=== PATIENT | male | born 1975 | race Caucasian/White ===

== ENCOUNTER 2019-08-18 02:56 | Observation (INO) | payer MEDICAID, OTHER ==
[~2019-08-18] VITALS: Ht 177.8 cm; Wt 180.2 kg
[2019-08-18] VITALS (16 sets, daily range): BP systolic 81–133; BP diastolic 64–108
[2019-08-18] MEDS ORDERED: FUROSEMIDE 40 MG/4 ML INJ (LASIX) IVP STA (03:22)
[2019-08-18] MEDS ORDERED: DILTIAZEM 25 MG/5 ML INJ (CARDIZEM) VIAL IVP STA (03:22)
[2019-08-18] MEDS ORDERED: DILTIAZEM IV FOR DRIP 125 MG in NS (IVPB) 100 ML IV SCH (03:30)
--- NOTE | 2019-08-18 03:30 | ED Dyspnea ---
General Stated Complaint: SOB Source of Information: Patient History of Present Illness Date Seen by Provider: Aug 18, 2019 Time Seen by Provider: 03:01 Initial Comments 43-year-old male presenting with complaints of shortness of breath with cough and racing heart. He has been having increasing shortness of breath over the last 3 or 4 days. He felt like it was to the point he couldn't deal with it anymore tonight. He has increased difficulty when he tries to lay down or lay flat. He has not been running a fever or felt like he had any chills. He has had some increased swelling in his legs especially on the right side. He has a h istory of heart failure as well as atrial fibrillation. He denies any history of diabetes but says that he's on the cusp of being diabetic. He has been having a nonproductive cough. He does feel like his heart is racing at times as well. He is more winded with exertion. He follows with cardiology out of [facility] but does not know who the provider is. He thinks that he saw them a few months ago. He cannot remember what the medicines are that he takes. He follows with Sourav Gordon out of [place]. Allergies and Home Medications Allergies Coded Allergies: No Known Drug Allergies (Unverified , 08/18/19) Patient Home Medication List Home Medication List Reviewed: Yes Review of Systems Review of Systems Constitutional: No chills, No fever; malaise EENTM: No ear pain, No nose congestion Respiratory: cough, dyspnea on exertion; No hemoptysis; short of breath, wheezing Cardiovascular: No chest pain; edema, palpitations Gastrointestinal: no symptoms reported Genitourinary: no symptoms reported Musculoskeletal: no symptoms reported Skin: no symptoms reported Psychiatric/Neurological: Anxiety Past Fmjcxeg-Nkypyv-Vmoshs Hx Past Med/Social Hx: Reviewed Nursing Past Med/Soc Hx Patient Social History Recent Foreign Travel: No Contact w/Someone Who Travel: No Past Medical History Surgeries: Yes Orthopedic (right arm after caught in post splitter) Respiratory: Yes Sleep Apnea Cardiac: Yes Atrial Fibrillation, Cardiomyopathy, Coronary Artery Disease, High Cholesterol, Hypertension, Peripheral Vascular Neurological: No Genitourinary: No Gastrointestinal: No Musculoskeletal: No Endocrine: No HEENT: No Cancer: No Psychosocial: No Physical Exam Vital Signs Vital Signs - First Documented 08/18/19 03:13 Temp 37.1 Pulse 157 Resp 29 B/P (MAP) 161/127 (138) Pulse Ox 97 O2 Delivery Room Air Capillary Refill : Height, Weight, BMI Height: '" Weight: lbs. oz. kg; BMI Method: General Appearance: Moderate Distress (working hard to breath), Obese (morbidly obese) HEENT: PERRL/EOMI, Pharynx Normal Neck: Full Range of Motion, Non Tender, Supple Respiratory: Chest Non Tender, Accessory Muscle Use, Crackles, Decreased Breath Sounds, Respiratory Distress (increased work of breathing), Rhonci; No Stridor; Wheezing Cardiovascular: Normal Peripheral Pulses, Irregularly Irregular, Tachycardia Gastrointestinal: Normal Bowel Sounds, No Pulsatile Mass, Soft Extremity: Normal Capillary Refill, Pedal Edema (3+ pitting edema to BLE) Neurologic/Psychiatric: Alert, Oriented x3, 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 Norm as Tested, Other (anxious) Skin: Warm/Dry Progress/Results/Core Measures Results/Orders Lab Results Laboratory Tests Test 08/18/19 03:46 Range/Units White Blood Count 9.3 4.3-11.0 10^3/uL Red Blood Count 4.40 4.35-5.85 10^6/uL Hemoglobin 11.9 L 13.3-17.7 G/DL Hematocrit 39 L 40-54 % Mean Corpuscular Volume 90 80-99 FL Mean Corpuscular Hemoglobin 27 25-34 PG Mean Corpuscular Hemoglobin Concent 30 L 32-36 G/DL Red Cell Distribution Width 14.9 H 10.0-14.5 % Platelet Count 335 130-400 10^3/uL Mean Platelet Volume 10.0 7.4-10.4 FL Neutrophils (%) (Auto) 74 42-75 % Lymphocytes (%) (Auto) 15 12-44 % Monocytes (%) (Auto) 9 0-12 % Eosinophils (%) (Auto) 1 0-10 % Basophils (%) (Auto) 1 0-10 % Neutrophils # (Auto) 6.9 1.8-7.8 X 10^3 Lymphocytes # (Auto) 1.4 1.0-4.0 X 10^3 Monocytes # (Auto) 0.8 0.0-1.0 X 10^3 Eosinophils # (Auto) 0.1 0.0-0.3 10^3/uL Basophils # (Auto) 0.1 0.0-0.1 10^3/uL Prothrombin Time 14.6 12.2-14.7 SEC INR Comment 1.1 0.8-1.4 Activated Partial Thromboplast Time 31 24-35 SEC Sodium Level 133 L 135-145 MMOL/L Potassium Level 4.8 3.6-5.0 MMOL/L Chloride Level 96 L 98-107 MMOL/L Carbon Dioxide Level 24 21-32 MMOL/L Anion Gap 13 5-14 MMOL/L Blood Urea Nitrogen 10 7-18 MG/DL Creatinine 1.02 0.60-1.30 MG/DL Estimat Glomerular Filtration Rate > 60 BUN/Creatinine Ratio 10 Glucose Level 139 H 70-105 MG/DL Calcium Level 8.8 8.5-10.1 MG/DL Corrected Calcium 9.4 8.5-10.1 MG/DL Magnesium Level 1.5 L 1.6-2.4 MG/DL Total Bilirubin 0.6 0.1-1.0 MG/DL Aspartate Amino Transf (AST/SGOT) 34 5-34 U/L Alanine Aminotransferase (ALT/SGPT) 16 0-55 U/L Alkaline Phosphatase 91 40-136 U/L Troponin I < 0.30 <0.30 NG/ML Pro-B-Type Natriuretic Peptide 4254.0 H <75.0 PG/ML Total Protein 7.4 6.4-8.2 GM/DL Albumin 3.2 3.2-4.5 GM/DL My Orders Orders - IZZY OLIVO MD Cbc With Automated Diff (08/18/19 03:21) Comprehensive Metabolic Panel (08/18/19 03:21) Chest 1 View Ap/Pa Only (08/18/19 03:21) Magnesium (08/18/19 03:21) Ekg Tracing (08/18/19 03:21) O2 (08/18/19 03:21) Ed Iv/Invasive Line Start (08/18/19 03:21) Monitor-Rhythm Ecg Trace Only (08/18/19 03:21) Troponin I Fs (08/18/19 03:21) Probnp Fs (08/18/19 03:21) Protime With Inr (08/18/19 03:21) Partial Thromboplastin Time (08/18/19 03:21) Furosemide Injection (Lasix Injection) (08/18/19 03:22) Diltiazem Injection (Cardizem Injection) (08/18/19 03:22) Ns (Ivpb) (Sodium C... W/Diltiazem Iv Fo (08/18/19 03:30) Vital Signs/I&O 08/18/19 08/18/19 03:13 03:55 Temp 37.1 Pulse 157 122 Resp 29 21 B/P (MAP) 161/127 (138) 146/111 Pulse Ox 97 95 O2 Delivery Room Air Progress Progress Note #1: Progress Note obtain basic labs and CXR with ECG. give diltiazem 10 mg bolus with a drip and 80 mg of Lasix IV to help with fluid overload. Anticipate transfer to hospital, either [facility] or [facility], provided weather permits transport once labs and testing results are back and see how he has responded to treatment here in the ED Progress Note #2: Progress Note Pt having some improvement in his labor of breathing after he got Lasix as he has been diuresing here in the ED. Has labs did not show any acute significant abnormality on CBC. His chemistry showed an elevated BNP value. His chest x-ray showed increased pulmonary vascular congestion with enlarged heart size for cardiomegaly. Discussed with the patient about admission to [facility] and he stated that he was willing to go there. It would be closer for him as well as his family and he was willing to go to see the staff there. D/w Dr. Herrera for [facility] and Dr. Law for Cardiology Initial ECG Impression Date: Aug 18, 2019 Initial ECG Impression Time: 03:13 Initial ECG Rate: 171 Initial ECG Rhythm: A Fib/Flutter Initial ECG Comparisson: No Previous ECG Available Comment Atrial fibrillation with a heart rate 171 beats for minute. Left anterior fascicular block. QT interval 291 ms QTc interval 491 ms. There is no acute ST elevation. No prior tracing available for comparison. Diagnostic Imaging Diagonstic Imaging: Xray Plain Films/CT/US/NM/MRI: chest Comments On my review of his 1 view chest x-ray he has cardiomegaly with increased pulmonary vascular congestion Departure Communication (Admissions) Time/Spoke to Admitting Phy: 04:33 D/w Dr. Herrera for [facility] about admit for CHF exacerbation and Atrial fibrillation with RVR. Pt on diltiazem drip so will place in the ICU and consult Dr. Law with cardiology. Time/Spoke to Consulting Phy: 04:[address] Law from cardiology and will admit the patient to [facility] with Dr. Herrera. Give Lovenox 100 mg subcutaneous 1 for now. If he is able to get better IV access they may change this to a heparin drip once he is at [facility]. Impression Primary Impression: Atrial fibrillation with rapid ventricular response Additional Impressions: Shortness of breath CHF exacerbation Qualified Codes: I50.23 - Acute on chronic systolic (congestive) heart failure Disposition: ADMITTED INPATIENT Condition: Stable Admissions Decision to Admit Reason: Admit from ER (General) Decision to Admit/Date: Aug 18, 2019 Time/Decision to Admit Time: 04:33 Departure-Patient Inst. Referrals: SOURAV GORDON (PCP/Family) Primary Care Physician IZZY OLIVO MD Aug 18, 2019 03:30
[2019-08-18 03:51] LABS: BASOPHILS % (AUTO) 1 % (0-10); EOSINOPHILS % (AUTO) 1 % (0-10); HEMATOCRIT 39 % (40-54); HEMOGLOBIN 11.9 G/DL (13.3-17.7); LYMPHOCYTES # (AUTO) 1.4 X 10^3 (1.0-4.0); LYMPHOCYTES % (AUTO) 15 % (12-44); MEAN CORPUSCULAR HEMOGLOBIN 27 PG (25-34); MEAN CORPUSCULAR HGB CONC 30 G/DL (32-36); MEAN CORPUSCULAR VOLUME 90 FL (80-99); MONOCYTES % (AUTO) 9 % (0-12); NEUTROPHILS # (AUTO) 6.9 X 10^3 (1.8-7.8); NEUTROPHILS % (AUTO) 74 % (42-75); PLATELET COUNT 335 10^3/uL (130-400); RED CELL DISTRIBUTION WIDTH 14.9 % (10.0-14.5); WHITE BLOOD COUNT 9.3 10^3/uL (4.3-11.0)
[2019-08-18 03:52] LABS: BASOPHILS # (AUTO) 0.1 10^3/uL (0.0-0.1); EOSINOPHILS # (AUTO) 0.1 10^3/uL (0.0-0.3); MONOCYTES # (AUTO) 0.8 X 10^3 (0.0-1.0)
[2019-08-18 04:05] LABS: INR 1.1 (0.8-1.4); PROTHROMBIN TIME PATIENT 14.6 SEC (12.2-14.7)
[2019-08-18 04:10] LABS: ALANINE AMINOTRANSFERASE 16 U/L (0-55); ALBUMIN 3.2 GM/DL (3.2-4.5); ALKALINE PHOSPHATASE 91 U/L (40-136); BILIRUBIN,TOTAL 0.6 MG/DL (0.1-1.0); BUN/CREATININE RATIO 10; CALCIUM 8.8 MG/DL (8.5-10.1); CARBON DIOXIDE 24 MMOL/L (21-32); CHLORIDE 96 MMOL/L (98-107); CREATININE SERUM 1.02 MG/DL (0.60-1.30); GFR ESTIMATED > 60; GLUCOSE 139 MG/DL (70-105); MAGNESIUM 1.5 MG/DL (1.6-2.4); POTASSIUM 4.8 MMOL/L (3.6-5.0); SODIUM 133 MMOL/L (135-145); TOTAL PROTEIN 7.4 GM/DL (6.4-8.2)
[2019-08-18] MEDS ORDERED: ENOXAPARIN 100 MG/1 ML (LOVENOX) SYR SC STA (04:37)
--- NOTE | 2019-08-18 06:48 | Pulmonary Consultation ---
History of Present Illness History of Present Illness Date Seen by Provider: Aug 18, 2019 Time Seen by Provider: 06:43 Date of Admission History of Present Illness 43yo with hx of morbid obesity, Afib, CHF presented to [facility] ED secondary to worsening SOB mark with exertion, nonproductive cough, and palpitations over the last 4days. He admits to orthopnea and worsening edema bilateral LE R>L . Denies f/ns/c Allergies and Home Medications Allergies Coded Allergies: No Known Drug Allergies (Unverified , 08/18/19) Past Pfhocoa-Tujyfn-Aamfpj Hx Past Med/Social Hx: Reviewed Nursing Past Med/Soc Hx Patient Social History Alcohol Use: Denies Use Recreational Drug Use: No Smoking Status: Never a Smoker 2nd Hand Smoke Exposure: No Recent Foreign Travel: No Contact w/Someone Who Travel: No Recent Infectious Disease Expo: No Recent Hopitalizations: No Physical Abuse: No Sexual Abuse: No Mistreated: No Fear: No Seasonal Allergies Seasonal Allergies: No Past Medical History Surgeries: Yes Orthopedic (right arm after caught in postdoctoral fellow) Respiratory: Yes Sleep Apnea Cardiac: Yes Atrial Fibrillation, Cardiomyopathy, Coronary Artery Disease, High Cholesterol, Hypertension, Peripheral Vascular Neurological: No Genitourinary: No Gastrointestinal: No Musculoskeletal: No Endocrine: No HEENT: No Cancer: No Psychosocial: No Integumentary: No Blood Disorders: No Review of Systems Time Seen by Provider: 06:55 Sepsis Event Evaluation Height, Weight, BMI Height: '" Weight: lbs. oz. kg; 60.00 BMI Method: Exam Exam Vital Signs Date Time Temp Pulse Resp B/P (MAP) Pulse Ox O2 Delivery O2 Flow Rate FiO2 08/18/19 06:12 133 08/18/19 05:15 117 29 120/68 95 Room Air 08/18/19 03:55 122 21 146/111 95 08/18/19 03:13 37.1 157 29 161/127 (138) 97 Room Air I & O 08/18/19 06:59 Intake Total 15 ml Balance 15 ml Height & Weight Height: '" Weight: lbs. oz. 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
[2019-08-18] MEDS ORDERED: KCL 20 MEQ TAB (K-DUR) PO SCH (06:56)
[2019-08-18] MEDS ORDERED: POTASSIUM CL 10MEQ/50ML IVPB 50 ML IV SCH (06:56)
[2019-08-18] MEDS ORDERED: MAGNESIUM 1 GM/100 ML IVPB 100 ML IV SCH (06:57)
[2019-08-18] MEDS ORDERED: ONDANSETRON 4 MG/2 ML (SDV) Z0FRAN IV PRN (07:15)
--- NOTE | 2019-08-18 07:16 | Diagnostic Imaging Report ---
INDICATION: Shortness of air x3 days. TECHNIQUE: Single view chest 3:47 AM. CORRELATION STUDY: None FINDINGS: Somewhat limited chest radiograph. The heart size is enlarged and mediastinum prominent. Vasculature also appears to be increased. Lung troncoso are markedly limited assessment. Superimposed edema versus infiltrate in the perihilar and basilar regions would be difficult to exclude. IMPRESSION: 1. Suboptimal portable chest demonstrates suggestion of some increased vascular congestion. Superimposed areas of edema and/or infiltrate in the perihilar and basilar regions would be difficult to exclude. Dictated by: Dictated on workstation # [id number]
[2019-08-18 07:48] LABS: ABG BASE EXCESS 7.1 MMOL/L (-2.5-2.5); ABG OXYGEN SATURATION 96 % (94-100); ABG PCO2 44 MMHG (35-45); ABG PH 7.46 (7.37-7.43); ABG PO2 79 MMHG (79-93); ABG TCO2 32.5 MMOL/L (21.0-31.0)
[2019-08-18 07:49] LABS: ALLENS TEST YES-POS; INSPIRED O2 2 L; PATIENT TEMP 36.7; VENTILATOR NO
--- NOTE | 2019-08-18 09:52 | Consultation-Cardiology ---
HPI-Cardiology Cardiology Consultation Date of Consultation 08/18/19 Date of Admission Time Seen by Provider: 09:47 Indication: Shortness of breath, atrial fibrillation HPI 43 years old gentleman with history of morbid obesity, paroxysmal atrial fibrill ation, seen a seed tester about a year ago, has underlying sleep apnea, noncompliant with medication. Started having increasing shortness of breath, came into the emergency room and noted to be in atrial fibrillation with rapid ventricular response. He denied any chest pain. Having generalized fatigue and peripheral edema. Morbidly obese. Noncompliant with his sleep apnea Home Medications & Allergies Allergies: Coded Allergies: No Known Drug Allergies (Unverified , 08/18/19) Home Medication List Reviewed: Yes FYI-Ogcfvr-Fdrepm Hx Patient Social History Alcohol Use: Denies Use Recreational Drug Use: No Smoking Status: Never a Smoker 2nd Hand Smoke Exposure: No Recent Foreign Travel: No Recent Infectious Disease Expo: No Recent Hopitalizations: No Immunizations Up To Date Date of Pneumonia Vaccine: Aug 18, 2017 Past Medical History Discussed below Family Medical History Family Medical Hx Noncontributory Review of Systems-General Review of Systems Constitutional: see HPI; No chills, No fever; malaise, weakness EENTM: see HPI; No ear pain, No nose congestion Respiratory: see HPI, cough, dyspnea on exertion; No hemoptysis; short of breath, wheezing Cardiovascular: see HPI; No chest pain; edema, palpitations Gastrointestinal: no symptoms reported, see HPI Genitourinary: no symptoms reported, see HPI Musculoskeletal: no symptoms reported, see HPI Skin: no symptoms reported, see HPI Psychiatric/Neurological: See HPI, Anxiety Reviewed Test Results Reviewed Test Results Lab Laboratory Tests Test 08/18/19 03:46 08/18/19 07:36 Range/Units White Blood Count 9.3 4.3-11.0 10^3/uL Red Blood Count 4.40 4.35-5.85 10^6/uL Hemoglobin 11.9 L 13.3-17.7 G/DL Hematocrit 39 L 40-54 % Mean Corpuscular Volume 90 80-99 FL Mean Corpuscular Hemoglobin 27 25-34 PG Mean Corpuscular Hemoglobin Concent 30 L 32-36 G/DL Red Cell Distribution Width 14.9 H 10.0-14.5 % Platelet Count 335 130-400 10^3/uL Mean Platelet Volume 10.0 7.4-10.4 FL Neutrophils (%) (Auto) 74 42-75 % Lymphocytes (%) (Auto) 15 12-44 % Monocytes (%) (Auto) 9 0-12 % Eosinophils (%) (Auto) 1 0-10 % Basophils (%) (Auto) 1 0-10 % Neutrophils # (Auto) 6.9 1.8-7.8 X 10^3 Lymphocytes # (Auto) 1.4 1.0-4.0 X 10^3 Monocytes # (Auto) 0.8 0.0-1.0 X 10^3 Eosinophils # (Auto) 0.1 0.0-0.3 10^3/uL Basophils # (Auto) 0.1 0.0-0.1 10^3/uL Prothrombin Time 14.6 12.2-14.7 SEC INR Comment 1.1 0.8-1.4 Activated Partial Thromboplast Time 31 24-35 SEC Sodium Level 133 L 135-145 MMOL/L Potassium Level 4.8 3.6-5.0 MMOL/L Chloride Level 96 L 98-107 MMOL/L Carbon Dioxide Level 24 21-32 MMOL/L Anion Gap 13 5-14 MMOL/L Blood Urea Nitrogen 10 7-18 MG/DL Creatinine 1.02 0.60-1.30 MG/DL Estimat Glomerular Filtration Rate > 60 BUN/Creatinine Ratio 10 Glucose Level 139 H 70-105 MG/DL Calcium Level 8.8 8.5-10.1 MG/DL Corrected Calcium 9.4 8.5-10.1 MG/DL Magnesium Level 1.5 L 1.6-2.4 MG/DL Total Bilirubin 0.6 0.1-1.0 MG/DL Aspartate Amino Transf (AST/SGOT) 34 5-34 U/L Alanine Aminotransferase (ALT/SGPT) 16 0-55 U/L Alkaline Phosphatase 91 40-136 U/L Troponin I < 0.30 <0.30 NG/ML Pro-B-Type Natriuretic Peptide 4254.0 H <75.0 PG/ML Total Protein 7.4 6.4-8.2 GM/DL Albumin 3.2 3.2-4.5 GM/DL Blood Gas Puncture Site RT RAD Blood Gas Patient Temperature 36.7 Arterial Blood pH 7.46 H 7.37-7.43 Arterial Blood Partial Pressure CO2 44 35-45 MMHG Arterial Blood Partial Pressure O2 79 79-93 MMHG Arterial Blood HCO3 31 H 23-27 MMOL/L Arterial Blood Total CO2 32.5 H 21.0-31.0 MMOL/L Arterial Blood Oxygen Saturation 96 94-100 % Arterial Blood Base Excess 7.1 H -2.5-2.5 MMOL/L Carlos Test YES-POS Blood Gas Ventilator Setting NO Blood Gas Inspired Oxygen 2 L Physical Exam Physical Exam Vital Signs Vital Signs - First Documented 08/18/19 08/18/19 03:13 06:00 Temp 37.1 Pulse 157 Resp 29 B/P (MAP) 161/127 (138) Pulse Ox 97 O2 Delivery Room Air O2 Flow Rate 2.00 Capillary Refill : Less Than 3 Seconds Height, Weight, BMI Height: '" Weight: lbs. oz. kg; 57.88 BMI Method: General Appearance: Moderate Distress, Obese (morbidly obese) Eyes: Bilateral Eye Normal Inspection, Bilateral Eye PERRL, Bilateral Eye EOMI HEENT: PERRL/EOMI, Pharynx Normal Neck: Full Range of Motion, Non Tender, Supple Respiratory: Chest Non Tender, Accessory Muscle Use, Crackles, Decreased Breath Sounds, Respiratory Distress (increased work of breathing), Rhonci; No Stridor; Wheezing Cardiovascular: Normal Peripheral Pulses, Irregularly Irregular, Tachycardia Gastrointestinal: Normal Bowel Sounds, No Pulsatile Mass, Soft Back: Normal Inspection, No CVA Tenderness, No Vertebral Tenderness Extremity: Normal Capillary Refill, Pedal Edema (3+ pitting edema to BLE) Neurologic/Psychiatric: Alert, 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 Increased risk of stroke, given Lovenox 100 mg in the emergency room, started on Eliquis 5 mg twice daily Hypertension, continue monitoring blood pressure while on the current medication Morbid obesity Shortness of breath, peripheral edema, probably heart failure secondary to atrial fibrillation and tachycardia, evaluate 2-D echocardiogram COPD/obstructive sleep apnea noncompliant with his C Pap Peripheral edema, started on Lasix Noncompliant with medication. Clinical Quality Measures DVT/VTE Risk/Contraindication: Risk Factor Score Per Nursin RFS Level Per Nursing on Admit: 3=High RODGER LOZADA MD Aug 18, 2019 09:52
[2019-08-18] MEDS ORDERED: meTOprolol 5 MG/5 ML (LOPRESSOR) VIAL IV ONE (10:00)
[2019-08-18] MEDS: FUROSEMIDE 40 MG/4 ML INJ (LASIX) IVP SCH ×2 (10:46→17:59)
[2019-08-18] MEDS: DILTIAZEM 60 MG (CARDIZEM) TAB PO SCH ×4 (10:47→23:43)
[2019-08-18] MEDS: meTOprolol TARTRATE 50 MG (LOPRESSOR) TAB PO SCH ×2 (10:47→21:24)
[2019-08-18] MEDS: APIXABAN 5 MG (ELIQUIS) TABLET PO SCH ×2 (10:47→21:24)
--- NOTE | 2019-08-18 10:47 | NUR ---
THIS RN SPOKE WITH DR LOZADA REGARDING LASIX ORDER TO START NOW, NOTIFIED THAT PT RECEIVED 80MG LASIX IV THIS AM. DR LOZADA STATED TO START LASIX THIS EVENING.
--- NOTE | 2019-08-18 13:22 | History & Physical-Hospitalist ---
History of Present Illness HPI/Chief Complaint Chief complaint: Atrial fibrillation with rapid ventricular response with congestive heart failure with methamphetamine use History of present illness: This is a 43-year-old white male clinic patient of formerly [facility] in [place] who presented with palpitations and shortness of breath was found to have atrial fibrillation with rapid ventricular response placed on Cardizem drip and cardiology consulted. Patient was placed in the ICU with close monitoring. He does admit to methamphetamine use and he is trying to quit. He is morbidly obese and does not wear oxygen or C Pap or BiPAP but appears to have significant obesity hypoventilation syndrome. He does have lower extremity venous stasis changes also. Source: patient, RN/MD, old records Exam Limitations: no limitations Date Seen 08/18/19 Time Seen by a Provider: 10:30 Attending Physician Toshia Herrera Rhonda L Arnp Referring Physician Date of Admission Aug 18, 2019 at 04:33 Home Medications & Allergies Home Medications Reviewed patient Home Medication Reconciliation performed by pharmacy medication reconciliations test technician and/or nursing. Patients Allergies have been reviewed. Allergies Allergies Coded Allergies No Known Drug Allergies (Unverified08/18/19) Past Cudopfw-Andoah-Wqeqmk Hx Past Med/Social Hx: Reviewed Nursing Past Med/Soc Hx, Reviewed and Corrections made Patient Social History Marrital Status: single Employed/Student: unemployed (lives with his mother) Alcohol Use: Denies Use Recreational Drug Use: No Smoking Status: Never a Smoker 2nd Hand Smoke Exposure: No Recent Foreign Travel: No Contact w/other who traveled: No Recent Hopitalizations: No Recent Infectious Disease Expo: No Immunizations Up To Date Date of Pneumonia Vaccine: Aug 18, 2017 Seasonal Allergies Seasonal Allergies: No Past Medical History Surgeries: Orthopedic (right arm after caught in postal transportation clerk) Cardiac: Atrial Fibrillation, Cardiomyopathy, Coronary Artery Disease, High Cho lesterol, Hypertension, Peripheral Vascular History of Blood Disorders: No Review of Systems Constitutional: see HPI Respiratory: dyspnea on exertion Cardiovascular: palpitations Physical Exam Physical Exam Vital Signs Vital Signs - First Documented 08/18/19 08/18/19 03:13 06:00 Temp 37.1 Pulse 157 Resp 29 B/P (MAP) 161/127 (138) Pulse Ox 97 O2 Delivery Room Air O2 Flow Rate 2.00 Capillary Refill : Less Than 3 Seconds Height, Weight, BMI Height: '" Weight: lbs. oz. kg; 57.88 BMI Method: General Appearance: Anxious, Chronically ill, Mild Distress, Obese (morbidly) Eyes: Right Eye Normal Inspection, Right Eye PERRL HEENT: PERRL/EOMI, Normal ENT Inspection, Pharynx Normal, Moist Mucous Membranes Neck: Full Range of Motion, Normal Inspection, Non Tender Respiratory: Chest Non Tender, Lungs Clear, Normal Breath Sounds, No Accessory Muscle Use, No Respiratory Distress Cardiovascular: No Gallop, No JVD, No Murmur, Normal Peripheral Pulses, Irregularly Irregular Gastrointestinal: Normal Bowel Sounds, No Organomegaly, No Pulsatile Mass, Non Tender, Soft Back: Normal Inspection, No CVA Tenderness, No Vertebral Tenderness Extremity: Normal Capillary Refill, Normal Inspection, Normal Range of Motion, Non Tender, No Calf Tenderness, Pedal Edema (chronic venous stasis changes) Neurologic/Psychiatric: Alert, Oriented x3, No Motor/Sensory Deficits, Normal Mood/Affect, hand splitter II-XII Norm as Tested Skin: Normal Color, Warm/Dry Lymphatic: No Adenopathy Results Results/Procedures Labs Laboratory Tests 08/18/19 03:46 Patient resulted labs reviewed. Assessment/Plan Admission Diagnosis Assessment: Atrial fibrillation with rapid ventricular response Congestive heart failure Morbid obesity Suspect obesity hypoventilation syndrome Chronic venous stasis of lower extremities Methamphetamine use Plan: Ceased methamphetamine use Cardizem transition to oral Congestive heart failure management Home meds eval Admission Status: Inpatient Order (span 2 midnights) Reason for Inpatient Admission: A. fib with RVR Diagnosis/Problems Diagnosis/Problems (1) Atrial fibrillation with rapid ventricular response Status: Acute (2) Methamphetamine abuse (3) Morbid obesity (4) Obesity hypoventilation syndrome (5) CHF exacerbation Status: Acute Qualifiers: Heart failure type: systolic Qualified Codes: I50.23 - Acute on chronic systolic (congestive) heart failure Clinical Quality Measures DVT/VTE Risk/Contraindication: Risk Factor Score Per Nursin RFS Level Per Nursing on Admit: 3=High TOSHIA HERRERA DO Aug 18, 2019 13:22
[2019-08-18] MEDS ORDERED: MELATONIN 3 MG TABLET ONE (21:40)
[2019-08-18] MEDS ORDERED: diphenhydrAMINE 25 MG TAB (BENADRYL) PO ONE (21:41)
--- NOTE | 2019-08-18 23:30 | NUR ---
RECEIVED REPORT FROM CHILD LIFE SPECIALIST, MARTIN, REGARDING TRANSFER. PT TRANSFERRED TO ROOM 415 VIA W/C BY NOEL AND PCT. PT ORIENTED TO ROOM. HE PREFERRED TO SIT/SLEEP IN RECLINER INSTEAD OF BED. M/S PCT TOOK VS, ALL WNL. PT ASKED FOR ADDITIONAL DOSES OF MELATONIN AND BENADRYL WHICH WERE ADMIN BY THIS RN. HE IS WATCHING TV IN ROOM AND VOICES NO COMPLAINTS OR CONCERNS AT THIS TIME. WILL CONTINUE TO MONITOR.
[2019-08-18] MEDS: diphenhydrAMINE 25 MG TAB (BENADRYL) PO PRN (23:35)
[2019-08-18] MEDS: MELATONIN 3 MG TABLET PO PRN (23:35)
[2019-08-19] VITALS (8 sets, daily range): BP systolic 101–134; BP diastolic 58–85
--- NOTE | 2019-08-19 04:24 | NUR ---
PT C/O SOB WITH 02 1 L NC. 02 SATS AT 94 %. HE IS SITTING UP IN CHAIR. DR SAUNDERS NOTIFIED AND ORDERED ALBUTEROL NEB TX Q 6. RT, DAYNE, NOTIFIED WELL PT.
[2019-08-19] MEDS ORDERED: RT-ALBUTEROL/IPRATROPIUM 3 ML (DUONEB) VIAL INH PRN (04:30)
[2019-08-19] MEDS: RT-ALBUTEROL/IPRATROPIUM 3 ML (DUONEB) VIAL INH SCH ×3 (04:35→19:41)
[2019-08-19] MEDS: FUROSEMIDE 40 MG/4 ML INJ (LASIX) IVP SCH ×2 (06:08→16:33)
[2019-08-19] MEDS: DILTIAZEM 60 MG (CARDIZEM) TAB PO SCH ×3 (06:08→18:47)
--- NOTE | 2019-08-19 07:45 | Diagnostic Imaging Report ---
INDICATION: Atrial fibrillation with rapid ventricular response. TECHNIQUE: Single view chest 3:04 AM. CORRELATION STUDY: 08/18/2019 FINDINGS: Heart size remains enlarged. Vasculature is slightly increased. Lung troncoso overall appear generally clear without definitive infiltrate. There is again limitations in assessment on this portable study. IMPRESSION: 1. Stable cardiac enlargement with component of mild vascular congestion present. Dictated by: Dictated on workstation # [id number]
[2019-08-19] MEDS: APIXABAN 5 MG (ELIQUIS) TABLET PO SCH ×2 (08:49→20:53)
[2019-08-19] MEDS: meTOprolol TARTRATE 50 MG (LOPRESSOR) TAB PO SCH ×2 (08:49→20:54)
--- NOTE | 2019-08-19 09:13 | Pulmonary Progress Note ---
Subjective Time Seen by a Provider: 09:12 Subjective/Events-last exam Pt appears to be doing better. Sepsis Event Evaluation Height, Weight, BMI Height: '" Weight: lbs. oz. kg; 57.88 BMI Method: Exam Exam Vital Signs Date Time Temp Pulse Resp B/P (MAP) Pulse Ox O2 Delivery O2 Flow Rate FiO2 08/19/19 07:00 89 08/19/19 04:35 36.4 89 94 21 08/19/19 04:32 36.4 89 28 134/64 (87) 94 Nasal Cannula 1.00 08/19/19 01:00 86 08/18/19 22:00 138 20 126/105 (112) 98 Nasal Cannula 2.00 08/18/19 21:00 95 17 100/84 (89) 96 Nasal Cannula 2.00 08/18/19 20:00 95 Nasal Cannula 1.00 08/18/19 20:00 92 20 119/103 (108) 97 Nasal Cannula 2.00 08/18/19 20:00 37.4 08/18/19 19:47 90 08/18/19 19:00 92 16 109/86 (94) 96 Nasal Cannula 2.00 08/18/19 18:00 101 110/83 (92) 98 Nasal Cannula 2.00 08/18/19 17:00 94 107/89 (95) 96 Nasal Cannula 2.00 08/18/19 16:00 35.8 08/18/19 16:00 86 110/95 (100) 98 Nasal Cannula 2.00 08/18/19 16:00 95 Nasal Cannula 1.00 08/18/19 15:00 68 103/78 (86) 99 Nasal Cannula 2.00 08/18/19 14:00 87 81/64 (70) 99 Nasal Cannula 2.00 08/18/19 13:00 78 115/73 (87) 90 Nasal Cannula 2.00 08/18/19 12:33 111 08/18/19 12:00 97 Nasal Cannula 1.00 08/18/19 12:00 35.4 08/18/19 12:00 101 112/84 (93) 98 Nasal Cannula 2.00 08/18/19 11:00 84 119/92 (101) 96 Nasal Cannula 2.00 08/18/19 10:00 101 97 Nasal Cannula 2.00 I & O 08/19/19 07:00 Intake Total 2900 ml Output Total 2776 ml Balance 124 ml Height & Weight Height: '" Weight: lbs. oz. kg; 57.88 BMI Method: General Appearance: Anxious, Chronically ill, Mild Distress, Obese (morbidly) HEENT: PERRL/EOMI, Normal ENT Inspection, Pharynx Normal, Moist Mucous Membranes Neck: Full Range of Motion, Normal Inspection, Non Tender Respiratory: Chest Non Tender, Lungs Clear, Normal Breath Sounds, No Accessory Muscle Use, No Respiratory Distress Cardiovascular: No Gallop, No JVD, No Murmur, Normal Peripheral Pulses, Irregularly Irregular Capillary Refill: Less Than 3 Seconds Extremity: Normal Capillary Refill, Normal Inspection, Normal Range of Motion, Non Tender, No Calf Tenderness, Pedal Edema (chronic venous stasis changes) Neurologic/Psychiatric: Alert, Oriented x3, No Motor/Sensory Deficits, Normal Mood/Affect, fingerer II-XII Norm as Tested Skin: Normal Color, Warm/Dry Lymphatic: No Adenopathy Results Lab Laboratory Tests 08/18/19 03:46 Assessment/Plan Assessment/Plan SOB -- improved AFib RVR - now controlled -Cardizem -S/P lovenox while at [facility] -Cardiology consulted Morbid obesity with probable OHS -Check ABG -- c02 44 Hx of ZULLY -Pt is noncompliant with CPAP therapy CHF -Lasix s/p 80mg of Lasix at [facility] -Check echo -Cardiology following Hyponatremia secondary to volume overload -DEE Renae DO Aug 19, 2019 09:13
--- NOTE | 2019-08-19 10:29 | Cardiology Progress Note ---
Subjective Date Seen by Provider: Aug 19, 2019 Time Seen by Provider: 10:27 Subjective/Events-last exam Patient is sitting in a chair, feeling better. Asking to go home Review of Systems General: No Chills, No Night Sweats; Fatigue; No Malaise, No Appetite, No Other HEENT: No Head Aches, No Visual Changes, No Eye Pain, No Ear Pain, No Dysphasia, No Sinus Congestion, No Post Nasal Drip, No Sore Throat, No Other Pulmonary: Dyspnea; No Cough, No Pleuritic Chest Pain, No Other Cardiovascular: Edema; No: Chest Pain, Palpitations, Orthopnea, Paroxysmal Noc. Dyspnea, Lt Headedness, Other Objective-Cardiology Exam Last Set of Vital Signs Vital Signs 08/19/19 08/19/19 08/19/19 08/19/19 04:32 04:35 07:00 09:16 Temp 36.4 Pulse 89 Resp 28 B/P (MAP) 134/64 (87) Pulse Ox 94 O2 Delivery Nasal Cannula O2 Flow Rate 1.00 FiO2 21 Capillary Refill : Less Than 3 Seconds I&O Intake and Output 08/19/19 00:00 Intake Total 2155 ml Output Total 4776 ml Balance -2621 ml Intake Oral 2140 ml IV Total 15 ml Output Urine Total 4775 ml Stool Total 1 ml # Voids 1 Daily Weight Change No General: Alert, Oriented X3, Cooperative HEENT: Atraumatic, PERRLA Neck: Supple, No JVD, No Thyromegaly Lungs: Clear to Auscultation, Normal Air Movement Heart: Normal S1, Normal S2, No Murmurs, Other (Atrial fibrillation) Abdomen: Normal Bowel Sounds, Soft, No Tenderness, No Hepatosplenomegaly, No Masses Extremities: No Clubbing, No Cyanosis, Normal Pulses, No Tenderness/Swelling, Other (Peripheral edema) Skin: No Rashes, No Breakdown, No Significant Lesion Neuro: Normal Gait, Normal Speech, Strength at 5/5 X4 Ext, Normal Tone, Sensation Intact Psych/Mental Status: Mental Status NL, Mood NL A/P-Cardiology Admission Diagnosis Atrial fibrillation Tachycardia Shortness of breath Hypertension Assessment/Plan Paroxysmal atrial fibrillation, rate is better controlled. Continue on oral Cardizem and metoprolol and monitor. Continue on Eliquis Increased risk of stroke, tolerating Eliquis well. Continue on current medication Hypertension, continue monitoring blood pressure while on the current medication Morbid obesity Shortness of breath, peripheral edema, probably heart failure secondary to atrial fibrillation and tachycardia, evaluate 2-D echocardiogram COPD/obstructive sleep apnea noncompliant with his C Pap Peripheral edema, started on Lasix Noncompliant with medication. Clinical Quality Measures DVT/VTE Risk/Contraindication: Risk Factor Score Per Nursin RFS Level Per Nursing on Admit: 3=High RODGER LOZADA MD Aug 19, 2019 10:29
--- NOTE | 2019-08-19 10:39 | NUR ---
DANNIELLE, MOTHER, CALLED AND I GAVE UPDATE AND DISCUSSED HIS MEDS. ADVISED ME THAT HIS DOG IS FINE AND ASKED FOR ME TO TELL HIM THIS. SHE STATED THAT HE CAN CALL HER ON CELL PHONE.
--- NOTE | 2019-08-19 12:01 | Progress Note - Hospitalist ---
Subjective HPI/CC On Admission Date Seen by Provider: Aug 19, 2019 Time Seen by Provider: 11:00 Chief complaint: Atrial fibrillation with rapid ventricular response with congestive heart failure with methamphetamine use History of present illness: This is a 43-year-old white male clinic patient of [facility] in [place] who presented with palpitations and shortness of breath was found to have atrial fibrillation with rapid ventricular response placed on Cardizem drip and cardiology consulted. Patient was placed in the ICU with close monitoring. He does admit to methamphetamine use and he is trying to quit. He is morbidly obese and does not wear oxygen or C Pap or BiPAP but appears to have significant obesity hypoventilation syndrome. He does have lower extremity venous stasis changes also. Subjective/Events-last exam Patient doing better Converted to NSR last night when went to bathroom No hypoxia noted Poor motivation Morbid obesity DC planning for tomorrow? Review of Systems General: Fatigue Pulmonary: Dyspnea Objective Exam Vital Signs Vital Signs Date Time Temp Pulse Resp B/P (MAP) Pulse Ox O2 Delivery O2 Flow Rate FiO2 08/19/19 12:19 80 08/19/19 11:39 36.7 20 101/58 (72) 92 Room Air 08/19/19 09:16 1.00 08/19/19 04:35 21 Capillary Refill : Less Than 3 Seconds General Appearance: No Apparent Distress, WD/WN, Chronically ill, Obese Respiratory: Chest Non Tender, Lungs Clear, Normal Breath Sounds, No Accessory Muscle Use, No Respiratory Distress, Decreased Breath Sounds Cardiovascular: Regular Rate, Rhythm, No Edema, No Gallop, No JVD, No Murmur, Normal Peripheral Pulses Neurologic/Psychiatric: Alert, Oriented x3, No Motor/Sensory Deficits, Normal Mood/Affect Results/Procedures Lab Patient resulted labs reviewed. Assessment/Plan Assessment and Plan Assess & Plan/Chief Complaint Assessment: Atrial fibrillation with rapid ventricular response now NSR converted last night Congestive heart failure Morbid obesity Suspect obesity hypoventilation syndrome Chronic venous stasis of lower extremities Methamphetamine use Plan: Ceased methamphetamine use Cardizem transitioned to oral Congestive heart failure management Home meds eval Home O2 eval DC tomorrow Poor prognosis given CHANCE and poor motivation Diagnosis/Problems Diagnosis/Problems (1) Atrial fibrillation with rapid ventricular response Status: Acute (2) Methamphetamine abuse (3) Morbid obesity (4) Obesity hypoventilation syndrome (5) CHF exacerbation Status: Acute Qualifiers: Heart failure type: systolic Qualified Codes: I50.23 - Acute on chronic systolic (congestive) heart failure Clinical Quality Measures DVT/VTE Risk/Contraindication: Risk Factor Score Per Nursin RFS Level Per Nursing on Admit: 3=High KARIN SAUNDERS DO Aug 19, 2019 12:01
--- NOTE | 2019-08-19 16:53 | NUR ---
PATIENT WAS 86% ON ROOM AIR QUALIFIES PATIENT FOR HOME OXYGEN Addendum: 08/19/19 at 1654 by ROGER LOPEZ RT Amended: Links added.
[2019-08-19] MEDS: MELATONIN 3 MG TABLET PO PRN (21:04)
[2019-08-19] MEDS: diphenhydrAMINE 25 MG TAB (BENADRYL) PO PRN (21:04)
[2019-08-20] VITALS: BP 116/67
[2019-08-20] MEDS: RT-ALBUTEROL/IPRATROPIUM 3 ML (DUONEB) VIAL INH SCH ×3 (00:05→16:26)
[2019-08-20] MEDS: DILTIAZEM 60 MG (CARDIZEM) TAB PO SCH ×2 (00:06→06:09)
[2019-08-20 04:00] VITALS: BP 121/75
[2019-08-20] MEDS: FUROSEMIDE 40 MG/4 ML INJ (LASIX) IVP SCH ×2 (06:09→17:22)
[2019-08-20 07:03] LABS: BASOPHILS % (AUTO) 0 % (0-10); EOSINOPHILS # (AUTO) 0.2 10^3/uL (0.0-0.3); EOSINOPHILS % (AUTO) 3 % (0-10); HEMATOCRIT 39 % (40-54); LYMPHOCYTES # (AUTO) 1.6 X 10^3 (1.0-4.0); LYMPHOCYTES % (AUTO) 22 % (12-44); MEAN CORPUSCULAR HEMOGLOBIN 27 PG (25-34); MEAN CORPUSCULAR HGB CONC 31 G/DL (32-36); MEAN CORPUSCULAR VOLUME 88 FL (80-99); MEAN PLATELET VOLUME 9.5 FL (7.4-10.4); MONOCYTES % (AUTO) 14 % (0-12); NEUTROPHILS # (AUTO) 4.5 X 10^3 (1.8-7.8); NEUTROPHILS % (AUTO) 62 % (42-75); PLATELET COUNT 355 10^3/uL (130-400); RED CELL DISTRIBUTION WIDTH 15.4 % (10.0-14.5); WHITE BLOOD COUNT 7.3 10^3/uL (4.3-11.0)
[2019-08-20 07:27] LABS: ALANINE AMINOTRANSFERASE 17 U/L (0-55); ALBUMIN 3.3 GM/DL (3.2-4.5); ALKALINE PHOSPHATASE 89 U/L (40-136); BILIRUBIN,TOTAL 0.5 MG/DL (0.1-1.0); BUN/CREATININE RATIO 14; CALCIUM 8.7 MG/DL (8.5-10.1); CARBON DIOXIDE 26 MMOL/L (21-32); CHLORIDE 98 MMOL/L (98-107); CREATININE SERUM 1.27 MG/DL (0.60-1.30); GFR ESTIMATED > 60; GLUCOSE 95 MG/DL (70-105); MAGNESIUM 1.7 MG/DL (1.6-2.4); PHOSPHORUS 3.3 MG/DL (2.3-4.7); POTASSIUM 3.6 MMOL/L (3.6-5.0); SODIUM 137 MMOL/L (135-145); TOTAL PROTEIN 7.2 GM/DL (6.4-8.2)
--- NOTE | 2019-08-20 07:55 | Diagnostic Imaging Report ---
INDICATION: Atrial fibrillation and congestive heart failure Upright portable AP view of the chest is obtained. Since the examination of one day earlier, there is continued cardiomegaly with mild pulmonary venous congestion. No overt edema is identified. There is no evidence of pneumothorax or significant pleural fluid. IMPRESSION: Continued cardiomegaly with borderline pulmonary venous congestion. Dictated by: Dictated on workstation # [id number]
[2019-08-20 08:00] VITALS: BP 126/68
[2019-08-20] MEDS: meTOprolol TARTRATE 50 MG (LOPRESSOR) TAB PO SCH (08:00)
[2019-08-20] MEDS: APIXABAN 5 MG (ELIQUIS) TABLET PO SCH (08:00)
--- NOTE | 2019-08-20 09:33 | Cardiology Progress Note ---
Subjective Date Seen by Provider: Aug 20, 2019 Time Seen by Provider: 09:29 Subjective/Events-last exam Patient is sitting up in chair asleep. Easily awakens to answer questions. Denies any chest pain or palpitations. Review of Systems General: No Chills, No Night Sweats; Fatigue; No Malaise, No Appetite, No Other HEENT: No Head Aches, No Visual Changes, No Eye Pain, No Ear Pain, No Dysphasia, No Sinus Congestion, No Post Nasal Drip, No Sore Throat, No Other Pulmonary: Dyspnea; No Cough, No Pleuritic Chest Pain, No Other Cardiovascular: Edema; No: Chest Pain, Palpitations, Orthopnea, Paroxysmal Noc. Dyspnea, Lt Headedness, Other Objective-Cardiology Exam Last Set of Vital Signs Vital Signs 08/19/19 08/20/19 20:44 09:51 O2 Flow Rate 0.00 FiO2 21 Capillary Refill : Less Than 3 Seconds I&O Intake and Output 08/20/19 00:00 Intake Total 2555 ml Balance 2555 ml Intake Oral 2555 ml # Voids 10 General: Alert, Oriented X3, Cooperative HEENT: Atraumatic, PERRLA Neck: Supple, No JVD, No Thyromegaly Lungs: Clear to Auscultation, Normal Air Movement Heart: Regular Rate, Normal S1, Normal S2, No Murmurs Abdomen: Normal Bowel Sounds, Soft, No Tenderness, No Hepatosplenomegaly, No Masses Extremities: No Clubbing, No Cyanosis, Normal Pulses, No Tenderness/Swelling, Other (Peripheral edema) Skin: No Rashes, No Breakdown, No Significant Lesion Neuro: Normal Gait, Normal Speech, Strength at 5/5 X4 Ext, Normal Tone, Sensation Intact Psych/Mental Status: Mental Status NL, Mood NL Results Lab Laboratory Tests 08/20/19 06:25 A/P-Cardiology Admission Diagnosis Atrial fibrillation Tachycardia Shortness of breath Hypertension Assessment/Plan Paroxysmal atrial fibrillation, rate is better controlled. Currently sinus rhythm. Continue on Cardizem, metoprolol and Eliquis CHF, acute LV systolic dysfunction with EF 20-25%. Starting on Toprol and Entresto, arrange for LifeVest fitting and monitor as an outpatient. Educated on compliance Increased risk of stroke, tolerating Eliquis well. Continue on current medication Hypertension, continue monitoring blood pressure while on the current medication Morbid obesity Shortness of breath, peripheral edema, patient reports improvement of symptoms. Continue to diurese. COPD/obstructive sleep apnea noncompliant with his C Pap Peripheral edema, continue Lasix. Noncompliant with medication. Patient was seen and evaluated with Carine, examination performed, management plan was discussed, agree with the current scribed note, I made few changes to the note using Italic font Patient is feeling better, asking to go home Severe cardiomyopathy noted, unknown etiology, could be secondary to atrial fibrillation, underlying ischemic etiology cannot be excluded Planning to evaluate stress test as an outpatient Started on multiple medication as described above, educated in length on compliance with medication I will evaluate him for LifeVest due to the increased risk of sudden cardiac Clinical Quality Measures DVT/VTE Risk/Contraindication: Risk Factor Score Per Nursin RFS Level Per Nursing on Admit: 3=High CARINE GARCIA Aug 20, 2019 09:33 RODGER LOZADA MD Aug 20, 2019 11:38
--- NOTE | 2019-08-20 09:52 | NUR ---
PT HAS BEEN IN ROOM WITH O2 OFF FOR UNKNOWN AMOUNT OF TIME. PTS SP02 WAS 82% . 02 APPLIED AT 2LPM, SP02 RETURNED TO 94% AFTER 3MINS. PT QUALIFIES FOR 2LPM AT ALL TIME. PT KEEPS REMOVING 02 PT NON-COMPLIANT Addendum: 08/20/19 at 0954 by YIN RICCI RT Amended: Links added.
[2019-08-20] MEDS ORDERED: POTA10TA10 PO (10:38)
[2019-08-20] MEDS ORDERED: APIX5TAB PO (10:38)
[2019-08-20] MEDS ORDERED: FURO-124 PO (10:38)
[2019-08-20] MEDS ORDERED: METO50TA15 PO (10:38)
[2019-08-20] MEDS ORDERED: DILT60TA PO (10:38)
--- NOTE | 2019-08-20 10:38 | Discharge Summary ---
Discharge Summary Hospital Course Was the Problem List Reviewed?: Yes Problems/Dx: (1) Atrial fibrillation with rapid ventricular response Status: Acute (2) Methamphetamine abuse (3) Morbid obesity (4) Obesity hypoventilation syndrome (5) CHF exacerbation Status: Acute Qualifiers: Qualified Codes: I50.23 - Acute on chronic systolic (congestive) heart failure Hospital Course Date of Admission: Aug 18, 2019 at 04:33 Admission Diagnosis : Family Physician/Provider: Ashely Gordon Date of Discharge: 08/20/19 Discharge Diagnosis: AF w/RVR, OHS, Hypoxia, O2 dependence, Meth use Hospital Course: Hospital Course: Pt had an uneventful hospital course after being admitted for AF with RVR and congestive heart failure. Pt did convert to normal sinus rhythm maintained on oral anticoagulation with good results and pt was deemed stable for DC on 2 liters of oxygen with [facility]. Meth use cessation was discussed. Labs and Pending Lab Test: Laboratory Tests 08/20/19 06:25: White Blood Count 7.3, Red Blood Count 4.45, Hemoglobin 12.0L, Hematocrit 39L, Mean Corpuscular Volume 88, Mean Corpuscular Hemoglobin 27, Mean Corpuscular Hemoglobin Concent 31L, Red Cell Distribution Width 15.4H, Platelet Count 355, Mean Platelet Volume 9.5, Neutrophils (%) (Auto) 62, Lymphocytes (%) (Auto) 22, Monocytes (%) (Auto) 14H, Eosinophils (%) (Auto) 3, Basophils (%) (Auto) 0, Neutrophils # (Auto) 4.5, Lymphocytes # (Auto) 1.6, Monocytes # (Auto) 1.0, Eosinophils # (Auto) 0.2, Basophils # (Auto) 0.0, Sodium Level 137, Potassium Level 3.6, Chloride Level 98, Carbon Dioxide Level 26, Anion Gap 13, Blood Urea Nitrogen 18, Creatinine 1.27, Estimat Glomerular Filtration Rate > 60, BUN/Creatinine Ratio 14, Glucose Level 95, Calcium Level 8.7, Corrected Calcium 9.3, Phosphorus Level 3.3, Magnesium Level 1.7, Total Bilirubin 0.5, Aspartate Amino Transf (AST/SGOT) 23, Alanine Aminotransferase (ALT/SGPT) 17, Alkaline Phosphatase 89, B-Type Natriuretic Peptide 610.3H, Total Protein 7.2, Albumin 3.3 Home Meds Active Metoprolol Tartrate 50 Mg Tablet 50 Mg PO BID Eliquis (Apixaban) 5 Mg Tablet 5 Mg PO BID Assessment/Pt Instructions [facility] as scheduled Discharge Planning: <30 minutes discharge planning Discharge Instructions Discharge Diet: Low Sodium Diet Activity as Tolerated: Yes Discharge Physical Examination Vital Signs Vital Signs Date Time Temp Pulse Resp B/P (MAP) Pulse Ox O2 Delivery O2 Flow Rate FiO2 08/20/19 09:51 0.00 08/20/19 08:00 35.7 82 20 126/68 (87) 90 Room Air 08/19/19 20:44 21 General Appearance: No Apparent Distress, WD/WN, Chronically ill, Obese Respiratory: Lungs Clear, Decreased Breath Sounds Cardiovascular: Regular Rate, Rhythm Neurologic/Psychiatric: Alert, Oriented x3, No Motor/Sensory Deficits, Normal Mood/Affect Allergies: Coded Allergies: No Known Drug Allergies (Unverified , 08/18/19) Discharge Summary Date of Admission Aug 18, 2019 at 04:33 Date of Discharge Discharge Date: Aug 20, 2019 Admission Diagnosis Assessment: Atrial fibrillation with rapid ventricular response Congestive heart failure Morbid obesity Suspect obesity hypoventilation syndrome Chronic venous stasis of lower extremities Methamphetamine use Plan: Ceased methamphetamine use Cardizem transition to oral Congestive heart failure management Home meds eval Discharge Diagnosis Assessment: Atrial fibrillation with rapid ventricular response now NSR converted last night Congestive heart failure Morbid obesity Suspect obesity hypoventilation syndrome Chronic venous stasis of lower extremities Methamphetamine use Plan: Ceased methamphetamine use Cardizem transitioned to oral Congestive heart failure management Home meds eval Home O2 eval DC tomorrow Poor prognosis given CHANCE and poor motivation (1) Atrial fibrillation with rapid ventricular response Status: Acute (2) Methamphetamine abuse (3) Morbid obesity (4) Obesity hypoventilation syndrome (5) CHF exacerbation Status: Acute Qualifiers: Qualified Codes: I50.23 - Acute on chronic systolic (congestive) heart failure Clinical Quality Measures DVT/VTE Risk/Contraindication: Risk Factor Score Per Nursin RFS Level Per Nursing on Admit: 3=High KARIN SAUNDERS DO Aug 20, 2019 10:38
[2019-08-20] MEDS ORDERED: DILT120C82 PO (11:39)
[2019-08-20] MEDS ORDERED: SACU1TAB2 PO (11:39)
[2019-08-20] MEDS ORDERED: SACUBITRIL/VALSARTAN 24/26 MG (ENTRESTO) TABLET PO ONE (11:45)
[2019-08-20 12:00] VITALS: BP 118/86
--- NOTE | 2019-08-20 15:19 | NUR ---
CM/SS visited with the patient to meet needs. Plan: The patient will return home with continuous oxygen and a life vest. The patient has a ride waiting in the room. DME: The patient states that he has never had oxygen previously but CM/SS provided the patient with a DME choice list. The patient chose [facility] ([facility]). The oxygen Script and qualifiers were sent to the DME and they are working on getting the oxygen to the hospital. Life Vest: CM/SS spoke with the Chris with [employer] who stated that he was accepted for the vest and they will be here to fit him at 530/6. No other needs at this time.
--- NOTE | 2019-08-20 16:20 | Pulmonary Progress Note ---
Standard Progress Note Progress Notes Date Seen by Provider: Aug 20, 2019 Time Seen by Provider: 16:18 Pt is planning on going home today. Assessment & Plan SOB -- improved AFib - Morbid obesity with probable OHS -Check ABG -- c02 44 Hx of ZULLY -Pt is noncompliant with CPAP therapy CHF -Lasix s/p 80mg of Lasix at [facility] -Check echo -Cardiology following Hyponatremia secondary to volume overload -Lasix Going home today. He is waiting for life vest. DEE WRIGHT DO Aug 20, 2019 16:20
[2019-08-20] MEDS ORDERED: SACUBITRIL/VALSARTAN 24/26 MG (ENTRESTO) TABLET PO SCH (21:00)
[2019-08-21] MEDS ORDERED: DILTIAZEM 120 MG (CARDIZEM CD) CAP PO SCH (09:00)
== END 2019-08-20 18:30 | disposition home or self-care (01) ==
LOC: ER FS 03:00 → ICU 04:33 → INTOOBSV 04:33 → 4TH 22:39
PROVIDERS: ADMIT Internal Medicine; ATTEND Internal Medicine
DX: I48.0 Paroxysmal atrial fibrillation (principal); F15.90 Other stimulant use, unspecified, uncomplicated; E66.01 Morbid (severe) obesity due to excess calories; G47.33 Obstructive sleep apnea (adult) (pediatric); I11.0 Hypertensive heart disease with heart failure; I50.23 Acute on chronic systolic (congestive) heart failure; E87.1 Hypo-osmolality and hyponatremia; I87.8 Other specified disorders of veins; I42.9 Cardiomyopathy, unspecified; I25.10 Atherosclerotic heart disease of native coronary artery without angina pectoris; E78.00 Pure hypercholesterolemia, unspecified; I73.9 Peripheral vascular disease, unspecified; J44.9 Chronic obstructive pulmonary disease, unspecified; Z91.19 Patient's noncompliance with other medical treatment and regimen; Z79.01 Long term (current) use of anticoagulants
CPT/HCPCS: 36415; 71045; 80053; 82805; 83735; 83880; 84100; 84484; 85025; 85027; 85610; 85730; 93005; 94640; 94664; 94760; 94761

== ENCOUNTER 2019-09-03 14:50 | Inpatient (IN) | payer MEDICAID ==
[~2019-09-03] VITALS: Ht 177.8 cm; Wt 188.6 kg
[~2019-09-03 14:50] MED LIST: APIX5TAB PO; DILT120C82 PO; DILT60TA PO; FURO-124 PO; METO50TA15 PO; POTA10TA10 PO; SACU1TAB2 PO
[2019-09-03] MEDS ORDERED: dilTIAZem DRIP PRE-MIX 125 ML IV SCH (15:00)
[2019-09-03] MEDS ORDERED: ASPIRIN 81 MG CHEW (CHILDREN'S ASA) PO ONE (15:00)
[2019-09-03] MEDS ORDERED: DILTIAZEM 25 MG/5 ML INJ (CARDIZEM) VIAL IVP ONE (15:00)
--- NOTE | 2019-09-03 15:15 | ED Chest Pain ---
General Stated Complaint: FAST HEART RATE Source: patient Exam Limitations: no limitations History of Present Illness Date Seen by Provider: Sep 03, 2019 Time Seen by Provider: 15:13 Initial Comments To ER with reports of high heart rate. Patient was admitted to the hospital recently for atrial fibrillation started on anticoagulation. Discharge from the hospital. Followed-up with Dr. Law today and reported dyspnea on exertion. Reportedly, [facility] is primary care. This is been going on for about 3 days. He was noted to have a heart rate of 140s and referred to the emergency room. He denies chest pain, only dyspnea on exertion. Most recently used methamphetamine 4 days ago. Timing/Duration: 2-3 days Severity/Quality: moderate Location: central Radiation: no radiation Activities at Onset: none ASA po DECORATIVE ENGRAVER: No NTG SL DECORATIVE ENGRAVER: No Associated Symptoms: shortness of breath Allergies and Home Medications Allergies Coded Allergies: No Known Drug Allergies (Unverified , 08/18/19) Home Medications Apixaban 5 Mg Tablet, 5 MG PO BID Prescribed by: KARIN SAUNDERS on 08/20/19 1038 Diltiazem HCl 120 Mg Cap.er.24h, 120 MG PO DAILY Prescribed by: RODGER LAW on 08/20/19 1139 Furosemide 40 Mg Tablet, 40 MG PO DAILY Prescribed by: KARIN SAUNDERS on 08/20/19 1038 Metoprolol Tartrate 50 Mg Tablet, 50 MG PO BID Prescribed by: KARIN SAUNDERS on 08/20/19 1038 Potassium Chloride 10 Meq Tablet.er, 10 MEQ PO DAILY Prescribed by: KARIN SAUNDERS on 08/20/19 1038 Sacubitril/Valsartan 1 Each Tablet, 1 TAB PO BID Prescribed by: RODGER LAW on 08/20/19 1139 Patient Home Medication List Home Medication List Reviewed: Yes Review of Systems Review of Systems Constitutional: see HPI EENTM: No Symptoms Reported Respiratory: See HPI, Orthopnea, Shortness of Air Cardiovascular: See HPI, Irregular Heart Rate, Palpitations Gastrointestinal: No Symptoms Reported Genitourinary: No Symptoms Reported Musculoskeletal: no symptoms reported Skin: no symptoms reported Psychiatric/Neurological: No Symptoms Reported Endocrine: No Symptoms Reported Past Lqyavnu-Wilupc-Vixumt Hx Patient Social History 2nd Hand Smoke Exposure: No Recent Foreign Travel: No Contact w/Someone Who Travel: No Recent Hopitalizations: No Immunizations Up To Date Date of Pneumonia Vaccine: Aug 18, 2017 Seasonal Allergies Seasonal Allergies: No Past Medical History Surgeries: Yes Orthopedic Respiratory: Yes Sleep Apnea Cardiac: Yes Atrial Fibrillation, Cardiomyopathy, Coronary Artery Disease, High Cholesterol, Hypertension, Peripheral Vascular Neurological: No Genitourinary: No Gastrointestinal: No Musculoskeletal: No Endocrine: No HEENT: No Cancer: No Psychosocial: No Integumentary: No Blood Disorders: No Physical Exam Vital Signs Vital Signs - First Documented 09/03/19 15:01 Temp 36.9 Pulse 152 Resp 21 B/P (MAP) 138/111 (120) Pulse Ox 98 O2 Delivery Room Air Capillary Refill : Height, Weight, BMI Height: '" Weight: lbs. oz. kg; 57.88 BMI Method: General Appearance: No Apparent Distress, WD/WN HEENT: PERRL/EOMI, TMs Normal Neck: Full Range of Motion, Normal Inspection Respiratory: No Accessory Muscle Use, No Respiratory Distress Cardiovascular: Irregularly Irregular, Tachycardia Gastrointestinal: Normal Bowel Sounds, Non Tender, Soft Extremity: Normal Capillary Refill, Normal Inspection Neurologic/Psychiatric: Alert, Oriented x3 Skin: Normal Color, Warm/Dry Progress/Results/Core Measures Results/Orders Lab Results Laboratory Tests Test 09/03/19 15:41 Range/Units White Blood Count 10.1 4.3-11.0 10^3/uL Red Blood Count 4.66 4.35-5.85 10^6/uL Hemoglobin 12.5 L 13.3-17.7 G/DL Hematocrit 41 40-54 % Mean Corpuscular Volume 88 80-99 FL Mean Corpuscular Hemoglobin 27 25-34 PG Mean Corpuscular Hemoglobin Concent 30 L 32-36 G/DL Red Cell Distribution Width 15.6 H 10.0-14.5 % Platelet Count 300 130-400 10^3/uL Mean Platelet Volume 10.2 7.4-10.4 FL Neutrophils (%) (Auto) 59 42-75 % Lymphocytes (%) (Auto) 26 12-44 % Monocytes (%) (Auto) 11 0-12 % Eosinophils (%) (Auto) 3 0-10 % Basophils (%) (Auto) 0 0-10 % Neutrophils # (Auto) 6.0 1.8-7.8 X 10^3 Lymphocytes # (Auto) 2.7 1.0-4.0 X 10^3 Monocytes # (Auto) 1.1 H 0.0-1.0 X 10^3 Eosinophils # (Auto) 0.3 0.0-0.3 10^3/uL Basophils # (Auto) 0.0 0.0-0.1 10^3/uL Prothrombin Time 13.8 12.2-14.7 SEC INR Comment 1.0 0.8-1.4 Activated Partial Thromboplast Time 31 24-35 SEC Sodium Level 139 135-145 MMOL/L Potassium Level 4.2 3.6-5.0 MMOL/L Chloride Level 106 98-107 MMOL/L Carbon Dioxide Level 26 21-32 MMOL/L Anion Gap 7 5-14 MMOL/L Blood Urea Nitrogen 14 7-18 MG/DL Creatinine 1.01 0.60-1.30 MG/DL Estimat Glomerular Filtration Rate > 60 BUN/Creatinine Ratio 14 Glucose Level 103 70-105 MG/DL Calcium Level 9.2 8.5-10.1 MG/DL Corrected Calcium 9.6 8.5-10.1 MG/DL Magnesium Level 1.8 1.6-2.4 MG/DL Total Bilirubin 0.4 0.1-1.0 MG/DL Aspartate Amino Transf (AST/SGOT) 13 5-34 U/L Alanine Aminotransferase (ALT/SGPT) 12 0-55 U/L Alkaline Phosphatase 102 40-136 U/L Myoglobin 38.3 10.0-92.0 NG/ML Troponin I 0.035 H <0.028 NG/ML B-Type Natriuretic Peptide 437.9 H <100.0 PG/ML Total Protein 7.1 6.4-8.2 GM/DL Albumin 3.5 3.2-4.5 GM/DL My Orders Orders - LORI PLATA APRN Cbc With Automated Diff (09/03/19 14:52) Magnesium (09/03/19 14:52) Chest 1 View, Ap/Pa Only (09/03/19 14:52) Ekg Tracing (09/03/19 14:52) Comprehensive Metabolic Panel (09/03/19 14:52) Myoglobin Serum (09/03/19 14:52) Protime With Inr (09/03/19 14:52) Partial Thromboplastin Time (09/03/19 14:52) O2 (09/03/19 14:52) Monitor-Rhythm Ecg Trace Only (09/03/19 14:52) Lipid Panel (09/04/19 06:00) Ed Iv/Invasive Line Start (09/03/19 14:52) Troponin I (09/03/19 14:52) Aspirin Chewable Tablet (Baby Aspirin Ch (09/03/19 15:00) Diltiazem Injection (Cardizem Injection) (09/03/19 15:00) Diltiazem Drip Pre-Mix (Cardizem Drip Pr (09/03/19 15:00) Ua Culture If Indicated (09/03/19 15:29) Drug Screen Stat (Urine) (09/03/19 15:29) BNP (09/03/19 15:55) Medications Given in ED Current Medications Medications Dose Ordered Sig/Natalie Route Start Time Stop Time Status Last Admin Dose Admin Aspirin 324 mg ONCE ONCE PO 09/03/19 15:00 09/03/19 15:01 DC 09/03/19 15:09 324 MG Diltiazem HCl 10 mg ONCE ONCE IVP 09/03/19 15:00 09/03/19 15:01 DC 09/03/19 15:09 10 MG Vital Signs/I&O 09/03/19 15:01 Temp 36.9 Pulse 152 Resp 21 B/P (MAP) 138/111 (120) Pulse Ox 98 O2 Delivery Room Air Departure Communication (Admissions) Time/Spoke to Admitting Phy: 16:[address] Saunders, agrees to admit, spoke with Dr. Law agrees to admit. Heart rate 140 A. fib Cardizem drip increased to 15 mg an hour. Patient advised RN that he was about to rip everything off and leave because of excessive noise. NAME: MATIAS GOMES [facility] REC#: [id number] PT STATUS: REG ER : 1975 PHYSICIAN: LORI PLATA APRN ADMIT DATE: 09/03/19/ER Draft Date of Exam:09/03/19 CHEST 1 VIEW, AP/PA ONLY INDICATION: Shortness of breath. Frontal chest obtained at 4:02 p.m. and compared to 08/20/2019. FINDINGS: There is prominent cardiomegaly. There is mild central vascular prominence without focal infiltrate. Left lung base is not well seen due to technique. IMPRESSION: Prominent cardiomegaly and mild central vascular prominence. Left lung base not well seen due to technique. These findings appeared similar on 08/20/2019. Dictated on workstation # [id number] Dict: 09/03/19 1609 Trans: 09/03/19 1610 [id number] Interpreted by: BYRON RODRIGUEZ MD Electronically signed by: Impression Primary Impression: Atrial fibrillation with rapid ventricular response Additional Impression: Methamphetamine abuse Disposition: ADMITTED INPATIENT Condition: Stable Admissions Decision to Admit Reason: Admit from ER (General) Decision to Admit/Date: Sep 03, 2019 Time/Decision to Admit Time: 15:31 Departure-Patient Inst. Referrals: NO,LOCAL PHYSICIAN (PCP) Primary Care Physician SOURAV GRACIA (Family) Primary Care Physician LORI PLATA APRN Sep 03, 2019 15:15
[2019-09-03 15:52] LABS: BASOPHILS % (AUTO) 0 % (0-10); EOSINOPHILS # (AUTO) 0.3 10^3/uL (0.0-0.3); EOSINOPHILS % (AUTO) 3 % (0-10); HEMATOCRIT 41 % (40-54); HEMOGLOBIN 12.5 G/DL (13.3-17.7); LYMPHOCYTES # (AUTO) 2.7 X 10^3 (1.0-4.0); LYMPHOCYTES % (AUTO) 26 % (12-44); MEAN CORPUSCULAR HEMOGLOBIN 27 PG (25-34); MEAN CORPUSCULAR HGB CONC 30 G/DL (32-36); MEAN CORPUSCULAR VOLUME 88 FL (80-99); MEAN PLATELET VOLUME 10.2 FL (7.4-10.4); MONOCYTES # (AUTO) 1.1 X 10^3 (0.0-1.0); MONOCYTES % (AUTO) 11 % (0-12); NEUTROPHILS % (AUTO) 59 % (42-75); PLATELET COUNT 300 10^3/uL (130-400); RED CELL DISTRIBUTION WIDTH 15.6 % (10.0-14.5); WHITE BLOOD COUNT 10.1 10^3/uL (4.3-11.0)
[2019-09-03 16:02] LABS: PROTHROMBIN TIME PATIENT 13.8 SEC (12.2-14.7)
[2019-09-03 16:10] LABS: ALANINE AMINOTRANSFERASE 12 U/L (0-55); ALBUMIN 3.5 GM/DL (3.2-4.5); ALKALINE PHOSPHATASE 102 U/L (40-136); BILIRUBIN,TOTAL 0.4 MG/DL (0.1-1.0); BUN/CREATININE RATIO 14; CALCIUM 9.2 MG/DL (8.5-10.1); CARBON DIOXIDE 26 MMOL/L (21-32); CHLORIDE 106 MMOL/L (98-107); CREATININE SERUM 1.01 MG/DL (0.60-1.30); GFR ESTIMATED > 60; GLUCOSE 103 MG/DL (70-105); MAGNESIUM 1.8 MG/DL (1.6-2.4); POTASSIUM 4.2 MMOL/L (3.6-5.0); SODIUM 139 MMOL/L (135-145); TOTAL PROTEIN 7.1 GM/DL (6.4-8.2)
--- NOTE | 2019-09-03 16:11 | Diagnostic Imaging Report ---
INDICATION: Shortness of breath. Frontal chest obtained at 4:02 p.m. and compared to 08/20/2019. FINDINGS: There is prominent cardiomegaly. There is mild central vascular prominence without focal infiltrate. Left lung base is not well seen due to technique. IMPRESSION: Prominent cardiomegaly and mild central vascular prominence. Left lung base not well seen due to technique. These findings appeared similar on 08/20/2019. Dictated by: Dictated on workstation # [id number]
--- NOTE | 2019-09-03 17:02 | History & Physical-Hospitalist ---
JAZMIN WHELAN,MED STUDENT 09/03/19 1701: History of Present Illness HPI/Chief Complaint CC: Elevated Heart Rate, Dyspnea on exertion Pt presents to ED after attending follow up appointment with Dr. Law. Pt was found to have tachycardia and was referred to ED. This appointment was follow up to previous ED presentation on 08/18/2019 which revealed atrial fibrillation with RVR. Notes increasing dyspnea with exertion that started a few months ago, but has been worse in the past few weeks. Dyspnea is associated with cough. Denies chest pain. Pt is unsure how long due to methamphetamine use within this time frame and outright states he does not know how much time has passed since his last ER visit. Pt endorses history of atrial fibrillation with RVR, CHF. Has chewed tobacco for ~35 years. Uses methamphetamine (smokes, IV) and admits prior marijuana use. Pt does not work and is trying to obtain disability. Source: patient Exam Limitations: no limitations Date Seen 09/03/19 Time Seen by a Provider: 16:31 Attending Physician Toshia Herrera DO PCP No,Local Physician Referring Physician Date of Admission Sep 03, 2019 at 16:22 Home Medications & Allergies Home Medications Reviewed patient Home Medication Reconciliation performed by pharmacy medication reconciliations generator technician and/or nursing. Patients Allergies have been reviewed. Allergies Allergies Coded Allergies No Known Drug Allergies (Unverified08/18/19) Past Hzoivbs-Szgvit-Ucsbwf Hx Patient Social History Alcohol Use: Occasionally Uses Recreational Drug Use: Yes (meth and marijuana) Type Used: Smokeless Tobacco 2nd Hand Smoke Exposure: No Recent Foreign Travel: No Contact w/other who traveled: No Recent Hopitalizations: No Recent Infectious Disease Expo: No Immunizations Up To Date Date of Pneumonia Vaccine: Aug 18, 2017 Seasonal Allergies Seasonal Allergies: No Past Medical History Surgeries: Orthopedic Cardiac: Atrial Fibrillation, Cardiomyopathy, Coronary Artery Disease, High Cholesterol, Hypertension, Peripheral Vascular History of Blood Disorders: No Family History Cancer (Breast, mother), CAD Over 55 Years Old (CHF, mother ) Review of Systems Constitutional: No chills, No fever; weakness EENTM: No hearing loss, No ear pain, No eye pain, No vision loss, No mouth pain, No nose pain, No throat pain, No throat swelling Respiratory: cough, dyspnea on exertion, short of breath Cardiovascular: No chest pain; edema; No Hx of Intervention, No palpitations; syncope Gastrointestinal: No abdominal pain, No constipation, No diarrhea, No dysphagia, No melena, No nausea, No vomiting Genitourinary: No frequency, No incontinence Musculoskeletal: No back pain, No joint pain Skin: No lesions, No lumps, No rash Psychiatric/Neurological: Denies Anxiety, Denies Depressed, Denies Headache, Denies Numbness, Denies Paresthesia, Denies Tingling, Denies Tremors Physical Exam Physical Exam Vital Signs Vital Signs - First Documented 09/03/19 15:01 Temp 36.9 Pulse 152 Resp 21 B/P (MAP) 138/111 (120) Pulse Ox 98 O2 Delivery Room Air Capillary Refill : Less Than 3 Seconds Height, Weight, BMI Height: '" Weight: lbs. oz. kg; 59.00 BMI Method: General Appearance: No Apparent Distress, Obese Eyes: Bilateral Eye PERRL, Bilateral Eye EOMI HEENT: Moist Mucous Membranes, Pharyngeal Erythema, Other (very poor dentition ) Neck: Non Tender, Supple Respiratory: Chest Non Tender, Lungs Clear, No Accessory Muscle Use, No Respiratory Distress, Decreased Breath Sounds Cardiovascular: No Gallop, No Murmur, Irregularly Irregular, Tachycardia Gastrointestinal: Normal Bowel Sounds, Non Tender, Soft; No Guarding, No Rebound Back: No CVA Tenderness, No Vertebral Tenderness Extremity: No Calf Tenderness, Inflammation (hemosiderin staining), Pedal Edema (+2 pitting edema ), Other (plaque ) Neurologic/Psychiatric: Alert, Oriented x3 Skin: Normal Color, Warm/Dry Results Results/Procedures Labs Laboratory Tests 09/03/19 15:41 Patient resulted labs reviewed. Assessment/Plan Admission Diagnosis Afib with RVR Admission Status: Inpatient Order (span 2 midnights) Reason for Inpatient Admission: Pt requring IV medication to control heart rate Assessment and Plan Assessment Afib with RVR Elevated BNP Elevated troponin IV Meth use tobaccoism [id number] = 2 Plan UDS Serial CXR, BNP Continue cardizem 15mg drip Consider addition of NOAC - will discuss with Dr. Law Consult Cardiology Serial troponin - likely type 2 NSTEMI EVELIA wrap LE, compression stockings Clinical Quality Measures AMI/AHF: ASA po Prior to arrival: No TOSHIA HERRERA DO 09/03/19 625: History of Present Illness HPI/Chief Complaint CC: AF w/RVR HPI: This is an obese 43yoWM who uses meth regularly who is known to me from prior admit for the same dx who presented to the ER with palpitations after seen at Dr Law office. Patient currently receiving Amiodarone to gain control of rate. Patient is dyspneic but he wears O2 24/7. Source: patient Past Jweqehb-Vkbdxf-Elodjt Hx Past Med/Social Hx: Reviewed Nursing Past Med/Soc Hx, Reviewed and Corrections made Patient Social History Marrital Status: single Employed/Student: unemployed Alcohol Use: Occasionally Uses Smoking Status: Current Everyday Smoker Review of Systems Constitutional: see HPI Cardiovascular: palpitations Physical Exam Physical Exam General Appearance: Anxious, Chronically ill, Mild Distress, Obese Respiratory: Decreased Breath Sounds Cardiovascular: Irregularly Irregular, Tachycardia Assessment/Plan Admission Diagnosis Assessment: AF w/RVR Meth use ZULLY Hypoxia O2 dependence HTN HLP SMoker Plan: Cardiology management appreciated Admission Status: Inpatient Order (span 2 midnights) Reason for Inpatient Admission: Recurrent AF w/RVR Diagnosis/Problems Diagnosis/Problems (1) Atrial fibrillation with rapid ventricular response Status: Acute (2) Methamphetamine abuse (3) Obesity hypoventilation syndrome (4) Morbid obesity Supervisory-Addendum Brief Verification & Attestation Participated in pt care: history, MDM, physical Personally performed: exam, history, MDM, supervision of care Care discussed with: Medical Student Procedures: n/a Results interpretation: Verified all documentation Verification and Attestation of Medical Student E/M Service A medical student performed and documented this service in my presence. I reviewed and verified all information documented by the medical student and made modifications to such information, when appropriate. I personally performed the physical exam and medical decision making. Toshia Herrera, Sep 03, 2019,21:08 JAZMIN WHELAN,MED STUDENT Sep 03, 2019 17:01 TOSHIA HERRERA DO Sep 03, 2019 21:08
--- NOTE | 2019-09-03 17:25 | Electrophysiology Consultation ---
HPI-Cardiology Cardiology Consultation: Date of Consultation 09/03/19 Date of Admission Attending Physician Toshia Herrera DO Admitting Physician Lexy,Local Physician Consulting Physician Case COLLINS MD HPI: Time Seen by a Provider: 17:25 Chief Complaint: Tachycardia This is a 43-year-old gentleman who is a patient of Dr. Law. Cardiac electrophysiology consultation is requested for atrial fibrillation. Patient has history of congestive heart failure, paroxysmal atrial fibrillation, morbid obesity, significant venous disease in the lower extremity. He presented to Dr. Law's office with atrial fibrillation with rapid ventricular rate and was sent to the hospital. He also was having shortness of breath and chest discomfort. When I saw the patient he was not complaining of chest pain but had some shortness of breath and palpitations. Review of Systems-Cardiology Review of Systems Constitutional: As described under HPI; No As described under HPI, No no symptoms reported, No chills, No fever, No lightheadedness Eyes: No As described under HPI, No no symptoms reported, No blindness, No blurred vision, No contact lenses, No drainage, No decreased acuity, No foreign body sensation, No pain, No vision change Ears/Nose/Throat: No As described under HPI, No no symptoms reported, No chronic hearing loss, No ear discharge, No ear pain, No nasal drainage, No ulcerations Respiratory: No no symptoms reported; As described under HPI; No As described under HPI, No cough, No orthopnea; shortness of breath; No SOB with excertion Cardiovascular: No no symptoms reported; As described under HPI; No As described under HPI; chest pain; No edema, No irregular heart rate, No lightheadedness; palpitations Gastrointestinal: No no symptoms reported, No As described under HPI, No abdomen distended, No abdominal pain, No blood streaked bowels, No constipation, No diarrhea, No nausea, No vomiting, No stool coloration changes Genitourinary: No As described under HPI, No burning, No dysuria, No discharge, No frequency, No flank pain, No hematuria, No urgency Skin: No rash, No skin related problems, No ulcerations Psychiatric/Neurological: No anxiety, No depression, No seizure, No focal weakness, No syncope Hematologic: No bleeding abnormalities RTU-Peowrm-Nzsqzg Hx Patient Social History Alcohol Use: Occasionally Uses Recreational Drug Use: Yes (meth and marijuana) Type Used: Smokeless Tobacco 2nd Hand Smoke Exposure: No Recent Foreign Travel: No Recent Infectious Disease Expo: No Hospitalization with Isolation: Denies Immunizations Up To Date Date of Pneumonia Vaccine: Aug 18, 2017 Past Medical History PMH As described under Assessment. Allergies and Home Medications Allergies Coded Allergies: No Known Drug Allergies (Unverified , 08/18/19) Home Medications Acetaminophen/Diphenhydramine 1 Each Tablet, 3 TAB PO HS PRN for SLEEP, (Reported) Apixaban 5 Mg Tablet, 5 MG PO BID, (Reported) Diltiazem HCl 120 Mg Capsule.er, 120 MG PO DAILY, (Reported) Furosemide 40 Mg Tablet, 40 MG PO BID, (Reported) LAST FILLED #180 05-17-19 Metoprolol Tartrate 50 Mg Tablet, 50 MG PO BID, (Reported) Potassium Chloride 10 Meq Tablet.er, 10 MEQ PO DAILY, (Reported) Sacubitril/Valsartan 1 Each Tablet, 1 TAB PO BID, (Reported) Patient Home Medication List Home Medication List Reviewed: Yes Physical Exam-Cardiology Physical Exam Vital Signs/I&O 09/04/19 09/04/19 09/04/19 09/04/19 05:08 07:00 08:00 08:00 Pulse 131 121 B/P (MAP) 135/122 (126) Pulse Ox 94 O2 Delivery Nasal Cannula Room Air Room Air O2 Flow Rate 2.00 09/04/19 09/04/19 09/04/19 09/04/19 08:00 09:40 10:47 11:25 Temp 36.7 35.5 Pulse 106 102 Resp 22 B/P (MAP) 122/101 (108) Pulse Ox 95 98 95 O2 Delivery Room Air Nasal Cannula O2 Flow Rate 2.00 09/04/19 09/04/19 09/04/19 09/04/19 12:00 12:00 13:00 15:05 Pulse 91 91 Resp 20 B/P (MAP) 135/88 (104) Pulse Ox 95 95 O2 Delivery Nasal Cannula Nasal Cannula Nasal Cannula O2 Flow Rate 2.00 2.00 09/04/19 00:00 Intake Total 475 ml Output Total 0 ml Balance 475 ml Capillary Refill : Less Than 3 Seconds Constitutional: appears stated age; No apparent distress; well-developed, well- nourished, other (morbidly obese.) HEENT: PERRL; No discharge; hearing is well preserved, oral hygience is good; No ulceration, No xanthelasmas are seen Neck: No carotid bruit; carotid pulses are 2 + bilaterally Respiratory: chest is bilaterally symmetric, other (coarse breath sounds bilaterally.) Cardiovascular: irregularly irregular, tachycardia, S1 and S2 Gastrointestinal: soft, distended, audible bowel sounds; No spleenomegaly Rectal: deferred Extremities: normal range of motion, non-tender, normal inspection; No clubbing, No cyanosis, No significant edema; wound (significant venous i nsufficiency.) Neurologic/Psychiatric: alert, oriented x 3, power is 5/5 both on sides Skin: No rash, No ulcerations; rash on exposed areas Data Review Labs Laboratory Tests 09/04/19 03:25: Troponin I 0.040H, B-Type Natriuretic Peptide 402.7H, Triglycerides Level 118, Cholesterol Level 187, LDL Cholesterol Direct 143H, VLDL Cholesterol 24, HDL Cholesterol 41 09/04/19 05:05: Blood Gas Puncture Site RIGHT RADIAL, Blood Gas Patient Temperature 36.1, Arterial Blood pH 7.39, Arterial Blood Partial Pressure CO2 42, Arterial Blood Partial Pressure O2 43L, Arterial Blood HCO3 25, Arterial Blood Total CO2 26.5, Arterial Blood Oxygen Saturation 72L, Arterial Blood Base Excess 0.5, Carlos Test YES-POS, Blood Gas Ventilator Setting NO, Blood Gas Inspired Oxygen 3L 09/04/19 11:25: Glucometer 119H ECG Impression ECG Initial ECG Impression: Atrial Fibrillation w/RVR A/P-Cardiology Assessment/Admission Diagnosis Atrial fibrillation with rapid ventricular rate., Obesity hypoventilation syndrome, Morbid obesity, Obstructive sleep apnea Plan Atrial fibrillation with rapid ventricular rate., IV amiodarone overnight. However no IV line therefore they had to stop IV amiodarone and Cardizem infusion. Dr. Law converted on medications to by mouth. Oral anticoagulation. The other option is starting digoxin. Due to the fact that the patient has morbid obesity, obstructive sleep apnea, obesity hypoventilation syndrome, rhythm control strategy will have only modest success. Thank you for your consultation. Please call me if you have any questions. Sidney Collins MD, FACP, FACC, FSCAI, FHRS, CCDS Interventional Cardiology Cardiac Electrophysiology Vascular Medicine and Endovascular Interventions Clinical Quality Measures AMI/AHF: ASA po Prior to arrival: Case Ibarra MD Sep 03, 2019 17:25
[2019-09-03] MEDS ORDERED: CATHETER FLUSH 10 ML SYR IV PRN (17:45)
[2019-09-03] MEDS ORDERED: AMIODARONE FOR BOLUS 150 MG in D5W 100 ML IVPB 100 ML IV NR (17:45)
[2019-09-03] MEDS ORDERED: AMIODARONE INJECTION 450 MG in D5W IV SOLUTION (EXCEL) 250 ML IV SCH (17:45)
[2019-09-03] MEDS: meTOprolol 5 MG/5 ML (LOPRESSOR) VIAL IV SCH ×3 (17:58→23:12)
[2019-09-03] MEDS: DILTIAZEM DRIP IV SCH (17:59)
[2019-09-03] MEDS: PRE MIX IV SCH (17:59)
[2019-09-03 18:14] VITALS: BP 133/116
[2019-09-03 19:00] VITALS: BP 111/74
[2019-09-03] MEDS: APIXABAN 5 MG (ELIQUIS) TABLET PO SCH (19:54)
[2019-09-03] MEDS: CATHETER FLUSH 10 ML SYR IV SCH (19:55)
[2019-09-03 20:00] VITALS: BP 98/79
[2019-09-03 21:00] VITALS: BP 108/81
[2019-09-03 22:03] VITALS: BP 93/78
[2019-09-03 23:15] VITALS: BP 124/88
[2019-09-04] VITALS (7 sets, daily range): BP systolic 91–138; BP diastolic 46–122
[2019-09-04] MEDS: meTOprolol 5 MG/5 ML (LOPRESSOR) VIAL IV SCH ×5 (03:08→20:52)
[2019-09-04 04:17] LABS: CHOLESTEROL 187 MG/DL (< 200); HDL CHOLESTEROL 41 MG/DL (40-60); TRIGLYCERIDES 118 MG/DL (<150); VLDL CHOLESTEROL 24 MG/DL (5-40)
--- NOTE | 2019-09-04 04:49 | Pulmonary Consultation ---
History of Present Illness History of Present Illness Date Seen by Provider: Sep 04, 2019 Time Seen by Provider: 04:44 Date of Admission History of Present Illness 43yo with hx of morbid obesity, methamphetamine, and marijuana use presented to ED secondary to worsening SOB, cough, and palpitations. While in the ED pt was found to have Afib RVR. Pt was admitted to ICU with ammio gtt. He is currently sitting in chair and appears agitated. Allergies and Home Medications Allergies Coded Allergies: No Known Drug Allergies (Unverified , 08/18/19) Home Medications Apixaban 5 Mg Tablet, 5 MG PO BID Prescribed by: KARIN SAUNDERS on 08/20/19 1038 Diltiazem HCl 120 Mg Cap.er.24h, 120 MG PO DAILY Prescribed by: RODGER LOZADA on 08/20/19 1139 Furosemide 40 Mg Tablet, 40 MG PO DAILY Prescribed by: KARIN SAUNDERS on 08/20/19 1038 Metoprolol Tartrate 50 Mg Tablet, 50 MG PO BID Prescribed by: KARIN SAUNDERS on 08/20/19 1038 Potassium Chloride 10 Meq Tablet.er, 10 MEQ PO DAILY Prescribed by: KARIN SAUNDERS on 08/20/19 1038 Sacubitril/Valsartan 1 Each Tablet, 1 TAB PO BID Prescribed by: RODGER LOZADA on 08/20/19 1139 Past Nbucnyr-[id number]-Ntsfyv Hx Past Med/Social Hx: Reviewed Nursing Past Med/Soc Hx, Reviewed and Corrections made Patient Social History Alcohol Use: Occasionally Uses Recreational Drug Use: Yes (meth and marijuana) Smoking Status: Current Everyday Smoker Type Used: Smokeless Tobacco 2nd Hand Smoke Exposure: No Recent Foreign Travel: No Contact w/Someone Who Travel: No Recent Infectious Disease Expo: No Recent Hopitalizations: No Immunizations Up To Date Date of Pneumonia Vaccine: Aug 18, 2017 Seasonal Allergies Seasonal Allergies: No Past Medical History Surgeries: Yes Orthopedic Respiratory: Yes Sleep Apnea Cardiac: Yes Atrial Fibrillation, Cardiomyopathy, Coronary Artery Disease, High Cholesterol, Hypertension, Peripheral Vascular Neurological: No Genitourinary: No Gastrointestinal: No Musculoskeletal: No Endocrine: No HEENT: No Cancer: No Psychosocial: No Integumentary: No Blood Disorders: No Family Medical History Cancer (Breast, mother), CAD Over 55 Years Old (CHF, mother ) Review of Systems Time Seen by Provider: 06:44 Constitutional: Weakness, Malaise; No: Fever, Chills, Sweats, Other Eyes: No: Pain, Vision change, Conjunctivae inflammation, Eyelid inflammation, Other, Redness ENT: No: Ear pain, Ear discharge, Nose pain, Nose discharge, Nose congestion, Mouth pain, Mouth swelling, Throat pain, Throat swelling, Other Respiratory: Cough, Dry, Shortness of breath, SOB with excertion, Wheezing; No: Hemoptysis, Sputum Cardiovascular: Palpitations, Orthopnea, Paroxysmal Noc. Dyspnea Gastrointestinal: No: Nausea, Vomiting, Abdominal Pain, Diarrhea, Constipation, Melena, Hematochezia, Other Genitourinary: No Dysuria, No Frequency, No Incontinence, No Hematuria, No Retention, No Other Sepsis Event Evaluation Height, Weight, BMI Height: '" Weight: lbs. oz. kg; 59.00 BMI Method: Exam Exam Vital Signs Date Time Temp Pulse Resp B/P (MAP) Pulse Ox O2 Delivery O2 Flow Rate FiO2 09/04/19 04:00 Nasal Cannula 2.00 09/04/19 03:16 95 36 115/86 (96) Room Air 09/04/19 02:00 92 Room Air 09/04/19 01:11 98 29 91/46 (61) Room Air 09/04/19 01:00 98 09/04/19 00:00 91 34 113/74 (87) Room Air 09/04/19 00:00 Nasal Cannula 2.00 09/03/19 23:15 94 24 124/88 (100) Room Air 09/03/19 22:03 99 24 93/78 (83) Room Air 09/03/19 21:00 89 32 108/81 (90) Room Air 09/03/19 20:00 Nasal Cannula 2.00 09/03/19 20:00 114 24 98/79 (85) Room Air 09/03/19 19:16 36.5 99 09/03/19 19:00 88 09/03/19 19:00 88 21 111/74 (86) Room Air 09/03/19 18:14 Nasal Cannula 2.00 09/03/19 18:14 109 15 133/116 (122) Room Air 09/03/19 17:49 111 09/03/19 17:13 36.9 134 14 101/63 (120) 98 Room Air 09/03/19 15:01 36.9 152 21 138/111 (120) 98 Room Air I & O 09/04/19 07:00 Intake Total 775 ml Output Total 0 ml Balance 775 ml Height & Weight Height: '" Weight: lbs. oz. kg; 59.00 BMI Method: General Appearance: Anxious, Chronically ill, Mild Distress, Obese HEENT: Moist Mucous Membranes, Pharyngeal Erythema, Other (very poor dentition ) Neck: Non Tender, Supple Respiratory: Decreased Breath Sounds Cardiovascular: Irregularly Irregular, Tachycardia Capillary Refill: Less Than 3 Seconds Extremity: No Calf Tenderness, Inflammation (hemosiderin staining), Pedal Edema (+2 pitting edema ), Other (plaque ) Neurologic/Psychiatric: Alert, Oriented x3 Skin: Normal Color, Warm/Dry Results Lab Laboratory Tests 09/03/19 15:41 Assessment/Plan Assessment/Plan Worsening SOB -DuoNebs Q6 -Give solumedrol 40 V Q 6 -Check ABG -Give lasix -BNP is elevated Afib RVR -Cardiology is following -Amio gtt NSTEMI -Cardiology is following Morbid obesity probable ZULLY Hx of methamphetamine use -Obtain UDS DEE WRIGHT DO Sep 04, 2019 04:49
[2019-09-04] MEDS ORDERED: FUROSEMIDE 40 MG/4 ML INJ (LASIX) IVP ONE (05:00)
[2019-09-04] MEDS ORDERED: KCL 20 MEQ TAB (K-DUR) PO ONE (05:00)
[2019-09-04] MEDS: RT-ALBUTEROL/IPRATROPIUM 3 ML (DUONEB) VIAL INH SCH ×5 (05:07→21:47)
[2019-09-04 05:13] LABS: ABG BASE EXCESS 0.5 MMOL/L (-2.5-2.5); ABG OXYGEN SATURATION 72 % (94-100); ABG PCO2 42 MMHG (35-45); ABG PH 7.39 (7.37-7.43); ABG PO2 43 MMHG (79-93); ABG TCO2 26.5 MMOL/L (21.0-31.0)
[2019-09-04] MEDS: methylPREDNISolone 40 MG/ML (Solu-MEDROL) VIAL IV SCH ×3 (05:21→17:57)
[2019-09-04 05:24] LABS: ALLENS TEST YES-POS; INSPIRED O2 3L
[2019-09-04 05:25] LABS: PATIENT TEMP 36.1; VENTILATOR NO
[2019-09-04] MEDS ORDERED: LIDOCAINE UROJET 2% GEL 10 ML PKG ONE (05:26)
[2019-09-04] MEDS ORDERED: POTASSIUM CL 10MEQ/50ML IVPB 50 ML IV SCH (06:00)
[2019-09-04] MEDS ORDERED: MAGNESIUM 1 GM/100 ML IVPB 100 ML IV SCH (06:00)
[2019-09-04] MEDS ORDERED: KCL 20 MEQ TAB (K-DUR) PO SCH (06:00)
[2019-09-04] MEDS: CATHETER FLUSH 10 ML SYR IV SCH ×3 (06:52→21:57)
[2019-09-04] MEDS ORDERED: LIDOCAINE UROJET 2% GEL 10 ML PKG TOP ONE (07:00)
--- NOTE | 2019-09-04 09:03 | Consultation-Cardiology ---
HPI-Cardiology Cardiology Consultation Date of Consultation 09/04/19 Date of Admission Time Seen by Provider: 08:58 Indication: atrial fibrillation HPI 43-year-old gentleman with history of congestive heart failure, paroxysmal atrial fibrillation, seen in my office yesterday and sent to the emergency room, noted to be in atrial fibrillation with rapid ventricular response. He has been having increasing shortness of breath and mild chest discomfort, did not have any palpitation. Overnight his IV was not working well. This morning he was still in atrial fibrillation, he was anxious and agitated that he did not sleep well at night. Home Medications & Allergies Allergies: Coded Allergies: No Known Drug Allergies (Unverified , 08/18/19) Home Medication List Reviewed: Yes [id number]-[id number] Hx Patient Social History Marital Status: single Employed/Student: unemployed Alcohol Use: Occasionally Uses Recreational Drug Use: Yes (meth and marijuana) Smoking Status: Current Everyday Smoker Type Used: Smokeless Tobacco 2nd Hand Smoke Exposure: No Recent Foreign Travel: No Recent Infectious Disease Expo: No Recent Hopitalizations: No Immunizations Up To Date Date of Pneumonia Vaccine: Aug 18, 2017 Family Medical History Significant Family History: Cancer (Breast, mother), CAD Over 55 Years Old (CHF, mother ) Review of Systems-General Review of Systems Constitutional: see HPI EENTM: No hearing loss, No ear pain, No eye pain, No vision loss, No mouth pain, No nose pain, No throat pain, No throat swelling Respiratory: see HPI, cough, dyspnea on exertion, short of breath Cardiovascular: No no symptoms reported; see HPI, chest pain, edema; No Hx of Intervention; palpitations; No syncope, No vascular heart diseas, No other Gastrointestinal: see HPI; No abdominal pain, No constipation, No diarrhea, No dysphagia, No melena, No nausea, No vomiting Genitourinary: see HPI; No frequency, No incontinence Musculoskeletal: see HPI; No back pain, No joint pain Skin: see HPI; No lesions, No lumps, No rash Psychiatric/Neurological: See HPI; Denies Anxiety, Denies Depressed, Denies Headache, Denies Numbness, Denies Paresthesia, Denies Tingling, Denies Tremors Reviewed Test Results Reviewed Test Results Lab Laboratory Tests Test 09/03/19 15:41 09/04/19 03:25 09/04/19 05:05 Range/Units White Blood Count 10.1 4.3-11.0 10^3/uL Red Blood Count 4.66 4.35-5.85 10^6/uL Hemoglobin 12.5 L 13.3-17.7 G/DL Hematocrit 41 40-54 % Mean Corpuscular Volume 88 80-99 FL Mean Corpuscular Hemoglobin 27 25-34 PG Mean Corpuscular Hemoglobin Concent 30 L 32-36 G/DL Red Cell Distribution Width 15.6 H 10.0-14.5 % Platelet Count 300 130-400 10^3/uL Mean Platelet Volume 10.2 7.4-10.4 FL Neutrophils (%) (Auto) 59 42-75 % Lymphocytes (%) (Auto) 26 12-44 % Monocytes (%) (Auto) 11 0-12 % Eosinophils (%) (Auto) 3 0-10 % Basophils (%) (Auto) 0 0-10 % Neutrophils # (Auto) 6.0 1.8-7.8 X 10^3 Lymphocytes # (Auto) 2.7 1.0-4.0 X 10^3 Monocytes # (Auto) 1.1 H 0.0-1.0 X 10^3 Eosinophils # (Auto) 0.3 0.0-0.3 10^3/uL Basophils # (Auto) 0.0 0.0-0.1 10^3/uL Prothrombin Time 13.8 12.2-14.7 SEC INR Comment 1.0 0.8-1.4 Activated Partial Thromboplast Time 31 24-35 SEC Sodium Level 139 135-145 MMOL/L Potassium Level 4.2 3.6-5.0 MMOL/L Chloride Level 106 98-107 MMOL/L Carbon Dioxide Level 26 21-32 MMOL/L Anion Gap 7 5-14 MMOL/L Blood Urea Nitrogen 14 7-18 MG/DL Creatinine 1.01 0.60-1.30 MG/DL Estimat Glomerular Filtration Rate > 60 BUN/Creatinine Ratio 14 Glucose Level 103 70-105 MG/DL Calcium Level 9.2 8.5-10.1 MG/DL Corrected Calcium 9.6 8.5-10.1 MG/DL Magnesium Level 1.8 1.6-2.4 MG/DL Total Bilirubin 0.4 0.1-1.0 MG/DL Aspartate Amino Transf (AST/SGOT) 13 5-34 U/L Alanine Aminotransferase (ALT/SGPT) 12 0-55 U/L Alkaline Phosphatase 102 40-136 U/L Myoglobin 38.3 10.0-92.0 NG/ML Troponin I 0.035 H 0.040 H <0.028 NG/ML B-Type Natriuretic Peptide 437.9 H 402.7 H <100.0 PG/ML Total Protein 7.1 6.4-8.2 GM/DL Albumin 3.5 3.2-4.5 GM/DL Triglycerides Level 118 <150 MG/DL Cholesterol Level 187 < 200 MG/DL LDL Cholesterol Direct 143 H 1-129 MG/DL VLDL Cholesterol 24 5-40 MG/DL HDL Cholesterol 41 40-60 MG/DL Blood Gas Puncture Site RIGHT RADIAL Blood Gas Patient Temperature 36.1 Arterial Blood pH 7.39 7.37-7.43 Arterial Blood Partial Pressure CO2 42 35-45 MMHG Arterial Blood Partial Pressure O2 43 L 79-93 MMHG Arterial Blood HCO3 25 23-27 MMOL/L Arterial Blood Total CO2 26.5 21.0-31.0 MMOL/L Arterial Blood Oxygen Saturation 72 L 94-100 % Arterial Blood Base Excess 0.5 -2.5-2.5 MMOL/L Carlos Test YES-POS Blood Gas Ventilator Setting NO Blood Gas Inspired Oxygen 3L Physical Exam Physical Exam Vital Signs Vital Signs - First Documented 09/03/19 09/03/19 15:01 18:14 Temp 36.9 Pulse 152 Resp 21 B/P (MAP) 138/111 (120) Pulse Ox 98 O2 Delivery Room Air O2 Flow Rate 2.00 Capillary Refill : Less Than 3 Seconds Height, Weight, BMI Height: '" Weight: lbs. oz. kg; 59.00 BMI Method: General Appearance: Anxious, Chronically ill, Mild Distress, Obese Eyes: Bilateral Eye PERRL, Bilateral Eye EOMI HEENT: Moist Mucous Membranes, Pharyngeal Erythema, Other (very poor dentition ) Neck: Non Tender, Supple Respiratory: Lungs Clear, Decreased Breath Sounds Cardiovascular: Irregularly Irregular, Tachycardia Gastrointestinal: Normal Bowel Sounds, Non Tender, Soft; No Guarding, No Rebound Back: No CVA Tenderness, No Vertebral Tenderness Extremity: No Calf Tenderness, Inflammation (hemosiderin staining), Pedal Edema (+2 pitting edema ), Other (plaque ) Neurologic/Psychiatric: Alert, Oriented x3 Skin: Normal Color, Warm/Dry Lymphatic: No Adenopathy A/P-Cardiology Admission Diagnosis Paroxysmal atrial fibrillation Congestive heart failure, chronic compensated left ventricular systolic dysfunction Type II OH Shortness of breath Assessment/Plan Paroxysmal atrial fibrillation, on the past admission he converted to sinus rhythm on Cardizem, currently on amiodarone but his IV is not working. Still in atrial fibrillation with rapid ventricular response. I will start oral amiodarone, Cardizem and Lopressor and monitor tolerance and response. CHF, acute LV systolic dysfunction with EF 20-25%, restarting Lopressor and monitoring tolerance and response, hold Entresto for now. Continue to monitor Mild elevation in troponin, type II OH probably secondary to tachycardia. Conservative management for now. Increased risk of stroke, tolerating Eliquis well. Continue on current medication Hypertension, currently borderline hypotensive. Monitor blood pressure Morbid obesity Shortness of breath, peripheral edema, start on Lasix orally and monitor tolerance and response COPD/obstructive sleep apnea noncompliant with his C Pap Methamphetamine use, I will evaluate urine drug screen Noncompliant with LifeVest, patient received LifeVest but not using Noncompliant with medication. Clinical Quality Measures AMI/AHF: ASA po Prior to arrival: No DVT/VTE Risk/Contraindication: Risk Factor Score Per Nursin RFS Level Per Nursing on Admit: 4+=Very High RODGER LOZADA MD Sep 04, 2019 9:03 am
[2019-09-04] MEDS: AMIODARONE 200 MG (CORDARONE) TAB PO SCH ×2 (09:42→20:58)
[2019-09-04] MEDS: FUROSEMIDE 40 MG (LASIX) TAB PO SCH ×2 (09:43→16:13)
[2019-09-04] MEDS: meTOprolol TARTRATE 25 MG (LOPRESSOR) TABLET PO SCH ×2 (09:43→20:59)
[2019-09-04] MEDS: APIXABAN 5 MG (ELIQUIS) TABLET PO SCH ×2 (09:43→20:59)
[2019-09-04] MEDS ORDERED: ACET-2715 PO (10:13)
[2019-09-04] MEDS ORDERED: DILT120C85 PO (10:13)
[2019-09-04] MEDS ORDERED: POTA10TA PO (10:13)
[2019-09-04] MEDS ORDERED: APIX5TAB PO (10:13)
[2019-09-04] MEDS ORDERED: SACU1TAB2 PO (10:13)
[2019-09-04] MEDS ORDERED: FURO40TA4 PO (10:13)
[2019-09-04] MEDS ORDERED: METO50TA15 PO (10:13)
--- NOTE | 2019-09-04 10:14 | NUR ---
PATIENT IS UNABLE TO LIST HIS MEDICATIONS BUT STATES HE TAKES 6 MEDS AND FILLS THEM AT [facility] IN [place]. I WENT OVER THE EXT MED HX WITH HIM AND HE VERIFIED HOW HE TAKES THEM. HE STATES HE FILLED 5 OF THEM IN AUGUST BUT HE WAS UNABLE TO AFFORD TO FILL HIS LASIX, HE DOES STILL HAVE SOME ON HAND HOWEVER. HE FILLED FUROSEMIDE 40MG #180 FOR 90 DAYS 05-17-19 - PATIENT ADMITS HE MISSES HIS SECOND DOSE OF ALL OF HIS MEDS OFTEN. HE USUALLY REMEMBERS THE AM DOSES BUT NOT THE 2ND DOSES. HE STATES HE TAKES 3 TYLENOL PM OTC AT NEEDED FOR SLEEP.
--- NOTE | 2019-09-04 11:03 | Progress Note - Hospitalist ---
JAZMIN WHELAN,MED STUDENT 09/04/19 1103: Subjective HPI/CC On Admission Date Seen by Provider: Sep 04, 2019 Time Seen by Provider: 08:16 CC: AF w/RVR HPI: This is an obese 43yoWM who uses meth regularly who is known to me from prior admit for the same dx who presented to the ER with palpitations after seen at Dr Law office. Patient currently receiving Amiodarone to gain control of rate. Patient is dyspneic but he wears O2 28/02. Subjective/Events-last exam Sitting upright in chair during visit Pt complains he was not able to sleep all night due to IV machines, almost left AMA States shortness of breath, cough have improved, continues to have dyspnea with transferring, bowel movements, any exertion Wants something to help him sleep, likes tylenol PM Otherwise, no new complaints Objective Exam Vital Signs Vital Signs Date Time Temp Pulse Resp B/P (MAP) Pulse Ox O2 Delivery O2 Flow Rate FiO2 09/04/19 10:47 98 Nasal Cannula 2.00 09/04/19 08:00 121 135/122 (126) 09/04/19 03:16 36 09/03/19 19:16 36.5 Capillary Refill : Less Than 3 Seconds General Appearance: No Apparent Distress, Chronically ill, Obese HEENT: Pharynx Normal, Moist Mucous Membranes Respiratory: Chest Non Tender, No Accessory Muscle Use, No Respiratory Distress, Crackles, Decreased Breath Sounds Cardiovascular: No Gallop, No Murmur, Irregularly Irregular, Tachycardia Gastrointestinal: Non Tender, Soft Extremity: No Calf Tenderness, Inflammation, Pedal Edema, Swelling, Other (Hemosiderin staining, skin splitting and plaque overlying much of LE b/l ) Neurologic/Psychiatric: Alert, Oriented x3 Skin: Normal Color, Warm/Dry Results/Procedures Lab Laboratory Tests 09/03/19 15:41 Patient resulted labs reviewed. Assessment/Plan Assessment and Plan Assess & Plan/Chief Complaint Assessment Afib with RVR Elevated BNP Elevated troponin IV Meth use tobaccoism [id number] = 2 Plan UDS ABG Serial CXR, BNP Continue duonebs, solumedrol Frequently losing IV access, will access w/ midline Continue cardizem 15mg drip, eliquis Cardio starting lopressor, amiodarone - Thank you Dr. Law Serial troponin - likely type 2 NSTEMI EVELIA wrap LE, compression stockings Clinical Quality Measures AMI/AHF: ASA po Prior to arrival: No DVT/VTE Risk/Contraindication: Risk Factor Score Per Nursin RFS Level Per Nursing on Admit: 4+=Very High TOSHIA HERRERA DO 09/04/191953: Subjective Subjective/Events-last exam Pt very negative today BNP down a little bit to 400 Heart rate between 90 and 120 Midline will be placed due to poor IV access Amiodarone and Metoprolol given ABG reviewed Review of Systems Pulmonary: Dyspnea, Cough Objective Exam General Appearance: No Apparent Distress, WD/WN, Chronically ill, Obese Respiratory: Normal Breath Sounds, Decreased Breath Sounds Cardiovascular: Irregularly Irregular, Tachycardia Assessment/Plan Assessment and Plan Assess & Plan/Chief Complaint Appreciate Cardiology Diff issues given continued meth use Diagnosis/Problems Diagnosis/Problems (1) Atrial fibrillation with rapid ventricular response Status: Acute (2) Methamphetamine abuse (3) Obesity hypoventilation syndrome Supervisory-Addendum Brief Verification & Attestation Participated in pt care: history, MDM, physical Personally performed: exam, history, MDM, supervision of care Care discussed with: Medical Student Procedures: n/a Results interpretation: Verified all documentation Verification and Attestation of Medical Student E/M Service A medical student performed and documented this service in my presence. I reviewed and verified all information documented by the medical student and made modifications to such information, when appropriate. I personally performed the physical exam and medical decision making. Toshia Herrera, Sep 04, 2019,19:54 JAZMIN WHELAN,MED STUDENT Sep 04, 2019 11:03 TOSHIA HERRERA DO Sep 04, 2019 19:54
[2019-09-04] MEDS: DILTIAZEM 30 MG (CARDIZEM) TAB PO SCH ×2 (12:01→17:57)
[2019-09-04] MEDS: PRE MIX IV SCH (16:13)
[2019-09-04] MEDS: DILTIAZEM DRIP IV SCH (16:13)
--- NOTE | 2019-09-04 16:14 | Cardiology Progress Note ---
Cardiology SOAP Progress Note Subjective: Still in atrial fibrillation. Objective: I&O/Vital Signs 09/04/19 09/04/19 09/04/19 09/04/19 05:08 07:00 08:00 08:00 Pulse 131 121 B/P (MAP) 135/122 (126) Pulse Ox 94 O2 Delivery Nasal Cannula Room Air Room Air O2 Flow Rate 2.00 09/04/19 09/04/19 09/04/19 09/04/19 08:00 09:40 10:47 11:25 Temp 36.7 35.5 Pulse 106 102 Resp 22 B/P (MAP) 122/101 (108) Pulse Ox 95 98 95 O2 Delivery Room Air Nasal Cannula O2 Flow Rate 2.00 09/04/19 09/04/19 09/04/19 09/04/19 12:00 12:00 13:00 15:05 Pulse 91 91 Resp 20 B/P (MAP) 135/88 (104) Pulse Ox 95 95 O2 Delivery Nasal Cannula Nasal Cannula Nasal Cannula O2 Flow Rate 2.00 2.00 09/04/19 00:00 Intake Total 475 ml Output Total 0 ml Balance 475 ml Constitutional: appears stated age; No apparent distress; well-developed, well- nourished, other (morbidly obese.) Respiratory: chest is bilaterally symmetric, other (coarse breath sounds bilaterally.) Cardiovascular: irregularly irregular, tachycardia, S1 and S2 Gastrointestional: soft, distended, audible bowel sounds; No spleenomegaly Extremities: normal range of motion, non-tender, normal inspection; No clubbing, No cyanosis, No significant edema; wound (significant venous insufficiency.) Neurologic/Psychiatric: alert, oriented x 3, power is 5/5 both on sides Skin: No rash, No ulcerations; rash on exposed areas Results/Procedures: Labs Laboratory Tests 09/04/19 03:25: Troponin I 0.040H, B-Type Natriuretic Peptide 402.7H, Triglycerides Level 118, Cholesterol Level 187, LDL Cholesterol Direct 143H, VLDL Cholesterol 24, HDL Cholesterol 41 09/04/19 05:05: Blood Gas Puncture Site RIGHT RADIAL, Blood Gas Patient Temperature 36.1, Arterial Blood pH 7.39, Arterial Blood Partial Pressure CO2 42, Arterial Blood Partial Pressure O2 43L, Arterial Blood HCO3 25, Arterial Blood Total CO2 26.5, Arterial Blood Oxygen Saturation 72L, Arterial Blood Base Excess 0.5, Carlos Test YES-POS, Blood Gas Ventilator Setting NO, Blood Gas Inspired Oxygen 3L 09/04/19 11:25: Glucometer 119H A/P: Assessment/Dx: Atrial fibrillation with rapid ventricular rate., Obesity hypoventilation syndrome, Morbid obesity, Obstructive sleep apnea Plan: Atrial fibrillation with rapid ventricular rate., IV amiodarone overnight. However no IV line therefore they had to stop IV amiodarone and Cardizem infusion. Dr. Law converted on medications to by mouth. Oral anticoagulation. The other option is starting digoxin. Due to the fact that the patient has morbid obesity, obstructive sleep apnea, obesity hypoventilation syndrome, rhythm control strategy will have only modest success. Thank you for your consultation. Please call me if you have any questions. Sidney Collins MD, FACP, FACC, FSCAI, FHRS, CCDS Interventional Cardiology Cardiac Electrophysiology Vascular Medicine and Endovascular Interventions Clinical Quality Measures AMI/AHF: ASA po Prior to arrival: Case Ibarra MD Sep 04, 2019 16:14
[2019-09-04] MEDS ORDERED: ACETAMINOPHEN 500 MG TAB (TYLENOL) PO PRN (17:45)
[2019-09-04] MEDS ORDERED: diphenhydrAMINE 25 MG TAB (BENADRYL) PO PRN ×2 (17:45→19:30)
[2019-09-05 00:14] VITALS: BP 127/78
[2019-09-05] MEDS: meTOprolol 5 MG/5 ML (LOPRESSOR) VIAL IV SCH (00:19)
[2019-09-05] MEDS: methylPREDNISolone 40 MG/ML (Solu-MEDROL) VIAL IV SCH (00:25)
[2019-09-05] MEDS: DILTIAZEM 30 MG (CARDIZEM) TAB PO SCH ×2 (00:25→05:30)
[2019-09-05] MEDS: RT-ALBUTEROL/IPRATROPIUM 3 ML (DUONEB) VIAL INH SCH ×3 (02:08→10:29)
[2019-09-05 03:52] LABS: BUN/CREATININE RATIO 21; CALCIUM 9.4 MG/DL (8.5-10.1); CARBON DIOXIDE 19 MMOL/L (21-32); CHLORIDE 104 MMOL/L (98-107); CREATININE SERUM 1.01 MG/DL (0.60-1.30); GFR ESTIMATED > 60; GLUCOSE 145 MG/DL (70-105); MAGNESIUM 1.9 MG/DL (1.6-2.4); PHOSPHORUS 3.4 MG/DL (2.3-4.7); POTASSIUM 4.8 MMOL/L (3.6-5.0); SODIUM 136 MMOL/L (135-145)
[2019-09-05 04:00] VITALS: BP 130/96
--- NOTE | 2019-09-05 05:05 | Pulmonary Progress Note ---
Subjective Time Seen by a Provider: 05:03 Subjective/Events-last exam PT is now of ammio and cardizem. Afib converted to sinus. He is on RA. Sepsis Event Evaluation Height, Weight, BMI Height: '" Weight: lbs. oz. kg; 59.00 BMI Method: Exam Exam Vital Signs Date Time Temp Pulse Resp B/P (MAP) Pulse Ox O2 Delivery O2 Flow Rate FiO2 09/05/19 02:07 94 Room Air 09/05/19 01:00 83 09/05/19 00:14 36.3 84 16 127/78 (94) 92 Room Air 09/05/19 00:00 94 Room Air 09/04/19 20:00 95 Room Air 09/04/19 20:00 85 16 138/75 (96) 97 Room Air 09/04/19 20:00 36.2 95 09/04/19 19:13 92 09/04/19 18:46 90 Nasal Cannula 09/04/19 16:25 Nasal Cannula 2.00 09/04/19 16:00 36.5 92 18 129/87 (101) 98 Nasal Cannula 09/04/19 16:00 36.2 95 09/04/19 15:05 95 Nasal Cannula 2.00 09/04/19 13:00 91 09/04/19 12:00 91 20 135/88 (104) 95 Nasal Cannula 09/04/19 12:00 Nasal Cannula 2.00 09/04/19 11:25 35.5 95 09/04/19 10:47 98 Nasal Cannula 2.00 09/04/19 09:40 102 09/04/19 08:00 36.7 106 22 122/101 (108) 95 Room Air 09/04/19 08:00 121 135/122 (126) Room Air 09/04/19 08:00 Room Air 09/04/19 07:00 131 09/04/19 05:08 94 Nasal Cannula 2.00 I & O 09/05/19 07:00 Intake Total 1650 ml Output Total 3725 ml Balance -2075 ml Height & Weight Height: '" Weight: lbs. oz. kg; 59.00 BMI Method: General Appearance: No Apparent Distress, WD/WN, Chronically ill, Obese HEENT: Pharynx Normal, Moist Mucous Membranes Neck: Non Tender, Supple Respiratory: Normal Breath Sounds, Decreased Breath Sounds Cardiovascular: Irregularly Irregular, Tachycardia Capillary Refill: Greater Than 3 Seconds Extremity: No Calf Tenderness, Inflammation, Pedal Edema, Swelling, Other (Hemosiderin staining, skin splitting and plaque overlying much of LE b/l ) Neurologic/Psychiatric: Alert, Oriented x3 Skin: Normal Color, Warm/Dry Lymphatic: No Adenopathy Results Lab Laboratory Tests 09/03/19 15:41 09/05/19 03:20 Assessment/Plan Assessment/Plan Worsening SOB -- much improved since afib controlled -DuoNebs Q6 -d/c solumedrol 40 V Q 6 - ABG -- C02 - 42 -lasix -BNP is elevated Afib RVR -Cardiology is following -Amio gtt NSTEMI -Cardiology is following Morbid obesity probable ZULLY -Pt is very noncompliant. I doubt he will be compliant with CPAP therapy. However I can follow with him as out pt to get him a CPAP if he wishes. Current methamphetamine use DEE WRIGHT DO Sep 05, 2019 05:05
[2019-09-05] MEDS: CATHETER FLUSH 10 ML SYR IV SCH (05:30)
[2019-09-05] MEDS: FUROSEMIDE 40 MG (LASIX) TAB PO SCH (05:30)
[2019-09-05 08:20] VITALS: BP 154/96
--- NOTE | 2019-09-05 08:33 | Cardiology Progress Note ---
Subjective Date Seen by Provider: Sep 05, 2019 Time Seen by Provider: 23:41 Subjective/Events-last exam Pt lying in recliner. C/o of not being able to sleep b/c people keep coming in to check up on him. Otherwise reports feeling better. Denies any SOB, or any cardiac sx. Review of Systems General: No Chills, No Night Sweats HEENT: No Head Aches, No Visual Changes Pulmonary: No Dyspnea, No Cough Cardiovascular: No: Chest Pain, Palpitations, Edema Gastrointestinal: No: Nausea, Vomiting, Diarrhea, Constipation Objective-Cardiology Exam Last Set of Vital Signs Vital Signs 09/04/19 09/05/19 16:25 08:20 Temp 36.0 Pulse 83 Resp 18 B/P (MAP) 154/96 (115) Pulse Ox 93 O2 Delivery Room Air O2 Flow Rate 2.00 Capillary Refill : Less Than 3 Seconds I&O Intake and Output 09/05/19 00:00 Intake Total 2350 ml Output Total 3975 ml Balance -1625 ml Intake Oral 2350 ml Output Urine Total 3975 ml # Voids 1 # Bowel Movements 2 General: Alert, Oriented X3, No Acute Distress, Other (Morbid obesity ) HEENT: Atraumatic, PERRLA Lungs: Clear to Auscultation Heart: Regular Rate, Normal S1, Normal S2, No Murmurs Extremities: No Clubbing, No Cyanosis Neuro: Normal Gait, Normal Speech, Strength at 5/5 X4 Ext Psych/Mental Status: Mental Status NL Results Lab Laboratory Tests 09/05/19 03:20 A/P-Cardiology Admission Diagnosis Paroxysmal atrial fibrillation Congestive heart failure, chronic compensated left ventricular systolic dysfunction Type II AK Shortness of breath Assessment/Plan Paroxysmal atrial fibrillation, back to sinus rhythm, continue with loading with amio, continue on Metoprolol and cardizem as an outptient CHF, Chronic compensated LV systolic dysfunction with EF 20-25%, non ischemic cardiomyopathy Hypertension, controlled at this time. Continue to Monitor blood pressure Mild elevation in troponin, type II AK probably secondary to tachycardia. Conservative management for now. Increased risk of stroke, tolerating Eliquis well. Continue on current medication Morbid obesity Shortness of breath, peripheral edema, start on Lasix orally and monitor tolerance and response COPD/obstructive sleep apnea noncompliant with his C Pap Methamphetamine use, admit to using meth last week Noncompliant with LifeVest, patient received LifeVest but not using Noncompliant with medication. Clinical Quality Measures AMI/AHF: ASA po Prior to arrival: No DVT/VTE Risk/Contraindication: Risk Factor Score Per Nursin RFS Level Per Nursing on Admit: 4+=Very High Supervisory-Addendum Brief Verification & Attestation Participated in pt care: history, MDM, physical Personally performed: exam, history, MDM, supervision of care Care discussed with: Medical Student Procedures: n/a Results interpretation: Verified all documentation Verification and Attestation of Medical Student E/M Service A medical student performed and documented this service in my presence. I reviewed and verified all information documented by the medical student and made modifications to such information, when appropriate. I personally performed the physical exam and medical decision making. patient is sitting in a chair, feeling better, asking to go home Back to sinus rhythm, asymptomatic Continue with oral loading of amiodarone, continue on beta blockers and calcium channel blockers Continue on Eliquis Educated on avoiding drugs Patient refused to use LifeVest and reported that he will return it and he understands the risks and benefits Rodger Law, Sep 05, 2019,09:54 DANTE KRAMER [facility] Sep 05, 2019 08:33 RODGER LAW MD Sep 05, 2019 09:56
[2019-09-05] MEDS ORDERED: AMIO200T4 PO (09:50)
[2019-09-05] MEDS: meTOprolol TARTRATE 25 MG (LOPRESSOR) TABLET PO SCH (10:05)
[2019-09-05] MEDS: AMIODARONE 200 MG (CORDARONE) TAB PO SCH (10:05)
[2019-09-05] MEDS: APIXABAN 5 MG (ELIQUIS) TABLET PO SCH (10:05)
--- NOTE | 2019-09-05 10:55 | Discharge Summary ---
JAZMIN WHELAN,MED STUDENT 09/05/19 1055: Diagnosis/Chief Complaint Date of Admission Sep 03, 2019 at 16:22 Date of Discharge Discharge Date: Sep 05, 2019 Admission Diagnosis Assessment: AF w/RVR Meth use ZULLY Hypoxia O2 dependence HTN HLP SMoker Plan: Cardiology management appreciated Primary Care HeidiJudyjannette [place] Discharge Diagnosis (1) Atrial fibrillation with rapid ventricular response Status: Acute (2) Methamphetamine abuse (3) Obesity hypoventilation syndrome Discharge Summary Discharge Physical Exam Allergies: Coded Allergies: No Known Drug Allergies (Unverified , 08/18/19) Vitals & I&Os Vital Signs Date Time Temp Pulse Resp B/P (MAP) Pulse Ox O2 Delivery O2 Flow Rate FiO2 09/05/19 08:20 36.0 83 18 154/96 (115) 93 Room Air 09/04/19 16:25 2.00 General Appearance: Chronically ill, Obese HEENT: Pharynx Normal, Moist Mucous Membranes Respiratory: Chest Non Tender, No Accessory Muscle Use, No Respiratory Distress, Crackles, Wheezing Cardiovascular: Regular Rate, Rhythm, No Gallop, No Murmur Extremity: No Calf Tenderness, Inflammation (b/l le, hemosiderin staining ), Pedal Edema (+2 pitting ) Neurologic/Psychiatric: Alert, Oriented x3 Hospital Course This 43 year old male presented to [facility] ER with shortness of breath with exertion, wheezing, cough and LE edema on 09/03/2019. EKG revealed atrial fibrillation with RVR. Pt was admitted for respiratory support and rate control. Cardiology and pulmonology were consulted. Pt was started on IV cardizem and digoxin and later amiodarone, converting him to sinus rhythm. Oral antiarrhythmics were started and maintained rhythm control. SOB and cough markedly improved during two day stay. Pt was discharged 09/05/2019 with close follow up with gun tester. Labs (last 24 hrs) Laboratory Tests 09/04/19 11:25: Glucometer 119H 09/05/19 03:20: Sodium Level 136, Potassium Level 4.8, Chloride Level 104, Carbon Dioxide Level 19L, Anion Gap 13, Blood Urea Nitrogen 21H, Creatinine 1.01, Estimat Glomerular Filtration Rate > 60, BUN/Creatinine Ratio 21, Glucose Level 145H, Calcium Level 9.4, Phosphorus Level 3.4, Magnesium Level 1.9 Patient resulted labs reviewed. Pending Labs Laboratory Tests 09/05/19 03:20: Sodium Level 136, Potassium Level 4.8, Chloride Level 104, Carbon Dioxide Level 19, Anion Gap 13, Blood Urea Nitrogen 21, Creatinine 1.01, Estimat Glomerular Filtration Rate > 60, BUN/Creatinine Ratio 21, Glucose Level 145, Calcium Level 9.4, Phosphorus Level 3.4, Magnesium Level 1.9 Discharge Home Medications: Active Scripts Active Amiodarone HCl 200 Mg Tablet 400 Mg PO BID Take 2 tabs twice daily for one week then continue on one tablet twice daily Reported Tylenol Pm Ex-Strength Caplet (Acetaminophen/Diphenhydramine) 1 Each Tablet 3 Tab PO HS PRN Furosemide 40 Mg Tablet 40 Mg PO BID LAST FILLED #180 05-17-19 Eliquis (Apixaban) 5 Mg Tablet 5 Mg PO BID K-Tab ER (Potassium Chloride) 10 Meq Tablet.er 10 Meq PO DAILY Entresto 24 mg-26 mg Tablet (Sacubitril/Valsartan) 1 Each Tablet 1 Tab PO BID Diltiazem ER (Diltiazem HCl) 120 Mg Capsule.er 120 Mg PO DAILY Metoprolol Tartrate 50 Mg Tablet 50 Mg PO BID Instructions to patient/family Please see electronic discharge instructions given to patient. Clinical Quality Measures AMI/AHF: ASA po Prior to arrival: No DVT/VTE Risk/Contraindication: Risk Factor Score Per Nursin RFS Level Per Nursing on Admit: 4+=Very High KARIN HERRERA DO 09/05/192111: Discharge Summary Discharge Physical Exam Allergies: Coded Allergies: No Known Drug Allergies (Unverified , 08/18/19) General Appearance: Chronically ill, Obese Hospital Course Was the Problem List Reviewed?: Yes Hospital course: Pt had a short hospital course when he was admitted for A-FIB with RVR due to continued meth use. He is very noncompliant, poor prognosis remains and overall no longer any ability to modify his risk factors of noncompliance so he was discharged in stable condition. Discussion & Recommendations Discharge Planning: <30 minutes discharge planning Supervisory-Addendum Brief Verification & Attestation Participated in pt care: history, MDM, physical Personally performed: exam, history, MDM, supervision of care Care discussed with: Medical Student Procedures: n/a Results interpretation: Verified all documentation Verification and Attestation of Medical Student E/M Service A medical student performed and documented this service in my presence. I reviewed and verified all information documented by the medical student and made modifications to such information, when appropriate. I personally performed the physical exam and medical decision making. Karin Herrera, Sep 05, 2019,21:12 JAZMIN WHELAN,MED STUDENT Sep 05, 2019 10:55 KARIN HERRERA DO Sep 05, 2019 21:12
--- NOTE | 2019-09-05 10:58 | NUR ---
Pt doing well and anticipates discharge.
--- NOTE | 2019-09-05 14:39 | Cardiology Progress Note ---
Cardiology SOAP Progress Note Subjective: Converted to sinus rhythm overnight. Objective: I&O/Vital Signs 09/05/19 09/05/19 09/05/19 09/05/19 04:00 04:00 06:20 06:50 Temp 36.5 Pulse 75 75 Resp 16 B/P (MAP) 130/96 (107) Pulse Ox 94 99 90 O2 Delivery Room Air Room Air Room Air 09/05/19 09/05/19 09/05/19 08:17 08:20 11:50 Temp 36.0 Pulse 83 Resp 18 B/P (MAP) 154/96 (115) Pulse Ox 93 93 94 O2 Delivery Room Air Room Air Room Air 09/05/19 00:00 Intake Total 1200 ml Output Total 1625 ml Balance -425 ml Constitutional: appears stated age; No apparent distress; well-developed, well- nourished, other (morbidly obese.) Respiratory: chest is bilaterally symmetric, other (coarse breath sounds bilaterally.) Cardiovascular: regular rate-rhythm, S1 and S2 Gastrointestional: soft, distended, audible bowel sounds; No spleenomegaly Extremities: normal range of motion, non-tender, normal inspection; No club jerzy, No cyanosis, No significant edema; wound (significant venous insufficiency.) Neurologic/Psychiatric: alert, oriented x 3, power is 5/5 both on sides Skin: No rash, No ulcerations; rash on exposed areas Results/Procedures: Labs Laboratory Tests 09/05/19 03:20: Sodium Level 136, Potassium Level 4.8, Chloride Level 104, Carbon Dioxide Level 19L, Anion Gap 13, Blood Urea Nitrogen 21H, Creatinine 1.01, Estimat Glomerular Filtration Rate > 60, BUN/Creatinine Ratio 21, Glucose Level 145H, Calcium Level 9.4, Phosphorus Level 3.4, Magnesium Level 1.9 A/P: Assessment/Dx: Atrial fibrillation with rapid ventricular rate., Obesity hypoventilation syndrome, Morbid obesity, Obstructive sleep apnea Plan: Atrial fibrillation with rapid ventricular rate., Converted to sinus rhythm overnight with by mouth medications. Patient can be discharged to follow-up with Dr. Law. Due to the fact that the patient has morbid obesity, obstructive sleep apnea, obesity hypoventilation syndrome, rhythm control strategy will have only modest success. Thank you for your consultation. Please call me if you have any questions. Sidney Collins MD, FACP, FACC, FSCAI, FHRS, CCDS Interventional Cardiology Cardiac Electrophysiology Vascular Medicine and Endovascular Interventions Clinical Quality Measures AMI/AHF: ASA po Prior to arrival: Case Ibarra MD Sep 05, 2019 14:39
== END 2019-09-05 12:10 | disposition home or self-care (01) | DRG 280 ==
LOC: EDUNIT# 14:50 → ER 14:51 → ICU 16:22
PROVIDERS: ADMIT Internal Medicine; ATTEND Internal Medicine
DX: I48.0 Paroxysmal atrial fibrillation (principal); I21.A1 Myocardial infarction type 2; I11.0 Hypertensive heart disease with heart failure; I50.23 Acute on chronic systolic (congestive) heart failure; E66.2 Morbid (severe) obesity with alveolar hypoventilation; Z68.43 Body mass index [BMI] 50.0-59.9, adult; I42.9 Cardiomyopathy, unspecified; J44.9 Chronic obstructive pulmonary disease, unspecified; I25.10 Atherosclerotic heart disease of native coronary artery without angina pectoris; F17.220 Nicotine dependence, chewing tobacco, uncomplicated; F15.10 Other stimulant abuse, uncomplicated; E78.00 Pure hypercholesterolemia, unspecified; I73.9 Peripheral vascular disease, unspecified; I87.2 Venous insufficiency (chronic) (peripheral); Z99.81 Dependence on supplemental oxygen; Z91.19 Patient's noncompliance with other medical treatment and regimen
CPT/HCPCS: 36415; 71045; 76937; 80048; 80053; 80061; 82805; 82962; 83735; 83874; 83880; 84100; 84484; 85025; 85610; 85730; 93005; 93041; 94640

== ENCOUNTER 2019-09-26 05:27 | Inpatient (IN) | payer MEDICAID ==
[~2019-09-26] VITALS: Ht 177.8 cm; Wt 197.2 kg
[~2019-09-26 05:27] MED LIST changes: +ACET-2715 PO; +AMIO200T4 PO; +DILT120C85 PO; +FURO40TA4 PO; +POTA10TA PO
[2019-09-26 06:06] LABS: BASOPHILS % (AUTO) 0 % (0-10); EOSINOPHILS # (AUTO) 0.3 10^3/uL (0.0-0.3); EOSINOPHILS % (AUTO) 2 % (0-10); HEMATOCRIT 43 % (40-54); HEMOGLOBIN 13.2 G/DL (13.3-17.7); LYMPHOCYTES # (AUTO) 1.4 X 10^3 (1.0-4.0); LYMPHOCYTES % (AUTO) 11 % (12-44); MEAN CORPUSCULAR HEMOGLOBIN 28 PG (25-34); MEAN CORPUSCULAR HGB CONC 31 G/DL (32-36); MEAN CORPUSCULAR VOLUME 89 FL (80-99); MEAN PLATELET VOLUME 9.9 FL (7.4-10.4); MONOCYTES # (AUTO) 0.9 X 10^3 (0.0-1.0); MONOCYTES % (AUTO) 8 % (0-12); NEUTROPHILS # (AUTO) 9.4 X 10^3 (1.8-7.8); NEUTROPHILS % (AUTO) 79 % (42-75); PLATELET COUNT 332 10^3/uL (130-400); RED CELL DISTRIBUTION WIDTH 16.5 % (10.0-14.5)
[2019-09-26 06:27] LABS: INR 1.1 (0.8-1.4); PROTHROMBIN TIME PATIENT 14.1 SEC (12.2-14.7)
--- NOTE | 2019-09-26 06:27 | ED Respiratory ---
General Chief Complaint: Respiratory Problems Stated Complaint: SOB Nursing Triage Note: C/O SOB NAUSEA AND COUGH SINCE YESTERDAY Source: patient Exam Limitations: no limitations History of Present Illness Date Seen by Provider: Sep 26, 2019 Time Seen by Provider: 06:00 Initial Comments The patient presents to ER by private conveyance with chief complaint of shortness of breath for the past couple days worsening. He has orthopnea and sle eps in a chair and couple days had some increased swelling in his feet but says is not as bad today. He takes Lasix twice a day. He says it's a variable utility. He also has a history of atrial fibrillation and is followed by the clinic at [place] and Dr. Law. He says he supposed to be wearing CPAP at night but he gets claustrophobic and he supposed to wear a life but he says it continually alarms because stay on his chest. He says he drinks a lot of tea, Diogo-Aid and soda. He is not having any chest pain but he does have a cough. He says he feel like his heart is is backed up with fluids. He is on Eliquis, metoprolol and diltiazem 120. He denies a history of COPD or asthma. He denies fever or chills. Morbid obesity, obstructive sleep apnea, obesity hypoventilation syndrome, venous stasis disease bilateral lower extremities, congestive heart failure, paroxysmal atrial fibrillation. Patient has a strong history of nonadherence to therapy. Patient admitted to using methamphetamine last IV about for 5 days ago. Allergies and Home Medications Allergies Coded Allergies: No Known Drug Allergies (Unverified , 09/26/19) Home Medications Acetaminophen/Diphenhydramine 1 Each Tablet, 3 TAB PO HS PRN for SLEEP, (Reported) Amiodarone HCl 200 Mg Tablet, 400 MG PO BID Take 2 tabs twice daily for one week then continue on one tablet twice daily Prescribed by: RODGER LAW on 09/05/19 0950 Apixaban 5 Mg Tablet, 5 MG PO BID, (Reported) Diltiazem HCl 120 Mg Capsule.er, 120 MG PO DAILY, (Reported) Furosemide 40 Mg Tablet, 40 MG PO BID, (Reported) LAST FILLED #180 05-17-19 Metoprolol Tartrate 50 Mg Tablet, 50 MG PO BID, (Reported) Potassium Chloride 10 Meq Tablet.er, 10 MEQ PO DAILY, (Reported) Sacubitril/Valsartan 1 Each Tablet, 1 TAB PO BID, (Reported) Patient Home Medication List Home Medication List Reviewed: Yes Review of Systems Review of Systems Constitutional: No chills, No diaphoresis, No fever; malaise EENTM: No ear discharge, No ear pain Respiratory: No cough, No phlegm; short of breath; No wheezing Gastrointestinal: No abdominal pain, No nausea, No vomiting Genitourinary: No discharge, No dysuria Musculoskeletal: No back pain, No joint pain Skin: No pruritus Psychiatric/Neurological: Denies Headache, Denies Numbness Past Rucshhz-Ecadiv-Gfxfkm Hx Patient Social History Alcohol Use: Rarely Uses Recreational Drug Use: Yes Drug of Choice: THC IV METH Type Used: Smokeless Tobacco 2nd Hand Smoke Exposure: No Recent Foreign Travel: No Contact w/Someone Who Travel: No Recent Infectious Disease Expo: No Recent Hopitalizations: No Physical Abuse: No Sexual Abuse: No Mistreated: No Fear: No Immunizations Up To Date Date of Pneumonia Vaccine: Aug 18, 2017 Seasonal Allergies Seasonal Allergies: No Past Medical History Surgeries: Yes (RIGHT AARM SKIN GRAFT) Orthopedic Respiratory: No Sleep Apnea Chronic Edema/Swelling, Hypertension Neurological: No Genitourinary: No Gastrointestinal: No Musculoskeletal: No Endocrine: No HEENT: No Cancer: No Psychosocial: No Integumentary: No Blood Disorders: No Family Medical History Cancer, CAD Over 55 Years Old Physical Exam Vital Signs - First Documented 09/26/19 09/26/19 05:34 05:55 Temp 36.6 Pulse 124 Resp 22 B/P (MAP) 144/114 (124) Pulse Ox 97 O2 Delivery Nasal Cannula O2 Flow Rate 2.00 FiO2 97 Capillary Refill : Greater Than 3 Seconds Height: '" Weight: lbs. oz. kg; 59.00 BMI Method: General Appearance: mild distress, obese, other (chronically ill) Eyes: Bilateral Eye Normal Inspection, Bilateral Eye PERRL, Bilateral Eye EOMI HEENT: PERRL/EOMI, normal ENT inspection, pharynx normal Neck: full range of motion, supple, normal inspection Respiratory: lungs clear, respiratory distress (mild to moderate), decreased breath sounds, accessory muscle use (mild with pursed lip breathing) Cardiovascular: normal peripheral pulses, regular rate, rhythm Gastrointestinal: normal bowel sounds, non tender, soft Extremities: other (chronic lymphedema bilateral lower extremities) Neurologic/Psychiatric: alert, normal mood/affect, oriented x 3 Focused Exam Lactate Level 09/26/19 07:27: Lactic Acid Level Laboratory Tests Test 09/26/19 07:27 Progress/Results/Core Measures Suspected Sepsis Recent Fever Within 48 Hours: No Infection Criteria Present: None New/Unexplained Altered Menta: No Sepsis Screen: No Definite Risk SIRS Temperature: Pulse: 124 Respiratory Rate: 22 Laboratory Tests 09/26/19 05:55: White Blood Count 12.0H Blood Pressure 144 /114 Mean: 124 09/26/19 07:27: Laboratory Tests 09/26/19 05:55: Creatinine 1.30, INR Comment 1.1, Platelet Count 332, Total Bilirubin 0.5 Results/Orders Lab Results Laboratory Tests Test 09/26/19 05:55 09/26/19 06:11 09/26/19 06:40 09/26/19 07:27 Range/Units White Blood Count 12.0 H 4.3-11.0 10^3/uL Red Blood Count 4.79 4.35-5.85 10^6/uL Hemoglobin 13.2 L 13.3-17.7 G/DL Hematocrit 43 40-54 % Mean Corpuscular Volume 89 80-99 FL Mean Corpuscular Hemoglobin 28 25-34 PG Mean Corpuscular Hemoglobin Concent 31 L 32-36 G/DL Red Cell Distribution Width 16.5 H 10.0-14.5 % Platelet Count 332 130-400 10^3/uL Mean Platelet Volume 9.9 7.4-10.4 FL Neutrophils (%) (Auto) 79 H 42-75 % Lymphocytes (%) (Auto) 11 L 12-44 % Monocytes (%) (Auto) 8 0-12 % Eosinophils (%) (Auto) 2 0-10 % Basophils (%) (Auto) 0 0-10 % Neutrophils # (Auto) 9.4 H 1.8-7.8 X 10^3 Lymphocytes # (Auto) 1.4 1.0-4.0 X 10^3 Monocytes # (Auto) 0.9 0.0-1.0 X 10^3 Eosinophils # (Auto) 0.3 0.0-0.3 10^3/uL Basophils # (Auto) 0.0 0.0-0.1 10^3/uL Prothrombin Time 14.1 12.2-14.7 SEC INR Comment 1.1 0.8-1.4 Activated Partial Thromboplast Time 31 24-35 SEC Sodium Level 137 135-145 MMOL/L Potassium Level 5.1 H 3.6-5.0 MMOL/L Chloride Level 105 98-107 MMOL/L Carbon Dioxide Level 18 L 21-32 MMOL/L Anion Gap 14 5-14 MMOL/L Blood Urea Nitrogen 14 7-18 MG/DL Creatinine 1.30 0.60-1.30 MG/DL Estimat Glomerular Filtration Rate 60 BUN/Creatinine Ratio 11 Glucose Level 116 H 70-105 MG/DL Calcium Level 9.3 8.5-10.1 MG/DL Corrected Calcium 9.6 8.5-10.1 MG/DL Magnesium Level 1.8 1.6-2.4 MG/DL Total Bilirubin 0.5 0.1-1.0 MG/DL Aspartate Amino Transf (AST/SGOT) 31 5-34 U/L Alanine Aminotransferase (ALT/SGPT) 15 0-55 U/L Alkaline Phosphatase 105 40-136 U/L Myoglobin 53.6 10.0-92.0 NG/ML Troponin I 0.033 H <0.028 NG/ML C-Reactive Protein High Sensitivity 1.00 H 0.00-0.50 MG/DL B-Type Natriuretic Peptide 626.2 H <100.0 PG/ML Total Protein 7.6 6.4-8.2 GM/DL Albumin 3.6 3.2-4.5 GM/DL Urine Color YELLOW Urine Clarity CLEAR Urine pH 6.0 5-9 Urine Specific [place] 1.020 1.016-1.022 Urine Protein 2+ H NEGATIVE Urine Glucose (UA) NEGATIVE NEGATIVE Urine Ketones NEGATIVE NEGATIVE Urine Nitrite NEGATIVE NEGATIVE Urine Bilirubin NEGATIVE NEGATIVE Urine Urobilinogen 0.2 < = 1.0 MG/DL Urine Leukocyte Esterase NEGATIVE NEGATIVE Urine RBC (Auto) TRACE-I NEGATIVE Urine RBC 5-10 H /HPF Urine WBC 0-2 /HPF Urine Squamous Epithelial Cells 0-2 /HPF Urine Crystals Y /LPF Urine Amorphous Sediment RARE HOLLIE URATES H /LPF Urine Bacteria TRACE /HPF Urine Casts PRESENT /LPF Urine Hyaline Casts RARE /LPF Urine Mucus NEGATIVE /LPF Urine Culture Indicated NO Urine Opiates Screen NEGATIVE NEGATIVE Urine Oxycodone Screen NEGATIVE NEGATIVE Urine Methadone Screen NEGATIVE NEGATIVE Urine Propoxyphene Screen NEGATIVE NEGATIVE Urine Barbiturates Screen NEGATIVE NEGATIVE Ur Tricyclic Antidepressants Screen NEGATIVE NEGATIVE Urine Phencyclidine Screen NEGATIVE NEGATIVE Urine Amphetamines Screen NEGATIVE NEGATIVE Urine Methamphetamines Screen NEGATIVE NEGATIVE Urine Benzodiazepines Screen NEGATIVE NEGATIVE Urine Cocaine Screen NEGATIVE NEGATIVE Urine Cannabinoids Screen NEGATIVE NEGATIVE Blood Gas Puncture Site LR Blood Gas Patient Temperature 36.6 Arterial Blood pH 7.44 H 7.37-7.43 Arterial Blood Partial Pressure CO2 39 35-45 MMHG Arterial Blood Partial Pressure O2 64 L 79-93 MMHG Arterial Blood HCO3 26 23-27 MMOL/L Arterial Blood Total CO2 27.4 21.0-31.0 MMOL/L Arterial Blood Oxygen Saturation 94 94-100 % Arterial Blood Base Excess 2.3 -2.5-2.5 MMOL/L Carlos Test POSITIVE Blood Gas Ventilator Setting NO Blood Gas Inspired Oxygen 2 Micro Results Microbiology 09/26/19 Influenza Types A,B Antigen (SU) - Final, Complete My Orders Orders - XAVIER RHOADES Influenza A And B Antigens (09/26/19 06:16) Ua Culture If Indicated (09/26/19 06:16) Drug Screen Stat (Urine) (09/26/19 06:16) Hs C Reactive Protein (09/26/19 06:16) Cpap (Set Up) (09/26/19 06:21) Arterial Blood Gas (09/26/19 06:41) Lorazepam Injection (Ativan Injection) (09/26/19 06:45) Lorazepam Injection (Ativan Injection) (09/26/19 07:15) Blood Culture (09/26/19 07:06) Sputum Culture (09/26/19 07:06) Ed Iv/Invasive Line Start (09/26/19 07:06) Ed Iv/Invasive Line Start (09/26/19 07:06) Vital Signs Adult Sepsis Patie Q15M (09/26/19 07:06) Remove Rings In Anticipation O (09/26/19 07:06) Lactic Acid Analyzer (09/26/19 07:06) Cefepime Injection (Maxipime Injection) (09/26/19 07:15) Vancomycin Injection (Vancomycin Injecti (09/26/19 07:06) Pharmacy To Dose (Pharmacy To Dose) (09/26/19 07:15) Oseltamivir 75 Mg Capsule (Tamiflu 75 (09/26/19 07:15) Ed Iv/Invasive Line Start (09/26/19 07:29) Ns Iv 500 Ml (Sodium Chloride 0.9%) (09/26/19 07:29) Ns Iv 1000 Ml (Sodium Chloride 0.9%) (09/26/19 07:29) Ns Iv 1000 Ml (Sodium Chloride 0.9%) (09/26/19 07:29) Medications Given in ED Current Medications Medications Dose Ordered Sig/Natalie Route Start Time Stop Time Status Last Admin Dose Admin Lorazepam 1 mg ONCE ONCE IVP 09/26/19 06:45 09/26/19 06:46 DC 09/26/19 06:50 1 MG Lorazepam 1 mg ONCE ONCE IVP 09/26/19 07:15 09/26/19 07:16 DC 09/26/19 07:11 1 MG Oseltamivir Phosphate 75 mg ONCE ONCE PO 09/26/19 07:15 09/26/19 07:16 DC 09/26/19 07:38 75 MG Sodium Chloride 1,000 ml @ 0 mls/hr Q0M ONCE IV 09/26/19 07:29 09/26/19 07:31 DC 09/26/19 07:38 0 MLS/HR Vital Signs/I&O 09/26/19 09/26/19 05:34 05:55 Temp 36.6 Pulse 124 Resp 22 B/P (MAP) 144/114 (124) Pulse Ox 97 97 O2 Delivery Nasal Cannula O2 Flow Rate 2.00 FiO2 97 Capillary Refill : Greater Than 3 Seconds Blood Pressure Mean: 124 Progress Note #1: Time: 06:29 Progress Note A. fib with RVR versus pneumonia/bronchitis versus heart failure versus other? 25 cm pressure help with his breathing and labs included BNP, chest x-ray. Urinalysis drug screen. ABG Progress Note #2: Time: 07:09 Progress Note The patient shows significant improvement on CPAP with his heart rate now in the 90-100 range and is breathing more relaxed however he's having quite a bit of anxiety associated with wearing the mask. We had preemptively given him a milligram of Ativan and we'll give him a second milligram as he is starts to panic and have rapid breathing. He can be redirected but is not tolerating the CPAP due to his anxiety very well. We've ordered Tamiflu for his influenza and will probably order Lasix for his fluid overload if his BNP is indeed elevated. We'll cover him with antibiotics for now and obtain a septic workup as an underlying bacterial pneumonia cannot be excluded. Cultures and lactate will be obtained. Progress Note #3: Time: 07:30 Progress Note The patient's BNP came back at 600. In August was 4500. I suspect this is influenza pneumonia and were going to treat him with sepsis protocol. His ideal body weight is 119 kg adjusted so we'll give him a 20 mL/kg fluid bolus of 2500 cc. Progress Note #4: Time: 07:49 Progress Note The patient's continuing to improve. His heart rate is down in the 90+ or minus range. His shock index is 0.8. He is tolerating the CPAP better now after Ativan second dose. His troponin is detectable so we'll have them trim that out during his stay. ECG Initial ECG Impression Date: Sep 26, 2019 Initial ECG Impression Time: 05:47 Initial ECG Rate: 117 Initial ECG Rhythm: A Fib/Flutter Initial ECG Intervals: QT (525) Initial ECG Impression: Atrial Fibrillation Initial ECG Comparisson: Unchanged Comment No clinically relevant ST elevation or depression. Atrial fibrillation. Tachycardia secondary to infection versus rapid ventricular response. Diagnostic Imaging Diagonstic Imaging: Xray Plain Films/CT/US/NM/MRI: chest (1v) Comments NAME: MATIAS GOMES [facility] REC#: [id number] PT STATUS: REG ER : 1975 PHYSICIAN: ISIDRO VICTOR MD ADMIT DATE: 09/26/19/ER Draft Date of Exam:09/26/19 CHEST 1 VIEW, AP/PA ONLY CHEST 1 VIEW, AP/PA ONLY Indication: Shortness of air and cough Comparison: 09/03/2019 Findings: Increased bilateral ill-defined pulmonary opacities. These are greatest in the right upper lobe. Marked enlargement of cardiac silhouette is similar. No appreciable pleural effusion or pneumothorax. Impression: 1. New bilateral pulmonary opacities favor pulmonary edema. However, multifocal infection could also give this appearance in appropriate setting. Dictated on workstation # [id number] Dict: 09/26/1927 Trans: 09/26/19 0650 [facility] [id number] Interpreted by: ASHOK ESPAÑA MD Electronically signed by: Reviewed: Reviewed by Me Departure Impression Primary Impression: Influenza Additional Impressions: Respiratory failure with hypoxia Qualified Codes: J96.21 - Acute and chronic respiratory failure with hypoxia Pneumonia Qualified Codes: J18.9 - Pneumonia, unspecified organism Disposition: ADMITTED INPATIENT Condition: Stable Admissions Decision to Admit Reason: Admit from ER (General) Decision to Admit/Date: Sep 26, 2019 Time/Decision to Admit Time: 07:10 Departure-Patient Inst. Referrals: NO,LOCAL PHYSICIAN (PCP) Primary Care Physician SOURAV GRACIA (Family) Primary Care Physician XAVIER RHOADES Sep 26, 2019 06:27
[2019-09-26 06:28] LABS: BILIRUBIN,URINE NEGATIVE (NEGATIVE); CLARITY,URINE CLEAR; COLOR,URINE YELLOW; GLUCOSE, URINE (UA) NEGATIVE (NEGATIVE); KETONES,URINE NEGATIVE (NEGATIVE); LEUKOCYTE ESTERASE ,URINE NEGATIVE (NEGATIVE); NITRITE,URINE NEGATIVE (NEGATIVE); PROTEIN,URINE 2+ (NEGATIVE)
[2019-09-26 06:34] LABS: ALBUMIN 3.6 GM/DL (3.2-4.5); BILIRUBIN,TOTAL 0.5 MG/DL (0.1-1.0); CALCIUM 9.3 MG/DL (8.5-10.1); CREATININE SERUM 1.3 MG/DL (0.60-1.30); MAGNESIUM 1.8 MG/DL (1.6-2.4); POTASSIUM 5.1 MMOL/L (3.6-5.0); TOTAL PROTEIN 7.6 GM/DL (6.4-8.2)
[2019-09-26 06:41] LABS: BACTERIA,URINE TRACE /HPF; SQUAMOUS EPITHELIAL CELL,UR 0-2 /HPF; WBC,URINE 0-2 /HPF
[2019-09-26 06:42] LABS: AMORPHOUS SEDIMENT,UR RARE AMOR URATES /LPF; HYALINE CASTS, URINE RARE /LPF
[2019-09-26 06:44] LABS: AMPHETAMINE SCREEN, URINE NEGATIVE (NEGATIVE); BARBITURATE SCREEN URINE NEGATIVE (NEGATIVE); BENZODIAZEPINES SCREEN URINE NEGATIVE (NEGATIVE); CANNABINOID SCREEN, URINE NEGATIVE (NEGATIVE); COCAINE SCREEN URINE NEGATIVE (NEGATIVE); METHADONE STAT NEGATIVE (NEGATIVE); METHAMPHETAMINE SCREEN URINE S NEGATIVE (NEGATIVE); OPIATE SCREEN URINE NEGATIVE (NEGATIVE); OXYCODONE STAT NEGATIVE (NEGATIVE); PROPOXYPHENE STAT NEGATIVE (NEGATIVE); TRICYCLIC ANTIDEPRESSANTS SCRE NEGATIVE (NEGATIVE)
[2019-09-26] MEDS ORDERED: LORazepam INJ 2 MG/ML (ATIVAN) VIAL IVP ONE ×2 (06:45→07:15)
[2019-09-26 06:49] LABS: ABG BASE EXCESS 2.3 MMOL/L (-2.5-2.5); ABG OXYGEN SATURATION 94 % (94-100); ABG PCO2 39 MMHG (35-45); ABG PH 7.44 (7.37-7.43); ABG PO2 64 MMHG (79-93); ABG TCO2 27.4 MMOL/L (21.0-31.0)
[2019-09-26 06:50] LABS: ALLENS TEST POSITIVE; INSPIRED O2 2; PATIENT TEMP 36.6; VENTILATOR NO
--- NOTE | 2019-09-26 06:51 | Diagnostic Imaging Report ---
CHEST 1 VIEW, AP/PA ONLY Indication: Shortness of air and cough Comparison: 09/03/2019 Findings: Increased bilateral ill-defined pulmonary opacities. These are greatest in the right upper lobe. Marked enlargement of cardiac silhouette is similar. No appreciable pleural effusion or pneumothorax. Impression: 1. New bilateral pulmonary opacities favor pulmonary edema. However, multifocal infection could also give this appearance in appropriate setting. Dictated by: Dictated on workstation # [id number]
[2019-09-26] MEDS ORDERED: VANCOMYCIN INJECTION 2,000 MG in NS IV 500 ML 500 ML IV ONE (07:06)
[2019-09-26] MEDS ORDERED: PHARMACY TO DOSE IV ONE (07:15)
[2019-09-26] MEDS ORDERED: OSELTAMIVIR 75 MG (TAMIFLU) CAPSULE PO ONE (07:15)
[2019-09-26] MEDS ORDERED: CEFEPIME INJECTION 1,000 MG in WATER (STERILE) FOR INJECTION 10 ML IV ONE (07:15)
[2019-09-26] MEDS ORDERED: NS IV 1000 ML 1,000 ML IV ONE (07:29)
[2019-09-26] MEDS ORDERED: NS IV 500 ML 500 ML IV ONE (07:29)
[2019-09-26] MEDS ORDERED: NS IV 1000 ML 1,000 ML IV SCH (07:29)
[2019-09-26 09:00] VITALS: BP 121/94
[2019-09-26] MEDS ORDERED: ACETAMINOPHEN 500 MG TAB (TYLENOL) PO PRN (09:15)
[2019-09-26] MEDS ORDERED: EPINEPHrine 1 MG INJECTION 2 MG in NS (IVPB) 250 ML IV SCH (09:30)
[2019-09-26] MEDS ORDERED: CATHETER FLUSH 10 ML SYR IV PRN (09:30)
--- NOTE | 2019-09-26 09:53 | Diagnostic Imaging Report ---
INDICATION: Chronic respiratory failure and hypoxia. Comparison made to prior examination 09/26/2019. FINDINGS: There is cardiomegaly. There is diffuse bilateral airspace disease. There is no pleural effusion or pneumothorax. Mediastinum is unremarkable. IMPRESSION: Diffuse bilateral airspace disease which is increased since the prior examination from earlier the same day. Some degree of underlying congestive failure certainly cannot be excluded. Recommend clinical correlation. Dictated by: Dictated on workstation # [id number]
[2019-09-26 10:00] VITALS: BP 130/103
[2019-09-26] MEDS: APIXABAN 5 MG (ELIQUIS) TABLET PO SCH ×2 (10:12→20:19)
[2019-09-26] MEDS: dilTIAZem120 MG (CARDIZEM CD) CAP PO SCH (10:12)
[2019-09-26] MEDS: AMIODARONE 200 MG (CORDARONE) TAB PO SCH ×2 (10:12→20:18)
[2019-09-26] MEDS: VASOPRESSIN INJECTION 20 UNIT in NORMAL SALINE 100 ML IV SCH ×2 (10:13→18:50)
[2019-09-26] MEDS: NOREPINEPHRINE 4 MG/250 ML 250 ML IV SCH ×5 (10:13→23:25)
[2019-09-26] MEDS: meTOprolol TARTRATE 50 MG (LOPRESSOR) TAB PO SCH ×2 (10:13→20:16)
--- NOTE | 2019-09-26 10:25 | NUR ---
Patient reported to this nurse that he already took his eliquis, cardizem, amiodarone and metoprolol this AM, those medications not administered this AM to patient due to patient already taking medications. .
--- NOTE | 2019-09-26 10:33 | NUR ---
Telephone order received from for a PICC line.
[2019-09-26] MEDS ORDERED: NS IV 500 ML 500 ML ONE (11:14)
[2019-09-26] MEDS ORDERED: AMIO200T4 PO (11:29)
[2019-09-26] MEDS ORDERED: FURO-124 PO (11:30)
[2019-09-26] MEDS: 1/2 NS IV SOLUTION 1,000 ML IV SCH ×2 (11:30→20:43)
--- NOTE | 2019-09-26 11:31 | NUR ---
SPOKE WITH THE PT, WENT THRU THE EXT MED HISTORY AND CALLED [facility] TO COMPLETE THE MED REC. PT WAS HONEST AND SAID MOST OF THE TIME HE FORGETS HIS EVENING DOSES OF MEDICATION (ELIQUIS, METOPROLOL AND ENTRESTO). FUROSEMIDE 40MG: THE PRESCRIPTION AT [facility] IS " 1 TAB DAILY" HOWEVER THE PT SAYS HE IS TAKING IT TWICE DAILY- THERE IS NOT A PRESCRIPTION AT [facility] WITH THOSE DIRECTIONS. OTC MEDS: TYLENOL PM
--- NOTE | 2019-09-26 11:41 | Consultation-Cardiology ---
HPI-Cardiology Cardiology Consultation Date of Consultation 09/26/19 Date of Admission Time Seen by Provider: 11:36 Indication: AFib, CHF HPI Patient is a 43 y/o male with history of atrial fibrillation, CHF, ZULLY, hx of noncompliance. Presented to the ER with complaints of increased dyspnea over the past several days. Associated cough. Denies any chest pain, dizziness or syncope . Patient found to have acute respiratory failure with Influenza A and pneumonia. Currently resting comfortably in bed, HR well controlled. Home Medications & Allergies Allergies: Coded Allergies: No Known Drug Allergies (Unverified , 09/26/19) Home Medication List Reviewed: Yes SQH-Mehwrp-Tztedb Hx Patient Social History Marital Status: single Employed/Student: unemployed Alcohol Use: Rarely Uses Recreational Drug Use: Yes Drug of Choice: THC IV METH Type Used: Smokeless Tobacco 2nd Hand Smoke Exposure: No Recent Foreign Travel: No Recent Infectious Disease Expo: No Recent Hopitalizations: No Immunizations Up To Date Date of Pneumonia Vaccine: Aug 18, 2017 Past Medical History afib, morbid obesity, ZULLY, CHF, hx of IV meth use Family Medical History Significant Family History: Cancer, CAD Over 55 Years Old Review of Systems-General Review of Systems Constitutional: No chills, No diaphoresis, No fever; malaise EENTM: see HPI, no symptoms reported; No ear discharge, No ear pain Respiratory: see HPI, cough, dyspnea on exertion; No orthopnea, No phlegm; short of breath; No wheezing Cardiovascular: see HPI; No chest pain, No edema, No Hx of Intervention, No syncope Gastrointestinal: No abdominal pain, No nausea, No vomiting Genitourinary: see HPI; No discharge, No dysuria Musculoskeletal: see HPI; No back pain, No joint pain Skin: see HPI; No pruritus Psychiatric/Neurological: Denies Headache, Denies Numbness Reviewed Test Results Reviewed Test Results Lab Laboratory Tests 09/26/19 05:55: White Blood Count 12.0H, Red Blood Count 4.79, Hemoglobin 13.2L, Hematocrit 43, Mean Corpuscular Volume 89, Mean Corpuscular Hemoglobin 28, Mean Corpuscular Hemoglobin Concent 31L, Red Cell Distribution Width 16.5H, Platelet Count 332, Mean Platelet Volume 9.9, Neutrophils (%) (Auto) 79H, Lymphocytes (%) (Auto) 11L , Monocytes (%) (Auto) 8, Eosinophils (%) (Auto) 2, Basophils (%) (Auto) 0, Neutrophils # (Auto) 9.4H, Lymphocytes # (Auto) 1.4, Monocytes # (Auto) 0.9, Eosinophils # (Auto) 0.3, Basophils # (Auto) 0.0, Prothrombin Time 14.1, INR Comment 1.1, Activated Partial Thromboplast Time 31, Sodium Level 137, Potassium Level 5.1H, Chloride Level 105, Carbon Dioxide Level 18L, Anion Gap 14, Blood Urea Nitrogen 14, Creatinine 1.30, Estimat Glomerular Filtration Rate 60, BUN/Creatinine Ratio 11, Glucose Level 116H, Calcium Level 9.3, Corrected Calcium 9.6, Magnesium Level 1.8, Total Bilirubin 0.5, Aspartate Amino Transf (AST/SGOT) 31, Alanine Aminotransferase (ALT/SGPT) 15, Alkaline Phosphatase 105, Myoglobin 53.6, Troponin I 0.033H, C-Reactive Protein High Sensitivity 1.00H, B- Type Natriuretic Peptide 626.2H, Total Protein 7.6, Albumin 3.6 09/26/19 06:11: Urine Color YELLOW, Urine Clarity CLEAR, Urine pH 6.0, Urine Specific [place] 1.020, Urine Protein 2+H, Urine Glucose (UA) NEGATIVE, Urine Ketones NEGATIVE, Urine Nitrite NEGATIVE, Urine Bilirubin NEGATIVE, Urine Urobilinogen 0.2, Urine Leukocyte Esterase NEGATIVE, Urine RBC (Auto) TRACE-I, Urine RBC 5-10H, Urine WBC 0-2, Urine Squamous Epithelial Cells 0-2, Urine Crystals Y, Urine Amorphous Sediment RARE HOLLIE URATESH, Urine Bacteria TRACE, Urine Casts PRESENT, Urine Hyaline Casts RARE, Urine Mucus NEGATIVE, Urine Culture Indicated NO, Urine Opiates Screen NEGATIVE, Urine Oxycodone Screen NEGATIVE, Urine Methadone Screen NEGATIVE, Urine Propoxyphene Screen NEGATIVE, Urine Barbiturates Screen NEGATIVE, Ur Tricyclic Antidepressants Screen NEGATIVE, Urine Phencyclidine Screen NEGATIVE, Urine Amphetamines Screen NEGATIVE, Urine Methamphetamines Screen NEGATIVE, Urine Benzodiazepines Screen NEGATIVE, Urine Cocaine Screen NEGATIVE, Urine Cannabinoids Screen NEGATIVE 09/26/19 06:40: Blood Gas Puncture Site LR, Blood Gas Patient Temperature 36.6, Arterial Blood pH 7.44H, Arterial Blood Partial Pressure CO2 39, Arterial Blood Partial Pressure O2 64L, Arterial Blood HCO3 26, Arterial Blood Total CO2 27.4, Arterial Blood Oxygen Saturation 94, Arterial Blood Base Excess 2.3, Carlos Test POSITIVE, Blood Gas Ventilator Setting NO, Blood Gas Inspired Oxygen 2 09/26/19 07:27: Lactic Acid Level 1.48 09/26/19 09:38: Lactic Acid Level 1.18 Microbiology 09/26/19 Influenza Types A,B Antigen (SU) - Final, Complete ECG Impression ECG Initial ECG Rhythm: A Fib/Flutter Initial ECG Impression: Atrial Fibrillation w/RVR Physical Exam Physical Exam Vital Signs Vital Signs - First Documented 09/26/19 09/26/19 05:34 05:55 Temp 36.6 Pulse 124 Resp 22 B/P (MAP) 144/114 (124) Pulse Ox 97 O2 Delivery Nasal Cannula O2 Flow Rate 2.00 FiO2 97 Capillary Refill : Greater Than 3 Seconds Height, Weight, BMI Height: '" Weight: lbs. oz. kg; 59.00 BMI Method: General Appearance: No Apparent Distress, WD/WN Eyes: Bilateral Eye Normal Inspection, Bilateral Eye PERRL, Bilateral Eye EOMI HEENT: TMs Normal, Normal ENT Inspection Neck: Non Tender, Supple Respiratory: Chest Non Tender, No Accessory Muscle Use, No Respiratory Distress, Decreased Breath Sounds Cardiovascular: No JVD, No Murmur, Irregularly Irregular Gastrointestinal: Non Tender, Soft Back: No CVA Tenderness Extremity: Non Tender, No Calf Tenderness A/P-Cardiology Admission Diagnosis Acute respiratory failure Pneumonia Influenza A PAF CHF Assessment/Plan Acute respiratory failure with pneumonia, slowly improving. Continue on antibiotics. Influenza A- started on Tamiflu Paroxysmal atrial fibrillation, heart rate well controlled at this time, continue to monitor telemetry CHF, acute on chronic LV systolic dysfunction with most recent EF 20-25%, noncompliant with LifeVest. Maintained on Entresto, Lopressor as outpatient. Mild elevation in troponin, type II MS probably secondary to hypoxemia and tachycardia. Conservative management for now. Increased risk of stroke, tolerating Eliquis well. Continue on current medication Hypertension, restart home blood pressure medications and continue to monitor. Morbid obesity COPD/obstructive sleep apnea, noncompliant with his C Pap History of recent IV Methamphetamine use Noncompliant with LifeVest, patient received LifeVest but not using Noncompliant with medication. Thank you for allowing us to participate in the management of Mr. Sloan. This is Carine Whiting PA-C, as a scribe for Dr. Law. Patient was seen and evaluated with Carine, examination performed, management plan was discussed, agree with the current scribed note, I made few changes to the note using Italic font Patient was seen at bedside, laying down comfortably, still agitated. Discussed compliance with medication and recommendation Recommended avoiding illicit drugs Continue to monitor Clinical Quality Measures DVT/VTE Risk/Contraindication: Risk Factor Score Per Nursin RFS Level Per Nursing on Admit: 2=Moderate CARINE GARCIA Sep 26, 2019 11:41 RODGER LAW MD Sep 26, 2019 15:58
--- NOTE | 2019-09-26 11:50 | NUR ---
verbal order received att from to decrease 1/2NS to 75ml/hr and to order lovenox pharmacy to dose.
--- NOTE | 2019-09-26 12:00 | NUR ---
Callahan catheter removed per verbal orders
[2019-09-26] MEDS: ENOXAPARIN 300 MG/3 ML (LOVENOX) MULTI-DOSE VIAL SQ SCH ×2 (12:46→23:22)
[2019-09-26 14:41] VITALS: BP 144/114
[2019-09-26] MEDS: CEFEPIME 1,000 MG/SWFI 10 ML IV PUSH IV SCH ×4 (14:55→20:16)
[2019-09-26] MEDS: LORazepam INJ 2 MG/ML (ATIVAN) VIAL IV PRN ×2 (14:56→23:21)
[2019-09-26] MEDS ORDERED: RT-ALBUTEROL SULF 2.5 MG/3 ML PRE-MIX VIAL INH PRN ×2 (15:00)
--- NOTE | 2019-09-26 15:59 | Diagnostic Imaging Report ---
INDICATION: Post PICC placement. COMPARISON: Imaging from the same date. TECHNIQUE: Two radiographs of the chest dated September 26, 2019. FINDINGS: Interval placement of a right-sided PICC line with the distal tip difficult to visualize though appearing to terminate near the cavoatrial junction. No pneumothorax. The cardiac silhouette remains enlarged. Extensive bilateral mixed interstitial and airspace opacities are again noted, similar to the prior examination. No significant pleural effusion. No pneumothorax. Osseous structures appear stable. IMPRESSION: Interval placement of right-sided PICC line with the distal tip near the cavoatrial junction without pneumothorax. Persistent extensive bilateral pulmonary opacities. Stable cardiomegaly. Dictated by: Dictated on workstation # [id number]
[2019-09-26 16:15] VITALS: BP 132/68
[2019-09-26] MEDS: RT-ALBUTEROL SULF 2.5 MG/3 ML PRE-MIX VIAL INH SCH (19:14)
[2019-09-26] MEDS: VANCOMYCIN 2000 MG/NS 500 ML IVPB IV SCH ×2 (20:16)
[2019-09-26 20:17] VITALS: BP 142/119
[2019-09-26] MEDS: OSELTAMIVIR 75 MG (TAMIFLU) CAPSULE PO SCH (20:18)
--- NOTE | 2019-09-26 20:56 | History & Physical ---
HPI History of Present Illness: 43 yo M that presented with cough and shortness of breath found to have Flu A. Patient has h/o CHF with life vest which he is not wearing and states that he doesn't like to wear it because of the wires and it gets in the way. He has ZULLY and does not use CPAP. Patient states that he has not had any sick contacts. Denies any fever or chills. States that he started to have symptoms yesterday. Source: patient, RN/MD Exam Limitations: no limitations Date seen by provider: Sep 26, 2019 Time Seen by Provider: 10:15 Attending Physician Flavia Summers MD PCP No,Local Physician Consult Date of Admission Sep 26, 2019 at 08:28 Home Medications Home Medications Reviewed patient Home Medication Reconciliation performed by pharmacy medication reconciliations battery technician and/or nursing. Patients Allergies have been reviewed. Allergies Coded Allergies: No Known Drug Allergies (Unverified , 09/26/19) [id number] Hx Patient Social History Marrital Status: single Employed/Student: unemployed Alcohol Use: Rarely Uses Recreational Drug Use: Yes Drug of Choice: THC IV METH Type Used: Smokeless Tobacco 2nd Hand Smoke Exposure: No Recent Foreign Travel: No Contact w/other who traveled: No Recent Hopitalizations: No Recent Infectious Disease Expo: No Immunizations Up To Date Date of Pneumonia Vaccine: Aug 18, 2017 Past Medical History Systolic CHF with life vest ZULLY non compliant with CPAP HTN Atrial Fibrillation HTN Family Medical History Significant Family History: Cancer, CAD Over 55 Years Old Review of Systems (CHC) Constitutional: no symptoms reported; No chills, No fever; malaise EENTM: nose congestion, throat pain; No mouth pain Respiratory: cough, dyspnea on exertion, short of breath Cardiovascular: no symptoms reported; No chest pain, No edema, No palpitations Gastrointestinal: no symptoms reported; No abdominal pain, No constipation, No diarrhea, No nausea, No vomiting Genitourinary: no symptoms reported; No dysuria, No frequency, No hematuria Musculoskeletal: no symptoms reported Skin: no symptoms reported; No lesions, No rash Psychiatric/Neurological: No Symptoms Reported Reviewed Test Results Reviewed Test Results Lab Laboratory Tests Test 09/26/19 05:55 09/26/19 06:11 09/26/19 06:40 09/26/19 07:27 Range/Units White Blood Count 12.0 H 4.3-11.0 10^3/uL Red Blood Count 4.79 4.35-5.85 10^6/uL Hemoglobin 13.2 L 13.3-17.7 G/DL Hematocrit 43 40-54 % Mean Corpuscular Volume 89 80-99 FL Mean Corpuscular Hemoglobin 28 25-34 PG Mean Corpuscular Hemoglobin Concent 31 L 32-36 G/DL Red Cell Distribution Width 16.5 H 10.0-14.5 % Platelet Count 332 130-400 10^3/uL Mean Platelet Volume 9.9 7.4-10.4 FL Neutrophils (%) (Auto) 79 H 42-75 % Lymphocytes (%) (Auto) 11 L 12-44 % Monocytes (%) (Auto) 8 0-12 % Eosinophils (%) (Auto) 2 0-10 % Basophils (%) (Auto) 0 0-10 % Neutrophils # (Auto) 9.4 H 1.8-7.8 X 10^3 Lymphocytes # (Auto) 1.4 1.0-4.0 X 10^3 Monocytes # (Auto) 0.9 0.0-1.0 X 10^3 Eosinophils # (Auto) 0.3 0.0-0.3 10^3/uL Basophils # (Auto) 0.0 0.0-0.1 10^3/uL Prothrombin Time 14.1 12.2-14.7 SEC INR Comment 1.1 0.8-1.4 Activated Partial Thromboplast Time 31 24-35 SEC Sodium Level 137 135-145 MMOL/L Potassium Level 5.1 H 3.6-5.0 MMOL/L Chloride Level 105 98-107 MMOL/L Carbon Dioxide Level 18 L 21-32 MMOL/L Anion Gap 14 5-14 MMOL/L Blood Urea Nitrogen 14 7-18 MG/DL Creatinine 1.30 0.60-1.30 MG/DL Estimat Glomerular Filtration Rate 60 BUN/Creatinine Ratio 11 Glucose Level 116 H 70-105 MG/DL Calcium Level 9.3 8.5-10.1 MG/DL Corrected Calcium 9.6 8.5-10.1 MG/DL Magnesium Level 1.8 1.6-2.4 MG/DL Total Bilirubin 0.5 0.1-1.0 MG/DL Aspartate Amino Transf (AST/SGOT) 31 5-34 U/L Alanine Aminotransferase (ALT/SGPT) 15 0-55 U/L Alkaline Phosphatase 105 40-136 U/L Myoglobin 53.6 10.0-92.0 NG/ML Troponin I 0.033 H <0.028 NG/ML C-Reactive Protein High Sensitivity 1.00 H 0.00-0.50 MG/DL B-Type Natriuretic Peptide 626.2 H <100.0 PG/ML Total Protein 7.6 6.4-8.2 GM/DL Albumin 3.6 3.2-4.5 GM/DL Urine Color YELLOW Urine Clarity CLEAR Urine pH 6.0 5-9 Urine Specific [place] 1.020 1.016-1.022 Urine Protein 2+ H NEGATIVE Urine Glucose (UA) NEGATIVE NEGATIVE Urine Ketones NEGATIVE NEGATIVE Urine Nitrite NEGATIVE NEGATIVE Urine Bilirubin NEGATIVE NEGATIVE Urine Urobilinogen 0.2 < = 1.0 MG/DL Urine Leukocyte Esterase NEGATIVE NEGATIVE Urine RBC (Auto) TRACE-I NEGATIVE Urine RBC 5-10 H /HPF Urine WBC 0-2 /HPF Urine Squamous Epithelial Cells 0-2 /HPF Urine Crystals Y /LPF Urine Amorphous Sediment RARE HOLLIE URATES H /LPF Urine Bacteria TRACE /HPF Urine Casts PRESENT /LPF Urine Hyaline Casts RARE /LPF Urine Mucus NEGATIVE /LPF Urine Culture Indicated NO Urine Opiates Screen NEGATIVE NEGATIVE Urine Oxycodone Screen NEGATIVE NEGATIVE Urine Methadone Screen NEGATIVE NEGATIVE Urine Propoxyphene Screen NEGATIVE NEGATIVE Urine Barbiturates Screen NEGATIVE NEGATIVE Ur Tricyclic Antidepressants Screen NEGATIVE NEGATIVE Urine Phencyclidine Screen NEGATIVE NEGATIVE Urine Amphetamines Screen NEGATIVE NEGATIVE Urine Methamphetamines Screen NEGATIVE NEGATIVE Urine Benzodiazepines Screen NEGATIVE NEGATIVE Urine Cocaine Screen NEGATIVE NEGATIVE Urine Cannabinoids Screen NEGATIVE NEGATIVE Blood Gas Puncture Site LR Blood Gas Patient Temperature 36.6 Arterial Blood pH 7.44 H 7.37-7.43 Arterial Blood Partial Pressure CO2 39 35-45 MMHG Arterial Blood Partial Pressure O2 64 L 79-93 MMHG Arterial Blood HCO3 26 23-27 MMOL/L Arterial Blood Total CO2 27.4 21.0-31.0 MMOL/L Arterial Blood Oxygen Saturation 94 94-100 % Arterial Blood Base Excess 2.3 -2.5-2.5 MMOL/L Carlos Test POSITIVE Blood Gas Ventilator Setting NO Blood Gas Inspired Oxygen 2 Lactic Acid Level 1.48 0.50-2.00 MMOL/L Test 09/26/19 09:38 09/26/19 12:13 09/26/19 18:40 Range/Units Lactic Acid Level 1.18 0.50-2.00 MMOL/L Troponin I < 0.028 < 0.028 <0.028 NG/ML Physical Exam-(CHC) Physical Exam Vital Signs VS - Last 72 Hours, by Label 09/26/19 09/26/19 09/26/19 09/26/19 05:34 05:55 07:00 09:00 Temp 36.6 37.0 Pulse 124 95 86 Resp 22 36 20 B/P (MAP) 144/114 (124) 121/94 (103) Pulse Ox 97 97 100 96 O2 Delivery Nasal Cannula Nasal Cannula O2 Flow Rate 2.00 40.00 2.00 FiO2 97 09/26/19 09/26/19 09/26/19 09/26/19 09:00 10:00 11:04 12:00 Temp 36.6 37.1 Pulse 95 88 Resp 36 20 B/P (MAP) 97/81 (124) 130/103 (112) Pulse Ox 92 98 O2 Delivery Nasal Cannula Nasal Cannula Nasal Cannula Nasal Cannula O2 Flow Rate 2.00 2.00 2.00 2.00 96.00 09/26/19 09/26/19 09/26/19 09/26/19 14:41 16:00 16:15 16:52 Temp 36.6 Pulse 124 99 B/P (MAP) 132/68 (89) Pulse Ox 97 97 O2 Delivery Nasal Cannula Nasal Cannula O2 Flow Rate 2.00 2.00 09/26/19 18:00 O2 Delivery Nasal Cannula O2 Flow Rate 2.00 Capillary Refill : Greater Than 3 Seconds General Appearance: WD/WN, no apparent distress, obese HEENT: PERRL/EOMI Neck: non-tender, full range of motion, supple Respiratory: chest non-tender, no respiratory distress, no accessory muscle use, wheezing Cardiovascular: normal peripheral pulses, regular rate, rhythm, no edema, no murmur Gastrointestinal: normal bowel sounds, non tender, soft, no organomegaly Back: no CVA tenderness, no vertebral tenderness Extremities: normal range of motion, normal inspection, no calf tenderness, normal capillary refill Neurologic/Psychiatric: juvenile correctional officer II-XII nml as tested, no motor/sensory deficits, a lert, normal mood/affect, oriented x 3 Skin: normal color, warm/dry Assessment/Plan Assessment/Plan Admission Status: Inpatient Order (span 2 midnights) Reason for Inpatient Admission: High risk with Flu A, heart failure (1) Respiratory failure with hypoxia Status: Acute Assessment & Plan: - Will titrate oxygen as tolerated, no home oxygen need, MAT protocol Qualifiers: Qualified Codes: J96.21 - Acute and chronic respiratory failure with hypoxia (2) Influenza Status: Acute Assessment & Plan: - Tamiflu (3) Systolic CHF Status: Chronic Assessment & Plan: - Continue home meds, not in acute failure (4) Atrial fibrillation Status: Chronic Assessment & Plan: - rate controlled, Eliquis (5) ZULLY (obstructive sleep apnea) Status: Chronic Assessment & Plan: - Non compliant with CPAP (6) Obesity hypoventilation syndrome (7) Noncompliance (8) Methamphetamine abuse (9) Morbid obesity Status: Chronic Clinical Quality Measures DVT/VTE Risk/Contraindication: Risk Factor Score Per Nursin RFS Level Per Nursing on Admit: 2=Moderate FLAVIA SUMMERS MD Sep 26, 2019 20:56
--- NOTE | 2019-09-26 21:00 | NUR ---
PATIENT DIFFICULT TO MONITOR D/T PATIENT CONTINUING TO REMOVE BLOOD PRESSURE CUFF, NASAL CANNULA, O2 SAT PROBE, AND CARDIAC MONITORS. PATIENT CONTINUES TO STATE "I HATE BEING TIED UP LIKE THIS". PATIENT EDUCATED REGARDING IMPORTANCE OF MONITORING VITAL SIGNS AND HEART. PATIENT REFUSES TO WEAR CPAP PER ORDERS. DISCUSSED THE FACT THAT NO TREATMENT WILL BE FORCED ON HIM BY THIS NURSE. PATIENT FURTHER EDUCATED REGARDING GETTING UP WITHOUT USING THE CALL LIGHT AND RISK OF FALLING. PATIENT STATES "IM NOT GOING TO FALL!!". PATIENT IS UNCOOPERATIVE.
[2019-09-26 21:59] VITALS: BP 157/92
[2019-09-27] VITALS (9 sets, daily range): BP systolic 95–176; BP diastolic 71–143
[2019-09-27] MEDS: VASOPRESSIN INJECTION 20 UNIT in NORMAL SALINE 100 ML IV SCH ×3 (02:09→14:59)
[2019-09-27] MEDS: CEFEPIME 1,000 MG/SWFI 10 ML IV PUSH IV SCH ×8 (02:57→21:39)
[2019-09-27] MEDS: NOREPINEPHRINE 4 MG/250 ML 250 ML IV SCH ×6 (02:57→23:50)
[2019-09-27] MEDS: 1/2 NS IV SOLUTION 1,000 ML IV SCH ×2 (04:04→19:30)
[2019-09-27 04:05] LABS: BASOPHILS % (AUTO) 0 % (0-10); EOSINOPHILS # (AUTO) 0.3 10^3/uL (0.0-0.3); EOSINOPHILS % (AUTO) 3 % (0-10); HEMATOCRIT 38 % (40-54); HEMOGLOBIN 11.9 G/DL (13.3-17.7); LYMPHOCYTES # (AUTO) 2.8 X 10^3 (1.0-4.0); LYMPHOCYTES % (AUTO) 24 % (12-44); MEAN CORPUSCULAR HEMOGLOBIN 28 PG (25-34); MEAN CORPUSCULAR HGB CONC 31 G/DL (32-36); MEAN CORPUSCULAR VOLUME 89 FL (80-99); MEAN PLATELET VOLUME 9.6 FL (7.4-10.4); MONOCYTES % (AUTO) 9 % (0-12); NEUTROPHILS # (AUTO) 7.3 X 10^3 (1.8-7.8); NEUTROPHILS % (AUTO) 64 % (42-75); PLATELET COUNT 293 10^3/uL (130-400); RED CELL DISTRIBUTION WIDTH 16.8 % (10.0-14.5); WHITE BLOOD COUNT 11.4 10^3/uL (4.3-11.0)
[2019-09-27 04:42] LABS: ALANINE AMINOTRANSFERASE 12 U/L (0-55); ALBUMIN 3.4 GM/DL (3.2-4.5); ALKALINE PHOSPHATASE 93 U/L (40-136); BUN/CREATININE RATIO 13; CALCIUM 8.7 MG/DL (8.5-10.1); CARBON DIOXIDE 25 MMOL/L (21-32); CHLORIDE 102 MMOL/L (98-107); CHOLESTEROL 161 MG/DL (< 200); GFR ESTIMATED > 60; GLUCOSE 99 MG/DL (70-105); HDL CHOLESTEROL 39 MG/DL (40-60); POTASSIUM 4.2 MMOL/L (3.6-5.0); SODIUM 137 MMOL/L (135-145); TOTAL PROTEIN 6.6 GM/DL (6.4-8.2); TRIGLYCERIDES 80 MG/DL (<150); VLDL CHOLESTEROL 16 MG/DL (5-40)
--- NOTE | 2019-09-27 05:34 | NUR ---
PATIENT HAS URINATED ON THE FLOOR MULTIPLE TIMES TONIGHT. ATTEMPTS TO FIND A SOLUTION HAVE BEEN UNSUCCESSFUL. FOR EXAMPLE, USING A GRADUATED CYLINDER INSTEAD OF A URINAL, ATTEMPTING TO PLACE GRADUATED CYLINDER FOR PATIENT, USING A COMMODE, ETC. PATIENT CONTINUES TO STATE THAT HE "CAN'T PEE WITH AN AUDIENCE", YET ALSO STATES THAT HE "CAN'T REACH THAT FAR" HIMSELF, OR THAT HE CAN'T HIT THE HOLE IN THE COMMODE FROM EITHER A SITTING OR STANDING POSITION. HOUSEKEEPING CALLED MULTIPLE TIMES TO SANITIZE FLOOR. WHEN ATTEMPTING TO FIND A SOLUTION TO THIS ONGOING ISSUE, PATIENT STATES "I DON'T LIKE BEING MADE FUN OR OR YELLED AT". ASSURED PATIENT THAT HE WAS NOT BEING YELLED AT NOR MADE FUN OF AND THAT WE WERE HERE TO HELP ENSURE HIS SAFETY AND THAT URINATING ON THE FLOOR AND THEN ATTEMPTING TO WALK THROUGH URINE WAS NEITHER SAFE NOR SANITARY.
--- NOTE | 2019-09-27 07:33 | Cardiology Progress Note ---
Subjective Date Seen by Provider: Sep 27, 2019 Time Seen by Provider: 07:32 Subjective/Events-last exam Patient is laying down in bed, no new complaint, still having some, Review of Systems General: No Chills, No Night Sweats, No Fatigue, No Malaise, No Appetite, No Other HEENT: No Head Aches, No Visual Changes, No Eye Pain, No Ear Pain, No Dysphasia, No Sinus Congestion, No Post Nasal Drip, No Sore Throat, No Other Pulmonary: Dyspnea, Cough; No Pleuritic Chest Pain, No Other Cardiovascular: No: Chest Pain, Palpitations, Orthopnea, Paroxysmal Noc. Dyspnea, Edema, Lt Headedness, Other Focused Exam Lactate Level 09/26/19 07:27: Lactic Acid Level 1.48 09/26/19 09:38: Lactic Acid Level 1.18 Objective-Cardiology Exam Last Set of Vital Signs Vital Signs 09/26/19 09/26/19 09/27/19 05:55 10:00 05:00 Pulse 112 Resp 20 B/P (MAP) 138/80 (99) Pulse Ox 96 O2 Delivery Nasal Cannula O2 Flow Rate 2.00 FiO2 97 Capillary Refill : Greater Than 3 Seconds I&O Intake and Output 09/27/19 00:00 Intake Total 5120 ml Output Total 2200 ml Balance 2920 ml Intake Oral 1580 ml IV Total 3540 ml Output Urine Total 2200 ml Daily Weight Change No General: Alert, Oriented X3, Cooperative HEENT: Atraumatic, PERRLA Neck: Supple, No JVD, No Thyromegaly Lungs: Normal Air Movement, Other (Bilateral,) Heart: Regular Rate, Normal S1, Normal S2, No Murmurs Abdomen: Normal Bowel Sounds, Soft, No Tenderness, No Hepatosplenomegaly, No Masses Extremities: No Clubbing, No Cyanosis, No Edema, Normal Pulses, No Tenderness/Swelling Skin: No Rashes, No Breakdown, No Significant Lesion Neuro: Normal Gait, Normal Speech, Strength at 5/5 X4 Ext, Normal Tone, Sensation Intact Psych/Mental Status: Mental Status NL, Mood NL Results Lab Laboratory Tests 09/27/19 03:55 A/P-Cardiology Admission Diagnosis Acute respiratory failure Pneumonia Influenza A PAF CHF Assessment/Plan Status post respiratory failure with pneumonia, improving. Currently sitting comfortably and asking to go home. Influenza A- started on Tamiflu, managed by primary care physician Paroxysmal atrial fibrillation, heart rate well controlled at this time, continue to monitor telemetry CHF, acute on chronic LV systolic dysfunction with most recent EF 20-25%, noncompliant with LifeVest. Maintained on Entresto, Lopressor as outpatient. Mild elevation in troponin, type II [place] probably secondary to hypoxemia and tachycardia. Conservative management for now. Increased risk of stroke, tolerating Eliquis well. Continue on current medication Hypertension, restart home blood pressure medications and continue to monitor. Morbid obesity COPD/obstructive sleep apnea, noncompliant with his C Pap History of recent IV Methamphetamine use Noncompliant with LifeVest, patient received LifeVest but not using Noncompliant with medication. Clinical Quality Measures DVT/VTE Risk/Contraindication: Risk Factor Score Per Nursin RFS Level Per Nursing on Admit: 2=Moderate RODGER LOZADA MD Sep 27, 2019 07:33
[2019-09-27] MEDS: meTOprolol TARTRATE 50 MG (LOPRESSOR) TAB PO SCH ×2 (09:10→21:45)
[2019-09-27] MEDS: dilTIAZem120 MG (CARDIZEM CD) CAP PO SCH (09:10)
[2019-09-27] MEDS: OSELTAMIVIR 75 MG (TAMIFLU) CAPSULE PO SCH ×2 (09:11→21:42)
[2019-09-27] MEDS: APIXABAN 5 MG (ELIQUIS) TABLET PO SCH ×2 (09:11→21:42)
[2019-09-27] MEDS: AMIODARONE 200 MG (CORDARONE) TAB PO SCH ×2 (09:11→21:42)
[2019-09-27] MEDS: VANCOMYCIN 2000 MG/NS 500 ML IVPB IV SCH ×4 (09:12→21:39)
[2019-09-27] MEDS: RT-ALBUTEROL SULF 2.5 MG/3 ML PRE-MIX VIAL INH SCH ×2 (11:04→21:48)
[2019-09-27] MEDS: ONDANSETRON 4 MG/2 ML (SDV) Z0FRAN IV PRN ×2 (13:49→21:42)
[2019-09-27] MEDS: NICOTINE 21 MG (NICODERM) PATCH TD SCH (14:45)
[2019-09-27] MEDS ORDERED: WATER (STERILE) FOR INJECTION 10 ML ONE (20:45)
[2019-09-27] MEDS ORDERED: CEFEPIME 1 GM (MAXIPIME) VIAL ONE (20:45)
--- NOTE | 2019-09-27 21:41 | Progress Note ---
Subjective Subjective/Events-last exam Patient denies any concerns. Denies chest pain but states that he is still having some shortness of breath with ambulation. Review of Systems General: No Chills; Malaise Pulmonary: Dyspnea, Cough Cardiovascular: No: Chest Pain, Palpitations Gastrointestinal: No: Nausea, Vomiting, Abdominal Pain, Diarrhea, Constipation Neurological: Weakness Focused Exam Lactate Level 09/26/19 07:27: Lactic Acid Level 1.48 09/26/19 09:38: Lactic Acid Level 1.18 Objective Exam Last Set of Vital Signs Vital Signs Date Time Temp Pulse Resp B/P (MAP) Pulse Ox O2 Delivery O2 Flow Rate FiO2 09/27/19 16:00 95 Nasal Cannula 2.00 09/27/19 16:00 101 119/94 (102) 09/27/19 15:45 35.8 09/27/19 12:00 18 09/26/19 05:55 97 Capillary Refill : Greater Than 3 Seconds I&O Intake and Output 09/27/19 00:00 Intake Total 5120 ml Output Total 2200 ml Balance 2920 ml Intake Oral 1580 ml IV Total 3540 ml Output Urine Total 2200 ml Daily Weight Change No General: Alert, Oriented X3, Cooperative, No Acute Distress Lungs: Other (diffuse wheezing bilaterally) Heart: Regular Rate, No Murmurs Abdomen: Normal Bowel Sounds, Soft, No Tenderness, No Masses Skin: No Rashes, No Breakdown Neuro: Strength at 5/5 X4 Ext, Sensation Intact, Cranial Nerves 3-12 NL Results/Procedures Lab Laboratory Tests 09/27/19 03:55: White Blood Count 11.4H, Red Blood Count 4.31L, Hemoglobin 11.9L, Hematocrit 38L , Mean Corpuscular Volume 89, Mean Corpuscular Hemoglobin 28, Mean Corpuscular Hemoglobin Concent 31L, Red Cell Distribution Width 16.8H, Platelet Count 293, Mean Platelet Volume 9.6, Neutrophils (%) (Auto) 64, Lymphocytes (%) (Auto) 24, Monocytes (%) (Auto) 9, Eosinophils (%) (Auto) 3, Basophils (%) (Auto) 0, Neutrophils # (Auto) 7.3, Lymphocytes # (Auto) 2.8, Monocytes # (Auto) 1.0, Eosinophils # (Auto) 0.3, Basophils # (Auto) 0.0, Sodium Level 137, Potassium Level 4.2, Chloride Level 102, Carbon Dioxide Level 25, Anion Gap 10, Blood Urea Nitrogen 16, Creatinine 1.20, Estimat Glomerular Filtration Rate > 60, BUN/Creatinine Ratio 13, Glucose Level 99, Calcium Level 8.7, Corrected Calcium 9.2, Total Bilirubin 1.0, Aspartate Amino Transf (AST/SGOT) 13, Alanine Aminotransferase (ALT/SGPT) 12, Alkaline Phosphatase 93, Total Protein 6.6, Albumin 3.4, Triglycerides Level 80, Cholesterol Level 161, LDL Cholesterol Direct 118, VLDL Cholesterol 16, HDL Cholesterol 39L Microbiology 09/26/19 MRSA Screen - Final, Complete MRSA not isolated 09/26/19 Blood Culture - Preliminary, Resulted No growth Assessment/Plan Assessment/Plan (1) Respiratory failure with hypoxia Status: Acute Assessment & Plan: - Will titrate oxygen as tolerated, no home oxygen need, MAT protocol 09/27: Will get home oxygen study Qualifiers: Qualified Codes: J96.21 - Acute and chronic respiratory failure with hypoxia (2) Influenza Status: Acute Assessment & Plan: - Tamiflu (3) Systolic CHF Status: Chronic Assessment & Plan: - Continue home meds, not in acute failure (4) Atrial fibrillation Status: Chronic Assessment & Plan: - rate controlled, Eliquis (5) ZULLY (obstructive sleep apnea) Status: Chronic Assessment & Plan: - Non compliant with CPAP (6) Obesity hypoventilation syndrome (7) Noncompliance (8) Methamphetamine abuse (9) Morbid obesity Status: Chronic Clinical Quality Measures DVT/VTE Risk/Contraindication: Risk Factor Score Per Nursin RFS Level Per Nursing on Admit: 2=Moderate FLAVIA OSMAN MD Sep 27, 2019 21:41
[2019-09-27] MEDS: LORazepam INJ 2 MG/ML (ATIVAN) VIAL IV PRN (21:42)
--- NOTE | 2019-09-28 00:02 | NUR ---
This RN contacted Dr. Summers d/t patient's BP 176/143 and pt c/o of anxiety. New order received at this time, see order hx.
[2019-09-28] MEDS ORDERED: LORazepam INJ 2 MG/ML (ATIVAN) VIAL IVP ONE (00:15)
[2019-09-28] MEDS: VASOPRESSIN INJECTION 20 UNIT in NORMAL SALINE 100 ML IV SCH (01:21)
[2019-09-28] MEDS: NOREPINEPHRINE 4 MG/250 ML 250 ML IV SCH ×3 (01:21→07:38)
[2019-09-28] MEDS ORDERED: CEFEPIME 1 GM (MAXIPIME) VIAL ONE ×2 (02:08→19:51)
[2019-09-28] MEDS ORDERED: WATER (STERILE) FOR INJECTION 10 ML ONE ×2 (02:08→19:51)
[2019-09-28] MEDS: CEFEPIME 1,000 MG/SWFI 10 ML IV PUSH IV SCH ×8 (02:22→20:16)
[2019-09-28 04:28] VITALS: BP 121/91
[2019-09-28 04:55] LABS: BASOPHILS % (AUTO) 0 % (0-10); EOSINOPHILS # (AUTO) 0.3 10^3/uL (0.0-0.3); EOSINOPHILS % (AUTO) 3 % (0-10); HEMATOCRIT 37 % (40-54); HEMOGLOBIN 11.4 G/DL (13.3-17.7); LYMPHOCYTES # (AUTO) 2.9 X 10^3 (1.0-4.0); LYMPHOCYTES % (AUTO) 28 % (12-44); MEAN CORPUSCULAR HEMOGLOBIN 28 PG (25-34); MEAN CORPUSCULAR HGB CONC 31 G/DL (32-36); MEAN CORPUSCULAR VOLUME 90 FL (80-99); MEAN PLATELET VOLUME 10.1 FL (7.4-10.4); MONOCYTES # (AUTO) 1.1 X 10^3 (0.0-1.0); MONOCYTES % (AUTO) 11 % (0-12); NEUTROPHILS % (AUTO) 58 % (42-75); PLATELET COUNT 260 10^3/uL (130-400); RED CELL DISTRIBUTION WIDTH 16.4 % (10.0-14.5); WHITE BLOOD COUNT 10.4 10^3/uL (4.3-11.0)
[2019-09-28 06:07] LABS: ALANINE AMINOTRANSFERASE 47 U/L (0-55); ALBUMIN 3.2 GM/DL (3.2-4.5); ALKALINE PHOSPHATASE 99 U/L (40-136); BILIRUBIN,TOTAL 1.1 MG/DL (0.1-1.0); BUN/CREATININE RATIO 15; CALCIUM 8.7 MG/DL (8.5-10.1); CARBON DIOXIDE 23 MMOL/L (21-32); CHLORIDE 103 MMOL/L (98-107); CREATININE SERUM 1.24 MG/DL (0.60-1.30); GFR ESTIMATED > 60; GLUCOSE 96 MG/DL (70-105); POTASSIUM 4.4 MMOL/L (3.6-5.0); SODIUM 136 MMOL/L (135-145); TOTAL PROTEIN 6.3 GM/DL (6.4-8.2)
[2019-09-28 08:00] VITALS: BP 149/95
[2019-09-28] MEDS: RT-ALBUTEROL SULF 2.5 MG/3 ML PRE-MIX VIAL INH SCH ×2 (08:14→19:32)
[2019-09-28] MEDS: NICOTINE PATCH REMOVAL TP SCH (09:00)
[2019-09-28] MEDS: NICOTINE 21 MG (NICODERM) PATCH TD SCH (10:19)
[2019-09-28] MEDS: dilTIAZem120 MG (CARDIZEM CD) CAP PO SCH (10:20)
[2019-09-28] MEDS: meTOprolol TARTRATE 50 MG (LOPRESSOR) TAB PO SCH ×2 (10:20→20:16)
[2019-09-28] MEDS: APIXABAN 5 MG (ELIQUIS) TABLET PO SCH ×2 (10:21→20:16)
[2019-09-28] MEDS: OSELTAMIVIR 75 MG (TAMIFLU) CAPSULE PO SCH ×2 (10:21→20:16)
[2019-09-28] MEDS: AMIODARONE 200 MG (CORDARONE) TAB PO SCH ×2 (10:27→20:16)
[2019-09-28 12:00] VITALS: BP 128/91
--- NOTE | 2019-09-28 14:07 | Occ Therapy Progress Note ---
Therapy Progress Note Order received for OT eval and treat. Chart review completed. Attempted evaluation at 1350. Pt sitting in chair, states he just wants to take a nap right now. Pt states he is not having any difficulty performing mobility or ADLs. Pt did demonstrate ability to perform sit to stand and take steps without LOB. Pt states he is at baseline and refused therapy. Will d/c OT at this time per pt request. Pt also requests anxiety medication. RN was notified of therapy refusal and medication request. 1, visit, GREGORIA MARTIN OT Sep 28, 2019 14:07
--- NOTE | 2019-09-28 14:18 | Physical Therapy Progress Note ---
Therapy Progress Note Evaluation order received, chart reviewed. Patient refused therapy stating that he didn't need it. He says he gets around just fine. Patient then demonstrated how he ambulates around the room, which he did well, independently. No evaluation performed, patient ambulates independently. [place]NA RICHARDSON PT Sep 28, 2019 14:18
[2019-09-28] MEDS: LORazepam INJ 2 MG/ML (ATIVAN) VIAL IV PRN ×2 (14:37→22:22)
--- NOTE | 2019-09-28 14:59 | Progress Note - Cardiology ---
Cardiology SOAP Progress Note Subjective: Lying in bed. States he feels the "same as yesterday". No c/o CP or palpitations. Objective: I&O/Vital Signs Constitutional: AAO x 3 Respiratory: No accessory muscle use, No respiratory distress; chest expansion is symmetric, chest is bilaterally symmetric, other (good air entry) Cardiovascular: irregularly irregular; No JVD; S1 and S2 Gastrointestional: No tender; soft, audible bowel sounds Extremities: other (mod bilat LE swelling) Neurologic/Psychiatric: grossly intact (moves all extremities) Skin: No rash on exposed areas, No ulcerations on exposed areas Results/Procedures: Labs Microbiology 09/26/19 MRSA Screen - Final, Complete MRSA not isolated 09/26/19 Blood Culture - Final, Complete No growth A/P: Assessment: Status post respiratory failure with pneumonia, improving Influenza A- started on Tamiflu, managed by primary care physician Paroxysmal atrial fibrillation - rate improved CHF, acute on chronic LV systolic dysfunction with most recent EF 20-25%, noncompliant with LifeVest Mild elevation in troponin, type II [place] probably secondary to hypoxemia and tachycardia. Conservative management for now. OAC with Eliquis HTN Morbid obesity COPD/obstructive sleep apnea, noncompliant with his C Pap History of recent IV Methamphetamine use Noncompliant with LifeVest, patient received LifeVest but not using Noncompliant with medication. Plan: Continue current medication regimen Monitor lab Replace electrolytes as indicated SUYAPA SKELTON Sep 28, 2019 14:59
--- NOTE | 2019-09-28 15:24 | Progress Note ---
Subjective Subjective/Events-last exam Patient in bed. He is refusing oxygen and refusing PT. States that his breathing is the same as it has been Review of Systems Pulmonary: Dyspnea, Cough Cardiovascular: No: Chest Pain, Palpitations Gastrointestinal: No: Nausea, Vomiting, Abdominal Pain Neurological: Weakness Focused Exam Lactate Level 09/26/19 07:27: Lactic Acid Level 1.48 09/26/19 09:38: Lactic Acid Level 1.18 Objective Exam Last Set of Vital Signs Vital Signs Date Time Temp Pulse Resp B/P (MAP) Pulse Ox O2 Delivery O2 Flow Rate FiO2 09/28/19 12:00 37.0 91 24 128/91 (103) 95 Room Air 09/28/19 08:15 2.00 09/26/19 05:55 97 Capillary Refill : Greater Than 3 Seconds I&O Intake and Output 09/28/19 00:00 Intake Total 3420 ml Balance 3420 ml Intake Oral 1410 ml IV Total 2010 ml # Voids 9 General: Alert, Oriented X3 Lungs: Clear to Auscultation, Normal Air Movement Heart: Regular Rate, No Murmurs Abdomen: Normal Bowel Sounds, Soft, No Tenderness, No Masses Extremities: No Tenderness/Swelling Skin: No Rashes, No Breakdown Neuro: Sensation Intact, Cranial Nerves 3-12 NL Results/Procedures Lab Laboratory Tests 09/28/19 04:30: White Blood Count 10.4, Red Blood Count 4.12L, Hemoglobin 11.4L, Hematocrit 37L, Mean Corpuscular Volume 90, Mean Corpuscular Hemoglobin 28, Mean Corpuscular Hemoglobin Concent 31L, Red Cell Distribution Width 16.4H, Platelet Count 260, Mean Platelet Volume 10.1, Neutrophils (%) (Auto) 58, Lymphocytes (%) (Auto) 28, Monocytes (%) (Auto) 11, Eosinophils (%) (Auto) 3, Basophils (%) (Auto) 0, Neutrophils # (Auto) 6.0, Lymphocytes # (Auto) 2.9, Monocytes # (Auto) 1.1H, Eosinophils # (Auto) 0.3, Basophils # (Auto) 0.0, Sodium Level 136, Potassium Level 4.4, Chloride Level 103, Carbon Dioxide Level 23, Anion Gap 10, Blood Urea Nitrogen 19H, Creatinine 1.24, Estimat Glomerular Filtration Rate > 60, BUN/Creatinine Ratio 15, Glucose Level 96, Calcium Level 8.7, Corrected Calcium 9.3, Total Bilirubin 1.1H, Aspartate Amino Transf (AST/SGOT) 51H, Alanine Aminotransferase (ALT/SGPT) 47, Alkaline Phosphatase 99, Total Protein 6.3L, Albumin 3.2 Microbiology 09/26/19 MRSA Screen - Final, Complete MRSA not isolated 09/26/19 Blood Culture - Preliminary, Resulted No growth Assessment/Plan Assessment/Plan (1) Respiratory failure with hypoxia Status: Acute Assessment & Plan: - Will titrate oxygen as tolerated, no home oxygen need, MAT protocol 09/27: Will get home oxygen study 09/28: Patient refusing oxygen Qualifiers: Qualified Codes: J96.21 - Acute and chronic respiratory failure with hypoxia (2) Influenza Status: Acute Assessment & Plan: - Tamiflu (3) Systolic CHF Status: Chronic Assessment & Plan: - Continue home meds, not in acute failure (4) Atrial fibrillation Status: Chronic Assessment & Plan: - rate controlled, Eliquis (5) ZULLY (obstructive sleep apnea) Status: Chronic Assessment & Plan: - Non compliant with CPAP (6) Obesity hypoventilation syndrome (7) Noncompliance (8) Methamphetamine abuse (9) Morbid obesity Status: Chronic Clinical Quality Measures DVT/VTE Risk/Contraindication: Risk Factor Score Per Nursin RFS Level Per Nursing on Admit: 2=Moderate FLAVIA OSMAN MD Sep 28, 2019 15:24
--- NOTE | 2019-09-28 15:27 | NUR ---
Patient transferred to 427-1 per BED accompanied byICU staff. Patient and family notified and understand transfer. Personal belongings with patient. Report given to THIS RN FROM [employer].
[2019-09-28 16:00] VITALS: BP 158/85
--- NOTE | 2019-09-28 19:01 | Progress Note - Cardiology ---
Cardiology SOAP Progress Note Subjective: Still short of breath with mild exertion No cp No palp or syncope No n/v/d Gen malaise present Objective: I&O/Vital Signs 09/28/19 09/28/19 09/28/19 09/28/19 07:00 08:00 08:15 09:00 Temp 37.0 Pulse 106 77 Resp 24 B/P (MAP) 149/95 (113) Pulse Ox 90 94 95 O2 Delivery Room Air Room Air Room Air O2 Flow Rate 2.00 09/28/19 09/28/19 12:00 16:00 Temp 37.0 36.5 Pulse 91 85 Resp 24 24 B/P (MAP) 128/91 (103) 158/85 (109) Pulse Ox 95 97 O2 Delivery Room Air Nasal Cannula O2 Flow Rate 2.00 09/28/19 00:00 Intake Total 1790 ml Balance 1790 ml Constitutional: AAO x 3 Respiratory: No accessory muscle use, No respiratory distress; chest expansion is symmetric, chest is bilaterally symmetric, other (good air entry) Cardiovascular: irregularly irregular; No JVD; S1 and S2 Gastrointestional: No tender; soft, audible bowel sounds Extremities: other (mod bilat LE swelling) Neurologic/Psychiatric: grossly intact (moves all extremities) Skin: No rash on exposed areas, No ulcerations on exposed areas Results/Procedures: Labs Laboratory Tests 09/28/19 04:30: White Blood Count 10.4, Red Blood Count 4.12L, Hemoglobin 11.4L, Hematocrit 37L, Mean Corpuscular Volume 90, Mean Corpuscular Hemoglobin 28, Mean Corpuscular Hemoglobin Concent 31L, Red Cell Distribution Width 16.4H, Platelet Count 260, Mean Platelet Volume 10.1, Neutrophils (%) (Auto) 58, Lymphocytes (%) (Auto) 28, Monocytes (%) (Auto) 11, Eosinophils (%) (Auto) 3, Basophils (%) (Auto) 0, Neutrophils # (Auto) 6.0, Lymphocytes # (Auto) 2.9, Monocytes # (Auto) 1.1H, Eosinophils # (Auto) 0.3, Basophils # (Auto) 0.0, Sodium Level 136, Potassium Level 4.4, Chloride Level 103, Carbon Dioxide Level 23, Anion Gap 10, Blood Urea Nitrogen 19H, Creatinine 1.24, Estimat Glomerular Filtration Rate > 60, BUN/Creatinine Ratio 15, Glucose Level 96, Calcium Level 8.7, Corrected Calcium 9.3, Total Bilirubin 1.1H, Aspartate Amino Transf (AST/SGOT) 51H, Alanine Aminotransferase (ALT/SGPT) 47, Alkaline Phosphatase 99, Total Protein 6.3L, Albumin 3.2 Microbiology 09/26/19 MRSA Screen - Final, Complete MRSA not isolated 09/26/19 Blood Culture - Preliminary, Resulted No growth Laboratory Tests 09/27/19 03:55 09/28/19 04:30 A/P: Assessment: Status post respiratory failure with pneumonia, improving Influenza A- started on Tamiflu, managed by primary care physician Paroxysmal atrial fibrillation CHF, acute on chronic LV systolic dysfunction with most recent EF 20-25%, no ncompliant with LifeVest Mild elevation in troponin, type II [place] probably secondary to hypoxemia and tachycardia OAC with Eliquis HTN Morbid obesity COPD/obstructive sleep apnea, noncompliant with his CPAP History of recent IV Methamphetamine use Noncompliant with medication. Plan: I interviewed and examined him and reviewed his records Complex management due to multiple comorbidities Continue current medication regimen Monitor lab Replace electrolytes as indicated HIRO FENTON MD FACP FACC CCDS Sep 28, 2019 19:01
[2019-09-28 19:28] VITALS: BP 128/84
[2019-09-29 00:06] VITALS: BP 139/83
[2019-09-29] MEDS ORDERED: WATER (STERILE) FOR INJECTION 10 ML ONE (01:18)
[2019-09-29] MEDS ORDERED: CEFEPIME 1 GM (MAXIPIME) VIAL ONE (01:18)
[2019-09-29] MEDS: CEFEPIME 1,000 MG/SWFI 10 ML IV PUSH IV SCH ×8 (01:57→20:45)
[2019-09-29 04:00] VITALS: BP 135/90
[2019-09-29] MEDS: LORazepam INJ 2 MG/ML (ATIVAN) VIAL IV PRN ×2 (06:10→16:04)
[2019-09-29 06:17] LABS: BASOPHILS % (AUTO) 0 % (0-10); EOSINOPHILS # (AUTO) 0.4 10^3/uL (0.0-0.3); EOSINOPHILS % (AUTO) 4 % (0-10); HEMATOCRIT 38 % (40-54); HEMOGLOBIN 11.4 G/DL (13.3-17.7); LYMPHOCYTES # (AUTO) 2.5 X 10^3 (1.0-4.0); LYMPHOCYTES % (AUTO) 26 % (12-44); MEAN CORPUSCULAR HEMOGLOBIN 27 PG (25-34); MEAN CORPUSCULAR HGB CONC 30 G/DL (32-36); MEAN CORPUSCULAR VOLUME 91 FL (80-99); MEAN PLATELET VOLUME 10.1 FL (7.4-10.4); MONOCYTES # (AUTO) 0.9 X 10^3 (0.0-1.0); MONOCYTES % (AUTO) 9 % (0-12); NEUTROPHILS # (AUTO) 5.6 X 10^3 (1.8-7.8); NEUTROPHILS % (AUTO) 60 % (42-75); PLATELET COUNT 256 10^3/uL (130-400); RED CELL DISTRIBUTION WIDTH 16.4 % (10.0-14.5); WHITE BLOOD COUNT 9.4 10^3/uL (4.3-11.0)
[2019-09-29 06:43] LABS: ALANINE AMINOTRANSFERASE 43 U/L (0-55); ALBUMIN 3.3 GM/DL (3.2-4.5); ALKALINE PHOSPHATASE 100 U/L (40-136); BILIRUBIN,TOTAL 0.6 MG/DL (0.1-1.0); BUN/CREATININE RATIO 17; CARBON DIOXIDE 23 MMOL/L (21-32); CHLORIDE 106 MMOL/L (98-107); CREATININE SERUM 1.12 MG/DL (0.60-1.30); GFR ESTIMATED > 60; GLUCOSE 105 MG/DL (70-105); POTASSIUM 4.6 MMOL/L (3.6-5.0); SODIUM 139 MMOL/L (135-145); TOTAL PROTEIN 6.7 GM/DL (6.4-8.2)
[2019-09-29 08:00] VITALS: BP 135/89
[2019-09-29] MEDS: NICOTINE PATCH REMOVAL TP SCH (09:34)
[2019-09-29] MEDS: OSELTAMIVIR 75 MG (TAMIFLU) CAPSULE PO SCH ×2 (09:34→20:45)
[2019-09-29] MEDS: meTOprolol TARTRATE 50 MG (LOPRESSOR) TAB PO SCH ×2 (09:34→20:45)
[2019-09-29] MEDS: APIXABAN 5 MG (ELIQUIS) TABLET PO SCH ×2 (09:34→20:46)
[2019-09-29] MEDS: NICOTINE 21 MG (NICODERM) PATCH TD SCH (09:34)
[2019-09-29] MEDS: AMIODARONE 200 MG (CORDARONE) TAB PO SCH ×2 (09:34→20:45)
[2019-09-29] MEDS: dilTIAZem120 MG (CARDIZEM CD) CAP PO SCH (09:34)
--- NOTE | 2019-09-29 10:00 | NUR ---
RN WENT INTO ROOM TO GIVE PT MORNING MEDICATIONS. PT ASKED ABOUT HIS "SLEEPING MEDICINE": ATIVAN 1MG Q8H PRN. RN REEDUCATED PT THAT HIS NEXT ATIVAN ADMINISTRATION COULD NOT BE GIVEN UNTIL 1400. PT ASKED HOW IT WAS SCHEDULED EVERY EIGHT HOURS IF HE HAS TO WAIT THAT LONG. RN INFORMED PT THAT HE HAD LAST RECEIVED IT AT 0600. PT STATES THAT HE DID NOT. RN TOLD PT THAT THE EMAR SAID THAT HE HAD RECEIVED IT. PT STATES THAT THE EMAR WAS A LIE. RN INFORMED PT THAT THE MEDICATION HAD TO BE SCANNED INTO THE SYSTEM TO BE DOCUMENTED AND THAT IT COULDN'T BE A LIE. PT STATES "WELL THEN THE PREVIOUS NURSE SCANNED IT AND THEN TOOK IT HERSELF BECAUSE I DIDN'T GET IT". RN INFORMED THE PT THAT THE PREVIOUS NURSE DID NOT TAKE THE MEDICATION; SHE DID ADMINISTER IT TO HIM AND THAT HE JUST DOESN'T REMEMBER IT. PT DIDN'T RESPOND. 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
[2019-09-29] MEDS: RT-ALBUTEROL SULF 2.5 MG/3 ML PRE-MIX VIAL INH SCH (10:17)
--- NOTE | 2019-09-29 10:19 | NUR ---
0800 BID SVN BT WAS NON ADMINISTERED DUE TO RT BEING UNAVAILABLE: SHE HAS BEEN WITH EMERGENT PATIENTS AND IN THE ED UNTIL NOW
--- NOTE | 2019-09-29 11:17 | Progress Note - Hospitalist ---
Subjective HPI/CC On Admission Date Seen by Provider: Sep 29, 2019 Time Seen by Provider: 11:15 Subjective/Events-last exam Patient refuses to use O2 Cefepime maintained Tamiflu maintained Poor prognosis Barely talks to me today Review of Systems Pulmonary: Dyspnea Objective Exam Vital Signs Vital Signs Date Time Temp Pulse Resp B/P (MAP) Pulse Ox O2 Delivery O2 Flow Rate FiO2 09/29/19 12:26 95 09/29/19 12:00 36.5 18 138/82 (100) 98 Room Air 09/29/19 08:00 2.00 09/26/19 05:55 97 Capillary Refill : Greater Than 3 Seconds General Appearance: No Apparent Distress, WD/WN Respiratory: Chest Non Tender, Lungs Clear, Normal Breath Sounds, No Accessory Muscle Use, No Respiratory Distress Cardiovascular: Regular Rate, Rhythm, No Edema, No Gallop, No JVD, No Murmur, Normal Peripheral Pulses Results/Procedures Lab Laboratory Tests 09/29/19 06:06 Patient resulted labs reviewed. Assessment/Plan Assessment and Plan Assess & Plan/Chief Complaint Assessment: (1) Respiratory failure with hypoxia (2) Influenza (3) Systolic CHF (4) Atrial fibrillation (5) ZULLY (obstructive sleep apnea) (6) Obesity hypoventilation syndrome (7) Noncompliance (8) Methamphetamine abuse (9) Morbid obesity Plan: Refuses O2 Poor motivation longterm prognosis poor Clinical Quality Measures DVT/VTE Risk/Contraindication: Risk Factor Score Per Nursin RFS Level Per Nursing on Admit: 2=Moderate KARIN SAUNDERS DO Sep 29, 2019 11:17
[2019-09-29 12:00] VITALS: BP 138/82
--- NOTE | 2019-09-29 15:52 | Progress Note - Cardiology ---
Cardiology SOAP Progress Note Subjective: No new symptoms Shortness of breath with mild activity No cp or palp or syncope Gen malaise and weakness Objective: I&O/Vital Signs 09/29/19 09/29/19 09/29/19 09/29/19 04:00 07:00 08:00 08:00 Temp 36.4 36.8 Pulse 69 76 72 Resp 18 20 B/P (MAP) 135/90 (105) 135/89 (104) Pulse Ox 98 90 O2 Delivery Nasal Cannula Room Air Nasal Cannula O2 Flow Rate 3.00 2.00 09/29/19 09/29/19 09/29/19 10:17 12:00 12:26 Temp 36.5 Pulse 76 95 Resp 18 B/P (MAP) 138/82 (100) Pulse Ox 98 O2 Delivery Room Air Room Air 09/29/19 00:00 Intake Total 1770 ml Balance 1770 ml Constitutional: AAO x 3 Respiratory: No accessory muscle use, No respiratory distress; chest expansion is symmetric, chest is bilaterally symmetric, other (good air entry) Cardiovascular: irregularly irregular; No JVD; S1 and S2 Gastrointestional: No tender; soft, audible bowel sounds Extremities: other (mod bilat LE swelling) Neurologic/Psychiatric: grossly intact (moves all extremities) Skin: No rash on exposed areas, No ulcerations on exposed areas Results/Procedures: Labs Laboratory Tests 09/29/19 06:06: White Blood Count 9.4, Red Blood Count 4.19L, Hemoglobin 11.4L, Hematocrit 38L, Mean Corpuscular Volume 91, Mean Corpuscular Hemoglobin 27, Mean Corpuscular Hemoglobin Concent 30L, Red Cell Distribution Width 16.4H, Platelet Count 256, Mean Platelet Volume 10.1, Neutrophils (%) (Auto) 60, Lymphocytes (%) (Auto) 26, Monocytes (%) (Auto) 9, Eosinophils (%) (Auto) 4, Basophils (%) (Auto) 0, Neutrophils # (Auto) 5.6, Lymphocytes # (Auto) 2.5, Monocytes # (Auto) 0.9, Eosinophils # (Auto) 0.4H, Basophils # (Auto) 0.0, Sodium Level 139, Potassium Level 4.6, Chloride Level 106, Carbon Dioxide Level 23, Anion Gap 10, Blood Urea Nitrogen 19H, Creatinine 1.12, Estimat Glomerular Filtration Rate > 60, BUN/Creatinine Ratio 17, Glucose Level 105, Calcium Level 9.0, Corrected Calcium 9.6, Total Bilirubin 0.6, Aspartate Amino Transf (AST/SGOT) 31, Alanine Aminotransferase (ALT/SGPT) 43, Alkaline Phosphatase 100, Total Protein 6.7, Albumin 3.3 Microbiology 09/26/19 MRSA Screen - Final, Complete MRSA not isolated 09/26/19 Blood Culture - Preliminary, Resulted No growth Laboratory Tests 09/28/19 04:30 09/29/19 06:06 A/P: Assessment: Status post respiratory failure with pneumonia, improving Influenza A- started on Tamiflu, managed by primary care physician Paroxysmal atrial fibrillation CHF, acute on chronic LV systolic dysfunction with most recent EF 20-25%, noncompliant with LifeVest Mild elevation in troponin, type II [place] probably secondary to hypoxemia and tachycardia OAC with Eliquis HTN Morbid obesity COPD/obstructive sleep apnea, noncompliant with his CPAP History of recent IV Methamphetamine use H/o intermittent noncompliance with meds Plan: Continue current medication regimen Monitor lab and replace electrolytes as indicated HIRO FENTON MD FACP FACC CCDS Sep 29, 2019 15:52
[2019-09-29 16:00] VITALS: BP 130/91
[2019-09-29 19:39] VITALS: BP 115/89
[2019-09-30] MEDS: LORazepam INJ 2 MG/ML (ATIVAN) VIAL IV PRN ×3 (00:10→20:59)
[2019-09-30 00:11] VITALS: BP 145/96
[2019-09-30] MEDS: CEFEPIME 1,000 MG/SWFI 10 ML IV PUSH IV SCH ×8 (01:37→20:37)
[2019-09-30] MEDS: RT-ALBUTEROL SULF 2.5 MG/3 ML PRE-MIX VIAL INH SCH ×2 (02:56→07:56)
[2019-09-30 04:00] VITALS: BP 157/82
[2019-09-30 06:01] LABS: BASOPHILS % (AUTO) 1 % (0-10); EOSINOPHILS # (AUTO) 0.4 10^3/uL (0.0-0.3); EOSINOPHILS % (AUTO) 5 % (0-10); HEMATOCRIT 38 % (40-54); HEMOGLOBIN 11.4 G/DL (13.3-17.7); LYMPHOCYTES # (AUTO) 1.8 X 10^3 (1.0-4.0); LYMPHOCYTES % (AUTO) 21 % (12-44); MEAN CORPUSCULAR HEMOGLOBIN 28 PG (25-34); MEAN CORPUSCULAR HGB CONC 30 G/DL (32-36); MEAN CORPUSCULAR VOLUME 92 FL (80-99); MEAN PLATELET VOLUME 10.5 FL (7.4-10.4); MONOCYTES # (AUTO) 0.8 X 10^3 (0.0-1.0); MONOCYTES % (AUTO) 10 % (0-12); NEUTROPHILS # (AUTO) 5.3 X 10^3 (1.8-7.8); NEUTROPHILS % (AUTO) 64 % (42-75); PLATELET COUNT 247 10^3/uL (130-400); WHITE BLOOD COUNT 8.3 10^3/uL (4.3-11.0)
[2019-09-30 06:20] LABS: ALANINE AMINOTRANSFERASE 45 U/L (0-55); ALBUMIN 3.3 GM/DL (3.2-4.5); ALKALINE PHOSPHATASE 109 U/L (40-136); BILIRUBIN,TOTAL 0.6 MG/DL (0.1-1.0); BUN/CREATININE RATIO 16; CARBON DIOXIDE 27 MMOL/L (21-32); CHLORIDE 105 MMOL/L (98-107); GFR ESTIMATED > 60; GLUCOSE 92 MG/DL (70-105); POTASSIUM 4.4 MMOL/L (3.6-5.0); SODIUM 140 MMOL/L (135-145); TOTAL PROTEIN 6.5 GM/DL (6.4-8.2)
[2019-09-30 07:47] VITALS: BP 123/71
[2019-09-30] MEDS: NICOTINE PATCH REMOVAL TP SCH (08:10)
[2019-09-30] MEDS: APIXABAN 5 MG (ELIQUIS) TABLET PO SCH ×2 (08:11→20:37)
[2019-09-30] MEDS: AMIODARONE 200 MG (CORDARONE) TAB PO SCH ×2 (08:11→20:37)
[2019-09-30] MEDS: dilTIAZem120 MG (CARDIZEM CD) CAP PO SCH (08:11)
[2019-09-30] MEDS: meTOprolol TARTRATE 50 MG (LOPRESSOR) TAB PO SCH ×2 (08:11→20:37)
[2019-09-30] MEDS: NICOTINE 21 MG (NICODERM) PATCH TD SCH (08:11)
[2019-09-30] MEDS: OSELTAMIVIR 75 MG (TAMIFLU) CAPSULE PO SCH ×2 (08:11→20:37)
--- NOTE | 2019-09-30 09:07 | NUR ---
PT STATES THE NICOTINE PATCH CAME OFF. HE WOULD NOT ALLOW ME TO LOOK FOR IT BEYOND HIS ARMS/SHOULDERS. PT WOULD ANSWER QUESTIONS MINIMALLY. HE STATED HE JUST WANTS TO SLEEP.
--- NOTE | 2019-09-30 11:49 | Progress Note - Hospitalist ---
Subjective HPI/CC On Admission Date Seen by Provider: Sep 30, 2019 Time Seen by Provider: 10:30 Subjective/Events-last exam Non-compliant with Tely and O2 Non-compliant with all management DC planned for tomorrow All he does is lay in bed and chair all day and all night Review of Systems General: Fatigue Pulmonary: Dyspnea Objective Exam Vital Signs Vital Signs Date Time Temp Pulse Resp B/P (MAP) Pulse Ox O2 Delivery O2 Flow Rate FiO2 09/30/19 12:12 74 09/30/19 12:00 36.4 20 138/82 (100) 97 Room Air 09/30/19 08:00 2.00 09/26/19 05:55 97 Capillary Refill : Greater Than 3 Seconds General Appearance: No Apparent Distress, WD/WN, Chronically ill, Obese Respiratory: Lungs Clear Results/Procedures Lab Laboratory Tests 09/30/19 05:22 Patient resulted labs reviewed. Assessment/Plan Assessment and Plan Assess & Plan/Chief Complaint Assessment: (1) Respiratory failure with hypoxia (2) Influenza (3) Systolic CHF (4) Atrial fibrillation (5) ZULLY (obstructive sleep apnea) (6) Obesity hypoventilation syndrome (7) Noncompliance (8) Methamphetamine abuse (9) Morbid obesity Plan: Refuses O2 Poor motivation [facility] prognosis poor DC home tomorrow Clinical Quality Measures DVT/VTE Risk/Contraindication: Risk Factor Score Per Nursin RFS Level Per Nursing on Admit: 2=Moderate KARIN SAUNDERS DO Sep 30, 2019 11:49
[2019-09-30 12:00] VITALS: BP 138/82
[2019-09-30 16:00] VITALS: BP 158/93
--- NOTE | 2019-09-30 16:27 | Progress Note - Cardiology ---
Cardiology SOAP Progress Note Subjective: Feels better than yesterday Less short of breath No cp or palp or syncope Somewhat more stamina Objective: I&O/Vital Signs 09/30/19 09/30/19 09/30/19 09/30/19 07:00 07:47 07:56 08:00 Temp 36.8 Pulse 71 64 Resp 20 B/P (MAP) 123/71 (88) Pulse Ox 92 90 O2 Delivery Room Air Room Air Nasal Cannula O2 Flow Rate 3.00 2.00 09/30/19 09/30/19 12:00 12:12 Temp 36.4 Pulse 72 74 Resp 20 B/P (MAP) 138/82 (100) Pulse Ox 97 O2 Delivery Room Air 09/30/19 00:00 Intake Total 2410 ml Balance 2410 ml Constitutional: AAO x 3 Respiratory: No accessory muscle use, No respiratory distress; chest expansion is symmetric, chest is bilaterally symmetric, other (good air entry) Cardiovascular: irregularly irregular; No JVD; S1 and S2 Gastrointestional: No tender; soft, audible bowel sounds Extremities: other (mod bilat LE swelling; bilateral stasis dermatitis) Neurologic/Psychiatric: grossly intact (moves all extremities) Skin: No rash on exposed areas, No ulcerations on exposed areas Results/Procedures: Labs Laboratory Tests 09/30/19 05:22: White Blood Count 8.3, Red Blood Count 4.11L, Hemoglobin 11.4L, Hematocrit 38L, Mean Corpuscular Volume 92, Mean Corpuscular Hemoglobin 28, Mean Corpuscular Hemoglobin Concent 30L, Red Cell Distribution Width 16.0H, Platelet Count 247, Mean Platelet Volume 10.5H, Neutrophils (%) (Auto) 64, Lymphocytes (%) (Auto) 21, Monocytes (%) (Auto) 10, Eosinophils (%) (Auto) 5, Basophils (%) (Auto) 1, Neutrophils # (Auto) 5.3, Lymphocytes # (Auto) 1.8, Monocytes # (Auto) 0.8, Eosinophils # (Auto) 0.4H, Basophils # (Auto) 0.0, Sodium Level 140, Potassium Level 4.4, Chloride Level 105, Carbon Dioxide Level 27, Anion Gap 8, Blood Urea Nitrogen 18, Creatinine 1.10, Estimat Glomerular Filtration Rate > 60, BUN/Creatinine Ratio 16, Glucose Level 92, Calcium Level 9.0, Corrected Calcium 9.6, Total Bilirubin 0.6, Aspartate Amino Transf (AST/SGOT) 35H, Alanine Ami notransferase (ALT/SGPT) 45, Alkaline Phosphatase 109, Total Protein 6.5, Albumin 3.3 Microbiology 09/26/19 MRSA Screen - Final, Complete MRSA not isolated 09/26/19 Blood Culture - Preliminary, Resulted No growth A/P: Assessment: Status post respiratory failure with pneumonia, improving Influenza A- started on Tamiflu, managed by primary care physician Paroxysmal atrial fibrillation CHF, acute on chronic LV systolic dysfunction with most recent EF 20-25%, noncompliant with LifeVest Mild elevation in troponin, type II [place] probably secondary to hypoxemia and tachycardia OAC with Eliquis HTN Morbid obesity COPD/obstructive sleep apnea, noncompliant with his CPAP History of recent IV Methamphetamine use H/o intermittent noncompliance with meds Plan: * Continue current regimen * Monitor labs HIRO FENTON MD FACP FAC CCDS Sep 30, 2019 16:27
[2019-09-30 20:30] VITALS: BP 168/93
[2019-10-01] VITALS: BP 150/95
[2019-10-01] MEDS: RT-ALBUTEROL SULF 2.5 MG/3 ML PRE-MIX VIAL INH SCH (02:57)
[2019-10-01] MEDS: CEFEPIME 1,000 MG/SWFI 10 ML IV PUSH IV SCH ×4 (02:58→08:03)
[2019-10-01 03:55] LABS: BASOPHILS % (AUTO) 0 % (0-10); EOSINOPHILS # (AUTO) 0.4 10^3/uL (0.0-0.3); EOSINOPHILS % (AUTO) 5 % (0-10); HEMATOCRIT 38 % (40-54); HEMOGLOBIN 11.3 G/DL (13.3-17.7); LYMPHOCYTES % (AUTO) 26 % (12-44); MEAN CORPUSCULAR HEMOGLOBIN 27 PG (25-34); MEAN CORPUSCULAR HGB CONC 30 G/DL (32-36); MEAN CORPUSCULAR VOLUME 92 FL (80-99); MONOCYTES # (AUTO) 0.8 X 10^3 (0.0-1.0); MONOCYTES % (AUTO) 10 % (0-12); NEUTROPHILS # (AUTO) 4.5 X 10^3 (1.8-7.8); NEUTROPHILS % (AUTO) 58 % (42-75); PLATELET COUNT 263 10^3/uL (130-400); RED CELL DISTRIBUTION WIDTH 16.4 % (10.0-14.5); WHITE BLOOD COUNT 7.7 10^3/uL (4.3-11.0)
[2019-10-01 04:16] LABS: ALANINE AMINOTRANSFERASE 42 U/L (0-55); ALBUMIN 3.2 GM/DL (3.2-4.5); ALKALINE PHOSPHATASE 116 U/L (40-136); BILIRUBIN,TOTAL 0.5 MG/DL (0.1-1.0); BUN/CREATININE RATIO 16; CALCIUM 8.9 MG/DL (8.5-10.1); CARBON DIOXIDE 24 MMOL/L (21-32); CHLORIDE 105 MMOL/L (98-107); CREATININE SERUM 1.16 MG/DL (0.60-1.30); GFR ESTIMATED > 60; GLUCOSE 102 MG/DL (70-105); POTASSIUM 4.1 MMOL/L (3.6-5.0); SODIUM 140 MMOL/L (135-145); TOTAL PROTEIN 6.3 GM/DL (6.4-8.2)
[2019-10-01 08:00] VITALS: BP 136/88
[2019-10-01] MEDS: NICOTINE 21 MG (NICODERM) PATCH TD SCH (08:03)
[2019-10-01] MEDS: AMIODARONE 200 MG (CORDARONE) TAB PO SCH (08:04)
[2019-10-01] MEDS: dilTIAZem120 MG (CARDIZEM CD) CAP PO SCH (08:04)
[2019-10-01] MEDS: APIXABAN 5 MG (ELIQUIS) TABLET PO SCH (08:04)
[2019-10-01] MEDS: meTOprolol TARTRATE 50 MG (LOPRESSOR) TAB PO SCH (08:04)
[2019-10-01] MEDS: LORazepam INJ 2 MG/ML (ATIVAN) VIAL IV PRN (08:04)
[2019-10-01] MEDS: NICOTINE PATCH REMOVAL TP SCH (08:04)
[2019-10-01] MEDS ORDERED: AMIO200T4 PO ×2 (08:21→11:42)
--- NOTE | 2019-10-01 08:22 | Discharge Summary ---
Discharge Summary Hospital Course Was the Problem List Reviewed?: Yes Hospital Course Date of Admission: Sep 26, 2019 at 08:28 Admission Diagnosis : Family Physician/Provider: Ashely Gordon Date of Discharge: 10/01/19 Discharge Diagnosis: PNA, OHS, Meth use, AF Hospital Course: Hospital course: Pt had an uneventful hospital course for six days after he was admitted for pneumonia, sepsis and acute on-chronic respiratory failure. He did complete Cephepime while he was hospitalized. Overall noncompliant with O2 and Telemetry while he was hospitalized. Amiodarone was changed to 400 Mg BID at discharge along with continuing oral anticoagulation but overall prognosis remains poor due to significant noncompliance and history of meth use. Labs and Pending Lab Test: Laboratory Tests 10/01/19 03:37: White Blood Count 7.7, Red Blood Count 4.18L, Hemoglobin 11.3L, Hematocrit 38L, Mean Corpuscular Volume 92, Mean Corpuscular Hemoglobin 27, Mean Corpuscular Hemoglobin Concent 30L, Red Cell Distribution Width 16.4H, Platelet Count 263, Mean Platelet Volume 10.0, Neutrophils (%) (Auto) 58, Lymphocytes (%) (Auto) 26, Monocytes (%) (Auto) 10, Eosinophils (%) (Auto) 5, Basophils (%) (Auto) 0, Neutrophils # (Auto) 4.5, Lymphocytes # (Auto) 2.0, Monocytes # (Auto) 0.8, Eosinophils # (Auto) 0.4H, Basophils # (Auto) 0.0, Sodium Level 140, Potassium Level 4.1, Chloride Level 105, Carbon Dioxide Level 24, Anion Gap 11, Blood Urea Nitrogen 19H, Creatinine 1.16, Estimat Glomerular Filtration Rate > 60, BUN/Creatinine Ratio 16, Glucose Level 102, Calcium Level 8.9, Corrected Calcium 9.5, Total Bilirubin 0.5, Aspartate Amino Transf (AST/SGOT) 25, Alanine Aminotransferase (ALT/SGPT) 42, Alkaline Phosphatase 116, Total Protein 6.3L, Albumin 3.2 Microbiology 09/26/19 MRSA Screen - Final, Complete MRSA not isolated 09/26/19 Blood Culture - Preliminary, Resulted No growth Home Meds Active Amiodarone HCl 200 Mg Tablet 400 Mg PO BID Reported Lasix (Furosemide) 40 Mg Tablet 40 Mg PO BID Amiodarone HCl 200 Mg Tablet 200 Mg PO BID Tylenol Pm Ex-Strength Caplet (Acetaminophen/Diphenhydramine) 1 Each Tablet 3 Tab PO HS PRN Eliquis (Apixaban) 5 Mg Tablet 5 Mg PO BID K-Tab ER (Potassium Chloride) 10 Meq Tablet.er 10 Meq PO DAILY Entresto 24 mg-26 mg Tablet (Sacubitril/Valsartan) 1 Each Tablet 1 Tab PO BID Diltiazem ER (Diltiazem HCl) 120 Mg Capsule.er 120 Mg PO DAILY Metoprolol Tartrate 50 Mg Tablet 50 Mg PO BID Assessment/Pt Instructions [facility]C 1 week Discharge Planning: <30 minutes discharge planning Discharge Physical Examination Vital Signs Vital Signs Date Time Temp Pulse Resp B/P (MAP) Pulse Ox O2 Delivery O2 Flow Rate FiO2 10/01/19 00:00 36.0 80 18 150/95 (113) 98 Nasal Cannula 09/30/19 20:40 2.00 09/26/19 05:55 97 General Appearance: No Apparent Distress, WD/WN, Chronically ill, Obese Allergies: Coded Allergies: No Known Drug Allergies (Unverified , 09/26/19) Discharge Summary Date of Admission Sep 26, 2019 at 08:28 Date of Discharge Discharge Date: Oct 01, 2019 Discharge Diagnosis Assessment: (1) Respiratory failure with hypoxia (2) Influenza (3) Systolic CHF (4) Atrial fibrillation (5) ZULLY (obstructive sleep apnea) (6) Obesity hypoventilation syndrome (7) Noncompliance (8) Methamphetamine abuse (9) Morbid obesity Plan: Refuses O2 Poor motivation group home prognosis poor DC home tomorrow Clinical Quality Measures DVT/VTE Risk/Contraindication: Risk Factor Score Per Nursin RFS Level Per Nursing on Admit: 2=Moderate KARIN SAUNDERS DO Oct 01, 2019 08:22
--- NOTE | 2019-10-01 09:05 | Cardiology Progress Note ---
Subjective Date Seen by Provider: Oct 01, 2019 Time Seen by Provider: 09:03 Subjective/Events-last exam Patient sitting up in chair. C/o dyspnea. Denies any chest pain, dizziness or lightheadedness. Review of Systems General: No Chills, No Night Sweats; Fatigue; No Malaise, No Appetite, No Other HEENT: No Head Aches, No Visual Changes, No Eye Pain, No Ear Pain, No D ysphasia, No Sinus Congestion, No Post Nasal Drip, No Sore Throat, No Other Pulmonary: No Dyspnea, No Cough, No Pleuritic Chest Pain, No Other Cardiovascular: No: Chest Pain, Palpitations, Orthopnea, Paroxysmal Noc. Dyspnea, Edema, Lt Headedness, Other Objective-Cardiology Exam Last Set of Vital Signs Vital Signs 09/26/19 10/01/19 10/01/19 05:55 08:00 08:55 Temp 36.8 Pulse 91 Resp 24 B/P (MAP) 136/88 (104) Pulse Ox 91 O2 Delivery Nasal Cannula O2 Flow Rate 2.00 FiO2 97 Capillary Refill : Greater Than 3 Seconds I&O Intake and Output 10/01/19 00:00 Intake Total 3280 ml Balance 3280 ml Intake Oral 3260 ml IV Total 20 ml # Voids 13 # Bowel Movements 1 General: Alert, Oriented X3 HEENT: Atraumatic, PERRLA Neck: Supple, No JVD, No Thyromegaly Lungs: Clear to Auscultation, Normal Air Movement Heart: Regular Rate, No Murmurs Abdomen: Normal Bowel Sounds, Soft, No Tenderness, No Masses Extremities: No Tenderness/Swelling Skin: No Rashes, No Breakdown Neuro: Sensation Intact, Cranial Nerves 3-12 NL Psych/Mental Status: Mental Status NL, Mood NL Results Lab Laboratory Tests 10/01/19 03:37 A/P-Cardiology Admission Diagnosis Acute respiratory failure Pneumonia Influenza A PAF CHF Assessment/Plan Status post respiratory failure with pneumonia, improving. Currently sitting comfortably in chair. Influenza B- started on Tamiflu, managed by primary care physician Paroxysmal atrial fibrillation, heart rate well controlled at this time, continue to monitor. Maintained on Amiodarone CHF, acute on chronic LV systolic dysfunction with most recent EF 20-25%, noncompliant with LifeVest. Maintained on Entresto, Lopressor as outpatient. Mild elevation in troponin, type II [place] probably secondary to hypoxemia and tachycardia. Conservative management for now. Increased risk of stroke, tolerating Eliquis well. Continue on current medication Hypertension, controlled, continue to monitor. Morbid obesity COPD/obstructive sleep apnea, noncompliant with his C Pap History of recent IV Methamphetamine use Noncompliant with LifeVest, patient received LifeVest but not using Noncompliant with medication. Patient was seen and evaluated with Carine, examination performed, management plan was discussed, agree with the current scribed note, I made few changes to the note using Italic font Patient is laying down in bed, sleeping No new complaint, still having fatigue and loss of energy, no significant dyspnea, left using oxygen. Lungs are clear to auscultation Okay for discharge from cardiology standpoint, follow-up as an outpatient Educated on compliance with medications Clinical Quality Measures DVT/VTE Risk/Contraindication: Risk Factor Score Per Nursin RFS Level Per Nursing on Admit: 2=Moderate CARINE GARCIA Oct 01, 2019 09:05 RODGER LOZADA MD Oct 01, 2019 09:25
[2019-10-01] MEDS ORDERED: FURO-124 PO (11:42)
[2019-10-01] MEDS ORDERED: POTA-51 PO (11:42)
--- NOTE | 2019-10-01 11:45 | NUR ---
DISCHARGE INSTRUCTIONS GIVEN, VERBALIZED UNDERSTANDING, INSTRUCTED ON FOLLOW UP WITH PCP IN ONE WEEK, INSTRUCTED TO STOP SMOKING, REQUESTED NURSE REMOVE THE NICOTINE PATCH BECAUSE HE WAS GOING TO SMOKE WHEN DISCHARGED, INSTRUCTED ON PRESCRIPTION TO BE PICKED UP AT PHARMACY IN [place], VERBALIZED UNDERSTANDING.
[2019-10-01 12:10] VITALS: BP 136/88
--- NOTE | 2019-10-01 12:37 | NUR ---
Pt shared he is missing his 12 year old Lori De León. While showing me pictures of his dog, he swiped past the image of a gravestone, became tearful, and shared his dad after a prolonged illness two years ago. He said his dad "taught me everything I know." The pt said he has been trying to get disability the past 3 years and wishes he made enough money to help support his mother. He said she remarried and is now living in [place]. Offered empathic listening and facilitated reflection about personal sources of coping and strength.
--- NOTE | 2019-10-03 09:28 | Physician Query Clarification ---
PQ-Uncertain Diagnosis Admission/Discharge Admission Date: Sep 26, 2019 at 08:28 Discharge Date: Oct 01, 2019 at 12:10 The medical record reflects the following clinical scenario: History/Risk Factors: Flu w/pneumonia, acute on chronic respiratory failure, acute on chronic systolic CHF Clinical Findings: WBC 12.0, Lactic acid 1.48, T 36.6, P 124, R 22 Treatment: IV Cefepime, IV Vancomycin Question: Is sepsis a clinically valid diagnosis? Sepsis was documented in the DS with no further documentation in the medical record. Please document a response in Progress Note or Discharge Summary. 1. Yes, clinically valid, condition resolved. 2. No, condition ruled out. 3. Other, with explanation of clinical findings. 4. Undetermined, no explanation for clinical findings. PHYSICIAN RESPONSE Diagnosis clinically valid: Yes, Conditon resolved Please remember a lack of response to the above will prompt a phone page by CDI/Coding staff. In responding to this query, please exercise your independent professional judgment. The purpose of this communication is to more accurately reflect the complexity of your patients condition. The fact that a question is asked does not imply that any particular answer is desired or expected. Thank you for your timely response to this clarification. Requestors name: Carolyn THIS PHYSICIAN QUERY FORM IS A PERMANENT PART OF THE MEDICAL RECORD CAROLYN WHITING Oct 03, 2019 09:28 KARIN SAUNDERS DO Oct 03, 2019 10:37
--- OUTSIDE RECORDS SUMMARY | 2019-10-04 10:53 | XMS REPORT | Continuity of Care Document ---
Author Organization Unknown Address Unknown Phone Unavailable Allergies Active Description Code Type Severity Reaction Onset Reported/Identified Relationship to Patient Clinical Status Yes No Known Drug Allergies [id number] Drug Allergy Unknown N/A 09/26/2019 Medications There is no data. Problems Date Dx Coded Attending Type Code Diagnosis Diagnosed By 08/20/2019 CHIP BOOGIE KARIN Ot E66.01 MORBID (SEVERE) OBESITY DUE TO EXCESS CA 08/20/2019 CHIP DO KARIN Ot E78.00 PURE HYPERCHOLESTEROLEMIA, UNSPECIFIED 08/20/2019 CHIP BOOGIE KARIN Ot E87.1 HYPO-OSMOLALITY AND HYPONATREMIA 08/20/2019 CHIP BOOGIE KARIN Ot F15.90 OTHER STIMULANT USE, UNSPECIFIED, UNCOMP 08/20/2019 CHIP BOOGIE KARIN Ot G47.33 OBSTRUCTIVE SLEEP APNEA (ADULT) (PEDIATR 08/20/2019 CHIP BOOGIE, KARIN Ot I11.0 HYPERTENSIVE HEART DISEASE WITH HEART FA 08/20/2019 CHIP BOOGIE KARIN Ot I25.10 ATHSCL HEART DISEASE OF [place] CORONARY 08/20/2019 CHIP BOOGIE KARIN Ot I42.9 CARDIOMYOPATHY, UNSPECIFIED 08/20/2019 CHIP BOOGIE KARIN Ot I48.0 PAROXYSMAL ATRIAL FIBRILLATION 08/20/2019 CHIP BOOGIE KARIN Ot I50.23 ACUTE ON CHRONIC SYSTOLIC (CONGESTIVE) H 08/20/2019 CHIP BOOGIE KARIN Ot I73.9 PERIPHERAL VASCULAR DISEASE, UNSPECIFIED 08/20/2019 CHIP BOOGIE KARIN Ot I87.8 OTHER SPECIFIED DISORDERS OF VEINS 08/20/2019 CHIP BOOGIE KARIN Ot J44.9 CHRONIC OBSTRUCTIVE PULMONARY DISEASE, U 08/20/2019 CHIP BOOGIE KARIN Ot Z79.01 INTERMEDIATE (CURRENT) USE OF ANTICOAGULANT 08/20/2019 CHIP BOOGIE KARIN Ot Z91.19 PATIENT'S NONCOMPLIANCE W OT MEDICAL TR 08/20/2019 CHIP BOOGIE KARIN Ot E66.01 MORBID (SEVERE) OBESITY DUE TO EXCESS CA 08/20/2019 SAUNDERS DO, KARIN Ot E78.00 PURE HYPERCHOLESTEROLEMIA, UNSPECIFIED 08/20/2019 SAUNDERS DO, KARIN Ot E87.1 HYPO-OSMOLALITY AND HYPONATREMIA 08/20/2019 SAUNDERS DO, KARIN Ot F15.90 OTHER STIMULANT USE, UNSPECIFIED, UNCOMP 08/20/2019 SAUNDERS DO, KARIN Ot G47.33 OBSTRUCTIVE SLEEP APNEA (ADULT) (PEDIATR 08/20/2019 SAUNDERS DO, KARIN Ot I11.0 HYPERTENSIVE HEART DISEASE WITH HEART FA 08/20/2019 SAUNDERS DO, KARIN Ot I25.10 ATHSCL HEART DISEASE OF [place] CORONARY 08/20/2019 SAUNDERS DO, KARIN Ot I42.9 CARDIOMYOPATHY, UNSPECIFIED 08/20/2019 SAUNDERS DO, KARIN Ot I48.0 PAROXYSMAL ATRIAL FIBRILLATION 08/20/2019 SAUNDERS DO, KARIN Ot I50.23 ACUTE ON CHRONIC SYSTOLIC (CONGESTIVE) H 08/20/2019 SAUNDERS DO, KARIN Ot I73.9 PERIPHERAL VASCULAR DISEASE, UNSPECIFIED 08/20/2019 CHIP DO KARIN Ot I87.8 OTHER SPECIFIED DISORDERS OF VEINS 08/20/2019 CHIP DO, KARIN Ot J44.9 CHRONIC OBSTRUCTIVE PULMONARY DISEASE, U 08/20/2019 CHIP DO, KARIN Ot Z79.01 INTERMEDIATE (CURRENT) USE OF ANTICOAGULANT 08/20/2019 CHIP DO KARIN Ot Z91.19 PATIENT'S NONCOMPLIANCE W [facility] MEDICAL TR 09/05/2019 SAUNDERS DO, KARIN Ot E66.2 MORBID (SEVERE) OBESITY WITH ALVEOLAR HY 09/05/2019 SAUNDERS DO, KARIN Ot E78.00 PURE HYPERCHOLESTEROLEMIA, UNSPECIFIED 09/05/2019 SAUNDERS DO, KARIN Ot F15.10 OTHER STIMULANT ABUSE, UNCOMPLICATED 09/05/2019 SAUNDERS DO, KARIN Ot F17.22 0 NICOTINE DEPENDENCE, CHEWING TOBACCO, UN 09/05/2019 SAUNDERS DO, KARIN Ot I11.0 HYPERTENSIVE HEART DISEASE WITH HEART FA 09/05/2019 SAUNDERS DO, KARIN Ot I21.A1 MYOCARDIAL INFARCTION TYPE 2 09/05/2019 SAUNDERS DO, KARIN Ot I25.10 ATHSCL HEART DISEASE OF [place] CORONARY 09/05/2019 SAUNDERS DO, KARIN Ot I42.9 CARDIOMYOPATHY, UNSPECIFIED 09/05/2019 SAUNDERS DO, KARIN Ot I48.0 PAROXYSMAL ATRIAL FIBRILLATION 09/05/2019 SAUNDERS DO, KARIN Ot I50.23 ACUTE ON CHRONIC SYSTOLIC (CONGESTIVE) H 09/05/2019 SAUNDERS DO, KARIN Ot I73.9 PERIPHERAL VASCULAR DISEASE, UNSPECIFIED 09/05/2019 SAUNDERS DO, KARIN Ot I87.2 VENOUS INSUFFICIENCY (CHRONIC) (PERIPHER 09/05/2019 SAUNDERS DO, KARIN Ot J44.9 CHRONIC OBSTRUCTIVE PULMONARY DISEASE, U 09/05/2019 SAUNDERS DO, KARIN Ot Z68.43 BODY MASS INDEX (BMI) 50.0-59.9, ADULT 09/05/2019 SAUNDERS DO, KARIN Ot Z91.19 PATIENT'S NONCOMPLIANCE W [facility] MEDICAL TR 09/05/2019 CHIP DO, KARIN Ot Z99.81 DEPENDENCE ON SUPPLEMENTAL OXYGEN 09/12/2019 SAUNDERS DO, KARIN Ot E66.01 MORBID (SEVERE) OBESITY DUE TO EXCESS CA 09/12/2019 SAUNDERS DO, KARIN Ot E78.00 PURE HYPERCHOLESTEROLEMIA, UNSPECIFIED 09/12/2019 SAUNDERS DO, KARIN Ot E87.1 HYPO-OSMOLALITY AND HYPONATREMIA 09/12/2019 SAUNDERS DO, KARIN Ot F15.90 OTHER STIMULANT USE, UNSPECIFIED, UNCOMP 09/12/2019 SAUNDERS DO, KARIN Ot G47.33 OBSTRUCTIVE SLEEP APNEA (ADULT) (PEDIATR 09/12/2019 SAUNDERS DO, KARIN Ot I11.0 HYPERTENSIVE HEART DISEASE WITH HEART FA 09/12/2019 SAUNDERS DO, KARIN Ot I25.10 ATHSCL HEART DISEASE OF [place] CORONARY 09/12/2019 SAUNDERS DO, KARIN Ot I42.9 CARDIOMYOPATHY, UNSPECIFIED 09/12/2019 SAUNDERS DO, KARIN Ot I48.0 PAROXYSMAL ATRIAL FIBRILLATION 09/12/2019 SAUNDERS DO, KARIN Ot I50.23 ACUTE ON CHRONIC SYSTOLIC (CONGESTIVE) H 09/12/2019 SAUNDERS DO, KARIN Ot I73.9 PERIPHERAL VASCULAR DISEASE, UNSPECIFIED 09/12/2019 SAUNDERS DO, KARIN Ot I87.8 OTHER SPECIFIED DISORDERS OF VEINS 09/12/2019 CHIP DO KARIN Ot J44.9 CHRONIC OBSTRUCTIVE PULMONARY DISEASE, U 09/12/2019 CHIP DO KARIN Ot Z79.01 MANAGER MUSIC (CURRENT) USE OF ANTICOAGULANT 09/12/2019 SAUNDERS DO, KARIN Ot Z91.19 PATIENT'S NONCOMPLIANCE W [facility] MEDICAL TR 09/12/2019 SAUNDERS DO, KARIN Ot E66.01 MORBID (SEVERE) OBESITY DUE TO EXCESS CA 09/12/2019 SAUNDERS DO, KARIN Ot E78.00 PURE HYPERCHOLESTEROLEMIA, UNSPECIFIED 09/12/2019 SAUNDERS DO, KARIN Ot E87.1 HYPO-OSMOLALITY AND HYPONATREMIA 09/12/2019 SAUNDERS DO, KARIN Ot F15.90 OTHER STIMULANT USE, UNSPECIFIED, UNCOMP 09/12/2019 SAUNDERS DO, KARIN Ot G47.33 OBSTRUCTIVE SLEEP APNEA (ADULT) (PEDIATR 09/12/2019 SAUNDERS DO, KARIN Ot I11.0 HYPERTENSIVE HEART DISEASE WITH HEART FA 09/12/2019 SAUNDERS DO, KARIN Ot I25.10 ATHSCL HEART DISEASE OF [place] CORONARY 09/12/2019 SAUNDERS DO, KARIN Ot I42.9 CARDIOMYOPATHY, UNSPECIFIED 09/12/2019 SAUNDERS DO, KARIN Ot I48.0 PAROXYSMAL ATRIAL FIBRILLATION 09/12/2019 SAUNDERS DO, KARIN Ot I50.23 ACUTE ON CHRONIC SYSTOLIC (CONGESTIVE) H 09/12/2019 SAUNDERS DO, KARIN Ot I73.9 PERIPHERAL VASCULAR DISEASE, UNSPECIFIED 09/12/2019 SAUNDERS DO, KARIN Ot I87.8 OTHER SPECIFIED DISORDERS OF VEINS 09/12/2019 CHIP DO, KARIN Ot J44.9 CHRONIC OBSTRUCTIVE PULMONARY DISEASE, U 09/12/2019 CHIP DO, KARIN Ot Z79.01 MANAGER MUSIC (CURRENT) USE OF ANTICOAGULANT 09/12/2019 CHIP DO, KARIN Ot Z91.19 PATIENT'S NONCOMPLIANCE W [facility] MEDICAL TR 09/28/2019 FLAVIA OSMAN MD Ot E66.2 MORBID (SEVERE) OBESITY WITH ALVEOLAR HY 09/28/2019 FLAVIA OSMAN MD Ot 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, UNCOMPLICATED 09/28/2019 FLAVIA OSMAN MD Ot F17.2 20 NICOTINE DEPENDENCE, CHEWING TOBACCO, UN 09/28/2019 FLAVIA OSMAN MD Ot I11.0 HYPERTENSIVE HEART DISEASE WITH HEART FA 09/28/2019 FLAVIA OSMAN MD Ot I21.A 1 MYOCARDIAL INFARCTION TYPE 2 09/28/2019 FLAVIA OSMAN MD Ot I48.0 PAROXYSMAL ATRIAL FIBRILLATION 09/28/2019 FLAVIA OSMAN MD Ot I50.2 2 CHRONIC SYSTOLIC (CONGESTIVE) HEART FAIL 09/28/2019 FLAVIA OSMAN MD Ot I87.8 OTHER SPECIFIED DISORDERS OF VEINS 09/28/2019 FLAVIA OSMAN MD Ot J10.0 0 FLU DUE TO OTH IDENT FLU VIRUS W UNSP TY 09/28/2019 FLAVIA OSMAN MD Ot J96.2 1 ACUTE AND CHRONIC RESPIRATORY FAILURE [place] 09/28/2019 FLAVIA OSMAN MD Ot Z68.4 4 BODY MASS INDEX (BMI) 60.0-69.9, ADULT 09/28/2019 FLAVIA OSMAN MD Ot Z79.0 1 INTERMEDIATE (CURRENT) USE OF ANTICOAGULANT 09/28/2019 FLAVIA OSMAN MD Ot Z91.1 4 PATIENT'S OTHER NONCOMPLIANCE WITH MEDIC 09/28/2019 FLAVIA OSMAN MD Ot Z91.1 9 PATIENT'S NONCOMPLIANCE W OTH MEDICAL TR 09/30/2019 FLAVIA OSMAN MD Ot E66.2 MORBID (SEVERE) OBESITY WITH ALVEOLAR HY 09/30/2019 FLAVIA OSMAN MD Ot 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, UNCOMPLICATED 09/30/2019 FLAVIA OSMAN MD Ot F17.2 20 NICOTINE DEPENDENCE, CHEWING TOBACCO, UN 09/30/2019 FLAVIA OSMAN MD Ot I11.0 HYPERTENSIVE HEART DISEASE WITH HEART FA 09/30/2019 FLAVIA OSMAN MD Ot I21.A 1 MYOCARDIAL INFARCTION TYPE 2 09/30/2019 FLAVIA OSMAN MD Ot I48.0 PAROXYSMAL ATRIAL FIBRILLATION 09/30/2019 FLAVIA OSMAN MD Ot I50.2 2 CHRONIC SYSTOLIC (CONGESTIVE) HEART FAIL 09/30/2019 FLAVIA OSMAN MD Ot I87.8 OTHER SPECIFIED DISORDERS OF VEINS 09/30/2019 FLAVIA OSMAN MD Ot J10.0 0 FLU DUE TO OTH IDENT FLU VIRUS W UNSP TY 09/30/2019 FLAVIA OSMAN MD Ot J96.2 1 ACUTE AND CHRONIC RESPIRATORY FAILURE [place] 09/30/2019 FLAVIA OSMAN MD Ot Z68.4 4 BODY MASS INDEX (BMI) 60.0-69.9, ADULT 09/30/2019 FLAVIA OSMAN MD Ot Z79.0 1 INTERMEDIATE (CURRENT) USE OF ANTICOAGULANT 09/30/2019 FLAVIA OSMAN MD Ot Z91.1 4 PATIENT'S OTHER NONCOMPLIANCE WITH MEDIC 09/30/2019 FLAVIA OSMAN MD Ot Z91.1 9 PATIENT'S NONCOMPLIANCE W [facility] MED[facility] TR 10/01/2019 FLAVIA OSMAN MD Ot E66.2 MORBID (SEVERE) OBESITY WITH ALVEOLAR HY 10/01/2019 FLAVIA OSMAN MD Ot 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, UNCOMPLICATED 10/01/2019 FLAVIA OSMAN MD Ot F17.2 20 NICOTINE DEPENDENCE, CHEWING TOBACCO, UN 10/01/2019 FLAVIA OSMAN MD Ot I11.0 HYPERTENSIVE HEART DISEASE WITH HEART FA 10/01/2019 FLAVIA OSMAN MD Ot I21.A 1 MYOCARDIAL INFARCTION TYPE 2 10/01/2019 FLAVIA OSMAN MD Ot I48.0 PAROXYSMAL ATRIAL FIBRILLATION 10/01/2019 FLAVIA OSMAN MD Ot I50.2 2 CHRONIC SYSTOLIC (CONGESTIVE) HEART FAIL 10/01/2019 FLAVIA OSMAN MD Ot I87.8 OTHER SPECIFIED DISORDERS OF VEINS 10/01/2019 FLAVIA OSMAN MD Ot J10.0 0 FLU DUE TO [facility] IDENT FLU VIRUS W UNSP TY 10/01/2019 FLAVIA OSMAN MD Ot J96.2 1 ACUTE AND CHRONIC RESPIRATORY FAILURE [place] 10/01/2019 FLAVIA OSMAN MD Ot Z68.4 4 BODY MASS INDEX (BMI) 60.0-69.9, ADULT 10/01/2019 FLAVIA OSMAN MD Ot Z79.0 1 MANAGER MUSIC (CURRENT) USE OF ANTICOAGULANT 10/01/2019 FLAVIA OSMAN MD Ot Z91.1 4 PATIENT'S OTHER NONCOMPLIANCE WITH MEDIC 10/01/2019 FLAVIA SOMAN MD Ot Z91.1 9 PATIENT'S NONCOMPLIANCE W [facility] MEDICAL TR 10/01/2019 FLAVIA OSMAN MD Ot E66.2 MORBID (SEVERE) OBESITY WITH ALVEOLAR HY 10/01/2019 FLAVIA OSMAN MD Ot 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, UNCOMPLICATED 10/01/2019 FLAVIA OSMAN MD Ot F17.2 20 NICOTINE DEPENDENCE, CHEWING TOBACCO, UN 10/01/2019 FLAVIA OSMAN MD, Ot I11.0 HYPERTENSIVE HEART DISEASE WITH HEART FA 10/01/2019 FLAVIA OSMAN MD, Ot I21.A 1 MYOCARDIAL INFARCTION TYPE 2 10/01/2019 FLAVIA OSMAN MD, Ot I48.0 PAROXYSMAL ATRIAL FIBRILLATION 10/01/2019 FLAVIA OSMAN MD, Ot I50.2 2 CHRONIC SYSTOLIC (CONGESTIVE) HEART FAIL 10/01/2019 FLAVIA OSMAN MD, Ot I50.2 3 ACUTE ON CHRONIC SYSTOLIC (CONGESTIVE) H 10/01/2019 FLAVIA OSMAN MD, Ot I87.8 OTHER SPECIFIED DISORDERS OF VEINS 10/01/2019 FLAVIA OSMAN MD, Ot J10.0 0 FLU DUE TO [facility] IDENT FLU VIRUS W UNSP TY 10/01/2019 FLAVIA OSMAN MD, Ot J44.9 CHRONIC OBSTRUCTIVE PULMONARY DISEASE, U 10/01/2019 FLAVIA OSMAN MD, Ot J96.2 1 ACUTE AND CHRONIC RESPIRATORY FAILURE [place] 10/01/2019 FLAVIA OSMAN MD, Ot Z68.4 4 BODY MASS INDEX (BMI) 60.0-69.9, ADULT 10/01/2019 FLAVIA OSMAN MD, Ot Z79.0 1 MANAGER MUSIC (CURRENT) USE OF ANTICOAGULANT 10/01/2019 FLAVIA OSMAN MD, Ot Z91.1 4 PATIENT'S OTHER NONCOMPLIANCE WITH MEDIC 10/01/2019 FLAVIA OSMAN MD, Ot Z91.1 9 PATIENT'S NONCOMPLIANCE W OT MEDICAL TR Procedures There is no data. Results Test Result Range CBC - 11/24/18 10:10 WHITE BLOOD CELL COUNT 7.2 Thousand/uL 3 .8-10.8 RED BLOOD CELL COUNT 4.69 Million/uL 4.2 0-5.80 HEMOGLOBIN 13.7 g/dL 13.2-17.1 HEMATOCRIT 41.8 % 38.5-50.0 MCV 89.1 fL 80.0-100.0 MCH 29.2 pg 27.0-33.0 MCHC 32.8 g/dL 32.0-36.0 RDW 14.1 % 11.0-15.0 PLATELET COUNT 293 Thousand/uL 140-400 MPV 9.9 fL 7.5-12.5 ABSOLUTE NEUTROPHILS 4111 cells/uL 1500- 7800 ABSOLUTE LYMPHOCYTES 2153 cells/uL 850-3 900 ABSOLUTE MONOCYTES 576 cells/uL 200-950 ABSOLUTE EOSINOPHILS 310 cells/uL 15-500 ABSOLUTE BASOPHILS 50 cells/uL 0-200 NEUTROPHILS 57.1 % NRG LYMPHOCYTES 29.9 % NRG MONOCYTES 8.0 % NRG EOSINOPHILS 4.3 % NRG BASOPHILS 0.7 % NRG BNP - 11/24/18 10:10 B TYPE NATRIURETIC PEPTIDE (BNP) 8 pg/mL <100 CBC - 05/16/19 14:37 WHITE BLOOD CELL COUNT 7.7 Thousand/uL 3 .8-10.8 RED BLOOD CELL COUNT 4.30 Million/uL 4.2 0-5.80 HEMOGLOBIN 12.5 g/dL 13.2-17.1 HEMATOCRIT 37.5 % 38.5-50.0 MCV 87.2 fL 80.0-100.0 MCH 29.1 pg 27.0-33.0 MCHC 33.3 g/dL 32.0-36.0 RDW 14.4 % 11.0-15.0 PLATELET COUNT 315 Thousand/uL 140-400 MPV 10.0 fL 7.5-12.5 ABSOLUTE NEUTROPHILS 5121 cells/uL 1500- 7800 ABSOLUTE LYMPHOCYTES 1586 cells/uL 850-3 900 ABSOLUTE MONOCYTES 562 cells/uL 200-950 ABSOLUTE EOSINOPHILS 370 cells/uL 15-500 ABSOLUTE BASOPHILS 62 cells/uL 0-200 NEUTROPHILS 66.5 % NRG LYMPHOCYTES 20.6 % NRG MONOCYTES 7.3 % NRG EOSINOPHILS 4.8 % NRG BASOPHILS 0.8 % NRG BNP - 05/16/19 14:37 B TYPE NATRIURETIC PEPTIDE (BNP) 119 pg/mL <100 Complete blood count (CBC) with automate d white blood cell (WBC) differential - 08/18/19 03:46 Blood leukocytes automated count (number/volume) 9.3 10*3/uL 4.3-11.0 Blood erythrocytes automated count (number/volume) 4.40 10*6/uL 4.35-5.85 Venous blood hemoglobin measurement (mass/volume) 11.9 g/dL 13.3-17.7 Blood hematocrit (volume fraction) 39 % 40-54 Automated erythrocyte mean corpuscular volume 90 [ foz_us] 80-99 Automated erythrocyte mean corpuscular h emoglobin (mass per erythrocyte) 27 pg 25-34 Automated erythrocyte mean corpuscular h emoglobin concentration measurement (mass/volume) 30 g/dL 32-36 Automated erythrocyte distribution width ratio 14. 9 % 10.0- 14.5 Automated blood platelet count (count/volume) 335 10*3/uL 130-400 Automated blood platelet mean volume measurement 10.0 [foz_us] 7.4-10.4 Automated blood neutrophils/100 leukocytes 74 % 42-75 Automated blood lymphocytes/100 leukocytes 15 % 12-44 Blood monocytes/100 leukocytes 9 % 0-12 Automated blood eosinophils/100 leukocytes 1 % 0-10 Automated blood basophils/100 leukocytes 1 % 0-10 Blood neutrophils automated count (number/volume) 6.9 10*3 1.8-7.8 Blood lymphocytes automated count (number/volume) 1.4 10*3 1.0-4.0 Blood monocytes automated count (number/volume) 0. 8 10*3 0.0-1.0 Automated eosinophil count 0.1 10*3/uL 0 .0-0.3 Automated blood basophil count (count/volume) 0.1 10*3/uL 0.0-0.1 PT panel in platelet poor plasma by coag ulation assay - 08/18/19 03:46 Prothrombin time (PT) in platelet poor plasma by coagu lation assay 14.6 s 12.2-14.7 INR in platelet poor plasma or blood by coagulation as say 1.1 0.8-1.4 Activated partial thromboplastin time (a PTT) in platelet poor plasma bycoagulation assay - 08/18/19 03:46 Activated partial thromboplastin time (a PTT) in platelet poor plasma bycoagulation assay 31 s 24-35 Comprehensive metabolic panel - 08/18/19 03:46 Serum or plasma sodium measurement (moles/volume) 133 mmol/L 135-145 Serum or plasma potassium measurement (moles/volume) 4.8 mmol/L 3.6-5.0 Serum or plasma chloride measurement (moles/volume) 96 mmol/L 98-107 Carbon dioxide 24 mmol/L 21-32 Serum or plasma anion gap determination (moles/volume) 13 mmol/L 5-14 Serum or plasma urea nitrogen measurement (mass/volume ) 10 mg/dL 7-18 Serum or plasma creatinine measurement (mass/volume) 1.02 mg/dL 0.60-1.30 Serum or plasma urea nitrogen/creatinine mass ratio 10 NRG Serum or plasma creatinine measurement w ith calculation of estimated glomerular filtration rate > NRG Serum or plasma glucose measurement (mass/volume) 139 mg/dL 70-105 Serum or plasma calcium measurement (mass/volume) 8.8 mg/dL 8.5-10.1 Serum or plasma total bilirubin measurement (mass/volu me) 0.6 mg/dL 0.1-1.0 Serum or plasma alkaline phosphatase hammad surement (enzymatic activity/volume) 91 U/L 40-136 Serum or plasma aspartate aminotransfera se measurement (enzymatic activity/volume) 34 U/L 5-34 Serum or plasma alanine aminotransferase measurement (enzymatic activity/volume) 16 U/L 0-55 Serum or plasma protein measurement (mass/volume) 7.4 g/dL 6.4-8.2 Serum or plasma albumin measurement (mass/volume) 3.2 g/dL 3.2-4.5 CALCIUM CORRECTED 9.4 mg/dL 8.5-10.1 Magnesium - 08/18/19 03:46 Magnesium 1.5 mg/dL 1.6-2.4 TROPONIN I FS - 08/18/19 03:46 TROPONIN I FS < 0.30 <0.30 PROBNP FS - 08/18/19 03:46 PROBNP FS 4254.0 pg/mL <75.0 Arterial blood gas measurement - 0 07:36 Blood pCO2 44 mm[Hg] 35-45 Blood pO2 79 mm[Hg] 79-93 Arterial blood bicarbonate measurement (moles/volume) 31 mmol/L 23-27 Arterial blood base excess by calculation 7.1 mmol /L -2.5-2.5 Arterial blood oxygen saturation measurement 96 % 94-100 * Inhaled oxygen flow rate 2 L NRG Arterial blood pH measurement with patient temperature correction 7.46 7.37-7.43 Arterial blood carbon dioxide, total measurement (mole s/volume) 32.5 mmol/L 21.0-31.0 Body site RT RAD NRG Assessment of wrist artery patency prior to arterial p uncture YES-POS NRG Setting of ventilation mode NO NR G Measurement of body temperature 36.7 NRG Complete blood count (CBC) with automate d white blood cell (WBC) differential - 08/20/19 06:25 Blood leukocytes automated count (number/volume) 7.3 10*3/uL 4.3-11.0 Blood erythrocytes automated count (number/volume) 4.45 10*6/uL 4.35-5.85 Venous blood hemoglobin measurement (mass/volume) 12.0 g/dL 13.3-17.7 Blood hematocrit (volume fraction) 39 % 40-54 Automated erythrocyte mean corpuscular volume 88 [ foz_us] 80-99 Automated erythrocyte mean corpuscular h emoglobin (mass per erythrocyte) 27 pg 25-34 Automated erythrocyte mean corpuscular h emoglobin concentration measurement (mass/volume) 31 g/dL 32-36 Automated erythrocyte distribution width ratio 15. 4 % 10.0- 14.5 Automated blood platelet count (count/volume) 355 10*3/uL 130-400 Automated blood platelet mean volume measurement 9.5 [foz_us] 7.4-10.4 Automated blood neutrophils/100 leukocytes 62 % 42-75 Automated blood lymphocytes/100 leukocytes 22 % 12-44 Blood monocytes/100 leukocytes 14 % 0-12 Automated blood eosinophils/100 leukocytes 3 % 0-10 Automated blood basophils/100 leukocytes 0 % 0-10 Blood neutrophils automated count (number/volume) 4.5 10*3 1.8-7.8 Blood lymphocytes automated count (number/volume) 1.6 10*3 1.0-4.0 Blood monocytes automated count (number/volume) 1. 0 10*3 0.0-1.0 Automated eosinophil count 0.2 10*3/uL 0 .0-0.3 Automated blood basophil count (count/volume) 0.0 10*3/uL 0.0-0.1 Comprehensive metabolic panel - 08/20/19 06:25 Serum or plasma sodium measurement (moles/volume) 137 mmol/L 135-145 Serum or plasma potassium measurement (moles/volume) 3.6 mmol/L 3.6-5.0 Serum or plasma chloride measurement (moles/volume) 98 mmol/L 98-107 Carbon dioxide 26 mmol/L 21-32 Serum or plasma anion gap determination (moles/volume) 13 mmol/L 5-14 Serum or plasma urea nitrogen measurement (mass/volume ) 18 mg/dL 7-18 Serum or plasma creatinine measurement (mass/volume) 1.27 mg/dL 0.60-1.30 Serum or plasma urea nitrogen/creatinine mass ratio 14 NRG Serum or plasma creatinine measurement w ith calculation of estimated glomerular filtration rate > NRG Serum or plasma glucose measurement (mass/volume) 95 mg/dL 70-105 Serum or plasma calcium measurement (mass/volume) 8.7 mg/dL 8.5-10.1 Serum or plasma total bilirubin measurement (mass/volu me) 0.5 mg/dL 0.1-1.0 Serum or plasma alkaline phosphatase hammad surement (enzymatic activity/volume) 89 U/L 40-136 Serum or plasma aspartate aminotransfera se measurement (enzymatic activity/volume) 23 U/L 5-34 Serum or plasma alanine aminotransferase measurement (enzymatic activity/volume) 17 U/L 0-55 Serum or plasma protein measurement (mass/volume) 7.2 g/dL 6.4-8.2 Serum or plasma albumin measurement (mass/volume) 3.3 g/dL 3.2-4.5 CALCIUM CORRECTED 9.3 mg/dL 8.5-10.1 Serum or plasma phosphate measurement (m ass/volume) - 08/20/19 06:25 Serum or plasma phosphate measurement (mass/volume) 3.3 mg/dL 2.3-4.7 Magnesium - 08/20/19 06:25 Magnesium 1.7 mg/dL 1.6-2.4 Serum or plasma lithium measurement (mol es/volume) - 08/20/19 06:25 BNP PT 610.3 pg/mL <100.0 PDM - 09 PANEL (PROFILE 1) - 08/24/19 11 :09 Prescribed Drug 1 Methamphetamine NRG Creatinine 124.0 mg/dL > or = 20.0 pH 9.0 4.5-9.0 Oxidant NEGATIVE mcg/mL <200 Amphetamines NEGATIVE ng/mL <500 medMATCH Amphetamines INCONSISTENT NRG Benzodiazepines NEGATIVE ng/mL <100 medMATCH Benzodiazepines CONSISTENT NRG Marijuana Metabolite NEGATIVE ng/mL <20 medMATCH Marijuana Metab CONSISTENT NRG Cocaine Metabolite NEGATIVE ng/mL <150 medMATCH Cocaine Metab CONSISTENT NRG Opiates NEGATIVE ng/mL <100 medMATCH Opiates CONSISTENT NRG Oxycodone NEGATIVE ng/mL <100 medMATCH Oxycodone CONSISTENT NRG COMMENT NRG Barbiturates NEGATIVE ng/mL <300 medMATCH Barbiturates CONSISTENT NRG Methadone Metabolite NEGATIVE ng/mL <100 medMATCH Methadone Metab CONSISTENT NRG Phencyclidine NEGATIVE ng/mL <25 medMATCH Phencyclidine CONSISTENT NRG BNP - 08/24/19 11:09 B TYPE NATRIURETIC PEPTIDE (BNP) 297 pg/mL <100 Complete blood count (CBC) with automate d white blood cell (WBC) differential - 09/03/19 15:41 Blood leukocytes automated count (number/volume) 10.1 10*3/uL 4.3-11.0 Blood erythrocytes automated count (number/volume) 4.66 10*6/uL 4.35-5.85 Venous blood hemoglobin measurement (mass/volume) 12.5 g/dL 13.3-17.7 Blood hematocrit (volume fraction) 41 % 40-54 Automated erythrocyte mean corpuscular volume 88 [ foz_us] 80-99 Automated erythrocyte mean corpuscular h emoglobin (mass per erythrocyte) 27 pg 25-34 Automated erythrocyte mean corpuscular h emoglobin concentration measurement (mass/volume) 30 g/dL 32-36 Automated erythrocyte distribution width ratio 15. 6 % 10.0- 14.5 Automated blood platelet count (count/volume) 300 10*3/uL 130-400 Automated blood platelet mean volume measurement 10.2 [foz_us] 7.4-10.4 Automated blood neutrophils/100 leukocytes 59 % 42-75 Automated blood lymphocytes/100 leukocytes 26 % 12-44 Blood monocytes/100 leukocytes 11 % 0-12 Automated blood eosinophils/100 leukocytes 3 % 0-10 Automated blood basophils/100 leukocytes 0 % 0-10 Blood neutrophils automated count (number/volume) 6.0 10*3 1.8-7.8 Blood lymphocytes automated count (number/volume) 2.7 10*3 1.0-4.0 Blood monocytes automated count (number/volume) 1. 1 10*3 0.0-1.0 Automated eosinophil count 0.3 10*3/uL 0 .0-0.3 Automated blood basophil count (count/volume) 0.0 10*3/uL 0.0-0.1 PT panel in platelet poor plasma by coag ulation assay - 09/03/19 15:41 Prothrombin time (PT) in platelet poor plasma by coagu lation assay 13.8 s 12.2-14.7 INR in platelet poor plasma or blood by coagulation as say 1.0 0.8-1.4 Activated partial thromboplastin time (a PTT) in platelet poor plasma bycoagulation assay - 09/03/19 15:41 Activated partial thromboplastin time (a PTT) in platelet poor plasma bycoagulation assay 31 s 24-35 Comprehensive metabolic panel - 09/03/19 15:41 Serum or plasma sodium measurement (moles/volume) 139 mmol/L 135-145 Serum or plasma potassium measurement (moles/volume) 4.2 mmol/L 3.6-5.0 Serum or plasma chloride measurement (moles/volume) 106 mmol/L 98-107 Carbon dioxide 26 mmol/L 21-32 Serum or plasma anion gap determination (moles/volume) 7 mmol/L 5-14 Serum or plasma urea nitrogen measurement (mass/volume ) 14 mg/dL 7-18 Serum or plasma creatinine measurement (mass/volume) 1.01 mg/dL 0.60-1.30 Serum or plasma urea nitrogen/creatinine mass ratio 14 NRG Serum or plasma creatinine measurement w ith calculation of estimated glomerular filtration rate > NRG Serum or plasma glucose measurement (mass/volume) 103 mg/dL 70-105 Serum or plasma calcium measurement (mass/volume) 9.2 mg/dL 8.5-10.1 Serum or plasma total bilirubin measurement (mass/volu me) 0.4 mg/dL 0.1-1.0 Serum or plasma alkaline phosphatase hammad surement (enzymatic activity/volume) 102 U/L 40-136 Serum or plasma aspartate aminotransfera se measurement (enzymatic activity/volume) 13 U/L 5-34 Serum or plasma alanine aminotransferase measurement (enzymatic activity/volume) 12 U/L 0-55 Serum or plasma protein measurement (mass/volume) 7.1 g/dL 6.4-8.2 Serum or plasma albumin measurement (mass/volume) 3.5 g/dL 3.2-4.5 CALCIUM CORRECTED 9.6 mg/dL 8.5-10.1 Magnesium - 09/03/19 15:41 Magnesium 1.8 mg/dL 1.6-2.4 Myoglobin, serum - 09/03/19 15:41 Myoglobin, serum 38.3 ng/mL 10.0-92.0 Serum or plasma troponin i.cardiac measu rement (mass/volume) - 09/03/19 15:41 Serum or plasma troponin i.cardiac measurement (mass/v olume) 0.035 ng/mL <0.028 Serum or plasma lithium measurement (mol es/volume) - 09/03/19 15:41 BNP PT 437.9 pg/mL <100.0 Lipid 1996 panel - 09/04/19 03:25 Serum or plasma triglyceride measurement (mass/volume) 118 mg/dL <150 Serum or plasma cholesterol measurement (mass/volume) 187 mg/dL < 200 Serum or plasma cholesterol in HDL measurement (mass/v olume) 41 mg/dL 40-60 Cholesterol in LDL [mass/volume] in serum or plasma by direct assay 143 mg/dL 1-129 Serum or plasma cholesterol in VLDL measurement (mass/ volume) 24 mg/dL 5-40 Serum or plasma troponin i.cardiac measu rement (mass/volume) - 09/04/19 03:25 Serum or plasma troponin i.cardiac measurement (mass/v olume) 0.040 ng/mL <0.028 Serum or plasma lithium measurement (mol es/volume) - 09/04/19 03:25 BNP PT 402.7 pg/mL <100.0 Arterial blood gas measurement - 0 05:05 Blood pCO2 42 mm[Hg] 35-45 Blood pO2 43 mm[Hg] 79-93 Arterial blood bicarbonate measurement (moles/volume) 25 mmol/L 23-27 Arterial blood base excess by calculation 0.5 mmol /L -2.5-2.5 Arterial blood oxygen saturation measurement 72 % 94-100 * Inhaled oxygen flow rate 3L NRG Arterial blood pH measurement with patient temperature correction 7.39 7.37-7.43 Arterial blood carbon dioxide, total measurement (mole s/volume) 26.5 mmol/L 21.0-31.0 Body site RIGHT RADIAL NRG Assessment of wrist artery patency prior to arterial p uncture YES-POS NRG Setting of ventilation mode NO NR G Measurement of body temperature 36.1 NRG Capillary blood glucose measurement by g lucometer (mass/volume) - 09/04/19 11:25 Capillary blood glucose measurement by glucometer (mas s/volume) 119 mg/dL 70-110 Whole blood basic metabolic panel - 08/09 04/27 03:20 Serum or plasma sodium measurement (moles/volume) 136 mmol/L 135-145 Serum or plasma potassium measurement (moles/volume) 4.8 mmol/L 3.6-5.0 Serum or plasma chloride measurement (moles/volume) 104 mmol/L 98-107 Carbon dioxide 19 mmol/L 21-32 Serum or plasma anion gap determination (moles/volume) 13 mmol/L 5-14 Serum or plasma urea nitrogen measurement (mass/volume ) 21 mg/dL 7-18 Serum or plasma creatinine measurement (mass/volume) 1.01 mg/dL 0.60-1.30 Serum or plasma urea nitrogen/creatinine mass ratio 21 NRG Serum or plasma creatinine measurement w ith calculation of estimated glomerular filtration rate > NRG Serum or plasma glucose measurement (mass/volume) 145 mg/dL 70-105 Serum or plasma calcium measurement (mass/volume) 9.4 mg/dL 8.5-10.1 Serum or plasma phosphate measurement (m ass/volume) - 09/05/19 03:20 Serum or plasma phosphate measurement (mass/volume) 3.4 mg/dL 2.3-4.7 Magnesium - 09/05/19 03:20 Magnesium 1.9 mg/dL 1.6-2.4 Complete blood count (CBC) with automate d white blood cell (WBC) differential - 09/26/19 05:55 Blood leukocytes automated count (number/volume) 12.0 10*3/uL 4.3-11.0 Blood erythrocytes automated count (number/volume) 4.79 10*6/uL 4.35-5.85 Venous blood hemoglobin measurement (mass/volume) 13.2 g/dL 13.3-17.7 Blood hematocrit (volume fraction) 43 % 40-54 Automated erythrocyte mean corpuscular volume 89 [ foz_us] 80-99 Automated erythrocyte mean corpuscular h emoglobin (mass per erythrocyte) 28 pg 25-34 Automated erythrocyte mean corpuscular h emoglobin concentration measurement (mass/volume) 31 g/dL 32-36 Automated erythrocyte distribution width ratio 16. 5 % 10.0- 14.5 Automated blood platelet count (count/volume) 332 10*3/uL 130-400 Automated blood platelet mean volume measurement 9.9 [foz_us] 7.4-10.4 Automated blood neutrophils/100 leukocytes 79 % 42-75 Automated blood lymphocytes/100 leukocytes 11 % 12-44 Blood monocytes/100 leukocytes 8 % 0-12 Automated blood eosinophils/100 leukocytes 2 % 0-10 Automated blood basophils/100 leukocytes 0 % 0-10 Blood neutrophils automated count (number/volume) 9.4 10*3 1.8-7.8 Blood lymphocytes automated count (number/volume) 1.4 10*3 1.0-4.0 Blood monocytes automated count (number/volume) 0. 9 10*3 0.0-1.0 Automated eosinophil count 0.3 10*3/uL 0 .0-0.3 Automated blood basophil count (count/volume) 0.0 10*3/uL 0.0-0.1 PT panel in platelet poor plasma by coag ulation assay - 09/26/19 05:55 Prothrombin time (PT) in platelet poor plasma by coagu lation assay 14.1 s 12.2-14.7 INR in platelet poor plasma or blood by coagulation as say 1.1 0.8-1.4 Activated partial thromboplastin time (a PTT) in platelet poor plasma bycoagulation assay - 09/26/19 05:55 Activated partial thromboplastin time (a PTT) in platelet poor plasma bycoagulation assay 31 s 24-35 Comprehensive metabolic panel - 09/26/19 05:55 Serum or plasma sodium measurement (moles/volume) 137 mmol/L 135-145 Serum or plasma potassium measurement (moles/volume) 5.1 mmol/L 3.6-5.0 Serum or plasma chloride measurement (moles/volume) 105 mmol/L 98-107 Carbon dioxide 18 mmol/L 21-32 Serum or plasma anion gap determination (moles/volume) 14 mmol/L 5-14 Serum or plasma urea nitrogen measurement (mass/volume ) 14 mg/dL 7-18 Serum or plasma creatinine measurement (mass/volume) 1.30 mg/dL 0.60-1.30 Serum or plasma urea nitrogen/creatinine mass ratio 11 NRG Serum or plasma creatinine measurement w ith calculation of estimated glomerular filtration rate 60 NRG Serum or plasma glucose measurement (mass/volume) 116 mg/dL 70-105 Serum or plasma calcium measurement (mass/volume) 9.3 mg/dL 8.5-10.1 Serum or plasma total bilirubin measurement (mass/volu me) 0.5 mg/dL 0.1-1.0 Serum or plasma alkaline phosphatase hammad surement (enzymatic activity/volume) 105 U/L 40-136 Serum or plasma aspartate aminotransfera se measurement (enzymatic activity/volume) 31 U/L 5-34 Serum or plasma alanine aminotransferase measurement (enzymatic activity/volume) 15 U/L 0-55 Serum or plasma protein measurement (mass/volume) 7.6 g/dL 6.4-8.2 Serum or plasma albumin measurement (mass/volume) 3.6 g/dL 3.2-4.5 CALCIUM CORRECTED 9.6 mg/dL 8.5-10.1 Magnesium - 09/26/19 05:55 Magnesium 1.8 mg/dL 1.6-2.4 Serum or plasma troponin i.cardiac measu rement (mass/volume) - 09/26/19 05:55 Serum or plasma troponin i.cardiac measurement (mass/v olume) 0.033 ng/mL <0.028 Serum or plasma C reactive protein measu rement (mass/volume) - 09/26/19 05:55 Serum or plasma C reactive protein measurement (mass/v olume) 1.00 mg/dL 0.00-0.50 Serum or plasma lithium measurement (mol es/volume) - 09/26/19 05:55 BNP PT 626.2 pg/mL <100.0 Myoglobin, serum - 09/26/19 05:55 Myoglobin, serum 53.6 ng/mL 10.0-92.0 Complete urinalysis with reflex to cultu re - 09/26/19 06:11 Urine color determination YELLOW NRG Urine clarity determination CLEAR NR G Urine pH measurement by test strip 6.0 5-9 Specific gravity of urine by test strip 1.020 1.016-1.022 Urine protein assay by test strip, semi-quantitative 2+ NEGATIVE Urine glucose detection by automated test strip NE GATIVE NEGATIVE Erythrocytes detection in urine sediment by light micr oscopy TRACE-I NEGATIVE Urine ketones detection by automated test strip NE GATIVE NEGATIVE Urine nitrite detection by test strip NEGATIVE NEGATIVE Urine total bilirubin detection by test strip NEGA TIVE NEGATIVE Urine urobilinogen measurement by automated test strip (mass/volume) 0.2 mg/dL < = 1.0 Urine leukocyte esterase detection by dipstick NEG ATIVE NEGATIVE Automated urine sediment erythrocyte cou nt by microscopy (number/high power field) [HPF] NRG Automated urine sediment leukocyte count by microscopy (number/high power field) [HPF] NRG Bacteria detection in urine sediment by light microsco py TRACE NRG Squamous epithelial cells detection in u rine sediment by light microscopy 0-2 NRG Crystals detection in urine sediment by light microscopy Y NRG Casts detection in urine sediment by light microscopy PRESENT NRG Mucus detection in urine sediment by light microscopy NEGATIVE NRG Complete urinalysis with reflex to culture NO NRG Amorphous sediment detection in urine sediment by ligh t microscopy RARE HOLLIE URATES NRG Hyaline casts detection in urine sediment by light etelvina roscopy RARE NRG Urine drug screening test - 09/26/19 06: 11 Urine phencyclidine detection by screening method NEGATIVE NEGATIVE Urine benzodiazepines detection by screening method NEGATIVE NEGATIVE Urine cocaine detection NEGATIVE NEGATI VE Urine amphetamines detection by screening method N EGATIVE NEGATIVE Urine methamphetamine detection by screening method NEGATIVE NEGATIVE Urine cannabinoids detection by screening method N EGATIVE NEGATIVE Urine opiates detection by screening method NEGATI VE NEGATIVE Urine barbiturates detection NEGATIVE N EGATIVE Screening urine tricyclic antidepressants detection NEGATIVE NEGATIVE Urine methadone detection by screening method NEGA TIVE NEGATIVE Urine oxycodone detection NEGATIVE NEGA TIVE Urine propoxyphene detection NEGATIVE N EGATIVE Influenza virus A and B antigen detectio n - 09/26/19 06:11 CALL POSITIVES (F1 HELP) CALLED TO [facility] FLU RESULT POSITIVE FOR INFLUENZA B ANT IGEN, NEG FOR A ANTIGEN, BY IA NRG Sputum Gram stain - 09/26/19 06:32 Sputum Gram stain Mixed Bacterial Sofia NRG Bacterial sputum culture - 09/26/19 06:3 2 QUANTITY OF GROWTH . NRG Bacterial sputum culture USUAL RESP NRG Arterial blood gas measurement - 0 06:40 Blood pCO2 39 mm[Hg] 35-45 Blood pO2 64 mm[Hg] 79-93 Arterial blood bicarbonate measurement (moles/volume) 26 mmol/L 23-27 Arterial blood base excess by calculation 2.3 mmol /L -2.5-2.5 Arterial blood oxygen saturation measurement 94 % 94-100 * Inhaled oxygen flow rate 2 NRG Arterial blood pH measurement with patient temperature correction 7.44 7.37-7.43 Arterial blood carbon dioxide, total measurement (mole s/volume) 27.4 mmol/L 21.0-31.0 Body site LR NRG Assessment of wrist artery patency prior to arterial p uncture POSITIVE NRG Setting of ventilation mode NO NR G Measurement of body temperature 36.6 NRG Blood lactic acid measurement (moles/vol ume) - 09/26/19 07:27 Blood lactic acid measurement (moles/volume) 1.48 mmol/L 0.50-2.00 Bacterial blood culture - 09/26/19 07:27 Bacterial blood culture NG NRG Bacterial blood culture - 09/26/19 07:53 Bacterial blood culture NG NRG Methicillin resistant Staphylococcus aur eus (MRSA) screening culture - 09/26/19 09:15 Methicillin resistant Staphylococcus aureus (MRSA) scr eening culture NEG NRG Blood lactic acid measurement (moles/vol ume) - 09/26/19 09:38 Blood lactic acid measurement (moles/volume) 1.18 mmol/L 0.50-2.00 Serum or plasma troponin i.cardiac measu rement (mass/volume) - 09/26/19 12:13 Serum or plasma troponin i.cardiac measurement (mass/v olume) < ng/mL <0.028 Serum or plasma troponin i.cardiac measu rement (mass/volume) - 09/26/19 18:40 Serum or plasma troponin i.cardiac measurement (mass/v olume) < ng/mL <0.028 Complete blood count (CBC) with automate d white blood cell (WBC) differential - 09/27/19 03:55 Blood leukocytes automated count (number/volume) 11.4 10*3/uL 4.3-11.0 Blood erythrocytes automated count (number/volume) 4.31 10*6/uL 4.35-5.85 Venous blood hemoglobin measurement (mass/volume) 11.9 g/dL 13.3-17.7 Blood hematocrit (volume fraction) 38 % 40-54 Automated erythrocyte mean corpuscular volume 89 [ foz_us] 80-99 Automated erythrocyte mean corpuscular h emoglobin (mass per erythrocyte) 28 pg 25-34 Automated erythrocyte mean corpuscular h emoglobin concentration measurement (mass/volume) 31 g/dL 32-36 Automated erythrocyte distribution width ratio 16. 8 % 10.0- 14.5 Automated blood platelet count (count/volume) 293 10*3/uL 130-400 Automated blood platelet mean volume measurement 9.6 [foz_us] 7.4-10.4 Automated blood neutrophils/100 leukocytes 64 % 42-75 Automated blood lymphocytes/100 leukocytes 24 % 12-44 Blood monocytes/100 leukocytes 9 % 0-12 Automated blood eosinophils/100 leukocytes 3 % 0-10 Automated blood basophils/100 leukocytes 0 % 0-10 Blood neutrophils automated count (number/volume) 7.3 10*3 1.8-7.8 Blood lymphocytes automated count (number/volume) 2.8 10*3 1.0-4.0 Blood monocytes automated count (number/volume) 1. 0 10*3 0.0-1.0 Automated eosinophil count 0.3 10*3/uL 0 .0-0.3 Automated blood basophil count (count/volume) 0.0 10*3/uL 0.0-0.1 Comprehensive metabolic panel - 09/27/19 03:55 Serum or plasma sodium measurement (moles/volume) 137 mmol/L 135-145 Serum or plasma potassium measurement (moles/volume) 4.2 mmol/L 3.6-5.0 Serum or plasma chloride measurement (moles/volume) 102 mmol/L 98-107 Carbon dioxide 25 mmol/L 21-32 Serum or plasma anion gap determination (moles/volume) 10 mmol/L 5-14 Serum or plasma urea nitrogen measurement (mass/volume ) 16 mg/dL 7-18 Serum or plasma creatinine measurement (mass/volume) 1.20 mg/dL 0.60-1.30 Serum or plasma urea nitrogen/creatinine mass ratio 13 NRG Serum or plasma creatinine measurement w ith calculation of estimated glomerular filtration rate > NRG Serum or plasma glucose measurement (mass/volume) 99 mg/dL 70-105 Serum or plasma calcium measurement (mass/volume) 8.7 mg/dL 8.5-10.1 Serum or plasma total bilirubin measurement (mass/volu me) 1.0 mg/dL 0.1-1.0 Serum or plasma alkaline phosphatase hammad surement (enzymatic activity/volume) 93 U/L 40-136 Serum or plasma aspartate aminotransfera se measurement (enzymatic activity/volume) 13 U/L 5-34 Serum or plasma alanine aminotransferase measurement (enzymatic activity/volume) 12 U/L 0-55 Serum or plasma protein measurement (mass/volume) 6.6 g/dL 6.4-8.2 Serum or plasma albumin measurement (mass/volume) 3.4 g/dL 3.2-4.5 CALCIUM CORRECTED 9.2 mg/dL 8.5-10.1 Lipid 1996 panel - 09/27/19 03:55 Serum or plasma triglyceride measurement (mass/volume) 80 mg/dL <150 Serum or plasma cholesterol measurement (mass/volume) 161 mg/dL < 200 Serum or plasma cholesterol in HDL measurement (mass/v olume) 39 mg/dL 40-60 Cholesterol in LDL [mass/volume] in serum or plasma by direct assay 118 mg/dL 1-129 Serum or plasma cholesterol in VLDL measurement (mass/ volume) 16 mg/dL 5-40 Complete blood count (CBC) with automate d white blood cell (WBC) differential - 09/28/19 04:30 Blood leukocytes automated count (number/volume) 10.4 10*3/uL 4.3-11.0 Blood erythrocytes automated count (number/volume) 4.12 10*6/uL 4.35-5.85 Venous blood hemoglobin measurement (mass/volume) 11.4 g/dL 13.3-17.7 Blood hematocrit (volume fraction) 37 % 40-54 Automated erythrocyte mean corpuscular volume 90 [ foz_us] 80-99 Automated erythrocyte mean corpuscular h emoglobin (mass per erythrocyte) 28 pg 25-34 Automated erythrocyte mean corpuscular h emoglobin concentration measurement (mass/volume) 31 g/dL 32-36 Automated erythrocyte distribution width ratio 16. 4 % 10.0- 14.5 Automated blood platelet count (count/volume) 260 10*3/uL 130-400 Automated blood platelet mean volume measurement 10.1 [foz_us] 7.4-10.4 Automated blood neutrophils/100 leukocytes 58 % 42-75 Automated blood lymphocytes/100 leukocytes 28 % 12-44 Blood monocytes/100 leukocytes 11 % 0-12 Automated blood eosinophils/100 leukocytes 3 % 0-10 Automated blood basophils/100 leukocytes 0 % 0-10 Blood neutrophils automated count (number/volume) 6.0 10*3 1.8-7.8 Blood lymphocytes automated count (number/volume) 2.9 10*3 1.0-4.0 Blood monocytes automated count (number/volume) 1. 1 10*3 0.0-1.0 Automated eosinophil count 0.3 10*3/uL 0 .0-0.3 Automated blood basophil count (count/volume) 0.0 10*3/uL 0.0-0.1 Comprehensive metabolic panel - 09/28/19 04:30 Serum or plasma sodium measurement (moles/volume) 136 mmol/L 135-145 Serum or plasma potassium measurement (moles/volume) 4.4 mmol/L 3.6-5.0 Serum or plasma chloride measurement (moles/volume) 103 mmol/L 98-107 Carbon dioxide 23 mmol/L 21-32 Serum or plasma anion gap determination (moles/volume) 10 mmol/L 5-14 Serum or plasma urea nitrogen measurement (mass/volume ) 19 mg/dL 7-18 Serum or plasma creatinine measurement (mass/volume) 1.24 mg/dL 0.60-1.30 Serum or plasma urea nitrogen/creatinine mass ratio 15 NRG Serum or plasma creatinine measurement w ith calculation of estimated glomerular filtration rate > NRG Serum or plasma glucose measurement (mass/volume) 96 mg/dL 70-105 Serum or plasma calcium measurement (mass/volume) 8.7 mg/dL 8.5-10.1 Serum or plasma total bilirubin measurement (mass/volu me) 1.1 mg/dL 0.1-1.0 Serum or plasma alkaline phosphatase hammad surement (enzymatic activity/volume) 99 U/L 40-136 Serum or plasma aspartate aminotransfera se measurement (enzymatic activity/volume) 51 U/L 5-34 Serum or plasma alanine aminotransferase measurement (enzymatic activity/volume) 47 U/L 0-55 Serum or plasma protein measurement (mass/volume) 6.3 g/dL 6.4-8.2 Serum or plasma albumin measurement (mass/volume) 3.2 g/dL 3.2-4.5 CALCIUM CORRECTED 9.3 mg/dL 8.5-10.1 Complete blood count (CBC) with automate d white blood cell (WBC) differential - 09/29/19 06:06 Blood leukocytes automated count (number/volume) 9.4 10*3/uL 4.3-11.0 Blood erythrocytes automated count (number/volume) 4.19 10*6/uL 4.35-5.85 Venous blood hemoglobin measurement (mass/volume) 11.4 g/dL 13.3-17.7 Blood hematocrit (volume fraction) 38 % 40-54 Automated erythrocyte mean corpuscular volume 91 [ foz_us] 80-99 Automated erythrocyte mean corpuscular h emoglobin (mass per erythrocyte) 27 pg 25-34 Automated erythrocyte mean corpuscular h emoglobin concentration measurement (mass/volume) 30 g/dL 32-36 Automated erythrocyte distribution width ratio 16. 4 % 10.0- 14.5 Automated blood platelet count (count/volume) 256 10*3/uL 130-400 Automated blood platelet mean volume measurement 10.1 [foz_us] 7.4-10.4 Automated blood neutrophils/100 leukocytes 60 % 42-75 Automated blood lymphocytes/100 leukocytes 26 % 12-44 Blood monocytes/100 leukocytes 9 % 0-12 Automated blood eosinophils/100 leukocytes 4 % 0-10 Automated blood basophils/100 leukocytes 0 % 0-10 Blood neutrophils automated count (number/volume) 5.6 10*3 1.8-7.8 Blood lymphocytes automated count (number/volume) 2.5 10*3 1.0-4.0 Blood monocytes automated count (number/volume) 0. 9 10*3 0.0-1.0 Automated eosinophil count 0.4 10*3/uL 0 .0-0.3 Automated blood basophil count (count/volume) 0.0 10*3/uL 0.0-0.1 Comprehensive metabolic panel - 09/29/19 06:06 Serum or plasma sodium measurement (moles/volume) 139 mmol/L 135-145 Serum or plasma potassium measurement (moles/volume) 4.6 mmol/L 3.6-5.0 Serum or plasma chloride measurement (moles/volume) 106 mmol/L 98-107 Carbon dioxide 23 mmol/L 21-32 Serum or plasma anion gap determination (moles/volume) 10 mmol/L 5-14 Serum or plasma urea nitrogen measurement (mass/volume ) 19 mg/dL 7-18 Serum or plasma creatinine measurement (mass/volume) 1.12 mg/dL 0.60-1.30 Serum or plasma urea nitrogen/creatinine mass ratio 17 NRG Serum or plasma creatinine measurement w ith calculation of estimated glomerular filtration rate > NRG Serum or plasma glucose measurement (mass/volume) 105 mg/dL 70-105 Serum or plasma calcium measurement (mass/volume) 9.0 mg/dL 8.5-10.1 Serum or plasma total bilirubin measurement (mass/volu me) 0.6 mg/dL 0.1-1.0 Serum or plasma alkaline phosphatase hammad surement (enzymatic activity/volume) 100 U/L 40-136 Serum or plasma aspartate aminotransfera se measurement (enzymatic activity/volume) 31 U/L 5-34 Serum or plasma alanine aminotransferase measurement (enzymatic activity/volume) 43 U/L 0-55 Serum or plasma protein measurement (mass/volume) 6.7 g/dL 6.4-8.2 Serum or plasma albumin measurement (mass/volume) 3.3 g/dL 3.2-4.5 CALCIUM CORRECTED 9.6 mg/dL 8.5-10.1 Complete blood count (CBC) with automate d white blood cell (WBC) differential - 09/30/19 05:22 Blood leukocytes automated count (number/volume) 8.3 10*3/uL 4.3-11.0 Blood erythrocytes automated count (number/volume) 4.11 10*6/uL 4.35-5.85 Venous blood hemoglobin measurement (mass/volume) 11.4 g/dL 13.3-17.7 Blood hematocrit (volume fraction) 38 % 40-54 Automated erythrocyte mean corpuscular volume 92 [ foz_us] 80-99 Automated erythrocyte mean corpuscular h emoglobin (mass per erythrocyte) 28 pg 25-34 Automated erythrocyte mean corpuscular h emoglobin concentration measurement (mass/volume) 30 g/dL 32-36 Automated erythrocyte distribution width ratio 16. 0 % 10.0- 14.5 Automated blood platelet count (count/volume) 247 10*3/uL 130-400 Automated blood platelet mean volume measurement 10.5 [foz_us] 7.4-10.4 Automated blood neutrophils/100 leukocytes 64 % 42-75 Automated blood lymphocytes/100 leukocytes 21 % 12-44 Blood monocytes/100 leukocytes 10 % 0-12 Automated blood eosinophils/100 leukocytes 5 % 0-10 Automated blood basophils/100 leukocytes 1 % 0-10 Blood neutrophils automated count (number/volume) 5.3 10*3 1.8-7.8 Blood lymphocytes automated count (number/volume) 1.8 10*3 1.0-4.0 Blood monocytes automated count (number/volume) 0. 8 10*3 0.0-1.0 Automated eosinophil count 0.4 10*3/uL 0 .0-0.3 Automated blood basophil count (count/volume) 0.0 10*3/uL 0.0-0.1 Comprehensive metabolic panel - 09/30/19 05:22 Serum or plasma sodium measurement (moles/volume) 140 mmol/L 135-145 Serum or plasma potassium measurement (moles/volume) 4.4 mmol/L 3.6-5.0 Serum or plasma chloride measurement (moles/volume) 105 mmol/L 98-107 Carbon dioxide 27 mmol/L 21-32 Serum or plasma anion gap determination (moles/volume) 8 mmol/L 5-14 Serum or plasma urea nitrogen measurement (mass/volume ) 18 mg/dL 7-18 Serum or plasma creatinine measurement (mass/volume) 1.10 mg/dL 0.60-1.30 Serum or plasma urea nitrogen/creatinine mass ratio 16 NRG Serum or plasma creatinine measurement w ith calculation of estimated glomerular filtration rate > NRG Serum or plasma glucose measurement (mass/volume) 92 mg/dL 70-105 Serum or plasma calcium measurement (mass/volume) 9.0 mg/dL 8.5-10.1 Serum or plasma total bilirubin measurement (mass/volu me) 0.6 mg/dL 0.1-1.0 Serum or plasma alkaline phosphatase hammad surement (enzymatic activity/volume) 109 U/L 40-136 Serum or plasma aspartate aminotransfera se measurement (enzymatic activity/volume) 35 U/L 5-34 Serum or plasma alanine aminotransferase measurement (enzymatic activity/volume) 45 U/L 0-55 Serum or plasma protein measurement (mass/volume) 6.5 g/dL 6.4-8.2 Serum or plasma albumin measurement (mass/volume) 3.3 g/dL 3.2-4.5 CALCIUM CORRECTED 9.6 mg/dL 8.5-10.1 Complete blood count (CBC) with automate d white blood cell (WBC) differential - 10/01/19 03:37 Blood leukocytes automated count (number/volume) 7.7 10*3/uL 4.3-11.0 Blood erythrocytes automated count (number/volume) 4.18 10*6/uL 4.35-5.85 Venous blood hemoglobin measurement (mass/volume) 11.3 g/dL 13.3-17.7 Blood hematocrit (volume fraction) 38 % 40-54 Automated erythrocyte mean corpuscular volume 92 [ foz_us] 80-99 Automated erythrocyte mean corpuscular h emoglobin (mass per erythrocyte) 27 pg 25-34 Automated erythrocyte mean corpuscular h emoglobin concentration measurement (mass/volume) 30 g/dL 32-36 Automated erythrocyte distribution width ratio 16. 4 % 10.0- 14.5 Automated blood platelet count (count/volume) 263 10*3/uL 130-400 Automated blood platelet mean volume measurement 10.0 [foz_us] 7.4-10.4 Automated blood neutrophils/100 leukocytes 58 % 42-75 Automated blood lymphocytes/100 leukocytes 26 % 12-44 Blood monocytes/100 leukocytes 10 % 0-12 Automated blood eosinophils/100 leukocytes 5 % 0-10 Automated blood basophils/100 leukocytes 0 % 0-10 Blood neutrophils automated count (number/volume) 4.5 10*3 1.8-7.8 Blood lymphocytes automated count (number/volume) 2.0 10*3 1.0-4.0 Blood monocytes automated count (number/volume) 0. 8 10*3 0.0-1.0 Automated eosinophil count 0.4 10*3/uL 0 .0-0.3 Automated blood basophil count (count/volume) 0.0 10*3/uL 0.0-0.1 Comprehensive metabolic panel - 10/01/19 03:37 Serum or plasma sodium measurement (moles/volume) 140 mmol/L 135-145 Serum or plasma potassium measurement (moles/volume) 4.1 mmol/L 3.6-5.0 Serum or plasma chloride measurement (moles/volume) 105 mmol/L 98-107 Carbon dioxide 24 mmol/L 21-32 Serum or plasma anion gap determination (moles/volume) 11 mmol/L 5-14 Serum or plasma urea nitrogen measurement (mass/volume ) 19 mg/dL 7-18 Serum or plasma creatinine measurement (mass/volume) 1.16 mg/dL 0.60-1.30 Serum or plasma urea nitrogen/creatinine mass ratio 16 NRG Serum or plasma creatinine measurement w ith calculation of estimated glomerular filtration rate > NRG Serum or plasma glucose measurement (mass/volume) 102 mg/dL 70-105 Serum or plasma calcium measurement (mass/volume) 8.9 mg/dL 8.5-10.1 Serum or plasma total bilirubin measurement (mass/volu me) 0.5 mg/dL 0.1-1.0 Serum or plasma alkaline phosphatase hammad surement (enzymatic activity/volume) 116 U/L 40-136 Serum or plasma aspartate aminotransfera se measurement (enzymatic activity/volume) 25 U/L 5-34 Serum or plasma alanine aminotransferase measurement (enzymatic activity/volume) 42 U/L 0-55 Serum or plasma protein measurement (mass/volume) 6.3 g/dL 6.4-8.2 Serum or plasma albumin measurement (mass/volume) 3.2 g/dL 3.2-4.5 CALCIUM CORRECTED 9.5 mg/dL 8.5-10.1 Encounters ACCT No. Visit Date/Time Discharge Status Pt. Type Provider Facility Loc./Unit Complaint [id number] 09/06/2019 14:00:00 09/06/2019 23:59: 59 CLS [id number] 08/24/2019 10:00:00 Document Registration [id number] 05/16/2019 13:20:00 Document Registration [id number] 11/24/2018 10:20:00 Document Registration [id number] 09/26/2019 08:28:00 020 12:10:00 DIS Inpatient JACQUI ORDONEZ, FLAVIA Soares Via [facility] 4TH PNA;SEPSIS;ACUTE ON CHR ONIC RESPIRATORY FAILURE- [id number] 09/03/2019 16:22:00 020 12:10:00 DIS Inpatient KARIN SAUNDERS DO, V [facility] ICU A FIB WITH RVR [id number] 08/18/2019 06:05:00 020 18:39:00 DIS Outpatient KARIN SAUNDERS DO Via [facility] 4TH ATRIAL FIBRILLATIONW.RV R,CHF EXACERBUTION
--- OUTSIDE RECORDS SUMMARY | 2019-10-04 13:00 | XMS REPORT | Continuity of Care Document ---
Author Organization Unknown Address Unknown Phone Unavailable Allergies Active Description Code Type Severity Reaction Onset Reported/Identified Relationship to Patient Clinical Status Yes No Known Drug Allergies [id number] Drug Allergy Unknown N/A 09/26/2019 Medications There [...] KARIN Ot I25.10 ATHSCL HEART DISEASE OF [place] CORONARY 08/20/2019 CHIP BOOGIE KARIN Ot I42.9 [...] U 08/20/2019 CHIP BOOGIE KARIN Ot Z79.01 MCC (CURRENT) USE OF ANTICOAGULANT 08/20/2019 CHIP BOOGIE [...] KARIN Ot I25.10 ATHSCL HEART DISEASE OF [place] CORONARY 08/20/2019 SAUNDERS DO, KARIN Ot I42.9 [...] U 08/20/2019 CHIP DO, KARIN Ot Z79.01 MCC (CURRENT) USE OF ANTICOAGULANT 08/20/2019 CHIP DO KARIN Ot Z91.19 PATIENT'S NONCOMPLIANCE W [facility] 09/05/2019 SAUNDERS DO, KARIN Ot [...] KARIN Ot I25.10 ATHSCL HEART DISEASE OF [place] CORONARY 09/05/2019 SAUNDERS DO, KARIN Ot I42.9 [...] DO, KARIN Ot Z91.19 PATIENT'S NONCOMPLIANCE W [facility] 09/05/2019 CHIP DO, KARIN Ot [...] KARIN Ot I25.10 ATHSCL HEART DISEASE OF [place] CORONARY 09/12/2019 SAUNDERS DO, KARIN Ot I42.9 [...] U 09/12/2019 CHIP DO KARIN Ot Z79.01 CHIMNEY REPAIRER (CURRENT) USE OF ANTICOAGULANT 09/12/2019 SAUNDERS DO, KARIN Ot Z91.19 PATIENT'S NONCOMPLIANCE W [facility] 09/12/2019 SAUNDERS DO, KARIN Ot [...] KARIN Ot I25.10 ATHSCL HEART DISEASE OF [place] CORONARY 09/12/2019 SAUNDERS DO, KARIN Ot I42.9 CARDIOMYOPATHY, UNSPECIFIED 09/12/2019 SAUNDERS DO, KARIN Ot I48.0 PAROXYSMAL ATRIAL FIBRILLATION 09/12/2019 SAUNDERS DO, KAIRN Ot I50.23 ACUTE ON CHRONIC SYSTOLIC (CONGESTIVE) H 09/12/2019 SAUNDERS DO, KARIN Ot I73.9 PERIPHERAL VASCULAR DISEASE, UNSPECIFIED 09/12/2019 SAUNDERS DO, KARIN Ot I87.8 OTHER SPECIFIED DISORDERS OF VEINS 09/12/2019 CHIP DO, KARIN Ot J44.9 CHRONIC OBSTRUCTIVE PULMONARY DISEASE, U 09/12/2019 CHIP DO, KARIN Ot Z79.01 CHIMNEY REPAIRER (CURRENT) USE OF ANTICOAGULANT 09/12/2019 CHIP DO, KARIN Ot Z91.19 PATIENT'S NONCOMPLIANCE W [facility] 09/28/2019 FLAVIA OSMAN MD Ot [...] BODY MASS INDEX (BMI) 60.0-69.9, ADULT 09/28/2019 FLAIVA OSMAN MD Ot Z79.0 1 MCC (CURRENT) USE OF ANTICOAGULANT 09/28/2019 FLAVIA OSMAN [...] INDEX (BMI) 60.0-69.9, ADULT 09/30/2019 FLAVIA OSMAN MD, Ot Z79.0 1 MCC (CURRENT) USE OF ANTICOAGULANT 09/30/2019 FLAVIA OSMAN MD Ot Z91.1 4 PATIENT'S OTHER NONCOMPLIANCE WITH MEDIC 09/30/2019 FLAVIA OSMAN MD Ot Z91.1 9 PATIENT'S NONCOMPLIANCE W [facility] 10/01/2019 FLAVIA OSMAN MD Ot [...] MD Ot J10.0 0 FLU DUE TO [facility] FLU VIRUS W UNSP TY 10/01/2019 FLAVIA OSMAN MD Ot J96.2 1 ACUTE AND CHRONIC RESPIRATORY FAILURE [place] 10/01/2019 FLAVIA OSMAN MD Ot Z68.4 4 BODY MASS INDEX (BMI) 60.0-69.9, ADULT 10/01/2019 FLAVIA OSMAN MD Ot Z79.0 1 CHIMNEY REPAIRER (CURRENT) USE OF ANTICOAGULANT 10/01/2019 FLAVIA OSMAN MD Ot Z91.1 4 PATIENT'S OTHER NONCOMPLIANCE WITH MEDIC 10/01/2019 FLAVIA OSMAN MD Ot Z91.1 9 PATIENT'S NONCOMPLIANCE W [facility] 10/01/2019 FLAVIA OSMAN MD Ot A41.9 SEPSIS, UNSPECIFIED ORGANISM 10/01/2019 FLAVIA OSMAN MD, Ot E66.2 MORBID (SEVERE) OBESITY WITH ALVEOLAR HY 10/01/2019 FLAVIA OSMAN MD Ot 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, UNCOMPLICATED 10/01/2019 FLAVIA OSMAN MD, Ot F17.2 20 NICOTINE DEPENDENCE, CHEWING TOBACCO, [...] MD, Ot J10.0 0 FLU DUE TO [facility] FLU VIRUS W UNSP TY 10/01/2019 FLAVIA OSMAN MD, Ot J44.9 CHRONIC OBSTRUCTIVE PULMONARY DISEASE, U 10/01/2019 FLAVIA OSMAN MD, Ot J96.2 1 ACUTE AND CHRONIC RESPIRATORY FAILURE [place] 10/01/2019 FLAVIA OSMAN MD, Ot Z68.4 4 BODY MASS INDEX (BMI) 60.0-69.9, ADULT 10/01/2019 FLAVIA OSMAN MD, Ot Z79.0 1 CHIMNEY REPAIRER (CURRENT) USE OF ANTICOAGULANT 10/01/2019 FLAVIA OSMAN [...] CALL POSITIVES (F1 HELP) CALLED TO [facility] FLU RESULT POSITIVE FOR INFLUENZA B ANT [...] Status Pt. Type Provider Facility Loc./Unit Complaint [id number] 09/06/2019 14:00:00 09/06/2019 23:59: 59 CLS Outpatient SOURAV GRACIA EMEKA [id number] 08/24/2019 10:00:00 Document Registration [id number] 05/16/2019 13:20:00 Document Registration [id number] 11/24/2018 10:20:00 Document Registration [id number] 09/26/2019 08:28:00 020 12:10:00 DIS Outpatient JACQUI ORDONEZ, FLAVIA Soares Via [facility] 4TH PNA;SEPSIS;ACUTE ON CHR ONIC RESPIRATORY FAILURE- [id number] 09/03/2019 16:22:00 020 12:10:00 DIS Inpatient KARIN SAUNDERS DO V [facility] ICU A FIB WITH RVR [id number] 08/18/2019 06:05:00 18:39:00 DIS Outpatient KARIN SAUNDERS DO Via [facility] 4TH ATRIAL FIBRILLATIONW.RV R,CHF EXACERBUTION
== END 2019-10-01 12:10 | disposition home or self-care (01) | DRG 871 ==
LOC: ER 05:27 → ICU 08:28 → CSD 09-27 12:11 → 4TH 09-28 15:30
PROVIDERS: ADMIT Family Medicine; ATTEND Family Medicine
DX: A41.9 Sepsis, unspecified organism (principal); J10.00 Influenza due to other identified influenza virus with unspecified type of pneumonia; J96.21 Acute and chronic respiratory failure with hypoxia; I11.0 Hypertensive heart disease with heart failure; I50.23 Acute on chronic systolic (congestive) heart failure; I48.0 Paroxysmal atrial fibrillation; E66.2 Morbid (severe) obesity with alveolar hypoventilation; Z68.44 Body mass index [BMI] 60.0-69.9, adult; F15.10 Other stimulant abuse, uncomplicated; I21.A1 Myocardial infarction type 2; F17.220 Nicotine dependence, chewing tobacco, uncomplicated; I87.8 Other specified disorders of veins; Z79.01 Long term (current) use of anticoagulants; Z91.14 Patient's other noncompliance with medication regimen; Z91.19 Patient's noncompliance with other medical treatment and regimen; J44.9 Chronic obstructive pulmonary disease, unspecified
CPT/HCPCS: 36415; 36569; 51702; 71045; 76937; 80053; 80061; 80306; 81000; 82805; 83605; 83735; 83874; 83880; 84484; 85025; 85610; 85730; 86141; 87040; 87070; 87081; 87205; 87804; 93005; 93041; 94640; 94760; 96365; 96375

== ENCOUNTER 2019-10-27 14:42 | Emergency (ER) | payer MEDICAID ==
[~2019-10-27] VITALS: Ht 177 cm; Wt 181.4 kg
[~2019-10-27 14:42] MED LIST changes: +POTA-51 PO
--- OUTSIDE RECORDS SUMMARY | 2019-10-27 14:49 | XMS REPORT | Continuity of Care Document ---
Author Organization Unknown Address Unknown Phone Unavailable Allergies Active Description Code Type Severity Reaction Onset Reported/Identified Relationship to Patient Clinical Status Yes No Known Drug Allergies [id number] Drug Allergy Unknown N/A 09/26/2019 Medications There is no data. Problems Date Dx Coded Attending Type Code Diagnosis Diagnosed By 08/20/2019 CHIP BOOGIE KARIN Ot E66.01 MORBID (SEVERE) OBESITY DUE TO EXCESS CA 08/20/2019 CHIP DO, KARIN Ot E78.00 PURE HYPERCHOLESTEROLEMIA, UNSPECIFIED 08/20/2019 CHIP BOOGIE KARIN Ot E87.1 HYPO-OSMOLALITY AND HYPONATREMIA 08/20/2019 CHIP BOGOIE KARIN Ot F15.90 OTHER STIMULANT USE, UNSPECIFIED, UNCOMP 08/20/2019 CHIP BOOGIE KARIN Ot G47.33 OBSTRUCTIVE SLEEP APNEA (ADULT) (PEDIATR 08/20/2019 CHIP BOOGIE, KARIN Ot I11.0 HYPERTENSIVE HEART DISEASE WITH HEART FA 08/20/2019 CHIP BOOGIE KARIN Ot I25.10 ATHSCL HEART DISEASE OF [place] CORONARY 08/20/2019 CHIP BOOGIE KARIN Ot I42.9 [...] U 08/20/2019 CHIP BOOGIE KARIN Ot Z79.01 CORRECTION (CURRENT) USE OF ANTICOAGULANT 08/20/2019 CHIP BOOGIE [...] KARIN Ot I25.10 ATHSCL HEART DISEASE OF [place] CORONARY 08/20/2019 SAUNDERS DO, KARIN Ot I42.9 [...] U 08/20/2019 CHIP DO, KARIN Ot Z79.01 CORRECTION (CURRENT) USE OF ANTICOAGULANT 08/20/2019 CHIP DO KARIN Ot Z91.19 PATIENT'S NONCOMPLIANCE W [facility] 09/05/2019 SAUNDERS DO, KARIN [...] KARIN Ot I25.10 ATHSCL HEART DISEASE OF [place] CORONARY 09/05/2019 SAUNDERS DO, KARIN Ot I42.9 [...] DO, KARIN Ot Z91.19 PATIENT'S NONCOMPLIANCE W [facility] 09/05/2019 CHIP DO, KARIN [...] KARIN Ot I25.10 ATHSCL HEART DISEASE OF [place] CORONARY 09/12/2019 SAUNDERS DO, KARIN Ot I42.9 [...] U 09/12/2019 CHIP DO KARIN Ot Z79.01 STOCK PREPARER (CURRENT) USE OF ANTICOAGULANT 09/12/2019 SAUNDERS DO, KARIN Ot Z91.19 PATIENT'S NONCOMPLIANCE W [facility] 09/12/2019 SAUNDERS DO, KARIN [...] KARIN Ot I25.10 ATHSCL HEART DISEASE OF [place] CORONARY 09/12/2019 SAUNDERS DO, KARIN Ot I42.9 [...] U 09/12/2019 CHIP DO, KARIN Ot Z79.01 STOCK PREPARER (CURRENT) USE OF ANTICOAGULANT 09/12/2019 CHIP DO, KARIN Ot Z91.19 PATIENT'S NONCOMPLIANCE W [facility] 09/28/2019 FLAVIA OSMAN MD [...] BODY MASS INDEX (BMI) 60.0-69.9, ADULT 09/28/2019 FALVIA OSMAN MD Ot Z79.0 1 CORRECTION (CURRENT) USE OF ANTICOAGULANT 09/28/2019 FLAVIA OSMAN [...] 09/30/2019 FLAVIA OSMAN MD, Ot Z79.0 1 CORRECTION (CURRENT) USE OF ANTICOAGULANT 09/30/2019 FLAVIA OSMAN MD Ot Z91.1 4 PATIENT'S OTHER NONCOMPLIANCE WITH MEDIC 09/30/2019 FLAVIA OSMAN MD Ot Z91.1 9 PATIENT'S NONCOMPLIANCE W [facility] 10/01/2019 FLAVIA OSMAN MD [...] MD Ot J10.0 0 FLU DUE TO [facility] FLU VIRUS W UNSP TY 10/01/2019 FLAVIA OSMAN MD Ot J96.2 1 ACUTE AND CHRONIC RESPIRATORY FAILURE [place] 10/01/2019 FLAVIA OSMAN MD Ot Z68.4 4 BODY MASS INDEX (BMI) 60.0-69.9, ADULT 10/01/2019 FLAVIA OSMAN MD Ot Z79.0 1 STOCK PREPARER (CURRENT) USE OF ANTICOAGULANT 10/01/2019 FLAVIA OSMAN MD Ot Z91.1 4 PATIENT'S OTHER NONCOMPLIANCE WITH MEDIC 10/01/2019 FLAVIA OSMAN MD Ot Z91.1 9 PATIENT'S NONCOMPLIANCE W [facility] 10/01/2019 FLAVIA OSMAN MD [...] 2 CHRONIC SYSTOLIC (CONGESTIVE) HEART FAIL 10/01/2019 FALVIA OSMAN MD, Ot I50.2 3 ACUTE ON CHRONIC SYSTOLIC (CONGESTIVE) H 10/01/2019 FLAVIA OSMAN MD, Ot I87.8 OTHER SPECIFIED DISORDERS OF VEINS 10/01/2019 FLAVIA OSMAN MD, Ot J10.0 0 FLU DUE TO [facility] IDENT FLU VIRUS W UNSP TY 10/01/2019 FLAVIA OSMAN MD, Ot J44.9 CHRONIC OBSTRUCTIVE PULMONARY DISEASE, U 10/01/2019 FLAVIA OSMAN MD, Ot J96.2 1 ACUTE AND CHRONIC RESPIRATORY FAILURE [place] 10/01/2019 FLAVIA OSMAN MD, Ot Z68.4 4 BODY MASS INDEX (BMI) 60.0-69.9, ADULT 10/01/2019 FLAVIA OSMAN MD, Ot Z79.0 1 STOCK PREPARER (CURRENT) USE OF ANTICOAGULANT 10/01/2019 FLAVIA OSMAN [...] Status Pt. Type Provider Facility Loc./Unit Complaint [id number] 09/06/2019 14:00:00 09/06/2019 23:59: 59 [facility] [id number] 08/24/2019 10:00:00 Document Registration [id number] 05/16/2019 13:20:00 Document Registration [id number] 11/24/2018 10:20:00 Document Registration [id number] 09/26/2019 08:28:00 020 12:10:00 DIS Inpatient JACQUI ORDONEZ, FLAVIA Soares Via [facility] 4TH PNA;SEPSIS;ACUTE ON CHR ONIC RESPIRATORY FAILURE- [id number] 09/03/2019 16:22:00 020 12:10:00 DIS Inpatient KARIN SAUNDERS DO V [facility] ICU A FIB WITH RVR [id number] 08/18/2019 06:05:00 18:39:00 DIS Outpatient KARIN SAUNDERS DO Via [facility] 4TH ATRIAL FIBRILLATIONW.RV R,CHF EXACERBUTION
[2019-10-27 15:00] LABS: ABG BASE EXCESS 0.5 MMOL/L (-2.5-2.5); ABG OXYGEN SATURATION 95 % (94-100); ABG PCO2 38 MMHG (35-45); ABG PH 7.43 (7.37-7.43); ABG PO2 67 MMHG (79-93); ABG TCO2 25.8 MMOL/L (21.0-31.0)
--- NOTE | 2019-10-27 15:00 | ED Respiratory ---
General Chief Complaint: Respiratory Problems Stated Complaint: SOA Nursing Triage Note: ARRIVED VIA AMB TO ROOM 06 WITH SOA AND COUGH STARTING X2 DAYS AGO. DENIES FEVER. Source: patient Exam Limitations: no limitations History of Present Illness Date Seen by Provider: Oct 27, 2019 Time Seen by Provider: 14:57 Initial Comments To ER by private vehicle with reports of shortness of breath and cough for about 2-3 days. He denies fevers now or at any time. He denies chest pain, only reports dyspnea. History of atrial fibrillation, congestive heart failure and was here in September for pneumonia. He believes his pneumonia is back. He lives in [facility] and has not traveled outside of [place] for over 3 weeks. He has forgotten to take a couple of doses of his Lasix, does use IV methamphetamine every couple of days about 2 days ago most recently he states. 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 Law. Timing/Duration: constant, getting worse Severity: moderate Associated Symptoms: cough; No fever/chills; shortness of breath Allergies and Home Medications Allergies Coded Allergies: No Known Drug Allergies (Unverified , 09/26/19) Home Medications Acetaminophen/Diphenhydramine 1 Each Tablet, 3 TAB PO HS PRN for SLEEP, (Reported) Amiodarone HCl 200 Mg Tablet, 200 MG PO BID Prescribed by: TRACIE ROBERTSON on 10/01/19 1142 Apixaban 5 Mg Tablet, 5 MG PO BID, (Reported) Diltiazem HCl 120 Mg Capsule.er, 120 MG PO DAILY, (Reported) Furosemide 40 Mg Tablet, 40 MG PO DAILY Prescribed by: TRACIE ROBERTSON on 10/01/19 1142 Metoprolol Tartrate 50 Mg Tablet, 50 MG PO BID, (Reported) Potassium Chloride 20 Meq Tablet.er, 20 MEQ PO DAILY Prescribed by: TRACIE ROBERTSON on 10/01/19 1142 Sacubitril/Valsartan 1 Each Tablet, 1 TAB PO BID, (Reported) Patient Home Medication List Home Medication List Reviewed: Yes Review of Systems Review of Systems Constitutional: see HPI; No fever EENTM: see HPI Respiratory: see HPI, cough, dyspnea on exertion, short of breath Cardiovascular: No chest pain Genitourinary: no symptoms reported Musculoskeletal: no symptoms reported Skin: no symptoms reported Psychiatric/Neurological: No Symptoms Reported Hematologic/Lymphatic: No Symptoms Reported Past Rzgsypa-Evwlif-Ejtzyz Hx Patient Social History Alcohol Use: Rarely Uses Recreational Drug Use: Yes (IV METH) Drug of Choice: THC IV METH Smoking Status: Never a Smoker Type Used: Smokeless Tobacco 2nd Hand Smoke Exposure: No Recent Foreign Travel: No Contact w/Someone Who Travel: No Recent Infectious Disease Expo: No Recent Hopitalizations: No Immunizations Up To Date Date of Pneumonia Vaccine: Aug 18, 2017 Seasonal Allergies Seasonal Allergies: No Past Medical History Surgeries: Yes (RIGHT AARM SKIN GRAFT) Orthopedic Respiratory: Yes Pneumonia, Sleep Apnea Chronic Edema/Swelling, Hypertension Neurological: No Genitourinary: No Gastrointestinal: No Musculoskeletal: No Endocrine: No HEENT: No Cancer: No Psychosocial: No Integumentary: No Blood Disorders: No Family Medical History Cancer, CAD Over 55 Years Old Physical Exam Vital Signs - First Documented 10/27/19 14:42 Temp 35.9 Pulse 112 Resp 24 B/P (MAP) 149/106 (120) Pulse Ox 91 O2 Delivery Room Air Capillary Refill : Less Than 3 Seconds Height: '" Weight: lbs. oz. kg; 57.00 BMI Method: General Appearance: WD/WN, obese, other (dyspneic, oxygen saturation 93% room air, heart rate 109 atrial fibrillation.) Eyes: Bilateral Eye Normal Inspection, Bilateral Eye PERRL, Bilateral Eye EOMI HEENT: PERRL/EOMI, normal ENT inspection Respiratory: no respiratory distress, no accessory muscle use Cardiovascular: regular rate, rhythm, no murmur Gastrointestinal: normal bowel sounds, non tender, soft Extremities: pedal edema Neurologic/Psychiatric: alert, normal mood/affect, oriented x 3 Skin: normal color, warm/dry Focused Exam Lactate Level 10/27/19 14:59: Lactic Acid Level 1.75 Lactic Acid Level Laboratory Tests Test 10/27/19 14:59 Lactic Acid Level 1.75 MMOL/L (0.50-2.00) Progress/Results/Core Measures Suspected Sepsis Recent Fever Within 48 Hours: No Infection Criteria Present: Suspected New Infection New/Unexplained Altered Menta: No Sepsis Screen: Possible Severe Sepsis Risk SIRS Temperature: Pulse: 112 Respiratory Rate: 24 Laboratory Tests 10/27/19 14:59: White Blood Count 9.4 Blood Pressure 149 /106 Mean: 120 10/27/19 14:59: Lactic Acid Level 1.75 Laboratory Tests 10/27/19 14:59: Creatinine 1.40H, Platelet Count 365, Total Bilirubin 1.2H Results/Orders Lab Results Laboratory Tests Test 10/27/19 14:50 10/27/19 14:59 Range/Units Blood Gas Puncture Site LT RADIAL Blood Gas Patient Temperature 35.9 Arterial Blood pH 7.43 7.37-7.43 Arterial Blood Partial Pressure CO2 38 35-45 MMHG Arterial Blood Partial Pressure O2 67 L 79-93 MMHG Arterial Blood HCO3 25 23-27 MMOL/L Arterial Blood Total CO2 25.8 21.0-31.0 MMOL/L Arterial Blood Oxygen Saturation 95 94-100 % Arterial Blood Base Excess 0.5 -2.5-2.5 MMOL/L Carlos Test YES-POS Blood Gas Ventilator Setting NO Blood Gas Inspired Oxygen ROOM AIR White Blood Count 9.4 4.3-11.0 10^3/uL Red Blood Count 4.74 4.35-5.85 10^6/uL Hemoglobin 13.0 L 13.3-17.7 G/DL Hematocrit 42 40-54 % Mean Corpuscular Volume 88 80-99 FL Mean Corpuscular Hemoglobin 27 25-34 PG Mean Corpuscular Hemoglobin Concent 31 L 32-36 G/DL Red Cell Distribution Width 16.2 H 10.0-14.5 % Platelet Count 365 130-400 10^3/uL Mean Platelet Volume 9.9 7.4-10.4 FL Neutrophils (%) (Auto) 74 42-75 % Lymphocytes (%) (Auto) 20 12-44 % Monocytes (%) (Auto) 5 0-12 % Eosinophils (%) (Auto) 2 0-10 % Basophils (%) (Auto) 0 0-10 % Neutrophils # (Auto) 7.0 1.8-7.8 X 10^3 Lymphocytes # (Auto) 1.8 1.0-4.0 X 10^3 Monocytes # (Auto) 0.5 0.0-1.0 X 10^3 Eosinophils # (Auto) 0.2 0.0-0.3 10^3/uL Basophils # (Auto) 0.0 0.0-0.1 10^3/uL Sodium Level 137 135-145 MMOL/L Potassium Level 4.1 3.6-5.0 MMOL/L Chloride Level 102 98-107 MMOL/L Carbon Dioxide Level 22 21-32 MMOL/L Anion Gap 13 5-14 MMOL/L Blood Urea Nitrogen 18 7-18 MG/DL Creatinine 1.40 H 0.60-1.30 MG/DL Estimat Glomerular Filtration Rate 55 BUN/Creatinine Ratio 13 Glucose Level 156 H 70-105 MG/DL Lactic Acid Level 1.75 0.50-2.00 MMOL/L Calcium Level 9.0 8.5-10.1 MG/DL Corrected Calcium 9.2 8.5-10.1 MG/DL Magnesium Level 1.8 1.6-2.4 MG/DL Total Bilirubin 1.2 H 0.1-1.0 MG/DL Aspartate Amino Transf (AST/SGOT) 19 5-34 U/L Alanine Aminotransferase (ALT/SGPT) 14 0-55 U/L Alkaline Phosphatase 114 40-136 U/L Troponin I < 0.028 <0.028 NG/ML B-Type Natriuretic Peptide 1052.0 H <100.0 PG/ML Total Protein 7.2 6.4-8.2 GM/DL Albumin 3.8 3.2-4.5 GM/DL My Orders Orders - LORI PLATA APRN Cbc With Automated Diff (10/27/19 14:45) Comprehensive Metabolic Panel (10/27/19 14:45) BNP (10/27/19 14:45) Chest 1 View, Ap/Pa Only (10/27/19 14:45) Ekg Tracing (10/27/19 14:45) Ed Iv/Invasive Line Start (10/27/19 14:45) Arterial Blood Gas (10/27/19 14:54) Troponin I (10/27/19 14:56) Magnesium (10/27/19 14:56) Blood Culture (10/27/19 14:56) Lactic Acid Analyzer (10/27/19 14:56) Metoprolol Tartrate Injection (Lopressor (10/27/19 16:00) Furosemide Injection (Lasix Injection) (10/28/19 09:00) Vital Signs/I&O 10/27/19 14:42 Temp 35.9 Pulse 112 Resp 24 B/P (MAP) 149/106 (120) Pulse Ox 91 O2 Delivery Room Air Capillary Refill : Less Than 3 Seconds Blood Pressure Mean: 120 Diagnostic Imaging Diagonstic Imaging: Xray Plain Films/CT/US/NM/MRI: chest Comments NAME: MATIAS GOMES [facility] REC#: [id number] PT STATUS: REG ER : 1975 PHYSICIAN: LORI PLATA APRN ADMIT DATE: 10/27/19/ER Draft Date of Exam:10/27/19 CHEST 1 VIEW, AP/PA ONLY HISTORY: Cough, shortness of air. COMPARISON: 09/26/2019. TECHNIQUE: Single frontal view of the chest. FINDINGS: There is cardiomegaly and mild central vascular congestion. There is haziness throughout the lungs, likely due to body habitus. Overall aeration appears improved compared to the prior study. No pleural effusion or pneumothorax is seen. IMPRESSION: Cardiomegaly and mild central vascular congestion. Overall aeration appears improved compared to the prior study. Dictated on workstation # [id number] Dict: 10/27/19 1535 Trans: 10/27/19 1540 [facility] [id number] Interpreted by: HARSHA CAST MD Electronically signed by: Departure Communication (Admissions) 8693-he has his medications with him, Eliquis is one of them and he states he has not missed any doses of that Impression Primary Impression: Atrial fibrillation Qualified Codes: I48.91 - Unspecified atrial fibrillation Additional Impressions: Morbid obesity Methamphetamine abuse Systolic CHF Qualified Codes: I50.21 - Acute systolic (congestive) heart failure Disposition: 01 HOME, SELF-CARE Condition: Stable Departure-Patient Inst. Decision time for Depature: 15:58 Referrals: LEVI,LOCAL PHYSICIAN (PCP) Primary Care Physician SOURAV GRACIA (Family) Primary Care Physician Patient Instructions: CHF Add. Discharge Instructions: 1. Continue current medication regimen 2. Return to ER for any worsening. Take an extra dose of Lasix for a total of 80 mg tomorrow morning. All discharge instructions reviewed with patient and/or family. Voiced understanding. LORI PLATA APRN Oct 27, 2019 15:00
[2019-10-27 15:02] LABS: ALLENS TEST YES-POS; INSPIRED O2 ROOM AIR; PATIENT TEMP 35.9; VENTILATOR NO
[2019-10-27 15:22] LABS: BASOPHILS % (AUTO) 0 % (0-10); EOSINOPHILS # (AUTO) 0.2 10^3/uL (0.0-0.3); EOSINOPHILS % (AUTO) 2 % (0-10); HEMATOCRIT 42 % (40-54); LYMPHOCYTES # (AUTO) 1.8 X 10^3 (1.0-4.0); LYMPHOCYTES % (AUTO) 20 % (12-44); MEAN CORPUSCULAR HEMOGLOBIN 27 PG (25-34); MEAN CORPUSCULAR HGB CONC 31 G/DL (32-36); MEAN CORPUSCULAR VOLUME 88 FL (80-99); MEAN PLATELET VOLUME 9.9 FL (7.4-10.4); MONOCYTES # (AUTO) 0.5 X 10^3 (0.0-1.0); MONOCYTES % (AUTO) 5 % (0-12); NEUTROPHILS % (AUTO) 74 % (42-75); PLATELET COUNT 365 10^3/uL (130-400); RED CELL DISTRIBUTION WIDTH 16.2 % (10.0-14.5); WHITE BLOOD COUNT 9.4 10^3/uL (4.3-11.0)
--- NOTE | 2019-10-27 15:40 | Diagnostic Imaging Report ---
HISTORY: Cough, shortness of air. COMPARISON: 09/26/2019. TECHNIQUE: Single frontal view of the chest. FINDINGS: There is cardiomegaly and mild central vascular congestion. There is haziness throughout the lungs, likely due to body habitus. Overall aeration appears improved compared to the prior study. No pleural effusion or pneumothorax is seen. IMPRESSION: Cardiomegaly and mild central vascular congestion. Overall aeration appears improved compared to the prior study. Dictated by: Dictated on workstation # [id number]
[2019-10-27 15:47] LABS: ALANINE AMINOTRANSFERASE 14 U/L (0-55); ALBUMIN 3.8 GM/DL (3.2-4.5); ALKALINE PHOSPHATASE 114 U/L (40-136); BILIRUBIN,TOTAL 1.2 MG/DL (0.1-1.0); BUN/CREATININE RATIO 13; CARBON DIOXIDE 22 MMOL/L (21-32); CHLORIDE 102 MMOL/L (98-107); GFR ESTIMATED 55; GLUCOSE 156 MG/DL (70-105); MAGNESIUM 1.8 MG/DL (1.6-2.4); POTASSIUM 4.1 MMOL/L (3.6-5.0); SODIUM 137 MMOL/L (135-145); TOTAL PROTEIN 7.2 GM/DL (6.4-8.2)
[2019-10-27] MEDS ORDERED: FUROSEMIDE 40 MG/4 ML INJ (LASIX) ONE (15:54)
[2019-10-27] MEDS ORDERED: meTOprolol 5 MG/5 ML (LOPRESSOR) VIAL IV ONE (16:00)
[2019-10-27 16:32] VITALS: BP 143/102
[2019-10-28] MEDS ORDERED: FUROSEMIDE 40 MG/4 ML INJ (LASIX) IVP SCH (09:00)
== END 2019-10-27 16:32 | disposition home or self-care (01) ==
LOC: EDUNIT# 14:42 → ER 14:43
DX: I48.91 Unspecified atrial fibrillation (principal); F15.10 Other stimulant abuse, uncomplicated; I11.0 Hypertensive heart disease with heart failure; I50.20 Unspecified systolic (congestive) heart failure; E66.01 Morbid (severe) obesity due to excess calories; Z79.01 Long term (current) use of anticoagulants; Z82.49 Family history of ischemic heart disease and other diseases of the circulatory system; Z68.43 Body mass index [BMI] 50.0-59.9, adult
CPT/HCPCS: 36415; 71045; 80053; 82805; 83605; 83735; 83880; 84484; 85025; 87040; 93005; 96374; 96375

== ENCOUNTER 2019-11-02 08:20 | Inpatient (IN) | payer MEDICAID ==
[~2019-11-02] VITALS: Ht 178 cm; Wt 179.5 kg
[2019-11-02] VITALS (9 sets, daily range): BP systolic 124–184; BP diastolic 83–126
--- OUTSIDE RECORDS SUMMARY | 2019-11-02 08:27 | XMS REPORT | Continuity of Care Document ---
Author Organization Unknown Address Unknown Phone Unavailable Allergies Active Description Code Type Severity Reaction Onset Reported/Identified Relationship to Patient Clinical Status Yes No Known Drug Allergies [id number] Drug Allergy Unknown N/A 09/26/2019 Medications There [...] KARIN Ot I25.10 ATHSCL HEART DISEASE OF [place] CORONARY 08/20/2019 CHIP BOOGIE KARIN Ot I42.9 [...] U 08/20/2019 CHIP BOOGIE KARIN Ot Z79.01 HALFWAY (CURRENT) USE OF ANTICOAGULANT 08/20/2019 CHIP BOOGIE [...] KARIN Ot I25.10 ATHSCL HEART DISEASE OF [place] CORONARY 08/20/2019 SAUNDERS DO, KARIN Ot I42.9 [...] U 08/20/2019 CHIP DO, KARIN Ot Z79.01 HALFWAY (CURRENT) USE OF ANTICOAGULANT 08/20/2019 CHIP DO KARIN Ot Z91.19 PATIENT'S NONCOMPLIANCE W [facility] 09/05/2019 SAUNDERS DO, KARIN [...] KARIN Ot I25.10 ATHSCL HEART DISEASE OF [place] CORONARY 09/05/2019 SAUNDERS DO, KARIN Ot I42.9 [...] DO, KARIN Ot Z91.19 PATIENT'S NONCOMPLIANCE W [facility] 09/05/2019 CHIP DO, KARIN [...] KARIN Ot I25.10 ATHSCL HEART DISEASE OF [place] CORONARY 09/12/2019 SAUNDERS DO, KARIN Ot I42.9 [...] U 09/12/2019 CHIP DO KARIN Ot Z79.01 PURIFICATION DIRECTOR (CURRENT) USE OF ANTICOAGULANT 09/12/2019 SAUNDERS DO, KARIN Ot Z91.19 PATIENT'S NONCOMPLIANCE W [facility] 09/12/2019 SAUNDERS DO, KARIN Ot E66.01 MORBID (SEVERE) OBESITY DUE TO EXCESS CA 09/12/2019 SAUNDERS DO, KARIN Ot E78.00 PURE HYPERCHOLESTEROLEMIA, UNSPECIFIED 09/12/2019 SAUNDRES DO, KARIN Ot E87.1 HYPO-OSMOLALITY AND HYPONATREMIA 09/12/2019 SAUNDERS DO, KARIN Ot F15.90 OTHER STIMULANT USE, UNSPECIFIED, UNCOMP 09/12/2019 SAUNDERS DO, KARIN Ot G47.33 OBSTRUCTIVE SLEEP APNEA (ADULT) (PEDIATR 09/12/2019 SAUNDERS DO, KARIN Ot I11.0 HYPERTENSIVE HEART DISEASE WITH HEART FA 09/12/2019 SAUNDERS DO, KARIN Ot I25.10 ATHSCL HEART DISEASE OF [place] CORONARY 09/12/2019 SAUNDERS DO, KARIN Ot I42.9 [...] U 09/12/2019 CHIP DO, KARIN Ot Z79.01 PURIFICATION DIRECTOR (CURRENT) USE OF ANTICOAGULANT 09/12/2019 CHIP DO, KARIN Ot Z91.19 PATIENT'S NONCOMPLIANCE W [facility] 09/28/2019 FLAVIA OSMAN MD [...] 09/28/2019 FLAVIA OSMAN MD Ot Z79.0 1 HALFWAY (CURRENT) USE OF ANTICOAGULANT 09/28/2019 FLAVIA OSMAN [...] 09/30/2019 FLAVIA OSMAN MD, Ot Z79.0 1 HALFWAY (CURRENT) USE OF ANTICOAGULANT 09/30/2019 FLAVIA OSMAN MD Ot Z91.1 4 PATIENT'S OTHER NONCOMPLIANCE WITH MEDIC 09/30/2019 FLAVIA OSMAN MD Ot Z91.1 9 PATIENT'S NONCOMPLIANCE W [facility] 10/01/2019 FLAVIA OSMAN MD [...] MD Ot J10.0 0 FLU DUE TO [facility] IDENT FLU VIRUS W UNSP TY 10/01/2019 FLAVIA OSMAN MD Ot J96.2 1 ACUTE AND CHRONIC RESPIRATORY FAILURE [place] 10/01/2019 FLAVIA OSMAN MD Ot Z68.4 4 BODY MASS INDEX (BMI) 60.0-69.9, ADULT 10/01/2019 FLAVIA OSMAN MD Ot Z79.0 1 PURIFICATION DIRECTOR (CURRENT) USE OF ANTICOAGULANT 10/01/2019 FLAVIA OSMAN MD Ot Z91.1 4 PATIENT'S OTHER NONCOMPLIANCE WITH MEDIC 10/01/2019 FLAVIA OSMAN MD Ot Z91.1 9 PATIENT'S NONCOMPLIANCE W [facility] 10/01/2019 FLAVIA OSMAN MD [...] ACUTE ON CHRONIC SYSTOLIC (CONGESTIVE) H 10/01/2019 LFAVIA OSMAN MD, Ot I87.8 OTHER SPECIFIED DISORDERS OF VEINS 10/01/2019 FLAVIA OSMAN MD, Ot J10.0 0 FLU DUE TO [facility] IDENT FLU VIRUS W UNSP TY 10/01/2019 FLAVIA OSMAN MD, Ot J44.9 CHRONIC OBSTRUCTIVE PULMONARY DISEASE, U 10/01/2019 FLAVIA OSMAN MD, Ot J96.2 1 ACUTE AND CHRONIC RESPIRATORY FAILURE [place] 10/01/2019 FLAVIA OSMAN MD, Ot Z68.4 4 BODY MASS INDEX (BMI) 60.0-69.9, ADULT 10/01/2019 FLAVIA OSMAN MD, Ot Z79.0 1 PURIFICATION DIRECTOR (CURRENT) USE OF ANTICOAGULANT 10/01/2019 FLAVIA OSMAN [...] g/dL 3.2-4.5 CALCIUM CORRECTED 9.5 mg/dL 8.5-10.1 Arterial blood gas measurement - 0 14:50 Blood pCO2 38 mm[Hg] 35-45 Blood pO2 67 mm[Hg] 79-93 Arterial blood bicarbonate measurement (moles/volume) 25 mmol/L 23-27 Arterial blood base excess by calculation 0.5 mmol /L -2.5-2.5 Arterial blood oxygen saturation measurement 95 % 94-100 * Inhaled oxygen flow rate ROOM AIR NRG Arterial blood pH measurement with patient temperature correction 7.43 7.37-7.43 Arterial blood carbon dioxide, total measurement (mole s/volume) 25.8 mmol/L 21.0-31.0 Body site LT RADIAL NRG Assessment of wrist artery patency prior to arterial p uncture YES-POS NRG Setting of ventilation mode NO NR G Measurement of body temperature 35.9 NRG Complete blood count (CBC) with automate d white blood cell (WBC) differential - 10/27/19 14:59 Blood leukocytes automated count (number/volume) 9.4 10*3/uL 4.3-11.0 Blood erythrocytes automated count (number/volume) 4.74 10*6/uL 4.35-5.85 Venous blood hemoglobin measurement (mass/volume) 13.0 g/dL 13.3-17.7 Blood hematocrit (volume fraction) 42 % 40-54 Automated erythrocyte mean corpuscular volume 88 [ foz_us] 80-99 Automated erythrocyte mean corpuscular h emoglobin (mass per erythrocyte) 27 pg 25-34 Automated erythrocyte mean corpuscular h emoglobin concentration measurement (mass/volume) 31 g/dL 32-36 Automated erythrocyte distribution width ratio 16. 2 % 10.0- 14.5 Automated blood platelet count (count/volume) 365 10*3/uL 130-400 Automated blood platelet mean volume measurement 9.9 [foz_us] 7.4-10.4 Automated blood neutrophils/100 leukocytes 74 % 42-75 Automated blood lymphocytes/100 leukocytes 20 % 12-44 Blood monocytes/100 leukocytes 5 % 0-12 Automated blood eosinophils/100 leukocytes 2 % 0-10 Automated blood basophils/100 leukocytes 0 % 0-10 Blood neutrophils automated count (number/volume) 7.0 10*3 1.8-7.8 Blood lymphocytes automated count (number/volume) 1.8 10*3 1.0-4.0 Blood monocytes automated count (number/volume) 0. 5 10*3 0.0-1.0 Automated eosinophil count 0.2 10*3/uL 0 .0-0.3 Automated blood basophil count (count/volume) 0.0 10*3/uL 0.0-0.1 Blood lactic acid measurement (moles/vol ume) - 10/27/19 14:59 Blood lactic acid measurement (moles/volume) 1.75 mmol/L 0.50-2.00 Comprehensive metabolic panel - 10/27/19 14:59 Serum or plasma sodium measurement (moles/volume) 137 mmol/L 135-145 Serum or plasma potassium measurement (moles/volume) 4.1 mmol/L 3.6-5.0 Serum or plasma chloride measurement (moles/volume) 102 mmol/L 98-107 Carbon dioxide 22 mmol/L 21-32 Serum or plasma anion gap determination (moles/volume) 13 mmol/L 5-14 Serum or plasma urea nitrogen measurement (mass/volume ) 18 mg/dL 7-18 Serum or plasma creatinine measurement (mass/volume) 1.40 mg/dL 0.60-1.30 Serum or plasma urea nitrogen/creatinine mass ratio 13 NRG Serum or plasma creatinine measurement w ith calculation of estimated glomerular filtration rate 55 NRG Serum or plasma glucose measurement (mass/volume) 156 mg/dL 70-105 Serum or plasma calcium measurement (mass/volume) 9.0 mg/dL 8.5-10.1 Serum or plasma total bilirubin measurement (mass/volu me) 1.2 mg/dL 0.1-1.0 Serum or plasma alkaline phosphatase hammad surement (enzymatic activity/volume) 114 U/L 40-136 Serum or plasma aspartate aminotransfera se measurement (enzymatic activity/volume) 19 U/L 5-34 Serum or plasma alanine aminotransferase measurement (enzymatic activity/volume) 14 U/L 0-55 Serum or plasma protein measurement (mass/volume) 7.2 g/dL 6.4-8.2 Serum or plasma albumin measurement (mass/volume) 3.8 g/dL 3.2-4.5 CALCIUM CORRECTED 9.2 mg/dL 8.5-10.1 Magnesium - 10/27/19 14:59 Magnesium 1.8 mg/dL 1.6-2.4 Serum or plasma troponin i.cardiac measu rement (mass/volume) - 10/27/19 14:59 Serum or plasma troponin i.cardiac measurement (mass/v olume) < ng/mL <0.028 Serum or plasma lithium measurement (mol es/volume) - 10/27/19 14:59 BNP PT 1052.0 pg/mL <100.0 Bacterial blood culture - 10/27/19 14:59 QUANTITY OF GROWTH . NRG Bacterial blood culture SEE COMMEN NRG Bacterial blood culture - 10/27/19 15:30 Bacterial blood culture NG NRG Encounters ACCT No. Visit Date/Time Discharge Status Pt. Type Provider Facility Loc./Unit Complaint [id number] 09/06/2019 14:00:00 09/06/2019 23:59: 59 [facility] Outpatient SOURAV GRACIA [facility] [id number] 08/24/2019 10:00:00 Document Registration [id number] 05/16/2019 13:20:00 Document Registration [id number] 11/24/2018 10:20:00 Document Registration [id number] 10/27/2019 14:43:00 020 16:32:00 DIS Emergency LORI PLATA APRN [facility] ER SOA [id number] 09/26/2019 08:28:00 12:10:00 DIS Inpatient JACQUI ORDONEZ, FLAVIA Soares [facility] 4TH PNA;SEPSIS;ACUTE ON CHR ONIC RESPIRATORY FAILURE- [id number] 09/03/2019 16:22:00 020 12:10:00 DIS Inpatient KARIN SAUNDERS DO, [facility] ICU A FIB WITH RVR [id number] 08/18/2019 06:05:00 020 18:39:00 DIS Outpatient KARIN SAUNDERS DO [facility] 4TH ATRIAL FIBRILLATIONW.RV R,CHF EXACERBUTION
[2019-11-02] MEDS ORDERED: ASPIRIN 81 MG CHEW (CHILDREN'S ASA) PO ONE (08:45)
[2019-11-02 08:58] LABS: BASOPHILS # (AUTO) 0.1 10^3/uL (0.0-0.1); BASOPHILS % (AUTO) 1 % (0-10); EOSINOPHILS # (AUTO) 0.5 10^3/uL (0.0-0.3); EOSINOPHILS % (AUTO) 5 % (0-10); HEMATOCRIT 44 % (40-54); HEMOGLOBIN 13.6 G/DL (13.3-17.7); LYMPHOCYTES # (AUTO) 2.5 X 10^3 (1.0-4.0); LYMPHOCYTES % (AUTO) 27 % (12-44); MEAN CORPUSCULAR HEMOGLOBIN 27 PG (25-34); MEAN CORPUSCULAR HGB CONC 31 G/DL (32-36); MEAN CORPUSCULAR VOLUME 89 FL (80-99); MEAN PLATELET VOLUME 9.4 FL (7.4-10.4); MONOCYTES # (AUTO) 0.8 X 10^3 (0.0-1.0); MONOCYTES % (AUTO) 9 % (0-12); NEUTROPHILS # (AUTO) 5.4 X 10^3 (1.8-7.8); NEUTROPHILS % (AUTO) 59 % (42-75); PLATELET COUNT 374 10^3/uL (130-400); RED CELL DISTRIBUTION WIDTH 16.3 % (10.0-14.5); WHITE BLOOD COUNT 9.1 10^3/uL (4.3-11.0)
[2019-11-02] MEDS ORDERED: dilTIAZem DRIP PRE-MIX 125 ML IV SCH (09:15)
[2019-11-02 09:20] LABS: ALANINE AMINOTRANSFERASE 13 U/L (0-55); ALBUMIN 3.7 GM/DL (3.2-4.5); ALKALINE PHOSPHATASE 120 U/L (40-136); BILIRUBIN,TOTAL 0.5 MG/DL (0.1-1.0); BUN/CREATININE RATIO 13; CALCIUM 9.1 MG/DL (8.5-10.1); CARBON DIOXIDE 25 MMOL/L (21-32); CHLORIDE 105 MMOL/L (98-107); GFR ESTIMATED > 60; GLUCOSE 104 MG/DL (70-105); POTASSIUM 4.1 MMOL/L (3.6-5.0); SODIUM 139 MMOL/L (135-145)
--- NOTE | 2019-11-02 09:36 | ED Chest Pain ---
General Chief Complaint: Respiratory Problems Stated Complaint: SOB Nursing Triage Note: PT STATES HX OF CHF, SOB SINCE LAST NIGHT, WAS SEEN HERE ABOUT 2 WEEKS AGO FOR THE SAME. DID NOT TAKE HIS LASIX THIS A.M. Nursing Sepsis Screen: No Definite Risk Source: patient Exam Limitations: no limitations History of Present Illness Date Seen by Provider: Nov 02, 2019 Time Seen by Provider: 08:41 Initial Comments Here with report of significant shortness of breath with any activity. Does have history of atrial fibrillation and appears to be in atrial fibrillation with rapid ventricular response currently. States it's been short of breath for about 2 days. Does have history of heart failure. He is a complicated case. Does have history of methamphetamine abuse but has not used since prior to last hos pitalization 2 weeks ago. He lives in [place] and denies significant travel. He does admit though that he went to [facility] yesterday and traveled to [facility]. His mother just return from [facility] and arrived back on Tuesday. She is showing no symptoms of COVID-19. Denies fever or cough. States this feels like his heart problems. Does have significant swelling in his lower extremities. States that he takes his medicines mostly as directed but occasionally will forget. Timing/Duration: getting worse, 1-2 days Severity/Quality: moderate Location: central, other (shortness of breath) Radiation: no radiation ASA po GOLF COURSE EQUIPMENT OPERATOR: No NTG SL GOLF COURSE EQUIPMENT OPERATOR: No Associated Symptoms: No abdominal pain, No back pain, No diaphoresis; fatigue; No fever/chills, No nausea/vomiting; shortness of breath, weakness Allergies and Home Medications Allergies Coded Allergies: No Known Drug Allergies (Unverified , 09/26/19) Home Medications Acetaminophen/Diphenhydramine 1 Each Tablet, 3 TAB PO HS PRN for SLEEP, (Reported) Amiodarone HCl 200 Mg Tablet, 200 MG PO BID Prescribed by: TRACIE ROBERTSON on 10/01/19 1142 Apixaban 5 Mg Tablet, 5 MG PO BID, (Reported) Diltiazem HCl 120 Mg Capsule.er, 120 MG PO DAILY, (Reported) Furosemide 40 Mg Tablet, 40 MG PO DAILY Prescribed by: TRACIE ROBERTSON on 10/01/19 1142 Metoprolol Tartrate 50 Mg Tablet, 50 MG PO BID, (Reported) Potassium Chloride 20 Meq Tablet.er, 20 MEQ PO DAILY Prescribed by: TRACIE ROBERTSON on 10/01/19 1142 Sacubitril/Valsartan 1 Each Tablet, 1 TAB PO BID, (Reported) Patient Home Medication List Home Medication List Reviewed: Yes Review of Systems Review of Systems Constitutional: see HPI; No chills, No fever EENTM: No Symptoms Reported Respiratory: See HPI, Shortness of Air, SOA With Exertion; Denies Wheezing Cardiovascular: Denies Chest Pain; Edema, Irregular Heart Rate, Palpitations Gastrointestinal: Denies Abdominal Pain, Denies Nausea, Denies Vomiting Genitourinary: No Symptoms Reported Musculoskeletal: no symptoms reported Skin: no symptoms reported Psychiatric/Neurological: No Symptoms Reported All Other Systems Reviewed Negative Unless Noted: Yes Past Fbdhefd-Gwbpyl-Srvypg Hx Past Med/Social Hx: Reviewed Nursing Past Med/Soc Hx Patient Social History Alcohol Use: Rarely Uses Recreational Drug Use: Yes Drug of Choice: THC IV METH Type Used: Smokeless Tobacco 2nd Hand Smoke Exposure: No Recent Foreign Travel: No Contact w/Someone Who Travel: No Recent Infectious Disease Expo: No Recent Hopitalizations: No Immunizations Up To Date Date of Pneumonia Vaccine: Aug 18, 2017 Seasonal Allergies Seasonal Allergies: No Past Medical History Surgeries: Yes (RIGHT AARM SKIN GRAFT) Orthopedic Respiratory: Yes Pneumonia, Sleep Apnea Chronic Edema/Swelling, Hypertension Neurological: No Genitourinary: No Gastrointestinal: No Musculoskeletal: No Endocrine: No HEENT: No Cancer: No Psychosocial: No Integumentary: No Blood Disorders: No Family Medical History Reviewed Nursing Family Hx Cancer, CAD Over 55 Years Old Physical Exam Vital Signs Vital Signs - First Documented 11/02/19 08:26 Temp 36.4 Pulse 142 Resp 22 B/P (MAP) 145/111 (122) Pulse Ox 99 O2 Delivery Nasal Cannula O2 Flow Rate 2.00 Capillary Refill : Less Than 3 Seconds Height, Weight, BMI Height: '" Weight: lbs. oz. kg; 57.00 BMI Method: General Appearance: No Apparent Distress, Obese HEENT: PERRL/EOMI, Pharynx Normal Neck: Non Tender, Supple Respiratory: No Accessory Muscle Use, No Respiratory Distress, Other (more with obesity limits evaluation although no significant wheezes or crackles noted.) Cardiovascular: Irregularly Irregular, Tachycardia Gastrointestinal: Non Tender, Soft Extremity: Normal Range of Motion, Non Tender, Pedal Edema (3+ to both knees bilateral) Neurologic/Psychiatric: Alert, Oriented x3 Skin: Warm/Dry, Other (venous stasis discoloration bilateral lower extremities below the knees.) Progress/Results/Core Measures Results/Orders Lab Results Laboratory Tests Test 11/02/19 08:40 Range/Units White Blood Count 9.1 4.3-11.0 10^3/uL Red Blood Count 4.99 4.35-5.85 10^6/uL Hemoglobin 13.6 13.3-17.7 G/DL Hematocrit 44 40-54 % Mean Corpuscular Volume 89 80-99 FL Mean Corpuscular Hemoglobin 27 25-34 PG Mean Corpuscular Hemoglobin Concent 31 L 32-36 G/DL Red Cell Distribution Width 16.3 H 10.0-14.5 % Platelet Count 374 130-400 10^3/uL Mean Platelet Volume 9.4 7.4-10.4 FL Neutrophils (%) (Auto) 59 42-75 % Lymphocytes (%) (Auto) 27 12-44 % Monocytes (%) (Auto) 9 0-12 % Eosinophils (%) (Auto) 5 0-10 % Basophils (%) (Auto) 1 0-10 % Neutrophils # (Auto) 5.4 1.8-7.8 X 10^3 Lymphocytes # (Auto) 2.5 1.0-4.0 X 10^3 Monocytes # (Auto) 0.8 0.0-1.0 X 10^3 Eosinophils # (Auto) 0.5 H 0.0-0.3 10^3/uL Basophils # (Auto) 0.1 0.0-0.1 10^3/uL Prothrombin Time 14.0 12.2-14.7 SEC INR Comment 1.0 0.8-1.4 Activated Partial Thromboplast Time 33 24-35 SEC Sodium Level 139 135-145 MMOL/L Potassium Level 4.1 3.6-5.0 MMOL/L Chloride Level 105 98-107 MMOL/L Carbon Dioxide Level 25 21-32 MMOL/L Anion Gap 9 5-14 MMOL/L Blood Urea Nitrogen 14 7-18 MG/DL Creatinine 1.10 0.60-1.30 MG/DL Estimat Glomerular Filtration Rate > 60 BUN/Creatinine Ratio 13 Glucose Level 104 70-105 MG/DL Calcium Level 9.1 8.5-10.1 MG/DL Corrected Calcium 9.3 8.5-10.1 MG/DL Magnesium Level 2.0 1.6-2.4 MG/DL Total Bilirubin 0.5 0.1-1.0 MG/DL Aspartate Amino Transf (AST/SGOT) 17 5-34 U/L Alanine Aminotransferase (ALT/SGPT) 13 0-55 U/L Alkaline Phosphatase 120 40-136 U/L Myoglobin 38.7 10.0-92.0 NG/ML Troponin I < 0.028 <0.028 NG/ML B-Type Natriuretic Peptide 251.7 H <100.0 PG/ML Total Protein 7.0 6.4-8.2 GM/DL Albumin 3.7 3.2-4.5 GM/DL My Orders Orders - OSIRIS CARTAGENA MD Cbc With Automated Diff (11/02/19 08:45) Magnesium (11/02/19 08:45) Chest 1 View, Ap/Pa Only (11/02/19 08:45) Ekg Tracing (11/02/19 08:45) Comprehensive Metabolic Panel (11/02/19 08:45) Myoglobin Serum (11/02/19 08:45) Protime With Inr (11/02/19 08:45) Partial Thromboplastin Time (11/02/19 08:45) O2 (11/02/19 08:45) Monitor-Rhythm Ecg Trace Only (11/02/19 08:45) Lipid Panel (11/03/19 06:00) Ed Iv/Invasive Line Start (11/02/19 08:45) BNP (11/02/19 08:45) Troponin I (11/02/19 08:45) Aspirin Chewable Tablet (Baby Aspirin Ch (11/02/19 08:45) Ekg Tracing (11/02/19 08:45) Diltiazem Drip Pre-Mix (Cardizem Drip Pr (11/02/19 09:15) Diltiazem Injection (Cardizem Injection) (11/02/19 09:15) Medications Given in ED Current Medications Medications Dose Ordered Sig/Natalie Route Start Time Stop Time Status Last Admin Dose Admin Aspirin 324 mg ONCE ONCE PO 11/02/19 08:45 11/02/19 08:47 DC 3/27/20 09:13 324 MG Diltiazem HCl 20 mg ONCE ONCE IVP 11/02/19 09:15 11/02/19 09:16 DC 11/02/19 09:13 20 MG Vital Signs/I&O 11/02/19 11/02/19 08:26 08:50 Temp 36.4 Pulse 142 Resp 22 B/P (MAP) 145/111 (122) Pulse Ox 99 99 O2 Delivery Nasal Cannula Nasal Cannula O2 Flow Rate 2.00 1.00 Blood Pressure Mean: 122 Progress Progress Note : Progress Note Seen and evaluated. IV, labs, EKG and chest x-ray ordered. ASA 324 mg by mouth ordered. Cardizem bolus and drip ordered to be initiated at 20 mg bolus and drip at 10 mg an hour titrated to effect. Monitor patient. 1055: Patient's heart rate ultimately has dropped to 100s to 120s and we are titrating Cardizem. Otherwise no acute findings. I did discuss the case with Dr. Herrera and she accepts patient for admission, inpatient status. Dr. Collins has been consulted as well. Patient agrees with plan. Initial ECG Impression Date: Nov 02, 2019 Initial ECG Impression Time: 08:41 Initial ECG Rate: 137 Initial ECG Rhythm: A Fib/Flutter Initial ECG Comparisson: Changed (rate increased but morphology similar to 10/27/19.) Comment Atrial fibrillation with rapid ventricular response. Left anterior fascicular block with left ventricular hypertrophy. Left axis deviation. No evidence of ST elevation CO. Interpreted by me. Departure Communication (Admissions) Time/Spoke to Admitting Phy: 11:55 Time/Spoke to Consulting Phy: 11:00 Impression Primary Impression: Atrial fibrillation with rapid ventricular response Disposition: ADMITTED INPATIENT Condition: Stable Admissions Decision to Admit Reason: Admit from ER (General) Decision to Admit/Date: Nov 02, 2019 Time/Decision to Admit Time: 10:55 Departure-Patient Inst. Referrals: NO,LOCAL PHYSICIAN (PCP) Primary Care Physician SOURAV GRACIA (Family) Primary Care Physician OSIRIS CARTAGENA MD Nov 02, 2019 09:36
--- NOTE | 2019-11-02 10:39 | NUR ---
REPORTS FEELING BETTER AFTER TYLENOL
--- OUTSIDE RECORDS SUMMARY | 2019-11-02 11:15 | XMS REPORT | Continuity of Care Document ---
Author Organization Unknown Address Unknown Phone Unavailable Allergies Active Description Code Type Severity Reaction Onset Reported/Identified Relationship to Patient Clinical Status Yes No Known Drug Allergies [id number] Drug Allergy Unknown N/A 09/26/2019 Medications There [...] KARIN Ot I25.10 ATHSCL HEART DISEASE OF [place] CORONARY 08/20/2019 CHIP BOOGIE KARIN Ot I42.9 [...] U 08/20/2019 CHIP BOOGIE KARIN Ot Z79.01 SKILLED NURSING (CURRENT) USE OF ANTICOAGULANT 08/20/2019 CHIP BOOGIE KARIN Ot Z91.19 PATIENT'S NONCOMPLIANCE W OT MEDICAL TR 08/20/2019 CHIP BOOGIE KARIN Ot E66.01 MORBID (SEVERE) OBESITY DUE TO EXCESS CA 08/20/2019 SANUDERS DO, KARIN Ot E78.00 PURE HYPERCHOLESTEROLEMIA, UNSPECIFIED 08/20/2019 SAUNDERS DO, KARIN Ot E87.1 HYPO-OSMOLALITY AND HYPONATREMIA 08/20/2019 SAUNDERS DO, KARIN Ot F15.90 OTHER STIMULANT USE, UNSPECIFIED, UNCOMP 08/20/2019 SAUNDERS DO, KARIN Ot G47.33 OBSTRUCTIVE SLEEP APNEA (ADULT) (PEDIATR 08/20/2019 SAUNDERS DO, KARIN Ot I11.0 HYPERTENSIVE HEART DISEASE WITH HEART FA 08/20/2019 SAUNDERS DO, KARIN Ot I25.10 ATHSCL HEART DISEASE OF [place] CORONARY 08/20/2019 SAUNDERS DO, KARIN Ot I42.9 [...] U 08/20/2019 CHIP DO, KARIN Ot Z79.01 SKILLED NURSING (CURRENT) USE OF ANTICOAGULANT 08/20/2019 CHIP DO KARIN Ot Z91.19 PATIENT'S NONCOMPLIANCE W [facility] MEDICAL TR 09/05/2019 SAUNDERS DO, KARIN Ot [...] KARIN Ot I25.10 ATHSCL HEART DISEASE OF [place] CORONARY 09/05/2019 SAUNDERS DO, KARIN Ot I42.9 [...] DO, KARIN Ot Z91.19 PATIENT'S NONCOMPLIANCE W [facility] MEDICAL [facility] 09/05/2019 CHIP DO, KARIN Ot [...] KARIN Ot I25.10 ATHSCL HEART DISEASE OF [place] CORONARY 09/12/2019 SAUNDERS DO, KARIN Ot I42.9 [...] U 09/12/2019 CHIP DO KARIN Ot Z79.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 (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) USE OF ANTICOAGULANT 09/12/2019 SAUNDERS DO, KARIN Ot Z91.19 PATIENT'S NONCOMPLIANCE W [facility] MEDICAL TR 09/12/2019 SAUNDERS DO, KARIN Ot [...] KARIN Ot I25.10 ATHSCL HEART DISEASE OF [place] CORONARY 09/12/2019 SAUNDERS DO, KARIN Ot I42.9 [...] U 09/12/2019 CHIP DO, KARIN Ot Z79.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 (CURRENT) USE OF ANTICOAGULANT 09/12/2019 CHIP DO, KARIN Ot Z91.19 PATIENT'S NONCOMPLIANCE W [facility] MEDICAL TR 09/28/2019 FLAVIA OSMAN MD Ot [...] 09/28/2019 FLAVIA OSMAN MD Ot Z79.0 1 SKILLED NURSING (CURRENT) USE OF ANTICOAGULANT 09/28/2019 FLAVIA OSMAN [...] 09/30/2019 FLAVIA OSMAN MD, Ot Z79.0 1 SKILLED NURSING (CURRENT) USE OF ANTICOAGULANT 09/30/2019 FLAVIA OSMAN MD Ot Z91.1 4 PATIENT'S OTHER NONCOMPLIANCE WITH MEDIC 09/30/2019 FLAVIA OSMAN MD Ot Z91.1 9 PATIENT'S NONCOMPLIANCE W [facility] MEDICAL TR 10/01/2019 FLAVIA OSMAN MD Ot [...] MD Ot J10.0 0 FLU DUE TO [facility] IDENT FLU VIRUS W UNSP TY 10/01/2019 FLAVIA OSMAN MD Ot J96.2 1 ACUTE AND CHRONIC RESPIRATORY FAILURE [place] 10/01/2019 FLAVIA OSMAN MD Ot Z68.4 4 BODY MASS INDEX (BMI) 60.0-69.9, ADULT 10/01/2019 FLAVIA OSMAN MD Ot Z79.0 1 SHRIMP 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 TENDER (CURRENT) USE OF ANTICOAGULANT 10/01/2019 FLAVIA OSMAN MD Ot Z91.1 4 PATIENT'S OTHER NONCOMPLIANCE WITH MEDIC 10/01/2019 FLAVIA OSMAN MD Ot Z91.1 9 PATIENT'S NONCOMPLIANCE W [facility] MEDICAL TR 10/01/2019 FLAVIA OSMAN MD Ot [...] MD, Ot J10.0 0 FLU DUE TO [facility] IDENT FLU VIRUS W UNSP TY 10/01/2019 FLAVIA OSMAN MD, Ot J44.9 CHRONIC OBSTRUCTIVE PULMONARY DISEASE, U 10/01/2019 FLAVIA OSMAN MD, Ot J96.2 1 ACUTE AND CHRONIC RESPIRATORY FAILURE [place] 10/01/2019 FLAVIA OSMAN MD, Ot Z68.4 4 BODY MASS INDEX (BMI) 60.0-69.9, ADULT 10/01/2019 FLAVIA OSMAN MD, Ot Z79.0 1 SHRIMP 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 TENDER (CURRENT) USE OF ANTICOAGULANT 10/01/2019 FLAVIA OSMAN [...] - 10/27/19 14:59 QUANTITY OF GROWTH . NR Bacterial blood culture SEE [facility] Bacterial blood culture - 10/27/19 15:30 Bacterial blood culture [facility] Complete blood count (CBC) with automate d white blood cell (WBC) differential - 11/02/19 08:40 Blood leukocytes automated count (number/volume) 9.1 10*3/uL 4.3-11.0 Blood erythrocytes automated count (number/volume) 4.99 10*6/uL 4.35-5.85 Venous blood hemoglobin measurement (mass/volume) 13.6 g/dL 13.3-17.7 Blood hematocrit (volume fraction) 44 % 40-54 Automated erythrocyte mean corpuscular volume 89 [ foz_us] 80-99 Automated erythrocyte mean corpuscular h emoglobin (mass per erythrocyte) 27 pg 25-34 Automated erythrocyte mean corpuscular h emoglobin concentration measurement (mass/volume) 31 g/dL 32-36 Automated erythrocyte distribution width ratio 16. 3 % 10.0- 14.5 Automated blood platelet count (count/volume) 374 10*3/uL 130-400 Automated blood platelet mean volume measurement 9.4 [foz_us] 7.4-10.4 Automated blood neutrophils/100 leukocytes 59 % 42-75 Automated blood lymphocytes/100 leukocytes 27 % 12-44 Blood monocytes/100 leukocytes 9 % 0-12 Automated blood eosinophils/100 leukocytes 5 % 0-10 Automated blood basophils/100 leukocytes 1 % 0-10 Blood neutrophils automated count (number/volume) 5.4 10*3 1.8-7.8 Blood lymphocytes automated count (number/volume) 2.5 10*3 1.0-4.0 Blood monocytes automated count (number/volume) 0. 8 10*3 0.0-1.0 Automated eosinophil count 0.5 10*3/uL 0 .0-0.3 Automated blood basophil count (count/volume) 0.1 10*3/uL 0.0-0.1 Comprehensive metabolic panel - 11/02/19 08:40 Serum or plasma sodium measurement (moles/volume) 139 mmol/L 135-145 Serum or plasma potassium measurement (moles/volume) 4.1 mmol/L 3.6-5.0 Serum or plasma chloride measurement (moles/volume) 105 mmol/L 98-107 Carbon dioxide 25 mmol/L 21-32 Serum or plasma anion gap determination (moles/volume) 9 mmol/L 5-14 Serum or plasma urea nitrogen measurement (mass/volume ) 14 mg/dL 7-18 Serum or plasma creatinine measurement (mass/volume) 1.10 mg/dL 0.60-1.30 Serum or plasma urea nitrogen/creatinine mass ratio 13 NRG Serum or plasma creatinine measurement w ith calculation of estimated glomerular filtration rate > NRG Serum or plasma glucose measurement (mass/volume) 104 mg/dL 70-105 Serum or plasma calcium measurement (mass/volume) 9.1 mg/dL 8.5-10.1 Serum or plasma total bilirubin measurement (mass/volu me) 0.5 mg/dL 0.1-1.0 Serum or plasma alkaline phosphatase hammad surement (enzymatic activity/volume) 120 U/L 40-136 Serum or plasma aspartate aminotransfera se measurement (enzymatic activity/volume) 17 U/L 5-34 Serum or plasma alanine aminotransferase measurement (enzymatic activity/volume) 13 U/L 0-55 Serum or plasma protein measurement (mass/volume) 7.0 g/dL 6.4-8.2 Serum or plasma albumin measurement (mass/volume) 3.7 g/dL 3.2-4.5 CALCIUM CORRECTED 9.3 mg/dL 8.5-10.1 Magnesium - 11/02/19 08:40 Magnesium 2.0 mg/dL 1.6-2.4 PT panel in platelet poor plasma by coag ulation assay - 11/02/19 08:40 Prothrombin time (PT) in platelet poor plasma by coagu lation assay 14.0 s 12.2-14.7 INR in platelet poor plasma or blood by coagulation as say 1.0 0.8-1.4 Activated partial thromboplastin time (a PTT) in platelet poor plasma bycoagulation assay - 11/02/19 08:40 Activated partial thromboplastin time (a PTT) in platelet poor plasma bycoagulation assay 33 s 24-35 Serum or plasma troponin i.cardiac measu rement (mass/volume) - 11/02/19 08:40 Serum or plasma troponin i.cardiac measurement (mass/v olume) < ng/mL <0.028 Myoglobin, serum - 11/02/19 08:40 Myoglobin, serum 38.7 ng/mL 10.0-92.0 Serum or plasma lithium measurement (mol es/volume) - 11/02/19 08:40 BNP PT 251.7 pg/mL <100.0 Encounters ACCT No. Visit Date/Time Discharge Status Pt. Type Provider Facility Loc./Unit Complaint [id number] 09/06/2019 14:00:00 09/06/2019 23:59: 59 [facility] Outpatient SOURAV GRACIA [facility] [id number] 08/24/2019 10:00:00 Document Registration [id number] 05/16/2019 13:20:00 Document Registration [id number] 11/24/2018 10:20:00 Document Registration [id number] 10/27/2019 14:43:00 16:32:00 DIS Emergency LORI PLATA APRN [facility] ER SOA [id number] 09/26/2019 08:28:00 12:10:00 DIS Inpatient JACQUI ORDONEZ, FLAVIA Soares [facility] 4TH PNA;SEPSIS;ACUTE ON CHR ONIC RESPIRATORY FAILURE- [id number] 09/03/2019 16:22:00 12:10:00 DIS Inpatient KARIN SAUNDERS DO, [facility] ICU A FIB WITH RVR [id number] 08/18/2019 06:05:00 020 18:39:00 DIS Outpatient KARIN SAUNDERS DO [facility] 4TH ATRIAL FIBRILLATIONW.RV R,CHF EXACERBUTION [id number] 11/02/2019 09:04:00 Document Registration
--- NOTE | 2019-11-02 11:35 | Diagnostic Imaging Report ---
Indication: Congestive heart failure. Shortness of breath. Study compared 10/27/2019. Findings: The heart is mildly prominent but the less enlarged than on previous. Upper lobe pulmonary veins borderline prominent but also are less distended. No definite pulmonary edema or pleural fluid. Impression: Borderline cardiomegaly and venous hypertension but no don edema or pleural fluid and overall failure type pattern has improved from the comparison. Dictated by: Dictated on workstation # [id number]
--- NOTE | 2019-11-02 11:50 | History & Physical-Hospitalist ---
History of Present Illness HPI/Chief Complaint CC: AF w/RVR HPI: This is a 44yoWM morbidly obese patient known to me from prior hospital stays for AF w/RVR who presents to the ER with palpitations and required Cardizem drip and ICU admit. Patient has a long hx of meth use and reports he hasn't used in the past 2 weeks. Patient denies pain at this current time. He continues to smoke and his PCP is in [place]. Source: patient Exam Limitations: no limitations Date Seen 11/02/19 Time Seen by a Provider: 12:00 Attending Physician Toshia Herrera DO PCP No,Local Physician Referring Physician Date of Admission Nov 02, 2019 at 10:58 Home Medications & Allergies Home Medications Reviewed patient Home Medication Reconciliation performed by pharmacy medication reconciliations ct scan technician and/or nursing. Patients Allergies have been reviewed. Allergies Allergies Coded Allergies No Known Drug Allergies (Unverified09/26/19) Past Xmfxenr-Hgygmi-Mhjxsv Hx Past Med/Social Hx: Reviewed Nursing Past Med/Soc Hx, Reviewed and Corrections made Patient Social History Marrital Status: cohabiting Employed/Student: unemployed Alcohol Use: Rarely Uses Alcohol Beverage of Choice: Whiskey Recreational Drug Use: Yes Drug of Choice: THC IV METH Smoking Status: Former Smoker Type Used: Smokeless Tobacco 2nd Hand Smoke Exposure: No Recent Foreign Travel: No Contact w/other who traveled: No Recent Hopitalizations: No Recent Infectious Disease Expo: No Immunizations Up To Date Date of Pneumonia Vaccine: Aug 18, 2017 Seasonal Allergies Seasonal Allergies: No Past Medical History Surgeries: Orthopedic Cardiac: Atrial Fibrillation, Chronic Edema/Swelling, Hypertension History of Blood Disorders: No Family History Reviewed Nursing Family Hx Cancer, CAD Over 55 Years Old Review of Systems Constitutional: see HPI, weakness Cardiovascular: chest pain, palpitations Physical Exam Physical Exam Vital Signs Vital Signs - First Documented 11/02/19 08:26 Temp 36.4 Pulse 142 Resp 22 B/P (MAP) 145/111 (122) Pulse Ox 99 O2 Delivery Nasal Cannula O2 Flow Rate 2.00 Capillary Refill : Less Than 3 Seconds Height, Weight, BMI Height: '" Weight: lbs. oz. kg; 57.00 BMI Method: General Appearance: No Apparent Distress, Chronically ill, Obese Eyes: Right Eye Normal Inspection, Right Eye PERRL HEENT: PERRL/EOMI, Normal ENT Inspection, Pharynx Normal, Moist Mucous Membranes Neck: Full Range of Motion, Normal Inspection, Non Tender Respiratory: Chest Non Tender, Lungs Clear, Normal Breath Sounds, No Accessory Muscle Use, No Respiratory Distress Cardiovascular: No Edema, No Gallop, No JVD, No Murmur, Normal Peripheral Pulses, Irregularly Irregular, Tachycardia Gastrointestinal: Normal Bowel Sounds, No Organomegaly, No Pulsatile Mass, Non Tender, Soft Back: Normal Inspection, No CVA Tenderness, No Vertebral Tenderness Extremity: Normal Capillary Refill, Normal Inspection, Normal Range of Motion, Non Tender, No Calf Tenderness, No Pedal Edema Neurologic/Psychiatric: Alert, Oriented x3, No Motor/Sensory Deficits, Normal Mood/Affect Skin: Normal Color, Warm/Dry Lymphatic: No Adenopathy Results Results/Procedures Labs Laboratory Tests 11/02/19 08:40 Patient resulted labs reviewed. Assessment/Plan Admission Diagnosis Assessment: AF w/RVR recurrent in type h/o meth use Smoker Morbid obesity HTN OHS Plan: IV Cardizem Meth use discouraged Admission Status: Inpatient Order (span 2 midnights) Reason for Inpatient Admission: recurrent AF w/RVR Diagnosis/Problems Diagnosis/Problems (1) Atrial fibrillation with rapid ventricular response Status: Acute (2) Systolic CHF Status: Chronic (3) Methamphetamine abuse (4) Morbid obesity Status: Chronic (5) Atrial fibrillation Status: Chronic (6) ZULLY (obstructive sleep apnea) Status: Chronic (7) Noncompliance (8) Obesity hypoventilation syndrome Clinical Quality Measures AMI/AHF: ASA po Prior to arrival: TOSHIA Cole DO Nov 02, 2019 11:50
[2019-11-02] MEDS ORDERED: AMIODARONE FOR BOLUS 150 MG in D5W 100 ML IVPB 100 ML IV NR (12:15)
[2019-11-02] MEDS ORDERED: CATHETER FLUSH 10 ML SYR IV PRN (12:30)
[2019-11-02] MEDS: dilTIAZem DRIP 125 MG/125 ML DRIP IV SCH ×2 (12:30→16:34)
[2019-11-02] MEDS ORDERED: FLU QUADRIvalent (5+ YOA) 2019-2020 (AFLURIA) 0.5 ML IM ONE (12:30)
[2019-11-02] MEDS ORDERED: LACTATED RINGERS 1,000 ML IV SCH (12:30)
[2019-11-02] MEDS ORDERED: AMIO200T4 PO (14:08)
[2019-11-02] MEDS ORDERED: FURO-124 PO (14:08)
[2019-11-02] MEDS ORDERED: POTA20TA15 PO (14:08)
--- NOTE | 2019-11-02 14:09 | NUR ---
SPOKE WITH THE PT, WENT THRU THE EXT MED HISTORY , CALLED [facility] AND WENT THRU THE DISCHARGE ORDERS FROM HIS LAST STAY TO COMPLETE THE MED REC ALL THE MEDICATIONS THAT WERE CONTINUED WHEN HE WAS DISCHARGED IN [place] ARE PAST DUE 08-22-2019 ELIQUIS 5MG #60/30DS 08-23-2019 DILTIAZEM 120MG #30/30DS 08-23-2019 METOPROLOL TART 50MG #60/30DS 08-23-2019 ENTRESTO #60/30DS I DOCUMENTED THE PAST DUE FILL DATE ON THE MED REC FOR EACH ONES. OTC MEDS: TYLENOL PM
--- NOTE | 2019-11-02 14:50 | Consultation-Cardiology ---
HPI-Cardiology Cardiology Consultation: Date of Consultation 11/02/19 Date of Admission Attending Physician Toshia Herrera DO Admitting Physician Lexy,Local Physician Consulting Physician Case COLLINS MD HPI: Time Seen by a Provider: 11:00 Chief Complaint: Palpitations This is a 44-year-old gentleman who is a patient of Dr. Law. He has history of atrial fibrillation. He presents with atrial fibrillation with rapid ventricular response. He has been short of breath for the last 2-3 days. Morbid obesity. Previous use of methamphetamine. No pertinent family history. Denies any chest pain. Review of Systems-Cardiology Review of Systems Constitutional: As described under HPI; No As described under HPI, No no symptoms reported, No chills, No fever, No lightheadedness Eyes: No As described under HPI, No no symptoms reported, No blindness, No blurred vision, No contact lenses, No drainage, No decreased acuity, No foreign body sensation, No pain, No vision change Ears/Nose/Throat: No As described under HPI, No no symptoms reported, No chronic hearing loss, No ear discharge, No ear pain, No nasal drainage, No ulcerations Respiratory: No no symptoms reported; As described under HPI; No As described under HPI, No cough, No orthopnea; shortness of breath; No SOB with excertion Cardiovascular: No no symptoms reported; As described under HPI; No As described under HPI, No chest pain, No edema; irregular heart rate; No lightheadedness; palpitations Gastrointestinal: No no symptoms reported, No As described under HPI, No abdomen distended, No abdominal pain, No blood streaked bowels, No constipation, No diarrhea, No nausea, No vomiting, No stool coloration changes Genitourinary: No As described under HPI, No burning, No dysuria, No discharge, No frequency, No flank pain, No hematuria, No urgency Skin: No rash, No skin related problems, No ulcerations Psychiatric/Neurological: No anxiety, No depression, No seizure, No focal weakness, No syncope Hematologic: No bleeding abnormalities All Other Systems Reviewed Negative Unless Noted: Yes IUP-Fezvzm-Vdeoni Hx Patient Social History Alcohol Use: Rarely Uses Recreational Drug Use: Yes Drug of Choice: THC IV METH Smoking Status: Former Smoker Type Used: Smokeless Tobacco 2nd Hand Smoke Exposure: No Recent Foreign Travel: No Recent Infectious Disease Expo: No Immunizations Up To Date Date of Pneumonia Vaccine: Aug 18, 2017 Past Medical History PMH As described under Assessment. Allergies and Home Medications Allergies Coded Allergies: No Known Drug Allergies (Unverified , 09/26/19) Home Medications Acetaminophen/Diphenhydramine 1 Each Tablet, 3 TAB PO HS PRN for SLEEP, (Reported) Amiodarone HCl 200 Mg Tablet, 200 MG PO BID, (Reported) Apixaban 5 Mg Tablet, 5 MG PO BID, (Reported) LAST FILLED 08-22-2019 #60/30 DAY SUPPLY Diltiazem HCl 120 Mg Capsule.er, 120 MG PO DAILY, (Reported) LAST FILLED 08-23-2019 #30/30 DAY SUPPLY Furosemide 40 Mg Tablet, 40 MG PO DAILY, (Reported) Metoprolol Tartrate 50 Mg Tablet, 50 MG PO BID, (Reported) LAST FILLED 08-23-2019 #60/30 DAY SUPPLY Sacubitril/Valsartan 1 Each Tablet, 1 TAB PO BID, (Reported) LAST FILLED 08-23-2019 #60/30 DAY SUPPLY Patient Home Medication List Home Medication List Reviewed: Yes Physical Exam-Cardiology Physical Exam Vital Signs/I&O 11/03/19 11/03/19 11/03/19 11/03/19 06:37 07:00 08:00 08:00 Temp 37.2 Pulse Ox 88 96 O2 Delivery Nasal Cannula Nasal Cannula Nasal Cannula O2 Flow Rate 2.00 2.00 2.00 11/03/19 11/03/19 11/03/19 11/03/19 08:00 08:00 09:00 10:00 Temp 36.3 B/P (MAP) 129/99 (109) Pulse Ox 96 95 94 O2 Delivery Nasal Cannula Nasal Cannula Nasal Cannula O2 Flow Rate 2.00 2.00 2.00 11/03/19 11/03/19 11/03/19 11/03/19 11:00 12:00 12:00 12:00 Temp 36.9 B/P (MAP) 150/114 (126) Pulse Ox 96 97 O2 Delivery Nasal Cannula Nasal Cannula Nasal Cannula O2 Flow Rate 2.00 2.00 2.00 11/03/19 11/03/19 11/03/19 11/03/19 13:00 14:00 15:00 16:00 Pulse 76 81 Pulse Ox 97 96 91 91 O2 Delivery Nasal Cannula Nasal Cannula Nasal Cannula Nasal Cannula O2 Flow Rate 2.00 2.00 2.00 2.00 11/03/19 11/03/19 11/03/19 16:00 16:00 17:00 Temp 36.8 Pulse 115 B/P (MAP) 139/114 (122) Pulse Ox 95 O2 Delivery Nasal Cannula Nasal Cannula O2 Flow Rate 2.00 2.00 11/03/19 00:00 Intake Total 1625 ml Output Total 865 ml Balance 760 ml Capillary Refill : Less Than 3 Seconds Constitutional: appears stated age; No apparent distress; well-developed, well- nourished HEENT: PERRL; No discharge; hearing is well preserved, oral hygience is good; No ulceration, No xanthelasmas are seen Neck: No carotid bruit; carotid pulses are 2 + bilaterally Respiratory: chest is bilaterally symmetric, lungs clear to auscultation Cardiovascular: irregularly irregular, tachycardia, S1 and S2 Gastrointestinal: distended, audible bowel sounds; No spleenomegaly Rectal: deferred Extremities: normal range of motion, non-tender, normal inspection, pedal edema; No clubbing, No cyanosis, No significant edema Neurologic/Psychiatric: no motor/sensory deficits, alert, normal mood/affect, oriented x 3, power is 5/5 both on sides Skin: No rash, No ulcerations Data Review Labs Laboratory Tests 11/03/19 03:14: White Blood Count 11.5H, Red Blood Count 4.97, Hemoglobin 13.4, Hematocrit 44, Mean Corpuscular Volume 88, Mean Corpuscular Hemoglobin 27, Mean Corpuscular Hemoglobin Concent 31L, Red Cell Distribution Width 16.3H, Platelet Count 313, Mean Platelet Volume 9.4, Neutrophils (%) (Auto) 74, Lymphocytes (%) (Auto) 15, Monocytes (%) (Auto) 7, Eosinophils (%) (Auto) 3, Basophils (%) (Auto) 0, Neutrophils # (Auto) 8.5H, Lymphocytes # (Auto) 1.8, Monocytes # (Auto) 0.8, Eosinophils # (Auto) 0.4H, Basophils # (Auto) 0.1, Sodium Level 135, Potassium Level 4.1, Chloride Level 102, Carbon Dioxide Level 22, Anion Gap 11, Blood Urea Nitrogen 17, Creatinine 1.10, Estimat Glomerular Filtration Rate > 60, BUN/Creatinine Ratio 15, Glucose Level 109H, Calcium Level 8.9, Corrected Calcium 9.1, Phosphorus Level 3.9, Magnesium Level 1.8, Total Bilirubin 0.9, Aspartate Amino Transf (AST/SGOT) 22, Alanine Aminotransferase (ALT/SGPT) 18, Alkaline Phosphatase 104, Total Protein 7.0, Albumin 3.7, Triglycerides Level 112, Cholesterol Level 198, LDL Cholesterol Direct 158H, VLDL Cholesterol 22, HDL Cholesterol 40 Microbiology 11/02/19 MRSA Screen - Final, Complete MRSA not isolated ECG Impression ECG Initial ECG Impression: Atrial Fibrillation w/RVR A/P-Cardiology Assessment/Admission Diagnosis Atrial fibrillation with rapid ventricular rate, Nonischemic Cardiomyopathy, Morbid obesity Plan IV amiodarone infusion, Cardizem infusion, continue oral anticoagulation. Cardiomyopathy continue outpatient medical therapy; patient was previously given a LifeVest but he stopped wearing it because it was inconvenient for him. Morbid obesity. Thank you for your consultation. Please call me if you have any questions. Sidney Collins MD, FACP, FACC, FSCAI, FHRS, CCDS Interventional Cardiology Cardiac Electrophysiology Vascular Medicine and Endovascular Interventions Clinical Quality Measures AMI/AHF: ASA po Prior to arrival: No DVT/VTE Risk/Contraindication: Risk Factor Score Per Nursin RFS Level Per Nursing on Admit: 4+=Very High Case COLLINS MD Nov 02, 2019 14:50
[2019-11-02] MEDS: AMIODARONE INJECTION 450 MG in D5W IV SOLUTION (EXCEL) 250 ML IV SCH ×2 (16:56→21:00)
[2019-11-02] MEDS: APIXABAN 5 MG (ELIQUIS) TABLET PO SCH (21:25)
[2019-11-03] VITALS (7 sets, daily range): BP systolic 99–150; BP diastolic 85–117
[2019-11-03] MEDS: dilTIAZem DRIP 125 MG/125 ML DRIP IV SCH ×2 (01:23→11:00)
--- NOTE | 2019-11-03 03:12 | NUR ---
Pt agitated, does not want to wear blood pressure cuff, pt instructed on reasons to keep cuff on, therapeutic communication attempted, pt continues to refuse, only allowing intermittent blood pressure readings.
[2019-11-03 03:21] LABS: BASOPHILS # (AUTO) 0.1 10^3/uL (0.0-0.1); BASOPHILS % (AUTO) 0 % (0-10); EOSINOPHILS # (AUTO) 0.4 10^3/uL (0.0-0.3); EOSINOPHILS % (AUTO) 3 % (0-10); HEMATOCRIT 44 % (40-54); HEMOGLOBIN 13.4 G/DL (13.3-17.7); LYMPHOCYTES # (AUTO) 1.8 X 10^3 (1.0-4.0); LYMPHOCYTES % (AUTO) 15 % (12-44); MEAN CORPUSCULAR HEMOGLOBIN 27 PG (25-34); MEAN CORPUSCULAR HGB CONC 31 G/DL (32-36); MEAN CORPUSCULAR VOLUME 88 FL (80-99); MEAN PLATELET VOLUME 9.4 FL (7.4-10.4); MONOCYTES # (AUTO) 0.8 X 10^3 (0.0-1.0); MONOCYTES % (AUTO) 7 % (0-12); NEUTROPHILS # (AUTO) 8.5 X 10^3 (1.8-7.8); NEUTROPHILS % (AUTO) 74 % (42-75); PLATELET COUNT 313 10^3/uL (130-400); RED CELL DISTRIBUTION WIDTH 16.3 % (10.0-14.5); WHITE BLOOD COUNT 11.5 10^3/uL (4.3-11.0)
[2019-11-03 03:43] LABS: ALANINE AMINOTRANSFERASE 18 U/L (0-55); ALBUMIN 3.7 GM/DL (3.2-4.5); ALKALINE PHOSPHATASE 104 U/L (40-136); BILIRUBIN,TOTAL 0.9 MG/DL (0.1-1.0); BUN/CREATININE RATIO 15; CALCIUM 8.9 MG/DL (8.5-10.1); CARBON DIOXIDE 22 MMOL/L (21-32); CHLORIDE 102 MMOL/L (98-107); CHOLESTEROL 198 MG/DL (< 200); GFR ESTIMATED > 60; GLUCOSE 109 MG/DL (70-105); HDL CHOLESTEROL 40 MG/DL (40-60); MAGNESIUM 1.8 MG/DL (1.6-2.4); PHOSPHORUS 3.9 MG/DL (2.3-4.7); POTASSIUM 4.1 MMOL/L (3.6-5.0); SODIUM 135 MMOL/L (135-145); TRIGLYCERIDES 112 MG/DL (<150); VLDL CHOLESTEROL 22 MG/DL (5-40)
--- NOTE | 2019-11-03 07:56 | Diagnostic Imaging Report ---
EXAM: CHEST 1 VIEW, AP/PA ONLY INDICATION: Atrial fibrillation. Congestive heart failure. COMPARISON: 11/02/2019. FINDINGS: Cardiomegaly. Increasing interstitial and airspace opacities diffusely throughout both lungs. No definite pleural effusion or pneumothorax. No acute osseous findings. IMPRESSION: Cardiomegaly with increasing opacities suspicious for interstitial and airspace edema. Dictated by: Dictated on workstation # [id number]
[2019-11-03] MEDS: APIXABAN 5 MG (ELIQUIS) TABLET PO SCH ×2 (08:10→20:21)
--- NOTE | 2019-11-03 10:01 | Progress Note - Hospitalist ---
Subjective HPI/CC On Admission Date Seen by Provider: Nov 03, 2019 Time Seen by Provider: 10:00 CC: AF w/RVR HPI: This is a 44yoWM morbidly obese patient known to me from prior hospital stays for AF w/RVR who presents to the ER with palpitations and required Cardizem drip and ICU admit. Patient has a long hx of meth use and reports he hasn't used in the past 2 weeks. Patient denies pain at this current time. He continues to smoke and his PCP is in [place]. Subjective/Events-last exam No major issues overnight No pain IV Cardizem and Amiodarone maintained Restarted home meds Lasix IV given for fluid overload to help his subjective dyspnea Review of Systems Pulmonary: Dyspnea Objective Exam Vital Signs Vital Signs Date Time Temp Pulse Resp B/P (MAP) Pulse Ox O2 Delivery O2 Flow Rate FiO2 11/03/19 14:00 96 Nasal Cannula 2.00 11/03/19 12:00 150/114 (126) 11/03/19 12:00 36.9 11/03/19 03:00 83 20 Capillary Refill : Less Than 3 Seconds General Appearance: No Apparent Distress, WD/WN, Chronically ill, Obese Respiratory: Lungs Clear, Decreased Breath Sounds Cardiovascular: Irregularly Irregular, Tachycardia Results/Procedures Lab Laboratory Tests 11/03/19 03:14 Patient resulted labs reviewed. Assessment/Plan Assessment and Plan Assess & Plan/Chief Complaint Assessment: AF w/RVR recurrent in type h/o meth use Smoker Morbid obesity HTN OHS Plan: IV Cardizem IV Amiodarone Meth use discouraged Diagnosis/Problems Diagnosis/Problems (1) Atrial fibrillation with rapid ventricular response Status: Acute (2) Systolic CHF Status: Chronic (3) Methamphetamine abuse (4) Morbid obesity Status: Chronic (5) Atrial fibrillation Status: Chronic (6) ZULLY (obstructive sleep apnea) Status: Chronic (7) Noncompliance (8) Obesity hypoventilation syndrome Clinical Quality Measures AMI/AHF: ASA po Prior to arrival: No DVT/VTE Risk/Contraindication: Risk Factor Score Per Nursin RFS Level Per Nursing on Admit: 4+=Very High KARIN SAUNDERS DO Nov 03, 2019 10:00
[2019-11-03] MEDS ORDERED: FUROSEMIDE 40 MG/4 ML INJ (LASIX) IVP ONE (10:15)
[2019-11-03] MEDS: dilTIAZem120 MG (CARDIZEM CD) CAP PO SCH (13:49)
[2019-11-03] MEDS: AMIODARONE 200 MG (CORDARONE) TAB PO SCH ×2 (13:49→20:21)
--- NOTE | 2019-11-03 17:51 | Cardiology Progress Note ---
Cardiology SOAP Progress Note Subjective: Patient feels better today. Objective: I&O/Vital Signs 11/03/19 11/03/19 11/03/19 11/03/19 06:37 07:00 08:00 08:00 Temp 37.2 Pulse Ox 88 96 O2 Delivery Nasal Cannula Nasal Cannula Nasal Cannula O2 Flow Rate 2.00 2.00 2.00 11/03/19 11/03/19 11/03/19 11/03/19 08:00 08:00 09:00 10:00 Temp 36.3 B/P (MAP) 129/99 (109) Pulse Ox 96 95 94 O2 Delivery Nasal Cannula Nasal Cannula Nasal Cannula O2 Flow Rate 2.00 2.00 2.00 11/03/19 11/03/19 11/03/19 11/03/19 11:00 12:00 12:00 12:00 Temp 36.9 B/P (MAP) 150/114 (126) Pulse Ox 96 97 O2 Delivery Nasal Cannula Nasal Cannula Nasal Cannula O2 Flow Rate 2.00 2.00 2.00 11/03/19 11/03/19 11/03/19 11/03/19 13:00 14:00 15:00 16:00 Pulse 76 81 Pulse Ox 97 96 91 91 O2 Delivery Nasal Cannula Nasal Cannula Nasal Cannula Nasal Cannula O2 Flow Rate 2.00 2.00 2.00 2.00 11/03/19 11/03/19 11/03/19 16:00 16:00 17:00 Temp 36.8 Pulse 115 B/P (MAP) 139/114 (122) Pulse Ox 95 O2 Delivery Nasal Cannula Nasal Cannula O2 Flow Rate 2.00 2.00 11/03/19 00:00 Intake Total 1625 ml Output Total 865 ml Balance 760 ml Constitutional: appears stated age; No apparent distress; well-developed, well- nourished Respiratory: chest is bilaterally symmetric, lungs clear to auscultation Cardiovascular: irregularly irregular, tachycardia, S1 and S2 Gastrointestional: distended, audible bowel sounds; No spleenomegaly Extremities: normal range of motion, non-tender, normal inspection, pedal edema; No clubbing, No cyanosis, No significant edema Neurologic/Psychiatric: no motor/sensory deficits, alert, normal mood/affect, oriented x 3, power is 5/5 both on sides Skin: No rash, No ulcerations Results/Procedures: Labs Laboratory Tests 11/03/19 03:14: White Blood Count 11.5H, Red Blood Count 4.97, Hemoglobin 13.4, Hematocrit 44, Mean Corpuscular Volume 88, Mean Corpuscular Hemoglobin 27, Mean Corpuscular Hemoglobin Concent 31L, Red Cell Distribution Width 16.3H, Platelet Count 313, Mean Platelet Volume 9.4, Neutrophils (%) (Auto) 74, Lymphocytes (%) (Auto) 15, Monocytes (%) (Auto) 7, Eosinophils (%) (Auto) 3, Basophils (%) (Auto) 0, Neutrophils # (Auto) 8.5H, Lymphocytes # (Auto) 1.8, Monocytes # (Auto) 0.8, Eosinophils # (Auto) 0.4H, Basophils # (Auto) 0.1, Sodium Level 135, Potassium Level 4.1, Chloride Level 102, Carbon Dioxide Level 22, Anion Gap 11, Blood Urea Nitrogen 17, Creatinine 1.10, Estimat Glomerular Filtration Rate > 60, BUN/Creatinine Ratio 15, Glucose Level 109H, Calcium Level 8.9, Corrected Calcium 9.1, Phosphorus Level 3.9, Magnesium Level 1.8, Total Bilirubin 0.9, Aspartate Amino Transf (AST/SGOT) 22, Alanine Aminotransferase (ALT/SGPT) 18, Alkaline Phosphatase 104, Total Protein 7.0, Albumin 3.7, Triglycerides Level 1 12, Cholesterol Level 198, LDL Cholesterol Direct 158H, VLDL Cholesterol 22, HDL Cholesterol 40 Microbiology 11/02/19 MRSA Screen - Final, Complete MRSA not isolated A/P: Assessment/Dx: Atrial fibrillation with rapid ventricular rate, Nonischemic Cardiomyopathy, Morbid obesity Plan: When IV amiodarone infusion completes, change to amiodarone. Start by mouth Cardizem 120 mg and gradually taper off Cardizem infusion. Continue oral anticoagulation. Cardiomyopathy continue outpatient medical therapy; patient was previously given a LifeVest but he stopped wearing it because it was inconvenient for him. Morbid obesity. Thank you for your consultation. Please call me if you have any questions. Sidney Collins MD, FACP, FACC, FSCAI, FHRS, CCDS Interventional Cardiology Cardiac Electrophysiology Vascular Medicine and Endovascular Interventions Clinical Quality Measures AMI/AHF: ASA po Prior to arrival: Case Ibarra MD Nov 03, 2019 17:51
[2019-11-03] MEDS ORDERED: meTOprolol TARTRATE 50 MG (LOPRESSOR) TAB PO ONE (19:00)
[2019-11-03] MEDS ORDERED: meTOprolol TARTRATE 50 MG (LOPRESSOR) TAB ONE (19:04)
[2019-11-03] MEDS: SACUBITRIL/VALSARTAN 24/26 MG (ENTRESTO) TABLET PO SCH (20:21)
[2019-11-03] MEDS: meTOprolol TARTRATE 50 MG (LOPRESSOR) TAB PO SCH (20:21)
[2019-11-03] MEDS ORDERED: ACETAMINOPHEN 500 MG TAB (TYLENOL) PO PRN (21:00)
[2019-11-03] MEDS ORDERED: diphenhydrAMINE 25 MG TAB (BENADRYL) PO SCH (21:00)
[2019-11-03] MEDS ORDERED: diphenhydrAMINE 25 MG TAB (BENADRYL) PO PRN (21:00)
[2019-11-04 03:55] LABS: BASOPHILS % (AUTO) 0 % (0-10); EOSINOPHILS # (AUTO) 0.3 10^3/uL (0.0-0.3); EOSINOPHILS % (AUTO) 3 % (0-10); HEMATOCRIT 40 % (40-54); HEMOGLOBIN 12.5 G/DL (13.3-17.7); LYMPHOCYTES # (AUTO) 2.3 X 10^3 (1.0-4.0); LYMPHOCYTES % (AUTO) 23 % (12-44); MEAN CORPUSCULAR HGB CONC 31 G/DL (32-36); MEAN CORPUSCULAR VOLUME 88 FL (80-99); MEAN PLATELET VOLUME 9.6 FL (7.4-10.4); MONOCYTES % (AUTO) 10 % (0-12); NEUTROPHILS # (AUTO) 6.4 X 10^3 (1.8-7.8); NEUTROPHILS % (AUTO) 64 % (42-75); PLATELET COUNT 343 10^3/uL (130-400); RED CELL DISTRIBUTION WIDTH 16.3 % (10.0-14.5); WHITE BLOOD COUNT 10.1 10^3/uL (4.3-11.0)
[2019-11-04 04:00] VITALS: BP 98/78
[2019-11-04 04:28] LABS: MEAN CORPUSCULAR HEMOGLOBIN 27 PG (25-34)
[2019-11-04 04:41] LABS: ALANINE AMINOTRANSFERASE 13 U/L (0-55); ALBUMIN 3.6 GM/DL (3.2-4.5); ALKALINE PHOSPHATASE 103 U/L (40-136); BUN/CREATININE RATIO 18; CALCIUM 8.9 MG/DL (8.5-10.1); CARBON DIOXIDE 20 MMOL/L (21-32); CHLORIDE 103 MMOL/L (98-107); CREATININE SERUM 1.11 MG/DL (0.60-1.30); GFR ESTIMATED > 60; GLUCOSE 117 MG/DL (70-105); PHOSPHORUS 3.1 MG/DL (2.3-4.7); POTASSIUM 4.1 MMOL/L (3.6-5.0); SODIUM 135 MMOL/L (135-145)
[2019-11-04 06:30] VITALS: BP 120/107
[2019-11-04 07:00] VITALS: BP 130/108
[2019-11-04 08:00] VITALS: BP 130/108
[2019-11-04] MEDS ORDERED: KCL 20 MEQ TAB (K-DUR) PO SCH (09:00)
[2019-11-04] MEDS ORDERED: FUROSEMIDE 40 MG (LASIX) TAB PO SCH (09:00)
[2019-11-04] MEDS: AMIODARONE 200 MG (CORDARONE) TAB PO SCH (09:06)
[2019-11-04] MEDS: SACUBITRIL/VALSARTAN 24/26 MG (ENTRESTO) TABLET PO SCH (09:06)
[2019-11-04] MEDS: meTOprolol TARTRATE 50 MG (LOPRESSOR) TAB PO SCH (09:06)
[2019-11-04] MEDS: dilTIAZem120 MG (CARDIZEM CD) CAP PO SCH (09:06)
[2019-11-04] MEDS: APIXABAN 5 MG (ELIQUIS) TABLET PO SCH (09:07)
--- NOTE | 2019-11-04 09:50 | NUR ---
PT CONTINUES TO REMOVE BP CUFF AND SPO2 SENSOR. EDUCATED PT ON REASON FOR CONTINUOUS MONITORING. PT REFUSES TO LEAVE BP CUFF AND SPO2 SENSOR ON.
[2019-11-04 11:44] VITALS: BP 140/93
[2019-11-04 12:00] VITALS: BP 140/93
[2019-11-04] MEDS: dilTIAZem DRIP 125 MG/125 ML DRIP IV SCH (13:32)
[2019-11-04] MEDS ORDERED: DILT120C85 PO (13:52)
[2019-11-04] MEDS ORDERED: AMIO200T4 PO (13:52)
[2019-11-04] MEDS ORDERED: SACU1TAB2 PO (13:52)
[2019-11-04] MEDS ORDERED: METO50TA15 PO (13:52)
--- NOTE | 2019-11-04 15:15 | Cardiology Progress Note ---
Cardiology SOAP Progress Note Subjective: Significantly improved. Objective: I&O/Vital Signs 11/04/19 11/04/19 11/04/19 11/04/19 04:00 04:00 04:00 06:30 Temp 36.4 Pulse 69 72 B/P (MAP) 98/78 (85) 120/107 (111) Pulse Ox 95 O2 Delivery Room Air Room Air Nasal Cannula Room Air O2 Flow Rate 2.00 11/04/19 11/04/19 11/04/19 11/04/19 07:00 07:00 08:00 08:00 Temp 35.8 Pulse 69 69 78 Resp 17 B/P (MAP) 130/108 (115) 130/108 (115) Pulse Ox 93 O2 Delivery Room Air Room Air Room Air 11/04/19 11/04/19 11/04/19 11/04/19 11:44 11:45 12:00 13:00 Temp 36.3 Pulse 77 73 Resp 18 B/P (MAP) 140/93 (109) 140/93 (109) Pulse Ox 94 O2 Delivery Room Air Room Air Room Air 11/04/19 00:00 Intake Total 1880 ml Output Total 900 ml Balance 980 ml Constitutional: appears stated age; No apparent distress; well-developed, well- nourished Respiratory: chest is bilaterally symmetric, lungs clear to auscultation Cardiovascular: irregularly irregular, tachycardia, S1 and S2 Gastrointestional: distended, audible bowel sounds; No spleenomegaly Extremities: normal range of motion, non-tender, normal inspection, pedal edema; No clubbing, No cyanosis, No significant edema Neurologic/Psychiatric: no motor/sensory deficits, alert, normal mood/affect, oriented x 3, power is 5/5 both on sides Skin: No rash, No ulcerations Results/Procedures: Labs Laboratory Tests 11/04/19 03:32: White Blood Count 10.1, Red Blood Count 4.55, Hemoglobin 12.5L, Hematocrit 40, Mean Corpuscular Volume 88, Mean Corpuscular Hemoglobin 27, Mean Corpuscular Hemoglobin Concent 31L, Red Cell Distribution Width 16.3H, Platelet Count 343, Mean Platelet Volume 9.6, Neutrophils (%) (Auto) 64, Lymphocytes (%) (Auto) 23, Monocytes (%) (Auto) 10, Eosinophils (%) (Auto) 3, Basophils (%) (Auto) 0, Neutrophils # (Auto) 6.4, Lymphocytes # (Auto) 2.3, Monocytes # (Auto) 1.0, Eosinophils # (Auto) 0.3, Basophils # (Auto) 0.0, Sodium Level 135, Potassium Level 4.1, Chloride Level 103, Carbon Dioxide Level 20L, Anion Gap 12, Blood Urea Nitrogen 20H, Creatinine 1.11, Estimat Glomerular Filtration Rate > 60, BUN/Creatinine Ratio 18, Glucose Level 117H, Calcium Level 8.9, Corrected Calcium 9.2, Phosphorus Level 3.1, Magnesium Level 2.0, Total Bilirubin 1.0, Asp artate Amino Transf (AST/SGOT) 19, Alanine Aminotransferase (ALT/SGPT) 13, Alkaline Phosphatase 103, Total Protein 7.0, Albumin 3.6 Microbiology 11/02/19 MRSA Screen - Final, Complete MRSA not isolated A/P: Assessment/Dx: Atrial fibrillation with rapid ventricular rate, Nonischemic Cardiomyopathy, Morbid obesity Plan: Atrial fibrillation is much well controlled with heart rate in the 60s. On by mouth amiodarone and Cardizem. Continue oral anticoagulation. Cardiomyopathy continue outpatient medical therapy; patient was previously given a LifeVest but he stopped wearing it because it was inconvenient for him. Morbid obesity. Follow-up with Dr. Law. Thank you for your consultation. Please call me if you have any questions. Sidney Collins MD, FACP, FACC, FSCAI, FHRS, CCDS Interventional Cardiology Cardiac Electrophysiology Vascular Medicine and Endovascular Interventions Clinical Quality Measures AMI/AHF: ASA po Prior to arrival: Case Ibarra MD Nov 04, 2019 15:15
--- NOTE | 2019-11-04 21:57 | Discharge Summary ---
Discharge Summary Hospital Course Was the Problem List Reviewed?: Yes Problems/Dx: (1) Atrial fibrillation with rapid ventricular response Status: Acute (2) Systolic CHF Status: Chronic (3) Methamphetamine abuse (4) Morbid obesity Status: Chronic (5) Atrial fibrillation Status: Chronic (6) ZULLY (obstructive sleep apnea) Status: Chronic (7) Noncompliance (8) Obesity hypoventilation syndrome Hospital Course Date of Admission: Nov 02, 2019 at 10:58 Admission Diagnosis : Family Physician/Provider: Ashely Gordon Date of Discharge: 11/04/19 Discharge Diagnosis: AF w/RVR, meth use, noncompliance, obesity Hospital Course: Short course after admitted for AF w/rvr. Amio and Cardizem IV maintained and gained good control and was dc home. Labs and Pending Lab Test: Laboratory Tests 11/04/19 03:32: White Blood Count 10.1, Red Blood Count 4.55, Hemoglobin 12.5L, Hematocrit 40, Mean Corpuscular Volume 88, Mean Corpuscular Hemoglobin 27, Mean Corpuscular Hemoglobin Concent 31L, Red Cell Distribution Width 16.3H, Platelet Count 343, Mean Platelet Volume 9.6, Neutrophils (%) (Auto) 64, Lymphocytes (%) (Auto) 23, Monocytes (%) (Auto) 10, Eosinophils (%) (Auto) 3, Basophils (%) (Auto) 0, Neutrophils # (Auto) 6.4, Lymphocytes # (Auto) 2.3, Monocytes # (Auto) 1.0, Eosinophils # (Auto) 0.3, Basophils # (Auto) 0.0, Sodium Level 135, Potassium Level 4.1, Chloride Level 103, Carbon Dioxide Level 20L, Anion Gap 12, Blood Urea Nitrogen 20H, Creatinine 1.11, Estimat Glomerular Filtration Rate > 60, BUN/Creatinine Ratio 18, Glucose Level 117H, Calcium Level 8.9, Corrected Calcium 9.2, Phosphorus Level 3.1, Magnesium Level 2.0, Total Bilirubin 1.0, Aspartate Amino Transf (AST/SGOT) 19, Alanine Aminotransferase (ALT/SGPT) 13, Alkaline Phosphatase 103, Total Protein 7.0, Albumin 3.6 Microbiology 11/02/19 MRSA Screen - Final, Complete MRSA not isolated Home Meds Active Amiodarone HCl 200 Mg Tablet 200 Mg PO BID Entresto 24 mg-26 mg Tablet (Sacubitril/Valsartan) 1 Each Tablet 1 Tab PO BID LAST FILLED 08-23-2019 #60/30 DAY SUPPLY Diltiazem ER (Diltiazem HCl) 120 Mg Capsule.er 120 Mg PO DAILY LAST FILLED 08-23-2019 #30/30 DAY SUPPLY Metoprolol Tartrate 50 Mg Tablet 50 Mg PO BID LAST FILLED 08-23-2019 #60/30 DAY SUPPLY Reported Potassium Chloride 20 Meq Tab.er.prt 20 Meq PO Lasix (Furosemide) 40 Mg Tablet 40 Mg PO DAILY Tylenol Pm Ex-Strength Caplet (Acetaminophen/Diphenhydramine) 1 Each Tablet 3 Tab PO HS PRN Eliquis (Apixaban) 5 Mg Tablet 5 Mg PO BID LAST FILLED 08-22-2019 #60/30 DAY SUPPLY Assessment/Pt Instructions [facility] Dr Gonzalez 1 week Discharge Planning: <30 minutes discharge planning Discharge Instructions Discharge Diet: Cardiac Diet Discharge Physical Examination Vital Signs Vital Signs Date Time Temp Pulse Resp B/P (MAP) Pulse Ox O2 Delivery O2 Flow Rate FiO2 11/04/19 13:00 73 11/04/19 12:00 140/93 (109) Room Air 11/04/19 11:44 36.3 18 94 11/04/19 04:00 2.00 General Appearance: No Apparent Distress, WD/WN Respiratory: Lungs Clear Cardiovascular: Regular Rate, Rhythm Neurologic/Psychiatric: Alert, Oriented x3, No Motor/Sensory Deficits, Normal Mood/Affect Allergies: Coded Allergies: No Known Drug Allergies (Unverified , 09/26/19) Discharge Summary Date of Admission Nov 02, 2019 at 10:58 Date of Discharge Nov 04, 2019 at 14:24 Discharge Date: Nov 04, 2019 Admission Diagnosis Assessment: AF w/RVR recurrent in type h/o meth use Smoker Morbid obesity HTN OHS Plan: IV Cardizem Meth use discouraged Discharge Diagnosis Assessment: AF w/RVR recurrent in type h/o meth use Smoker Morbid obesity HTN OHS Plan: IV Cardizem IV Amiodarone Meth use discouraged (1) Atrial fibrillation with rapid ventricular response Status: Acute (2) Systolic CHF Status: Chronic (3) Methamphetamine abuse (4) Morbid obesity Status: Chronic (5) Atrial fibrillation Status: Chronic (6) ZULLY (obstructive sleep apnea) Status: Chronic (7) Noncompliance (8) Obesity hypoventilation syndrome Clinical Quality Measures AMI/AHF: ASA po Prior to arrival: No DVT/VTE Risk/Contraindication: Risk Factor Score Per Nursin RFS Level Per Nursing on Admit: 4+=Very High KARIN SAUNDERS DO Nov 04, 2019 21:57
--- NOTE | 2019-11-05 12:17 | Physician Query Clarification ---
PQ-Further Specificity Admission/Discharge Admission Date: Nov 02, 2019 at 10:58 Discharge Date: Nov 04, 2019 at 14:24 The medical record reflects the following clinical scenario: History/Risk Factors: Atrial fibrillation, HTN, chronic systolic CHF, LAFB, OHS, cardiomyopathy, meth abuse Clinical Findings: BNP 251.7, fluid overload Treatment: 20 mg IV Lasix Question: Can you further specify fluid overload per the clinical indicators above? Please document a response in the Progress Notes or Discharge Summary. 1. fluid overload meaning acute on chronic systolic CHF 2. fluid overload only not associated with systolic CHF 3. Other, with explanation of the clinical findings. 4. Clinically undetermined, no explanation for the clinical findings. PHYSICIAN RESPONSE Can you specify per above: 1 Please remember a lack of response to the above will prompt a phone page by CDI/Coding staff. In responding to this query, please exercise your independent professional judgment. The purpose of this communication is to more accurately reflect the complexity of your patients condition. The fact that a question is asked does not imply that any particular answer is desired or expected. Thank you for your timely response to this clarification. Requestors name: Carolyn THIS PHYSICIAN QUERY FORM IS A PERMANENT PART OF THE MEDICAL RECORD CAROLYN WHITING Nov 05, 2019 12:17 KARIN SAUNDERS DO Nov 05, 2019 21:20
== END 2019-11-04 14:24 | disposition home or self-care (01) | DRG 308 ==
LOC: EDUNIT# 08:20 → ER 08:22 → ICU 10:58
PROVIDERS: ADMIT Internal Medicine; ATTEND Internal Medicine
DX: I48.91 Unspecified atrial fibrillation (principal); I11.0 Hypertensive heart disease with heart failure; I50.23 Acute on chronic systolic (congestive) heart failure; I44.4 Left anterior fascicular block; E66.2 Morbid (severe) obesity with alveolar hypoventilation; Z68.43 Body mass index [BMI] 50.0-59.9, adult; E87.70 Fluid overload, unspecified; I42.9 Cardiomyopathy, unspecified; I87.8 Other specified disorders of veins; Z91.19 Patient's noncompliance with other medical treatment and regimen; F15.10 Other stimulant abuse, uncomplicated; F17.290 Nicotine dependence, other tobacco product, uncomplicated
CPT/HCPCS: 36415; 71045; 80053; 80061; 83735; 83874; 83880; 84100; 84484; 85025; 85610; 85730; 87081; 93041; 96365; 96366

== ENCOUNTER 2020-01-21 11:43 | Emergency (ER) | payer MEDICAID ==
[~2020-01-21 11:43] MED LIST changes: +POTA20TA15 PO
[2020-01-21] MEDS ORDERED: TRANEXAMIC ACID 100 MG/ML 10 ML INJECTION IV ONE (11:45)
[2020-01-21] MEDS ORDERED: DILT240C91 (11:55)
[2020-01-21] MEDS ORDERED: AMIO200T4 (11:55)
[2020-01-21] MEDS ORDERED: DILT240C86 (11:55)
[2020-01-21] MEDS ORDERED: FERR325T18 (11:55)
[2020-01-21] MEDS ORDERED: CARV6.252 (11:55)
[2020-01-21] MEDS ORDERED: ELIQUIS (11:55)
--- NOTE | 2020-01-21 11:59 | ED Integumentary General ---
General Chief Complaint: Skin/Wound Problems Stated Complaint: FALL; LT LEG LAC Source: patient, EMS Exam Limitations: no limitations History of Present Illness Date Seen by Provider: Jan 21, 2020 Time Seen by Provider: 11:54 Initial Comments 44 y/o male presents via EMS due to bleeding from R leg this morning. States he bled through 3 towels before he called. EMS has applied a pressure dressing which is soaking through on arrival. Pt denies injury or trauma. Denies previous occurrence of similar bleeding. He does take Eliquis. Feeling light headed on arrival. Denies CP or SOA. Admits to smoking weed and Meth. Timing/Duration: this morning Allergies and Home Medications Allergies Coded Allergies: No Known Drug Allergies (Unverified , 09/26/19) Home Medications Acetaminophen/Diphenhydramine 1 Each Tablet, 3 TAB PO HS PRN for SLEEP, (Reported) Amiodarone HCl 200 Mg Tablet, 200 MG PO BID Prescribed by: MERLIN SELLERS on 11/04/19 135 Apixaban 5 Mg Tablet, 5 MG PO BID, (Reported) LAST FILLED 08-22-2019 #60/30 DAY SUPPLY Diltiazem HCl 120 Mg Capsule.er, 120 MG PO DAILY LAST FILLED 08-23-2019 #30/30 DAY SUPPLY Prescribed by: MERLIN SELLERS on 11/04/19 135 Furosemide 40 Mg Tablet, 40 MG PO DAILY, (Reported) Metoprolol Tartrate 50 Mg Tablet, 50 MG PO BID LAST FILLED 08-23-2019 #60/30 DAY SUPPLY Prescribed by: MERLIN SELLERS on 11/04/19 135 Sacubitril/Valsartan 1 Each Tablet, 1 TAB PO BID LAST FILLED 08-23-2019 #60/30 DAY SUPPLY Prescribed by: MERLIN SELLERS on 11/04/19 1352 Patient Home Medication List Home Medication List Reviewed: Yes Review of Systems Review of Systems Constitutional: dizziness; No fever, No malaise; weakness Cardiovascular: No edema, No palpitations, No syncope Gastrointestinal: No abdominal pain, No nausea, No vomiting Skin: No lesions, No lumps; other (bleeding from R leg ) Past Zwshose-Nxdrcb-Amxlsl Hx Past Med/Social Hx: Reviewed Nursing Past Med/Soc Hx Patient Social History Alcohol Beverage of Choice: Whiskey Drug of Choice: THC IV METH Type Used: Smokeless Tobacco 2nd Hand Smoke Exposure: No Recent Hopitalizations: No Immunizations Up To Date Date of Pneumonia Vaccine: Aug 18, 2017 Seasonal Allergies Seasonal Allergies: No Past Medical History Surgeries: Yes (RIGHT AARM SKIN GRAFT) Orthopedic Respiratory: Yes Pneumonia, Sleep Apnea Atrial Fibrillation, Chronic Edema/Swelling, Hypertension Neurological: No Genitourinary: No Gastrointestinal: No Musculoskeletal: No Endocrine: No HEENT: No Cancer: No Psychosocial: No Integumentary: No Blood Disorders: No Family Medical History Cancer, CAD Over 55 Years Old Physical Exam Vital Signs Vital Signs - First Documented 01/21/20 11:55 Temp 36.0 Pulse 60 Resp 16 B/P (MAP) 80/36 (51) Pulse Ox 95 Capillary Refill : General Appearance: WD/WN, no apparent distress Cardiovascular: regular rate, rhythm, no edema, no gallop, no JVD Respiratory: chest non-tender, lungs clear Gastrointestinal: non tender, soft Extremities: other (Chronic LE edema w chronic skin changes. (after removing pressure dressing applied by EMS).....large venous bleed from anterior tibia. ) Neurologic/Psychiatric: no motor/sensory deficits, alert Skin: normal color, warm/dry Progress/Results/Core Measures Results/Orders Lab Results Laboratory Tests Test 01/21/20 12:00 01/21/20 12:11 01/21/20 12:15 Range/Units Prothrombin Time 16.2 H 12.2-14.7 SEC INR Comment 1.3 0.8-1.4 White Blood Count 11.1 H 4.3-11.0 10^3/uL Red Blood Count 4.04 L 4.35-5.85 10^6/uL Hemoglobin 11.7 L 13.3-17.7 G/DL Hematocrit 38 L 40-54 % Mean Corpuscular Volume 93 80-99 FL Mean Corpuscular Hemoglobin 29 25-34 PG Mean Corpuscular Hemoglobin Concent 31 L 32-36 G/DL Red Cell Distribution Width 16.5 H 10.0-14.5 % Platelet Count 50 L 130-400 10^3/uL Mean Platelet Volume 9.9 7.4-10.4 FL Neutrophils (%) (Auto) 67 42-75 % Lymphocytes (%) (Auto) 22 12-44 % Monocytes (%) (Auto) 6 0-12 % Eosinophils (%) (Auto) 3 0-10 % Basophils (%) (Auto) 1 0-10 % Neutrophils # (Auto) 7.5 1.8-7.8 X 10^3 Lymphocytes # (Auto) 2.5 1.0-4.0 X 10^3 Monocytes # (Auto) 0.7 0.0-1.0 X 10^3 Eosinophils # (Auto) 0.3 0.0-0.3 10^3/uL Basophils # (Auto) 0.1 0.0-0.1 10^3/uL Sodium Level 139 135-145 MMOL/L Potassium Level 4.7 3.6-5.0 MMOL/L Chloride Level 100 98-107 MMOL/L Carbon Dioxide Level 21 21-32 MMOL/L Anion Gap 18 H 5-14 MMOL/L Blood Urea Nitrogen 34 H 7-18 MG/DL Creatinine 2.22 H 0.60-1.30 MG/DL Estimat Glomerular Filtration Rate 32 BUN/Creatinine Ratio 15 Glucose Level 132 H 70-105 MG/DL Calcium Level 9.1 8.5-10.1 MG/DL Corrected Calcium 10.1 8.5-10.1 MG/DL Total Bilirubin 0.6 0.1-1.0 MG/DL Aspartate Amino Transf (AST/SGOT) 29 5-34 U/L Alanine Aminotransferase (ALT/SGPT) 22 0-55 U/L Alkaline Phosphatase 98 40-136 U/L Total Protein 6.8 6.4-8.2 GM/DL Albumin 2.8 L 3.2-4.5 GM/DL My Orders Orders - ROVENSTINE,ONESIMO L DO Tranexamic Acid Injection (Cyklokapron I (01/21/20 11:45) Cbc With Automated Diff (01/21/20 12:00) Comprehensive Metabolic Panel (01/21/20 12:00) Urinalysis (01/21/20 12:00) Ed Iv/Invasive Line Start (01/21/20 12:00) Orthostatic Vital Signs (Adult (01/21/20 12:00) Protime With Inr (01/21/20 12:00) Lactated Ringers (Lr 1000 Ml Iv Solution (01/21/20 12:15) Ns Iv 1000 Ml (Sodium Chloride 0.9%) (01/21/20 12:05) Tranexamic Acid Injection (Cyklokapron I (01/21/20 12:15) Medications Given in ED Current Medications Medications Dose Ordered Sig/Natalie Route Start Time Stop Time Status Last Admin Dose Admin Sodium Chloride 1,000 ml @ ud STK-MED ONCE .ROUTE 01/21/20 12:05 01/21/20 12:08 DC 01/21/20 12:24 999 MLS/HR Tranexamic Acid 1,000 mg STK-MED ONCE IV 01/21/20 11:45 01/21/20 11:48 DC 01/21/20 12:25 1,000 MG Vital Signs/I&O 01/21/20 01/21/20 11:55 15:20 Temp 36.0 36.4 Pulse 60 64 Resp 16 16 B/P (MAP) 80/36 (51) 94/50 Pulse Ox 95 99 Progress Progress Note : Progress Note applied topical TXA to bleeding site and reapplied pressure dressing. Difficult IV access due to pt being an IVDA. Using ultrasound guidance I placed a 14g IV in left AC Departure Communication (Admissions) 1257- talked to Dr Herrera re pt HPI, presentation and labs. Accepts for admission to cardiac step down. 1340- [facility] calls to notify they have no beds avail. Asked Dr Herrera about going to [facility] him, she declines. 1345 Called Daija Alvarez for transfer, left message, call not returned. 1415 Called Toni Alvarez, Dr Gonzalez accepts for transfer Impression Primary Impression: Hypotension Qualified Codes: I95.9 - Hypotension, unspecified Additional Impressions: Bleeding from varicose veins of right lower extremity Dehydration Anticoagulant-induced bleeding Disposition: 02 XFER SHT-TRM HOSP Condition: Improved Admissions Decision to Admit Reason: Admit from ER (General) Time/Decision to Admit Time: 12:50 Transfer Transfer Progress Notes see above, no beds in [place] Departure-Patient Inst. Referrals: NO,LOCAL PHYSICIAN (PCP) Primary Care Physician SOURAV GRACIA (Family) Primary Care Physician ONESIMO HAMILTON DO Jan 21, 2020 11:59
[2020-01-21] MEDS ORDERED: NS IV 1000 ML 1,000 ML ONE (12:05)
[2020-01-21] MEDS ORDERED: TRANEXAMIC ACID INJECTION 1,000 MG in NS (IVPB) 100 ML IV ONE (12:15)
[2020-01-21] MEDS ORDERED: LACTATED RINGERS 1,000 ML IV SCH (12:15)
[2020-01-21 12:26] LABS: BASOPHILS # (AUTO) 0.1 10^3/uL (0.0-0.1); BASOPHILS % (AUTO) 1 % (0-10); EOSINOPHILS # (AUTO) 0.3 10^3/uL (0.0-0.3); EOSINOPHILS % (AUTO) 3 % (0-10); HEMATOCRIT 38 % (40-54); HEMOGLOBIN 11.7 G/DL (13.3-17.7); LYMPHOCYTES # (AUTO) 2.5 X 10^3 (1.0-4.0); LYMPHOCYTES % (AUTO) 22 % (12-44); MEAN CORPUSCULAR HEMOGLOBIN 29 PG (25-34); MEAN CORPUSCULAR HGB CONC 31 G/DL (32-36); MEAN CORPUSCULAR VOLUME 93 FL (80-99); MEAN PLATELET VOLUME 9.9 FL (7.4-10.4); MONOCYTES # (AUTO) 0.7 X 10^3 (0.0-1.0); MONOCYTES % (AUTO) 6 % (0-12); NEUTROPHILS # (AUTO) 7.5 X 10^3 (1.8-7.8); NEUTROPHILS % (AUTO) 67 % (42-75); PLATELET COUNT 50 10^3/uL (130-400); RED CELL DISTRIBUTION WIDTH 16.5 % (10.0-14.5); WHITE BLOOD COUNT 11.1 10^3/uL (4.3-11.0)
--- NOTE | 2020-01-21 12:30 | NUR ---
After multiple failed attempts, an IV is placed by Dr Marx using ultrasound guidance in the Left AC.
[2020-01-21 12:38] LABS: BILIRUBIN,TOTAL 0.6 MG/DL (0.1-1.0); CALCIUM 9.1 MG/DL (8.5-10.1); CREATININE SERUM 2.22 MG/DL (0.60-1.30); POTASSIUM 4.7 MMOL/L (3.6-5.0)
[2020-01-21 12:39] LABS: ALBUMIN 2.8 GM/DL (3.2-4.5); TOTAL PROTEIN 6.8 GM/DL (6.4-8.2)
[2020-01-21 12:50] LABS: INR 1.3 (0.8-1.4); PROTHROMBIN TIME PATIENT 16.2 SEC (12.2-14.7)
--- OUTSIDE RECORDS SUMMARY | 2020-01-21 14:15 | XMS REPORT | Continuity of Care Document ---
Author Organization Unknown Address Unknown Phone Unavailable Allergies Active Description Code Type Severity Reaction Onset Reported/Identified Relationship to Patient Clinical Status Yes No Known Drug Allergies [id number] Drug Allergy Unknown N/A 09/26/2019 Medications There is no data. Problems Date Dx Coded Attending Type Code Diagnosis Diagnosed By 08/20/2019 CHIP BOOGIE KARIN Ot E66.01 MORBID (SEVERE) OBESITY DUE TO EXCESS CA 08/20/2019 CHIP DO, KARIN Ot E78.00 PURE HYPERCHOLESTEROLEMIA, UNSPECIFIED 08/20/2019 CHIP DO KARIN Ot E87.1 HYPO-OSMOLALITY AND HYPONATREMIA 08/20/2019 CHIP BOOGIE KARIN Ot F15.90 OTHER STIMULANT USE, UNSPECIFIED, UNCOMP 08/20/2019 CHIP BOOGIE KARIN Ot G47.33 OBSTRUCTIVE SLEEP APNEA (ADULT) (PEDIATR 08/20/2019 CHIP BOOGIE, KARIN Ot I11.0 HYPERTENSIVE HEART DISEASE WITH HEART FA 08/20/2019 CHIP BOOGIE KARIN Ot I25.10 ATHSCL HEART DISEASE OF [place] CORONARY 08/20/2019 CHIP BOOGIE KARIN Ot I42.9 [...] U 08/20/2019 CHIP BOOGIE KARIN Ot Z79.01 CUSTODIAL (CURRENT) USE OF ANTICOAGULANT 08/20/2019 CHIP BOOGIE [...] KARIN Ot I25.10 ATHSCL HEART DISEASE OF [place] CORONARY 08/20/2019 SAUNDERS DO, KARIN Ot I42.9 [...] U 08/20/2019 CHIP DO, KARIN Ot Z79.01 CUSTODIAL (CURRENT) USE OF ANTICOAGULANT 08/20/2019 CHIP DO KARIN Ot Z91.19 PATIENT'S NONCOMPLIANCE W [facility] 09/05/2019 SAUNDERS DO, KARIN Ot [...] KARIN Ot I25.10 ATHSCL HEART DISEASE OF [place] CORONARY 09/05/2019 SAUNDERS DO, KARIN Ot I42.9 [...] DO, KARIN Ot Z91.19 PATIENT'S NONCOMPLIANCE W [facility] 09/05/2019 CHIP DO, KARIN Ot Z99.81 DEPENDENCE ON SUPPLEMENTAL OXYGEN 09/12/2019 SAUNDRES DO, KARIN Ot E66.01 MORBID (SEVERE) OBESITY [...] KARIN Ot I25.10 ATHSCL HEART DISEASE OF [place] CORONARY 09/12/2019 SAUNDERS DO, KARIN Ot I42.9 [...] U 09/12/2019 CHIP DO KARIN Ot Z79.01 LAB RN (CURRENT) USE OF ANTICOAGULANT 09/12/2019 SAUNDERS DO, KARIN Ot Z91.19 PATIENT'S NONCOMPLIANCE W [facility] 09/12/2019 SAUNDERS DO, KARIN Ot [...] KARIN Ot I25.10 ATHSCL HEART DISEASE OF [place] CORONARY 09/12/2019 SAUNDERS DO, KARIN Ot I42.9 [...] U 09/12/2019 CHIP DO, KARIN Ot Z79.01 LAB RN (CURRENT) USE OF ANTICOAGULANT 09/12/2019 CHIP DO, KARIN Ot Z91.19 PATIENT'S NONCOMPLIANCE W [facility] 09/28/2019 FLAVIA OSMAN MD Ot [...] 09/28/2019 FLAVIA OSMAN MD Ot Z79.0 1 CUSTODIAL (CURRENT) USE OF ANTICOAGULANT 09/28/2019 FLAVIA OSMAN [...] 09/30/2019 FLAVIA OSMAN MD, Ot Z79.0 1 CUSTODIAL (CURRENT) USE OF ANTICOAGULANT 09/30/2019 FLAVIA OSMAN MD Ot Z91.1 4 PATIENT'S OTHER NONCOMPLIANCE WITH MEDIC 09/30/2019 FLAVIA OSMAN MD Ot Z91.1 9 PATIENT'S NONCOMPLIANCE W [facility] 10/01/2019 FLAVIA OSMAN MD Ot [...] MD Ot J10.0 0 FLU DUE TO [facility] IDENT FLU VIRUS W UNSP TY 10/01/2019 FLAVIA OSMAN MD Ot J96.2 1 ACUTE AND CHRONIC RESPIRATORY FAILURE [place] 10/01/2019 FLAVIA OSMAN MD Ot Z68.4 4 BODY MASS INDEX (BMI) 60.0-69.9, ADULT 10/01/2019 FLAVIA OSMAN MD Ot Z79.0 1 LAB RN (CURRENT) USE OF ANTICOAGULANT 10/01/2019 FLAVIA OSMAN MD Ot Z91.1 4 PATIENT'S OTHER NONCOMPLIANCE WITH MEDIC 10/01/2019 FLAVIA OSMAN MD Ot Z91.1 9 PATIENT'S NONCOMPLIANCE W [facility] 10/01/2019 FLAVIA OSMAN MD Ot [...] HEART FAIL 10/01/2019 FLAVIA OSMAN MD Ot I50.2 3 ACUTE ON CHRONIC SYSTOLIC (CONGESTIVE) H 10/01/2019 FLAVIA OSMAN MD Ot I87.8 OTHER SPECIFIED DISORDERS OF VEINS 10/01/2019 FLAVIA OSMAN MD, Ot J10.0 0 FLU DUE TO OTH IDENT FLU VIRUS W UNSP TY 10/01/2019 FLAVIA OSMAN MD, Ot J44.9 CHRONIC OBSTRUCTIVE PULMONARY DISEASE, U 10/01/2019 FLAVIA OSMAN MD, Ot J96.2 1 ACUTE AND CHRONIC RESPIRATORY FAILURE [place] 10/01/2019 FLAVIA OSMAN MD Ot Z68.4 4 BODY MASS INDEX (BMI) 60.0-69.9, ADULT 10/01/2019 FLAVIA OSMAN MD, Ot Z79.0 1 LAB RN (CURRENT) USE OF ANTICOAGULANT 10/01/2019 FLAVIA OSMAN MD Ot Z91.1 4 PATIENT'S OTHER NONCOMPLIANCE WITH MEDIC 10/01/2019 FLAVIA OSMAN MD, Ot Z91.1 9 PATIENT'S NONCOMPLIANCE W OT MEDICAL TR 11/03/2019 LORI PLATA APRN Ot E66.01 MORBID (SEVERE) OBESITY DUE TO EXCESS CA 11/03/2019 LORI PLATA APRN Ot F15.10 OTHER STIMULANT ABUSE, UNCOMPLICATED 11/03/2019 LORI PLATA APRN Ot I11 .0 HYPERTENSIVE HEART DISEASE WITH HEART FA 11/03/2019 LORI PLATA APRN Ot I48.91 UNSPECIFIED ATRIAL FIBRILLATION 11/03/2019 LORI PLATA APRN Ot I50.20 UNSPECIFIED SYSTOLIC (CONGESTIVE) HEART 11/03/2019 LORI PLATA APRN Ot R06.02 SHORTNESS OF BREATH 11/03/2019 LORI PLATA APRN Ot Z68.43 BODY MASS INDEX (BMI) 50.0-59.9, ADULT 11/03/2019 LORI PLATA APRN Ot Z79.01 CUSTODIAL (CURRENT) USE OF ANTICOAGULANT 11/03/2019 LORI PLATA APRN Ot Z82.49 FAMILY HX OF ISCHEM HEART DIS AND OTH DI 11/04/2019 SAUNDERS DO, KARIN Ot E66.2 MORBID (SEVERE) OBESITY WITH ALVEOLAR HY 11/04/2019 SAUNDERS DO, KARIN Ot E87.70 FLUID OVERLOAD, UNSPECIFIED 11/04/2019 SAUNDERS DO, KARIN Ot F15.10 OTHER STIMULANT ABUSE, UNCOMPLICATED 11/04/2019 SAUNDERS DO, KARIN Ot F17.29 0 NICOTINE DEPENDENCE, OTHER TOBACCO PRODU 11/04/2019 SAUNDERS DO, KARIN Ot I11.0 HYPERTENSIVE HEART DISEASE WITH HEART FA 11/04/2019 SAUNDERS DO, KARIN Ot I42.9 CARDIOMYOPATHY, UNSPECIFIED 11/04/2019 SAUNDERS DO, KARIN Ot I44.4 LEFT ANTERIOR FASCICULAR BLOCK 11/04/2019 SAUNDERS DO, KARIN Ot I48.91 UNSPECIFIED ATRIAL FIBRILLATION 11/04/2019 SAUNDERS DO, KARIN Ot I50.23 ACUTE ON CHRONIC SYSTOLIC (CONGESTIVE) H 11/04/2019 SAUNDERS DO, KARIN Ot I87.8 OTHER SPECIFIED DISORDERS OF VEINS 11/04/2019 SAUNDERS DO, KARIN Ot Z68.43 BODY MASS INDEX (BMI) 50.0-59.9, ADULT 11/04/2019 SAUNDERS DO, KARIN Ot Z91.19 PATIENT'S NONCOMPLIANCE W [facility] Procedures There is no data. [...] . NR Bacterial blood culture SEE [facility] Bacterial blood culture - 10/27/19 15:30 Bacterial blood culture [facility] Complete blood count (CBC) with automate [...] 11/02/19 08:40 BNP PT 251.7 pg/mL <100.0 Methicillin resistant Staphylococcus aur eus (MRSA) screening culture - 11/02/19 12:01 Methicillin resistant Staphylococcus aureus (MRSA) scr eening culture NEG NRG Complete blood count (CBC) with automate d white blood cell (WBC) differential - 11/03/19 03:14 Blood leukocytes automated count (number/volume) 11.5 10*3/uL 4.3-11.0 Blood erythrocytes automated count (number/volume) 4.97 10*6/uL 4.35-5.85 Venous blood hemoglobin measurement (mass/volume) 13.4 g/dL 13.3-17.7 Blood hematocrit (volume fraction) 44 % 40-54 Automated erythrocyte mean corpuscular volume 88 [ foz_us] 80-99 Automated erythrocyte mean corpuscular h emoglobin (mass per erythrocyte) 27 pg 25-34 Automated erythrocyte mean corpuscular h emoglobin concentration measurement (mass/volume) 31 g/dL 32-36 Automated erythrocyte distribution width ratio 16. 3 % 10.0- 14.5 Automated blood platelet count (count/volume) 313 10*3/uL 130-400 Automated blood platelet mean volume measurement 9.4 [foz_us] 7.4-10.4 Automated blood neutrophils/100 leukocytes 74 % 42-75 Automated blood lymphocytes/100 leukocytes 15 % 12-44 Blood monocytes/100 leukocytes 7 % 0-12 Automated blood eosinophils/100 leukocytes 3 % 0-10 Automated blood basophils/100 leukocytes 0 % 0-10 Blood neutrophils automated count (number/volume) 8.5 10*3 1.8-7.8 Blood lymphocytes automated count (number/volume) 1.8 10*3 1.0-4.0 Blood monocytes automated count (number/volume) 0. 8 10*3 0.0-1.0 Automated eosinophil count 0.4 10*3/uL 0 .0-0.3 Automated blood basophil count (count/volume) 0.1 10*3/uL 0.0-0.1 Comprehensive metabolic panel - 11/03/19 03:14 Serum or plasma sodium measurement (moles/volume) 135 mmol/L 135-145 Serum or plasma potassium measurement (moles/volume) 4.1 mmol/L 3.6-5.0 Serum or plasma chloride measurement (moles/volume) 102 mmol/L 98-107 Carbon dioxide 22 mmol/L 21-32 Serum or plasma anion gap determination (moles/volume) 11 mmol/L 5-14 Serum or plasma urea nitrogen measurement (mass/volume ) 17 mg/dL 7-18 Serum or plasma creatinine measurement (mass/volume) 1.10 mg/dL 0.60-1.30 Serum or plasma urea nitrogen/creatinine mass ratio 15 NRG Serum or plasma creatinine measurement w ith calculation of estimated glomerular filtration rate > NRG Serum or plasma glucose measurement (mass/volume) 109 mg/dL 70-105 Serum or plasma calcium measurement (mass/volume) 8.9 mg/dL 8.5-10.1 Serum or plasma total bilirubin measurement (mass/volu me) 0.9 mg/dL 0.1-1.0 Serum or plasma alkaline phosphatase hammad surement (enzymatic activity/volume) 104 U/L 40-136 Serum or plasma aspartate aminotransfera se measurement (enzymatic activity/volume) 22 U/L 5-34 Serum or plasma alanine aminotransferase measurement (enzymatic activity/volume) 18 U/L 0-55 Serum or plasma protein measurement (mass/volume) 7.0 g/dL 6.4-8.2 Serum or plasma albumin measurement (mass/volume) 3.7 g/dL 3.2-4.5 CALCIUM CORRECTED 9.1 mg/dL 8.5-10.1 Serum or plasma phosphate measurement (m ass/volume) - 11/03/19 03:14 Serum or plasma phosphate measurement (mass/volume) 3.9 mg/dL 2.3-4.7 Magnesium - 11/03/19 03:14 Magnesium 1.8 mg/dL 1.6-2.4 Lipid 1996 panel - 11/03/19 03:14 Serum or plasma triglyceride measurement (mass/volume) 112 mg/dL <150 Serum or plasma cholesterol measurement (mass/volume) 198 mg/dL < 200 Serum or plasma cholesterol in HDL measurement (mass/v olume) 40 mg/dL 40-60 Cholesterol in LDL [mass/volume] in serum or plasma by direct assay 158 mg/dL 1-129 Serum or plasma cholesterol in VLDL measurement (mass/ volume) 22 mg/dL 5-40 Complete blood count (CBC) with automate d white blood cell (WBC) differential - 11/04/19 03:32 Blood leukocytes automated count (number/volume) 10.1 10*3/uL 4.3-11.0 Blood erythrocytes automated count (number/volume) 4.55 10*6/uL 4.35-5.85 Venous blood hemoglobin measurement (mass/volume) 12.5 g/dL 13.3-17.7 Blood hematocrit (volume fraction) 40 % 40-54 Automated erythrocyte mean corpuscular volume 88 [ foz_us] 80-99 Automated erythrocyte mean corpuscular h emoglobin (mass per erythrocyte) 27 pg 25-34 Automated erythrocyte mean corpuscular h emoglobin concentration measurement (mass/volume) 31 g/dL 32-36 Automated erythrocyte distribution width ratio 16. 3 % 10.0- 14.5 Automated blood platelet count (count/volume) 343 10*3/uL 130-400 Automated blood platelet mean volume measurement 9.6 [foz_us] 7.4-10.4 Automated blood neutrophils/100 leukocytes 64 % 42-75 Automated blood lymphocytes/100 leukocytes 23 % 12-44 Blood monocytes/100 leukocytes 10 % 0-12 Automated blood eosinophils/100 leukocytes 3 % 0-10 Automated blood basophils/100 leukocytes 0 % 0-10 Blood neutrophils automated count (number/volume) 6.4 10*3 1.8-7.8 Blood lymphocytes automated count (number/volume) 2.3 10*3 1.0-4.0 Blood monocytes automated count (number/volume) 1. 0 10*3 0.0-1.0 Automated eosinophil count 0.3 10*3/uL 0 .0-0.3 Automated blood basophil count (count/volume) 0.0 10*3/uL 0.0-0.1 Comprehensive metabolic panel - 11/04/19 03:32 Serum or plasma sodium measurement (moles/volume) 135 mmol/L 135-145 Serum or plasma potassium measurement (moles/volume) 4.1 mmol/L 3.6-5.0 Serum or plasma chloride measurement (moles/volume) 103 mmol/L 98-107 Carbon dioxide 20 mmol/L 21-32 Serum or plasma anion gap determination (moles/volume) 12 mmol/L 5-14 Serum or plasma urea nitrogen measurement (mass/volume ) 20 mg/dL 7-18 Serum or plasma creatinine measurement (mass/volume) 1.11 mg/dL 0.60-1.30 Serum or plasma urea nitrogen/creatinine mass ratio 18 NRG Serum or plasma creatinine measurement w ith calculation of estimated glomerular filtration rate > NRG Serum or plasma glucose measurement (mass/volume) 117 mg/dL 70-105 Serum or plasma calcium measurement (mass/volume) 8.9 mg/dL 8.5-10.1 Serum or plasma total bilirubin measurement (mass/volu me) 1.0 mg/dL 0.1-1.0 Serum or plasma alkaline phosphatase hammad surement (enzymatic activity/volume) 103 U/L 40-136 Serum or plasma aspartate aminotransfera se measurement (enzymatic activity/volume) 19 U/L 5-34 Serum or plasma alanine aminotransferase measurement (enzymatic activity/volume) 13 U/L 0-55 Serum or plasma protein measurement (mass/volume) 7.0 g/dL 6.4-8.2 Serum or plasma albumin measurement (mass/volume) 3.6 g/dL 3.2-4.5 CALCIUM CORRECTED 9.2 mg/dL 8.5-10.1 Serum or plasma phosphate measurement (m ass/volume) - 11/04/19 03:32 Serum or plasma phosphate measurement (mass/volume) 3.1 mg/dL 2.3-4.7 Magnesium - 11/04/19 03:32 Magnesium 2.0 mg/dL 1.6-2.4 LIPID PANEL - 11/26/19 12:17 CHOLESTEROL, TOTAL 178 mg/dL <200 HDL CHOLESTEROL 35 mg/dL > OR = 40 TRIGLYCERIDES 127 mg/dL <150 LDL-CHOLESTEROL 119 mg/dL (calc) NRG CHOL/HDLC RATIO 5.1 (calc) <5.0 NON HDL CHOLESTEROL 143 mg/dL (calc) <13 0 CMP - 11/26/19 12:17 GLUCOSE 92 mg/dL 65-99 UREA NITROGEN (BUN) 16 mg/dL 7-25 CREATININE 1.53 mg/dL 0.60-1.35 eGFR NON-AFR. DANISH 54 mL/min/1.73m2 > OR = 60 eGFR 63 mL/min/1.73m2 > OR = 60 BUN/CREATININE RATIO 10 (calc) 6-22 SODIUM 140 mmol/L 135-146 POTASSIUM 4.3 mmol/L 3.5-5.3 CHLORIDE 99 mmol/L 98-110 CARBON DIOXIDE 32 mmol/L 20-32 CALCIUM 9.3 mg/dL 8.6-10.3 PROTEIN, TOTAL 6.9 g/dL 6.1-8.1 ALBUMIN 3.8 g/dL 3.6-5.1 GLOBULIN 3.1 g/dL (calc) 1.9-3.7 ALBUMIN/GLOBULIN RATIO 1.2 (calc) 1.0-2. 5 BILIRUBIN, TOTAL 0.8 mg/dL 0.2-1.2 ALKALINE PHOSPHATASE 91 U/L 36-130 AST 14 U/L 10-40 ALT 10 U/L 9-46 CBC - 11/26/19 12:17 WHITE BLOOD CELL COUNT 7.0 Thousand/uL 3 .8-10.8 RED BLOOD CELL COUNT 4.86 Million/uL 4.2 0-5.80 HEMOGLOBIN 13.3 g/dL 13.2-17.1 HEMATOCRIT 42.9 % 38.5-50.0 MCV 88.3 fL 80.0-100.0 MCH 27.4 pg 27.0-33.0 MCHC 31.0 g/dL 32.0-36.0 RDW 14.6 % 11.0-15.0 PLATELET COUNT 330 Thousand/uL 140-400 MPV 9.9 fL 7.5-12.5 ABSOLUTE NEUTROPHILS 4739 cells/uL 1500- 7800 ABSOLUTE LYMPHOCYTES 1526 cells/uL 850-3 900 ABSOLUTE MONOCYTES 546 cells/uL 200-950 ABSOLUTE EOSINOPHILS 147 cells/uL 15-500 ABSOLUTE BASOPHILS 42 cells/uL 0-200 NEUTROPHILS 67.7 % NRG LYMPHOCYTES 21.8 % NRG MONOCYTES 7.8 % NRG EOSINOPHILS 2.1 % NRG BASOPHILS 0.6 % NRG PT panel in platelet poor plasma by coag ulation assay - 01/21/20 12:00 Prothrombin time (PT) in platelet poor plasma by coagu lation assay 16.2 s 12.2-14.7 INR in platelet poor plasma or blood by coagulation as say 1.3 0.8-1.4 Complete blood count (CBC) with automate d white blood cell (WBC) differential - 01/21/20 12:11 Blood leukocytes automated count (number/volume) 11.1 10*3/uL 4.3-11.0 Blood erythrocytes automated count (number/volume) 4.04 10*6/uL 4.35-5.85 Venous blood hemoglobin measurement (mass/volume) 11.7 g/dL 13.3-17.7 Blood hematocrit (volume fraction) 38 % 40-54 Automated erythrocyte mean corpuscular volume 93 [ foz_us] 80-99 Automated erythrocyte mean corpuscular h emoglobin (mass per erythrocyte) 29 pg 25-34 Automated erythrocyte mean corpuscular h emoglobin concentration measurement (mass/volume) 31 g/dL 32-36 Automated erythrocyte distribution width ratio 16. 5 % 10.0- 14.5 Automated blood platelet count (count/volume) 50 1 0*3/uL 130-400 Automated blood platelet mean volume measurement 9.9 [foz_us] 7.4-10.4 Automated blood neutrophils/100 leukocytes 67 % 42-75 Automated blood lymphocytes/100 leukocytes 22 % 12-44 Blood monocytes/100 leukocytes 6 % 0-12 Automated blood eosinophils/100 leukocytes 3 % 0-10 Automated blood basophils/100 leukocytes 1 % 0-10 Blood neutrophils automated count (number/volume) 7.5 10*3 1.8-7.8 Blood lymphocytes automated count (number/volume) 2.5 10*3 1.0-4.0 Blood monocytes automated count (number/volume) 0. 7 10*3 0.0-1.0 Automated eosinophil count 0.3 10*3/uL 0 .0-0.3 Automated blood basophil count (count/volume) 0.1 10*3/uL 0.0-0.1 Comprehensive metabolic panel - 01/21/20 12:15 Serum or plasma sodium measurement (moles/volume) 139 mmol/L 135-145 Serum or plasma potassium measurement (moles/volume) 4.7 mmol/L 3.6-5.0 Serum or plasma chloride measurement (moles/volume) 100 mmol/L 98-107 Carbon dioxide 21 mmol/L 21-32 Serum or plasma anion gap determination (moles/volume) 18 mmol/L 5-14 Serum or plasma urea nitrogen measurement (mass/volume ) 34 mg/dL 7-18 Serum or plasma creatinine measurement (mass/volume) 2.22 mg/dL 0.60-1.30 Serum or plasma urea nitrogen/creatinine mass ratio 15 NRG Serum or plasma creatinine measurement w ith calculation of estimated glomerular filtration rate 32 NRG Serum or plasma glucose measurement (mass/volume) 132 mg/dL 70-105 Serum or plasma calcium measurement (mass/volume) 9.1 mg/dL 8.5-10.1 Serum or plasma total bilirubin measurement (mass/volu me) 0.6 mg/dL 0.1-1.0 Serum or plasma alkaline phosphatase hammad surement (enzymatic activity/volume) 98 U/L 40-136 Serum or plasma aspartate aminotransfera se measurement (enzymatic activity/volume) 29 U/L 5-34 Serum or plasma alanine aminotransferase measurement (enzymatic activity/volume) 22 U/L 0-55 Serum or plasma protein measurement (mass/volume) 6.8 g/dL 6.4-8.2 Serum or plasma albumin measurement (mass/volume) 2.8 g/dL 3.2-4.5 CALCIUM CORRECTED 10.1 mg/dL 8.5-10.1 Encounters ACCT No. Visit Date/Time Discharge Status Pt. Type Provider Facility Loc./Unit Complaint [id number] 11/29/2019 13:20:00 11/29/2019 23:59: 59 [facility] Outpatient SOURAV GRACIA EMEKA [id number] 11/26/2019 12:00:00 Document Registration [id number] 08/24/2019 10:00:00 Document Registration [id number] 05/16/2019 13:20:00 Document Registration [id number] 11/24/2018 10:20:00 Document Registration [id number] 11/02/2019 10:58:00 14:24:00 DIS Inpatient KARIN SAUNDERS DO, [facility] ICU AFIB W RVR [id number] 10/27/2019 14:43:00 16:32:00 DIS Outpatient LORI PLATA APRN [facility] ER SOA [id number] 09/26/2019 08:28:00 12:10:00 DIS Inpatient FLAVIA OSMAN MD [facility] 4TH PNA;SEPSIS;ACUTE ON CHR ONIC RESPIRATORY FAILURE- [id number] 09/03/2019 16:22:00 12:10:00 DIS Inpatient KARIN SAUNDERS DO, V [facility] ICU A FIB WITH RVR [id number] 08/18/2019 06:05:00 18:39:00 DIS Outpatient KARIN SAUNDERS DO [facility] 4TH ATRIAL FIBRILLATIONW.RV R,CHF EXACERBUTION [id number] 01/21/2020 11:44:[address] Emergency ONESIMO HAMILTON DO [facility] ER FS FALL; LT LEG LAC
[2020-01-21 15:20] VITALS: BP 94/50
== END 2020-01-21 15:24 | disposition short-term general hospital (02) ==
LOC: EDUNIT# 11:43 → ER FS 11:44
DX: I95.9 Hypotension, unspecified (principal); I83.891 Varicose veins of right lower extremity with other complications; E86.0 Dehydration; D68.32 Hemorrhagic disorder due to extrinsic circulating anticoagulants; I48.91 Unspecified atrial fibrillation; I10 Essential (primary) hypertension; Z82.49 Family history of ischemic heart disease and other diseases of the circulatory system; Z79.01 Long term (current) use of anticoagulants
CPT/HCPCS: 36415; 80053; 85025; 85610

== ENCOUNTER 2020-03-08 20:23 | Emergency (ER) | payer MEDICAID ==
[~2020-03-08] VITALS: Ht 177.8 cm; Wt 176.3 kg
[~2020-03-08 20:23] MED LIST changes: +AMIO200T4; +CARV6.252; +DILT240C86; +DILT240C91; +ELIQUIS; +FERR325T18
--- OUTSIDE RECORDS SUMMARY | 2020-03-08 20:32 | XMS REPORT | Continuity of Care Document ---
Author Organization Unknown Address Unknown Phone Unavailable Allergies Active Description Code Type Severity Reaction Onset Reported/Identified Relationship to Patient Clinical Status Yes No Known Drug Allergies [id number] Drug Allergy Unknown N/A 09/26/2019 Medications There is no data. Problems Date Dx Coded Attending Type Code Diagnosis Diagnosed By 08/20/2019 CHIP BOOGIE KARIN Ot E66.01 MORBID (SEVERE) OBESITY DUE TO EXCESS CA 08/20/2019 CHIP DO, KARIN Ot E78.00 PURE HYPERCHOLESTEROLEMIA, UNSPECIFIED 08/20/2019 CHIP DO KARIN Ot E87.1 HYPO-OSMOLALITY AND HYPONATREMIA 08/20/2019 CHIP BOOIGE KARIN Ot F15.90 OTHER STIMULANT USE, UNSPECIFIED, UNCOMP 08/20/2019 CHIP BOOGIE KARIN Ot G47.33 OBSTRUCTIVE SLEEP APNEA (ADULT) (PEDIATR 08/20/2019 CHIP BOOGIE, KARIN Ot I11.0 HYPERTENSIVE HEART DISEASE WITH HEART FA 08/20/2019 CHIP BOOGIE KARIN Ot I25.10 ATHSCL HEART DISEASE OF [place] CORONARY 08/20/2019 CHIP BOOGIE KARIN Ot I42.9 [...] U 08/20/2019 CHIP BOOGIE KARIN Ot Z79.01 RETIREMENT (CURRENT) USE OF ANTICOAGULANT 08/20/2019 CHIP BOOGIE [...] KARIN Ot I25.10 ATHSCL HEART DISEASE OF [place] CORONARY 08/20/2019 SAUNDERS DO, KARIN Ot I42.9 [...] U 08/20/2019 CHIP DO, KARIN Ot Z79.01 RETIREMENT (CURRENT) USE OF ANTICOAGULANT 08/20/2019 CHIP DO KARIN Ot Z91.19 PATIENT'S NONCOMPLIANCE W [facility] 09/05/2019 SAUNDERS DO, KARIN Ot [...] KARIN Ot I25.10 ATHSCL HEART DISEASE OF [place] CORONARY 09/05/2019 SAUNDERS DO, KARIN Ot I42.9 [...] DO, KARIN Ot Z91.19 PATIENT'S NONCOMPLIANCE W 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 09/28/2019 FLAVIA OSMAN MD Ot [...] 09/28/2019 FLAVIA OSMAN MD Ot Z79.0 1 RETIREMENT (CURRENT) USE OF ANTICOAGULANT 09/28/2019 FLAVIA OSMAN [...] 09/30/2019 FLAVIA OSMAN MD, Ot Z79.0 1 RETIREMENT (CURRENT) USE OF ANTICOAGULANT 09/30/2019 FLAVIA OSMAN MD Ot Z91.1 4 PATIENT'S OTHER NONCOMPLIANCE WITH MEDIC 09/30/2019 FLAVIA OSMAN MD Ot Z91.1 9 PATIENT'S NONCOMPLIANCE W [facility] 10/01/2019 FLAVIA OSMAN MD Ot [...] MD Ot J10.0 0 FLU DUE TO 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 Results Test [...] CALL POSITIVES (F1 HELP) CALLED TO [facility] NR FLU RESULT POSITIVE FOR INFLUENZA B ANT [...] - 10/27/19 14:59 QUANTITY OF GROWTH . [facility] Bacterial blood culture SEE [facility] Bacterial blood culture - 10/27/19 15:30 Bacterial blood culture [facility] Complete blood count (CBC) with automate d [...] 7-25 CREATININE 1.53 mg/dL 0.60-1.35 eGFR NON-AFR. IVORIAN 54 mL/min/1.73m2 > OR = 60 eGFR [...] Status Pt. Type Provider Facility Loc./Unit Complaint [id number] 01/31/2020 14:00:00 01/31/2020 23:59: 59 [id number] 11/26/2019 12:00:00 Document Registration [id number] 08/24/2019 10:00:00 Document Registration [id number] 05/16/2019 13:20:00 Document Registration [id number] 11/24/2018 10:20:00 Document Registration [id number] 01/21/2020 11:44:00 15:24:00 DIS Outpatient ONESIMO HAMILTON DO [facility] ER FS FALL; LT LEG LA C [id number] 11/02/2019 10:58:00 14:24:00 DIS Inpatient KARIN SAUNDERS DO, V [facility] ICU AFIB W RVR [id number] 10/27/2019 14:43:00 16:32:00 DIS Outpatient LORI PLATA APRN [facility] ER SOA [id number] 09/26/2019 08:28:00 12:10:00 DIS Inpatient JACQUI ORDONEZ, FLAVIA So[facility] 4TH PNA;SEPSIS;ACUTE ON CHR ONIC RESPIRATORY FAILURE- [id number] 09/03/2019 16:22:00 12:10:00 DIS Inpatient KARIN SAUNDERS DO, V [facility] ICU A FIB WITH RVR [id number] 08/18/2019 06:05:00 18:39:00 DIS Outpatient KARIN SAUNDERS DO [facility] 4TH ATRIAL FIBRILLATIONW.RV R,CHF EXACERBUTION
--- NOTE | 2020-03-08 20:51 | ED General ---
General Chief Complaint: Skin/Wound Problems Stated Complaint: LEFT ANKLE BLEED Source of Information: Patient History of Present Illness Date Seen by Provider: Mar 08, 2020 Time Seen by Provider: 20:30 Initial Comments Patient is a 44 year old male with a history of varicose veins who is currently on anticoagulation therapy presents with bleeding from left ankle after scratching. Patient placed of pressure dressing on his ankle and bleeding has currently stopped. No other symptoms or complaints. Timing/Duration: 1/2 Hour Severity: Mild Modifying Factors: improves with Other (pressure dressing) Associated Systoms: Denies Symptoms Allergies and Home Medications Allergies Coded Allergies: No Known Drug Allergies (Unverified , 09/26/19) Home Medications Acetaminophen/Diphenhydramine 1 Each Tablet, 3 TAB PO HS PRN for SLEEP, (Reported) Amiodarone HCl 200 Mg Tablet, 200 MG PO BID Prescribed by: MERLIN SELLERS on 11/04/19 1352 Apixaban 5 Mg Tablet, 5 MG PO BID, (Reported) LAST FILLED 08-22-2019 #60/30 DAY SUPPLY Diltiazem HCl 120 Mg Capsule.er, 120 MG PO DAILY LAST FILLED 08-23-2019 #30/30 DAY SUPPLY Prescribed by: MERLIN SELLERS on 11/04/19 1352 Furosemide 40 Mg Tablet, 40 MG PO DAILY, (Reported) Metoprolol Tartrate 50 Mg Tablet, 50 MG PO BID LAST FILLED 08-23-2019 #60/30 DAY SUPPLY Prescribed by: MERLIN SELLERS on 11/04/19 1352 Sacubitril/Valsartan 1 Each Tablet, 1 TAB PO BID LAST FILLED 08-23-2019 #60/30 DAY SUPPLY Prescribed by: MERLIN SELLERS on 11/04/19 1352 Patient Home Medication List Home Medication List Reviewed: Yes Review of Systems Review of Systems Constitutional: no symptoms reported EENTM: no symptoms reported Respiratory: no symptoms reported Cardiovascular: no symptoms reported Gastrointestinal: no symptoms reported Musculoskeletal: no symptoms reported Skin: no symptoms reported Hematologic/Lymphatic: See HPI Past Mojkkzn-Yehuoq-Abedzx Hx Past Med/Social Hx: Reviewed Nursing Past Med/Soc Hx Patient Social History Alcohol Beverage of Choice: Whiskey Drug of Choice: THC IV METH Type Used: Smokeless Tobacco 2nd Hand Smoke Exposure: No Recent Foreign Travel: No Contact w/Someone Who Travel: No Recent Hopitalizations: No Immunizations Up To Date Date of Pneumonia Vaccine: Aug 18, 2017 Seasonal Allergies Seasonal Allergies: No Past Medical History Surgeries: Yes (RIGHT AARM SKIN GRAFT) Orthopedic Respiratory: Yes Pneumonia, Sleep Apnea Cardiac: Yes (CHF) Atrial Fibrillation, Chronic Edema/Swelling, Hypertension Neurological: No Genitourinary: No Gastrointestinal: No Musculoskeletal: No Endocrine: No HEENT: No Cancer: No Psychosocial: No Integumentary: No Blood Disorders: No Family Medical History Cancer, CAD Over 55 Years Old Physical Exam Vital Signs Capillary Refill : Height, Weight, BMI Height: '" Weight: lbs. oz. kg; 57.00 BMI Method: General Appearance: No Apparent Distress, WD/WN, Obese, Other (disheveled) Eyes: Bilateral Eye Normal Inspection, Bilateral Eye PERRL, Bilateral Eye EOMI HEENT: PERRL/EOMI, Moist Mucous Membranes Neck: Full Range of Motion, Normal Inspection Respiratory: Normal Breath Sounds Cardiovascular: Regular Rate, Rhythm Extremity: Other (small punctate wound over the left medial ankle consistent with deroofed varicosity. Bleeding controlled.) Neurologic/Psychiatric: Alert Focused Exam Sepsis Stage: Ruled Out Progress/Results/Core Measures Suspected Sepsis SIRS Temperature: Pulse: Respiratory Rate: Blood Pressure / Mean: Results/Orders Vital Signs/I&O Capillary Refill : Departure Impression Primary Impression: Bleeding from varicose veins of left lower extremity Disposition: 01 HOME, SELF-CARE Condition: Stable Departure-Patient Inst. Referrals: [facility] (PCP) Primary Care Physician SOURAV GRACIA (Family) Primary Care Physician Add. Discharge Instructions: Please leave pressure dressing in place and removed in 3 days. All discharge instructions reviewed with patient and/or family. Voiced understanding. DICK PAGE DO Mar 08, 2020 20:51
[2020-03-08 21:47] VITALS: BP 180/98
== END 2020-03-08 21:04 | disposition home or self-care (01) ==
LOC: EDUNIT# 20:23 → ER FS 20:26
DX: I83.12 Varicose veins of left lower extremity with inflammation (principal); I11.0 Hypertensive heart disease with heart failure; I50.9 Heart failure, unspecified; I48.91 Unspecified atrial fibrillation; G47.30 Sleep apnea, unspecified; Z87.01 Personal history of pneumonia (recurrent); Z79.01 Long term (current) use of anticoagulants; Z79.899 Other long term (current) drug therapy
CPT/HCPCS: 99282

== ENCOUNTER 2020-05-18 07:31 | Inpatient (IN) | payer SELFPAY ==
[~2020-05-18] VITALS: Ht 177.8 cm; Wt 171.0 kg
[~2020-05-18 07:31] MED LIST changes: -ACET-2715 PO; +ACET-3075 PO
[2020-05-18] MEDS ORDERED: ASPIRIN 81 MG CHEW (CHILDREN'S ASA) PO ONE (07:45)
--- NOTE | 2020-05-18 07:48 | ED Respiratory ---
General Stated Complaint: SOA Source: patient Exam Limitations: no limitations History of Present Illness Date Seen by Provider: May 18, 2020 Time Seen by Provider: 07:28 Initial Comments Patient presents ER by private conveyance from home with chief complaint of the last couple weeks having some worsening shortness of breath with no chest pain. He denies a history of heart disease or lung disease but states that he does use methamphetamines as well as cigarettes. He follows with a doctor at [place] however he has not seen her and a long long time he says. He says for the past several weeks she's been out of his medication so he has not been taking them and he thinks is the reason why his symptoms are worse. He does not know the name of any of his medicines that he takes. He denies having a cough fever or sick contacts. History of nonischemic cardiomyopathy, morbid obesity, atrial fibrillation on amiodarone and Cardizem. Patient was previously put on a life vest but he stopped wearing them because of his inconvenience. Familiar with Dr. Law, cardiology. Primary care at [place], [place]. Echocardiogram October 2019 with a recovered ejection fraction of 30-35%. Historically 20-25% EF. COPD, obstructive sleep apnea noncompliant with CPAP. History of noncompliance with medications. Allergies and Home Medications Allergies Coded Allergies: No Known Drug Allergies (Unverified , 09/26/19) Home Medications Acetaminophen/Diphenhydramine 1 Each Tablet, 3 TAB PO HS PRN for SLEEP, (Reported) Amiodarone HCl 200 Mg Tablet, 200 MG PO BID Prescribed by: MERLIN SELLERS on 11/04/19 135 Apixaban 5 Mg Tablet, 5 MG PO BID, (Reported) LAST FILLED 08-22-2019 #60/30 DAY SUPPLY Diltiazem HCl 120 Mg Capsule.er, 120 MG PO DAILY LAST FILLED 08-23-2019 #30/30 DAY SUPPLY Prescribed by: MERLIN SELLERS on 11/04/19 135 Furosemide 40 Mg Tablet, 40 MG PO DAILY, (Reported) Metoprolol Tartrate 50 Mg Tablet, 50 MG PO BID LAST FILLED 08-23-2019 #60/30 DAY SUPPLY Prescribed by: MERLIN SELLERS on 11/04/19 1352 Sacubitril/Valsartan 1 Each Tablet, 1 TAB PO BID LAST FILLED 08-23-2019 #60/30 DAY SUPPLY Prescribed by: MERLIN SELLERS on 11/04/19 5732 Patient Home Medication List Home Medication List Reviewed: Yes Review of Systems Review of Systems Constitutional: No chills, No diaphoresis EENTM: No ear discharge, No ear pain Respiratory: No cough, No phlegm; short of breath; No wheezing Cardiovascular: No edema, No Hx of Intervention, No palpitations, No syncope, No vascular heart diseas Gastrointestinal: No abdominal pain, No nausea, No vomiting Genitourinary: No discharge, No dysuria All Other Systems Reviewed Negative Unless Noted: Yes Past Gbzimnl-Llqxpn-Eogegv Hx Patient Social History Alcohol Beverage of Choice: Whiskey Recreational Drug Use: Yes Drug of Choice: Meth, Marijuana Smoking Status: Current Everyday Smoker Type Used: Smokeless Tobacco 2nd Hand Smoke Exposure: No Recent Foreign Travel: No Contact w/Someone Who Travel: No Recent Hopitalizations: No Immunizations Up To Date Date of Pneumonia Vaccine: Aug 18, 2017 Seasonal Allergies Seasonal Allergies: No Past Medical History Surgeries: Yes (RIGHT AARM SKIN GRAFT) Orthopedic Respiratory: Yes Pneumonia, Sleep Apnea Cardiac: Yes (CHF) Atrial Fibrillation, Chronic Edema/Swelling, Hypertension Neurological: No Genitourinary: No Gastrointestinal: No Musculoskeletal: No Endocrine: No HEENT: No Cancer: No Psychosocial: No Integumentary: No Blood Disorders: No Family Medical History Cancer, CAD Over 55 Years Old Physical Exam Vital Signs - First Documented 05/18/20 07:34 Temp 36.5 Pulse 116 Resp 28 B/P (MAP) 174/122 (139) Pulse Ox 99 O2 Delivery Nasal Cannula O2 Flow Rate 2.00 Capillary Refill : Height: '" Weight: lbs. oz. kg; 55.00 BMI Method: General Appearance: moderate distress, obese Eyes: Bilateral Eye Normal Inspection, Bilateral Eye PERRL, Bilateral Eye EOMI HEENT: PERRL/EOMI, normal ENT inspection, pharynx normal Neck: full range of motion, supple, normal inspection Respiratory: lungs clear, normal breath sounds, respiratory distress (moderate with oxygen saturation 87%) Cardiovascular: normal peripheral pulses, regular rate, rhythm, tachycardia Gastrointestinal: non tender, soft Neurologic/Psychiatric: alert, oriented x 3 Skin: normal color, warm/dry Focused Exam Lactate Level 05/18/20 07:40: Lactic Acid Level 1.17 Lactic Acid Level Laboratory Tests Test 05/18/20 07:40 Lactic Acid Level 1.17 MMOL/L (0.50-2.00) Progress/Results/Core Measures Suspected Sepsis SIRS Temperature: Pulse: Respiratory Rate: Laboratory Tests 05/18/20 07:40: White Blood Count 8.8 Blood Pressure / Mean: 05/18/20 07:40: Lactic Acid Level 1.17 Laboratory Tests 05/18/20 07:40: Creatinine 1.24, Platelet Count 329, Total Bilirubin 0.9 Results/Orders Lab Results Laboratory Tests Test 05/18/20 07:40 05/18/20 07:50 Range/Units White Blood Count 8.8 4.3-11.0 10^3/uL Red Blood Count 3.73 L 4.30-5.52 10^6/uL Hemoglobin 9.3 L 13.3-17.7 g/dL Hematocrit 32 L 40-54 % Mean Corpuscular Volume 85 80-99 fL Mean Corpuscular Hemoglobin 25 25-34 pg Mean Corpuscular Hemoglobin Concent 29 L 32-36 g/dL Red Cell Distribution Width 16.5 H 10.0-14.5 % Platelet Count 329 130-400 10^3/uL Mean Platelet Volume 9.4 9.0-12.2 fL Immature Granulocyte % (Auto) 1 % Neutrophils (%) (Auto) 74 42-75 % Lymphocytes (%) (Auto) 15 12-44 % Monocytes (%) (Auto) 7 0-12 % Eosinophils (%) (Auto) 3 0-10 % Basophils (%) (Auto) 0 0-10 % Neutrophils # (Auto) 6.5 1.8-7.8 10^3/uL Lymphocytes # (Auto) 1.3 1.0-4.0 10^3/uL Monocytes # (Auto) 0.6 0.0-1.0 10^3/uL Eosinophils # (Auto) 0.3 0.0-0.3 10^3/uL Basophils # (Auto) 0.0 0.0-0.1 10^3/uL Immature Granulocyte # (Auto) 0.0 0.0-0.1 10^3/uL Sodium Level 138 135-145 MMOL/L Potassium Level 3.8 3.6-5.0 MMOL/L Chloride Level 102 98-107 MMOL/L Carbon Dioxide Level 26 21-32 MMOL/L Anion Gap 10 5-14 MMOL/L Blood Urea Nitrogen 17 7-18 MG/DL Creatinine 1.24 0.60-1.30 MG/DL Estimat Glomerular Filtration Rate > 60 BUN/Creatinine Ratio 14 Glucose Level 107 H 70-105 MG/DL Lactic Acid Level 1.17 0.50-2.00 MMOL/L Calcium Level 8.5 8.5-10.1 MG/DL Corrected Calcium 9.0 8.5-10.1 MG/DL Total Bilirubin 0.9 0.1-1.0 MG/DL Aspartate Amino Transf (AST/SGOT) 18 5-34 U/L Alanine Aminotransferase (ALT/SGPT) 14 0-55 U/L Alkaline Phosphatase 132 40-136 U/L Troponin I 0.041 H <0.028 NG/ML C-Reactive Protein High Sensitivity 1.50 H 0.00-0.50 MG/DL B-Type Natriuretic Peptide 870.2 H <100.0 PG/ML Total Protein 6.7 6.4-8.2 GM/DL Albumin 3.4 3.2-4.5 GM/DL Blood Gas Puncture Site LT RAD Blood Gas Patient Temperature 36.5 Arterial Blood pH 7.39 7.37-7.43 Arterial Blood Partial Pressure CO2 49 H 35-45 MMHG Arterial Blood Partial Pressure O2 39 *L 79-93 MMHG Arterial Blood HCO3 29 H 23-27 MMOL/L Arterial Blood Total CO2 30.3 21.0-31.0 MMOL/L Arterial Blood Oxygen Saturation 64 L 94-100 % Arterial Blood Base Excess 3.9 H -2.5-2.5 MMOL/L Carlos Test NA Blood Gas Ventilator Setting NO Blood Gas Inspired Oxygen 2 L My Orders Orders - JF,XAVIER J Chest 1 View, Ap/Pa Only (05/18/20 07:38) Cbc With Automated Diff (05/18/20 07:38) Comprehensive Metabolic Panel (05/18/20 07:38) Hs C Reactive Protein (05/18/20 07:38) Procalcitonin (Pct) (05/18/20 07:38) Blood Culture (05/18/20 07:38) Lactic Acid Analyzer (05/18/20 07:38) BNP (05/18/20 07:38) Continuous Ekg Monitoring (05/18/20:38) Ekg Tracing (05/18/20 07:38) Troponin I (05/18/20 07:38) Aspirin Chewable Tablet (Baby Aspirin Ch (05/18/20 07:45) O2 (05/18/20 07:38) Arterial Blood Gas (05/18/20 08:00) Sputum Culture (05/18/20 08:25) Furosemide Injection (Lasix Injection) (05/18/20 08:30) Catheter(Urinary) Insert & Ass 03,15 (05/18/20 08:29) Cpap (Set Up) (05/18/20 08:29) Medications Given in ED Current Medications Medications Dose Ordered Sig/Natalie Route Start Time Stop Time Status Last Admin Dose Admin Aspirin 324 mg ONCE ONCE PO 05/18/20 07:45 05/18/20 07:46 DC 05/18/20 07:51 324 MG Furosemide 40 mg ONCE ONCE IVP 05/18/20 08:30 05/18/20 08:31 DC 05/18/20 08:48 40 MG Vital Signs/I&O 05/18/20 07:34 Temp 36.5 Pulse 116 Resp 28 B/P (MAP) 174/122 (139) Pulse Ox 99 O2 Delivery Nasal Cannula O2 Flow Rate 2.00 Capillary Refill : Progress Note : Time: 07:45 Progress Note Patient did not want to volunteer a lot of history stating he's told to us on previous visits to the ER. Reviewing the record shows he is on Eliquis, amiodarone, Cardizem and 40 Lasix daily. Suspect he may be having some heart failure. He does not have fever cough or sick contacts however we will go ahead and obtain a lactate, blood culture and sputum culture. Were holding off giving any IV fluids because I suspect this is less likely infectious/sepsis and more likely cardiogenic. We will give him some aspirin to chew up and swallow and get troponin as well as BNP. He was clearly hypoxic on arrival and his worker breathing improved as well as his dyspnea after putting him on 2 L by nasal cannula. His oxygen saturations went from the upper 80s to 99% on 2 L. ABG ABG demonstrates chronic respiratory failure with metabolic compensation and profound hypoxemia. Suspect this is due to fluid overload and anemia. The patient's CO2 status is probably chronic and would not benefit from increased ventilation however CPAP may be helpful to give him some PEEP. ECG Initial ECG Impression Date: May 18, 2020 Initial ECG Impression Time: 07:35 Initial ECG Rate: 110 Initial ECG Rhythm: S.Tach Initial ECG Intervals: QT (484) Initial ECG Impression: Normal, Nonspecific Changes Initial ECG Comparisson: No Previous ECG Available Comment Prolonged QTC. No clinically relevant ST elevation or depression. Sinus tachycardia. Diagnostic Imaging Diagonstic Imaging: Xray Plain Films/CT/US/NM/MRI: chest Comments NAME: [facility] G[facility]ES [facility] REC#: [id number] PT STATUS: REG ER : 1975 PHYSICIAN: XAVIER RHOADES MD ADMIT DATE: 05/18/20/ER Draft Date of Exam:05/18/20 CHEST 1 VIEW, AP/PA ONLY INDICATION: Shortness of air COMPARISON: 11/03/2019 TECHNIQUE: Single radiograph of the chest dated 05/18/2020. FINDINGS: The cardiac silhouette is significantly enlarged. Central pulmonary vascular congestion is present. Mild mixed interstitial and airspace opacities are identified bilaterally. No large volume pleural effusion. No pneumothorax. No acute osseous abnormality. IMPRESSION: Cardiomegaly with pulmonary vascular congestion and bilateral pulmonary opacities is favored to relate to congestive heart failure with associated mild interstitial edema. Dictated on workstation # [id number] Dict: 05/18/2027 Trans: 05/18/20 0830 CV [id number] Interpreted by: GEOVANY MURILLO MD Electronically signed by: Reviewed: Reviewed by Me Departure Communication (Admissions) Time/Spoke to Admitting Phy: 08:55 Discussed the case with Dr. Drake and she agrees take patient to cardiac stepdown on oxygen with consultation with Dr. Law, cardiology. Time/Spoke to Consulting Phy: 08:35 Discussed the case with cardiology, Dr. Law and he agrees to consult on the case. Impression Primary Impression: Acute on chronic respiratory failure with hypoxemia Additional Impressions: Acute on chronic congestive heart failure Qualified Codes: I50.23 - Acute on chronic systolic (congestive) heart failure Elevated troponin I level Disposition: ADMITTED INPATIENT Condition: Stable Admissions Decision to Admit Reason: Admit from ER (General) Decision to Admit/Date: May 18, 2020 Time/Decision to Admit Time: 08:30 Departure-Patient Inst. Referrals: [facility] (PCP/Family) Primary Care Physician XAVIER RHOADES May 18, 2020 07:47
[2020-05-18 08:06] LABS: ABG BASE EXCESS 3.9 MMOL/L (-2.5-2.5); ABG OXYGEN SATURATION 64 % (94-100); ABG PCO2 49 MMHG (35-45); ABG PH 7.39 (7.37-7.43); ABG TCO2 30.3 MMOL/L (21.0-31.0)
[2020-05-18 08:07] LABS: ABG PO2 39 MMHG (79-93)
[2020-05-18 08:07] LABS: BASOPHILS % (AUTO) 0 % (0-10); EOSINOPHILS # (AUTO) 0.3 10^3/uL (0.0-0.3); EOSINOPHILS % (AUTO) 3 % (0-10); HEMATOCRIT 32 % (40-54); HEMOGLOBIN 9.3 g/dL (13.3-17.7); LYMPHOCYTES # (AUTO) 1.3 10^3/uL (1.0-4.0); LYMPHOCYTES % (AUTO) 15 % (12-44); MEAN CORPUSCULAR HEMOGLOBIN 25 pg (25-34); MEAN CORPUSCULAR HGB CONC 29 g/dL (32-36); MEAN CORPUSCULAR VOLUME 85 fL (80-99); MEAN PLATELET VOLUME 9.4 fL (9.0-12.2); MONOCYTES # (AUTO) 0.6 10^3/uL (0.0-1.0); MONOCYTES % (AUTO) 7 % (0-12); NEUTROPHILS # (AUTO) 6.5 10^3/uL (1.8-7.8); NEUTROPHILS % (AUTO) 74 % (42-75); PLATELET COUNT 329 10^3/uL (130-400); WHITE BLOOD COUNT 8.8 10^3/uL (4.3-11.0)
[2020-05-18 08:08] LABS: INSPIRED O2 2 L; PATIENT TEMP 36.5; VENTILATOR NO
[2020-05-18 08:16] LABS: ALBUMIN 3.4 GM/DL (3.2-4.5); CHLORIDE 102 MMOL/L (98-107); POTASSIUM 3.8 MMOL/L (3.6-5.0); SODIUM 138 MMOL/L (135-145)
[2020-05-18 08:17] LABS: CALCIUM 8.5 MG/DL (8.5-10.1)
[2020-05-18 08:18] LABS: GLUCOSE 107 MG/DL (70-105)
[2020-05-18 08:19] LABS: TOTAL PROTEIN 6.7 GM/DL (6.4-8.2)
[2020-05-18 08:20] LABS: BILIRUBIN,TOTAL 0.9 MG/DL (0.1-1.0); CARBON DIOXIDE 26 MMOL/L (21-32)
[2020-05-18 08:22] LABS: ALKALINE PHOSPHATASE 132 U/L (40-136); CREATININE SERUM 1.24 MG/DL (0.60-1.30); GFR ESTIMATED > 60
[2020-05-18 08:23] LABS: BUN/CREATININE RATIO 14
[2020-05-18 08:25] LABS: ALANINE AMINOTRANSFERASE 14 U/L (0-55)
[2020-05-18] MEDS ORDERED: FUROSEMIDE 40 MG/4 ML INJ (LASIX) IVP ONE (08:30)
--- NOTE | 2020-05-18 08:31 | Diagnostic Imaging Report ---
INDICATION: Shortness of air COMPARISON: 11/03/2019 TECHNIQUE: Single radiograph of the chest dated 05/18/2020. FINDINGS: The cardiac silhouette is significantly enlarged. Central pulmonary vascular congestion is present. Mild mixed interstitial and airspace opacities are identified bilaterally. No large volume pleural effusion. No pneumothorax. No acute osseous abnormality. IMPRESSION: Cardiomegaly with pulmonary vascular congestion and bilateral pulmonary opacities is favored to relate to congestive heart failure with associated mild interstitial edema. Dictated by: Dictated on workstation # [id number]
--- NOTE | 2020-05-18 08:50 | NUR ---
RT AT BEDSIDE, PT REFUSING TO WEAR CPAP AT THIS TIME.
[2020-05-18 09:22] VITALS: BP 163/89
[2020-05-18 09:36] VITALS: BP 163/89
[2020-05-18] MEDS ORDERED: ONDANSETRON 4 MG/2 ML (SDV) Z0FRAN IV PRN (10:00)
[2020-05-18] MEDS ORDERED: CATHETER FLUSH 10 ML SYR IV PRN (10:00)
[2020-05-18] MEDS ORDERED: ACETAMINOPHEN 325 MG TABLET PO PRN (10:00)
--- NOTE | 2020-05-18 11:34 | History & Physical-Hospitalist ---
History of Present Illness HPI/Chief Complaint CC: AECHF HPI: This is a 44yoWM clinic patient of [facility] who has a h/o CHF and meth use who presents to ER with dyspnea. Patient refuses to answer any questions and wants to sleep. Date Seen 05/18/20 Time Seen by a Provider: 13:00 Attending Physician Toshia Herrera DO [facility] Referring Physician Date of Admission May 18, 2020 at 08:55 Home Medications & Allergies Home Medications Reviewed patient Home Medication Reconciliation performed by pharmacy medication reconciliations ordnance engineering technician and/or nursing. Patients Allergies have been reviewed. Allergies Allergies Coded Allergies No Known Drug Allergies (Unverified09/26/19) Past Wcpsxoj-[id number]-[id number] Hx Past Med/Social Hx: Reviewed Nursing Past Med/Soc Hx, Reviewed and Corrections made Patient Social History Marrital Status: single Employed/Student: unemployed Alcohol Use: Denies Use Alcohol Beverage of Choice: Whiskey Recreational Drug Use: Yes Drug of Choice: Meth, Marijuana Smoking Status: Current Everyday Smoker Type Used: Smokeless Tobacco 2nd Hand Smoke Exposure: No Recent Foreign Travel: No Contact w/other who traveled: No Recent Hopitalizations: No Recent Infectious Disease Expo: No Immunizations Up To Date Date of Pneumonia Vaccine: Aug 18, 2017 Seasonal Allergies Seasonal Allergies: No Past Medical History Surgeries: Orthopedic Respiratory: COPD, Sleep Apnea Cardiac: Atrial Fibrillation, Chronic Edema/Swelling, Hypertension History of Blood Disorders: No Family History Cardiovascular disease 19 MOTHER, Onset:Unknown Cancer, CAD Over 55 Years Old Review of Systems Constitutional: see HPI Physical Exam Physical Exam Vital Signs Vital Signs - First Documented 05/18/20 07:34 Temp 36.5 Pulse 116 Resp 28 B/P (MAP) 174/122 (139) Pulse Ox 99 O2 Delivery Nasal Cannula O2 Flow Rate 2.00 Capillary Refill : Less Than 3 Seconds Height, Weight, BMI Height: '" Weight: lbs. oz. kg; 57.88 BMI Method: General Appearance: No Apparent Distress, Chronically ill, Obese Respiratory: Lungs Clear, Decreased Breath Sounds Cardiovascular: Regular Rate, Rhythm Results Results/Procedures Labs Laboratory Tests 05/18/20 07:40 Patient resulted labs reviewed. Assessment/Plan Admission Diagnosis Assessment: AECHF Morbid obesity Meth use Plan: IV diuresis O2 Admission Status: Inpatient Order (span 2 midnights) Reason for Inpatient Admission: chf Diagnosis/Problems Diagnosis/Problems (1) Acute on chronic respiratory failure with hypoxemia Status: Acute (2) Methamphetamine abuse (3) Obesity hypoventilation syndrome Clinical Quality Measures DVT/VTE Risk/Contraindication: Risk Factor Score Per Nursin RFS Level Per Nursing on Admit: 4+=Very High TOSHIA HERRERA DO May 18, 2020 11:34
--- NOTE | 2020-05-18 11:40 | Consultation-Cardiology ---
HPI-Cardiology Cardiology Consultation Date of Consultation 05/18/20 Date of Admission Time Seen by Provider: 11:36 Indication: congestive heart failure HPI 44 years old gentleman with history of congestive heart failure, noncompliant with his medication, ran out of his medication for the past 2 weeks. Has history of multiple hospitalization due to noncompliance. Has underlying morbid obesity. Started to have worsening shortness of breath and came into the hospital, he was in decompensated heart failure. Home Medications & Allergies Allergies: Coded Allergies: No Known Drug Allergies (Unverified , 09/26/19) Home Medication List Reviewed: Yes MUH-Qnmbhk-Bnijoi Hx Patient Social History Alcohol Use: Denies Use Recreational Drug Use: Yes Drug of Choice: Meth, Marijuana Smoking Status: Current Everyday Smoker Type Used: Smokeless Tobacco 2nd Hand Smoke Exposure: No Recent Foreign Travel: No Recent Infectious Disease Expo: No Recent Hopitalizations: No Immunizations Up To Date Date of Pneumonia Vaccine: Aug 18, 2017 Past Medical History Discussed below Family Medical History Significant Family History: Cancer, CAD Over 55 Years Old Family History: Cardiovascular disease 19 MOTHER, Onset:Unknown Review of Systems-General Review of Systems Constitutional: see HPI; No chills, No diaphoresis; malaise EENTM: see HPI; No ear discharge, No ear pain Respiratory: see HPI; No cough; dyspnea on exertion, orthopnea; No phlegm; short of breath; No wheezing Cardiovascular: see HPI; No chest pain; edema; No Hx of Intervention, No palpitations, No syncope, No vascular heart diseas, No other Gastrointestinal: no symptoms reported, see HPI; No abdominal pain, No nausea, No vomiting Genitourinary: no symptoms reported, see HPI; No discharge, No dysuria Musculoskeletal: no symptoms reported, see HPI Skin: no symptoms reported, see HPI Psychiatric/Neurological: No Symptoms Reported, See HPI All Other Systems Reviewed Negative Unless Noted: Yes Reviewed Test Results Reviewed Test Results Lab Laboratory Tests Test 05/18/20 07:40 05/18/20 07:50 Range/Units White Blood Count 8.8 4.3-11.0 10^3/uL Red Blood Count 3.73 L 4.30-5.52 10^6/uL Hemoglobin 9.3 L 13.3-17.7 g/dL Hematocrit 32 L 40-54 % Mean Corpuscular Volume 85 80-99 fL Mean Corpuscular Hemoglobin 25 25-34 pg Mean Corpuscular Hemoglobin Concent 29 L 32-36 g/dL Red Cell Distribution Width 16.5 H 10.0-14.5 % Platelet Count 329 130-400 10^3/uL Mean Platelet Volume 9.4 9.0-12.2 fL Immature Granulocyte % (Auto) 1 % Neutrophils (%) (Auto) 74 42-75 % Lymphocytes (%) (Auto) 15 12-44 % Monocytes (%) (Auto) 7 0-12 % Eosinophils (%) (Auto) 3 0-10 % Basophils (%) (Auto) 0 0-10 % Neutrophils # (Auto) 6.5 1.8-7.8 10^3/uL Lymphocytes # (Auto) 1.3 1.0-4.0 10^3/uL Monocytes # (Auto) 0.6 0.0-1.0 10^3/uL Eosinophils # (Auto) 0.3 0.0-0.3 10^3/uL Basophils # (Auto) 0.0 0.0-0.1 10^3/uL Immature Granulocyte # (Auto) 0.0 0.0-0.1 10^3/uL Sodium Level 138 135-145 MMOL/L Potassium Level 3.8 3.6-5.0 MMOL/L Chloride Level 102 98-107 MMOL/L Carbon Dioxide Level 26 21-32 MMOL/L Anion Gap 10 5-14 MMOL/L Blood Urea Nitrogen 17 7-18 MG/DL Creatinine 1.24 0.60-1.30 MG/DL Estimat Glomerular Filtration Rate > 60 BUN/Creatinine Ratio 14 Glucose Level 107 H 70-105 MG/DL Lactic Acid Level 1.17 0.50-2.00 MMOL/L Calcium Level 8.5 8.5-10.1 MG/DL Corrected Calcium 9.0 8.5-10.1 MG/DL Total Bilirubin 0.9 0.1-1.0 MG/DL Aspartate Amino Transf (AST/SGOT) 18 5-34 U/L Alanine Aminotransferase (ALT/SGPT) 14 0-55 U/L Alkaline Phosphatase 132 40-136 U/L Troponin I 0.041 H <0.028 NG/ML C-Reactive Protein High Sensitivity 1.50 H 0.00-0.50 MG/DL B-Type Natriuretic Peptide 870.2 H <100.0 PG/ML Total Protein 6.7 6.4-8.2 GM/DL Albumin 3.4 3.2-4.5 GM/DL Procalcitonin 0.05 <0.10 NG/ML Blood Gas Puncture Site LT RAD Blood Gas Patient Temperature 36.5 Arterial Blood pH 7.39 7.37-7.43 Arterial Blood Partial Pressure CO2 49 H 35-45 MMHG Arterial Blood Partial Pressure O2 39 *L 79-93 MMHG Arterial Blood HCO3 29 H 23-27 MMOL/L Arterial Blood Total CO2 30.3 21.0-31.0 MMOL/L Arterial Blood Oxygen Saturation 64 L 94-100 % Arterial Blood Base Excess 3.9 H -2.5-2.5 MMOL/L Carlos Test NA Blood Gas Ventilator Setting NO Blood Gas Inspired Oxygen 2 L Physical Exam Physical Exam Vital Signs Vital Signs - First Documented 05/18/20 07:34 Temp 36.5 Pulse 116 Resp 28 B/P (MAP) 174/122 (139) Pulse Ox 99 O2 Delivery Nasal Cannula O2 Flow Rate 2.00 Capillary Refill : Less Than 3 Seconds Height, Weight, BMI Height: '" Weight: lbs. oz. kg; 57.88 BMI Method: General Appearance: No Apparent Distress, WD/WN Eyes: Bilateral Eye Normal Inspection, Bilateral Eye PERRL, Bilateral Eye EOMI HEENT: PERRL/EOMI, TMs Normal, Normal ENT Inspection, Pharynx Normal, Moist Mucous Membranes Neck: Full Range of Motion, Normal Inspection, Non Tender, Supple, JVD Respiratory: Chest Non Tender, Normal Breath Sounds, No Accessory Muscle Use, No Respiratory Distress Cardiovascular: Regular Rate, Rhythm, No Edema, No Gallop, No JVD, No Murmur, Normal Peripheral Pulses Gastrointestinal: Normal Bowel Sounds, No Organomegaly, No Pulsatile Mass, Non Tender, Soft Back: Normal Inspection, No CVA Tenderness, No Vertebral Tenderness Extremity: Normal Capillary Refill, Normal Inspection, Normal Range of Motion, Non Tender, No Calf Tenderness, No Pedal Edema Neurologic/Psychiatric: Alert, Oriented x3, No Motor/Sensory Deficits, Normal Mood/Affect Skin: Normal Color, Warm/Dry Lymphatic: No Adenopathy A/P-Cardiology Admission Diagnosis Congestive heart failure Shortness of breath Hypertension Paroxysmal atrial fibrillation Assessment/Plan Congestive heart failure, acute on chronic left ventricular systolic dysfunction, ejection fraction 30 percent, noncompliant with medication. Did not take any medication for the past 2 weeks, I will restart Lasix, metoprolol, losartan and aspirin and monitor tolerance and response Questionable underlying coronary artery disease has slight elevation in troponin level probably type II [place], will need cardiac workup which can be done as an outpatient. History of paroxysmal atrial fibrillation, was maintained on amiodarone, not taking any medication at this time. Continue on Lovenox and monitor telemetry Patient was on Eliquis as an outpatient, noncompliant, not taking any medication. Hypertension, restarted on beta blockers and ARB and we'll monitor tolerance and response COPD/obstructive sleep apnea, not using his sleep apnea machine History of methamphetamine use Noncompliant with LifeVest, patient receive it but did not use it due to inconvenience Noncompliant with medication Clinical Quality Measures DVT/VTE Risk/Contraindication: Risk Factor Score Per Nursin RFS Level Per Nursing on Admit: 4+=Very High RODGER LOZADA MD May 18, 2020 11:40
[2020-05-18 12:56] VITALS: BP 174/81
[2020-05-18] MEDS ORDERED: LOSARTAN 25 MG (COZAAR) TAB ONE (13:17)
[2020-05-18] MEDS: meTOprolol TARTRATE 25 MG (LOPRESSOR) TABLET PO SCH ×2 (13:21→20:56)
[2020-05-18] MEDS: ASPIRIN E.C. 81 MG (ECOTRIN) TAB PO SCH (13:21)
[2020-05-18] MEDS: CATHETER FLUSH 10 ML SYR IV SCH ×2 (13:22→20:57)
[2020-05-18] MEDS: FUROSEMIDE 40 MG/4 ML INJ (LASIX) IVP SCH ×2 (13:22→17:03)
[2020-05-18] MEDS: LOSARTAN 25 MG (COZAAR) TAB PO SCH (13:23)
[2020-05-18 17:18] VITALS: BP 145/76
[2020-05-18 20:00] VITALS: BP 126/90
[2020-05-19] VITALS (7 sets, daily range): BP systolic 122–185; BP diastolic 73–97
[2020-05-19] MEDS: LORazepam INJ 2 MG/ML (ATIVAN) VIAL IV PRN ×2 (01:55→21:31)
[2020-05-19 04:15] LABS: BASOPHILS # (AUTO) 0.1 10^3/uL (0.0-0.1); BASOPHILS % (AUTO) 1 % (0-10); EOSINOPHILS # (AUTO) 0.3 10^3/uL (0.0-0.3); EOSINOPHILS % (AUTO) 3 % (0-10); HEMATOCRIT 36 % (40-54); HEMOGLOBIN 10.1 g/dL (13.3-17.7); LYMPHOCYTES % (AUTO) 21 % (12-44); MEAN CORPUSCULAR HEMOGLOBIN 25 pg (25-34); MEAN CORPUSCULAR HGB CONC 28 g/dL (32-36); MEAN CORPUSCULAR VOLUME 86 fL (80-99); MEAN PLATELET VOLUME 9.4 fL (9.0-12.2); MONOCYTES # (AUTO) 0.9 10^3/uL (0.0-1.0); MONOCYTES % (AUTO) 9 % (0-12); NEUTROPHILS # (AUTO) 6.3 10^3/uL (1.8-7.8); NEUTROPHILS % (AUTO) 66 % (42-75); PLATELET COUNT 384 10^3/uL (130-400); WHITE BLOOD COUNT 9.6 10^3/uL (4.3-11.0)
[2020-05-19 04:25] LABS: ALBUMIN 3.5 GM/DL (3.2-4.5)
[2020-05-19 04:26] LABS: CALCIUM 9.2 MG/DL (8.5-10.1)
[2020-05-19 04:27] LABS: TOTAL PROTEIN 7.1 GM/DL (6.4-8.2)
[2020-05-19 04:29] LABS: BILIRUBIN,TOTAL 0.9 MG/DL (0.1-1.0)
[2020-05-19 04:31] LABS: CREATININE SERUM 1.39 MG/DL (0.60-1.30)
[2020-05-19] MEDS: CATHETER FLUSH 10 ML SYR IV SCH ×3 (07:22→22:23)
[2020-05-19] MEDS: FUROSEMIDE 40 MG/4 ML INJ (LASIX) IVP SCH ×2 (07:22→17:13)
--- NOTE | 2020-05-19 08:01 | Diagnostic Imaging Report ---
INDICATION: Cough and congestion. Comparison made with prior examination of 05/18/2020. FINDINGS: There is cardiomegaly. There is some venous congestion. No pleural effusion or pneumothorax. Mediastinum is unremarkable. IMPRESSION: Cardiomegaly and moderate central pulmonary venous congestion. Dictated by: Dictated on workstation # [id number]
[2020-05-19] MEDS: meTOprolol TARTRATE 25 MG (LOPRESSOR) TABLET PO SCH ×2 (08:32→21:31)
[2020-05-19] MEDS: LOSARTAN 25 MG (COZAAR) TAB PO SCH (08:32)
[2020-05-19] MEDS: ASPIRIN E.C. 81 MG (ECOTRIN) TAB PO SCH (08:32)
--- NOTE | 2020-05-19 09:46 | Progress Note - Cardiology ---
Cardiology SOAP Progress Note Subjective: Sitting up in recliner at the bedside. He reports generally not feeling well. Moaning. He continues to c/o feeling SOB. Objective: I&O/Vital Signs 05/19/20 05/19/20 05/19/20 05/19/20 00:00 01:00 04:00 04:00 Temp 37.0 Pulse 81 77 Resp 20 B/P (MAP) 148/78 (101) Pulse Ox 97 97 96 O2 Delivery Room Air Room Air Nasal Cannula O2 Flow Rate 2.00 2.00 2.00 05/19/20 05/19/20 05/19/20 06:32 08:33 08:49 Temp 36.4 Pulse 87 88 Resp 18 B/P (MAP) 133/73 (93) 185/97 (126) Pulse Ox 100 O2 Delivery Nasal Cannula O2 Flow Rate 2.00 05/19/20 00:00 Intake Total 600 ml Output Total 8525 ml Balance -7925 ml Constitutional: AAO x 3, well-developed (obese), well-nourished Respiratory: No accessory muscle use, No respiratory distress; chest expansion is symmetric, chest is bilaterally symmetric, other (fair air entry; poor inspiratory effort) Cardiovascular: regular rate-rhythm; No JVD; S1 and S2 Gastrointestional: No tender; soft, round, audible bowel sounds Extremities: other (2-3 (+) pitting LE swelling) Neurologic/Psychiatric: grossly intact (moves all extremiteis) Skin: other (venous stasis discoloration to LE bilat) Results/Procedures: Labs Laboratory Tests 05/18/20 14:23: Troponin I 0.046H 05/18/20 20:14: Troponin I 0.048H 05/19/20 03:30: Troponin I 0.048H, White Blood Count 9.6, Red Blood Count 4.13L, Hemoglobin 10.1L, Hematocrit 36L, Mean Corpuscular Volume 86, Mean Corpuscular Hemoglobin 25, Mean Corpuscular Hemoglobin Concent 28L, Red Cell Distribution Width 16.8H, Platelet Count 384, Mean Platelet Volume 9.4, Immature Granulocyte % (Auto) 0, Neutrophils (%) (Auto) 66, Lymphocytes (%) (Auto) 21, Monocytes (%) (Auto) 9, Eosinophils (%) (Auto) 3, Basophils (%) (Auto) 1, Neutrophils # (Auto) 6.3, Lymphocytes # (Auto) 2.0, Monocytes # (Auto) 0.9, Eosinophils # (Auto) 0.3, Basophils # (Auto) 0.1, Immature Granulocyte # (Auto) 0.0, Sodium Level 140, Potassium Level 4.0, Chloride Level 101, Carbon Dioxide Level 24, Anion Gap 15H, Blood Urea Nitrogen 18, Creatinine 1.39H, Estimat Glomerular Filtration Rate 56, BUN/Creatinine Ratio 13, Glucose Level 85, Calcium Level 9.2, Corrected Calcium 9.6, Total Bilirubin 0.9, Aspartate Amino Transf (AST/SGOT) 23, Alanine Aminotransferase (ALT/SGPT) 13, Alkaline Phosphatase 119, B-Type Natriuretic Peptide 841.5H, Total Protein 7.1, Albumin 3.5, Triglycerides Level 69, Cholesterol Level 139, LDL Cholesterol Direct 104, VLDL Cholesterol 14, HDL Cholesterol 40 Laboratory Tests 05/18/20 07:40 05/19/20 03:30 Procedures NAME: MATIAS GOMES [facility] REC#: [id number] PT STATUS: ADM IN : 1975 PHYSICIAN: KARIN SAUNDERS DO ADMIT DATE: 05/18/20/[facility] Signed Date of Exam:05/19/20 CHEST 1 VIEW, AP/PA ONLY INDICATION: Cough and congestion. Comparison made with prior examination of 05/18/2020. FINDINGS: There is cardiomegaly. There is some venous congestion. No pleural effusion or pneumothorax. Mediastinum is unremarkable. IMPRESSION: Cardiomegaly and moderate central pulmonary venous congestion. Dictated by: Dictated on workstation # [id number] Dict: 05/19/20 0753 Trans: 05/19/20900 CVB [id number] Interpreted by: TATI GAITAN MD Electronically signed by: TATI GAITAN MD 05/19/20900 A/P: Assessment: Congestive heart failure, acute on chronic left ventricular systolic dys function, ejection fraction 30% Echo of October [address] Collins showed LVEF 30-35% Questionable underlying coronary artery disease has slight elevation in troponin level probably type II [place], will need cardiac workup which can be done as an outpatient. History of paroxysmal atrial fibrillation, was maintained on amiodarone, not taking any medication at this time Patient was on Eliquis as an outpatient, noncompliant, not taking any medication. Hypertension, restarted on beta blockers and ARB COPD/obstructive sleep apnea, not using his sleep apnea machine History of methamphetamine use Noncompliant with LifeVest, patient receive it but did not use it due to inconvenience Noncompliant with medication Morbidly obese Plan: Continue current regimen Advised compliance with medications and regimen Monitor lab Replace electrolytes as indicated SUYAPA SKELTON [facility] May 19, 2020 09:46
--- NOTE | 2020-05-19 11:46 | Progress Note - Cardiology ---
Cardiology SOAP Progress Note Subjective: Reports gen malaise and weakness Still short of breath with activity No cp or syncope No n/v/d No focal weakness Objective: I&O/Vital Signs 05/19/20 05/19/20 05/19/20 05/19/20 00:00 01:00 04:00 04:00 Temp 37.0 Pulse 81 77 Resp 20 B/P (MAP) 148/78 (101) Pulse Ox 97 97 96 O2 Delivery Room Air Room Air Nasal Cannula O2 Flow Rate 2.00 2.00 2.00 05/19/20 05/19/20 05/19/20 06:32 08:33 08:49 Temp 36.4 Pulse 87 88 Resp 18 B/P (MAP) 133/73 (93) 185/97 (126) Pulse Ox 100 O2 Delivery Nasal Cannula O2 Flow Rate 2.00 05/19/20 00:00 Intake Total 600 ml Output Total 8525 ml Balance -7925 ml Constitutional: AAO x 3, well-developed (obese), well-nourished Respiratory: No accessory muscle use, No respiratory distress; chest expansion is symmetric, chest is bilaterally symmetric, other (fair air entry; poor inspiratory effort) Cardiovascular: regular rate-rhythm; No JVD; S1 and S2 Gastrointestional: No tender; soft, round, audible bowel sounds Extremities: other (2-3 (+) pitting LE swelling) Neurologic/Psychiatric: grossly intact (moves all extremiteis) Skin: other (venous stasis discoloration to LE bilat) Results/Procedures: Labs Laboratory Tests 05/18/20 14:23: Troponin I 0.046H 05/18/20 20:14: Troponin I 0.048H 05/19/20 03:30: Troponin I 0.048H, White Blood Count 9.6, Red Blood Count 4.13L, Hemoglobin 10.1L, Hematocrit 36L, Mean Corpuscular Volume 86, Mean Corpuscular Hemoglobin 25, Mean Corpuscular Hemoglobin Concent 28L, Red Cell Distribution Width 16.8H, Platelet Count 384, Mean Platelet Volume 9.4, Immature Granulocyte % (Auto) 0, Neutrophils (%) (Auto) 66, Lymphocytes (%) (Auto) 21, Monocytes (%) (Auto) 9, Eosinophils (%) (Auto) 3, Basophils (%) (Auto) 1, Neutrophils # (Auto) 6.3, Lymphocytes # (Auto) 2.0, Monocytes # (Auto) 0.9, Eosinophils # (Auto) 0.3, Basophils # (Auto) 0.1, Immature Granulocyte # (Auto) 0.0, Sodium Level 140, Potassium Level 4.0, Chloride Level 101, Carbon Dioxide Level 24, Anion Gap 15H, Blood Urea Nitrogen 18, Creatinine 1.39H, Estimat Glomerular Filtration Rate 56, BUN/Creatinine Ratio 13, Glucose Level 85, Calcium Level 9.2, Corrected Calcium 9.6, Total Bilirubin 0.9, Aspartate Amino Transf (AST/SGOT) 23, Alanine Aminotransferase (ALT/SGPT) 13, Alkaline Phosphatase 119, B-Type Natriuretic Peptide 841.5H, Total Protein 7.1, Albumin 3.5, Triglycerides Level 69, Cholesterol Level 139, LDL Cholesterol Direct 104, VLDL Cholesterol 14, HDL Cholesterol 40 Laboratory Tests 05/18/20 07:40 05/19/20 03:30 A/P: Assessment: Congestive heart failure, acute on chronic left ventricular systolic dysfunction, ejection fraction 30% Echo of October [address] Collins showed LVEF 30-35% Minimal troponin elevation, likely type 2 MD due to CHF History of paroxysmal atrial fibrillation, previously on amiodarone, not taking any medication at this time Patient was on Eliquis as an outpatient, noncompliant, not taking any medication. Hypertension, restarted on beta blockers and ARB COPD/obstructive sleep apnea, not using his sleep apnea machine History of methamphetamine use Noncompliant with LifeVest or ICD Noncompliant with medications Morbid obesity Plan: Continue current regimen Advised compliance with medications and regimen Monitor lab Replace electrolytes as indicated HIRO FENTON MD FACP FAC [facility] May 19, 2020 11:46
--- NOTE | 2020-05-19 12:55 | History & Physical ---
HPI Attending Physician Demi Alan MD PCP [place] Consult Date of Admission May 18, 2020 at 08:55 Home Medications Home Medications Reviewed patient Home Medication Reconciliation performed by pharmacy medication reconciliations charge preparation technician and/or nursing. Patients Allergies have been reviewed. Allergies Coded Allergies: No Known Drug Allergies (Unverified , 09/26/19) ILO-Yyvolp-Vxxzyp Hx Patient Social History Marrital Status: single Employed/Student: unemployed Alcohol Use: Denies Use Recreational Drug Use: Yes Drug of Choice: Meth, Marijuana Smoking Status: Current Everyday Smoker Type Used: Smokeless Tobacco 2nd Hand Smoke Exposure: No Recent Foreign Travel: No Contact w/other who traveled: No Recent Hopitalizations: No Recent Infectious Disease Expo: No Immunizations Up To Date Date of Pneumonia Vaccine: Aug 18, 2017 Past Medical History Systolic CHF with life vest ZULLY non compliant with CPAP HTN Atrial Fibrillation HTN Family Medical History Significant Family History: Cancer, CAD Over 55 Years Old Family History: Cardiovascular disease 19 MOTHER, Onset:Unknown Physical Exam-([facility]) Physical Exam Vital Signs VS - Last 72 Hours, by Label 05/18/20 05/18/20 05/18/20 05/18/20 07:34 09:00 09:08 09:20 Temp 36.5 Pulse 116 107 109 Resp 24 B/P (MAP) 174/122 (139) 157/104 Pulse Ox 99 99 O2 Delivery Nasal Cannula Nasal Cannula Nasal Cannula O2 Flow Rate 2.00 2.00 2.00 05/18/20 05/18/20 05/18/20 05/18/20 09:22 09:36 12:00 12:19 Temp 36.3 36.3 Pulse 108 108 103 Resp B/P (MAP) 163/89 (113) 163/89 Pulse Ox 95 95 O2 Delivery Nasal Cannula Nasal Cannula Nasal Cannula O2 Flow Rate 2.00 2.00 2.00 2.00 05/18/20 05/18/20 05/18/20 05/18/20 12:56 16:00 17:18 19:00 Temp 37.5 37.2 Pulse 104 75 87 Resp B/P (MAP) 174/81 (112) 145/76 (99) Pulse Ox 99 95 O2 Delivery Nasal Cannula Nasal Cannula Room Air O2 Flow Rate 2.00 2.00 10/1105/18/20 05/18/20 05/19/20 20:00 20:00 21:00 00:00 Temp 36.8 Pulse 87 Resp 20 B/P (MAP) 126/90 (102) Pulse Ox 98 97 97 97 O2 Delivery Room Air Room Air Room Air Room Air O2 Flow Rate 2.00 2.00 05/19/20 05/19/20 05/19/20 05/19/20 01:00 04:00 04:00 06:32 Temp 37.0 Pulse 81 77 87 Resp 20 B/P (MAP) 148/78 (101) Pulse Ox 97 96 O2 Delivery Room Air Nasal Cannula O2 Flow Rate 2.00 2.00 05/19/20 05/19/20 05/19/20 05/19/20 08:00 08:33 08:49 09:00 Temp 36.4 Pulse 88 Resp 18 B/P (MAP) 133/73 (93) 185/97 (126) Pulse Ox 100 O2 Delivery Room Air Nasal Cannula Room Air O2 Flow Rate 2.00 05/19/20 05/19/20 12:00 12:00 Temp 35.8 Pulse 82 Resp 16 B/P (MAP) 143/93 (110) Pulse Ox 96 O2 Delivery Nasal Cannula Room Air O2 Flow Rate 2.00 Capillary Refill : NONELess Than 3 Seconds Clinical Quality Measures DVT/VTE Risk/Contraindication: Risk Factor Score Per Nursin RFS Level Per Nursing on Admit: 4+=Very High KAYDEN-SANCHEZ ACOSTA, May 19, 2020 12:55
--- NOTE | 2020-05-19 12:56 | Progress Note ---
KAYDENAbdoulSANCHEZ ACOSTA, 05/19/20 1256: Subjective Subjective/Events-last exam Pt was unwilling to answer questions during interview. Did admit that he was doing better compared to when he got here. He presented with shortness of breath. No concerns voiced. Focused Exam Lactate Level 05/18/20 07:40: Lactic Acid Level 1.17 Objective Exam Last Set of Vital Signs Vital Signs Date Time Temp Pulse Resp B/P (MAP) Pulse Ox O2 Delivery O2 Flow Rate FiO2 05/19/20 12:00 Room Air 05/19/20 12:00 35.8 82 16 143/93 (110) 96 2.00 Capillary Refill : NONELess Than 3 Seconds I&O Intake and Output 05/19/20 00:00 Intake Total 600 ml Output Total 8525 ml Balance -7925 ml Intake Oral 600 ml Output Urine Total 8525 ml Daily Weight Change No No General: Alert, Cooperative HEENT: PERRLA, EOMI Lungs: Other (rales) Heart: Regular Rate, No Murmurs Abdomen: Normal Bowel Sounds, No Tenderness Extremities: No Clubbing, Other (venous stasis dermatitis on bilateral LE) Skin: No Rashes Neuro: Normal Speech Results/Procedures Lab Laboratory Tests 05/18/20 14:23: Troponin I 0.046H 05/18/20 20:14: Troponin I 0.048H 05/19/20 03:30: Troponin I 0.048H, White Blood Count 9.6, Red Blood Count 4.13L, Hemoglobin 10.1L, Hematocrit 36L, Mean Corpuscular Volume 86, Mean Corpuscular Hemoglobin 25, Mean Corpuscular Hemoglobin Concent 28L, Red Cell Distribution Width 16.8H, Platelet Count 384, Mean Platelet Volume 9.4, Immature Granulocyte % (Auto) 0, Neutrophils (%) (Auto) 66, Lymphocytes (%) (Auto) 21, Monocytes (%) (Auto) 9, Eosinophils (%) (Auto) 3, Basophils (%) (Auto) 1, Neutrophils # (Auto) 6.3, Lymphocytes # (Auto) 2.0, Monocytes # (Auto) 0.9, Eosinophils # (Auto) 0.3, Basophils # (Auto) 0.1, Immature Granulocyte # (Auto) 0.0, Sodium Level 140, Potassium Level 4.0, Chloride Level 101, Carbon Dioxide Level 24, Anion Gap 15H, Blood Urea Nitrogen 18, Creatinine 1.39H, Estimat Glomerular Filtration Rate 56, BUN/Creatinine Ratio 13, Glucose Level 85, Calcium Level 9.2, Corrected Calcium 9.6, Total Bilirubin 0.9, Aspartate Amino Transf (AST/SGOT) 23, Alanine Aminotransferase (ALT/SGPT) 13, Alkaline Phosphatase 119, B-Type Natriuretic Peptide 841.5H, Total Protein 7.1, Albumin 3.5, Triglycerides Level 69, Cholesterol Level 139, LDL Cholesterol Direct 104, VLDL Cholesterol 14, HDL Cholesterol 40 Assessment/Plan Assessment/Plan Assessment & Plan 1. Acute on chronic CHF * Pt has a history of CHF, most recent echo in 02/2020 showed EF of 30% * Non-compliant with life vest * On O2 during interview, will wean to baseline * Given lasix for overload * Nitrates available if needed * Cardiology consulted, appreciate recommendations 2. Acute on chronic respiratory failure * Not on home O2 * On 2L during interview, will wean to baseline * Likely secondary to volume overload from acute CHF exacerbation 3. Elevated troponin, NSTEMI type 2 secondary to CHF and respiratory failure * Elevated troponin * Trending at 0.48 for all * EKG revealed NSR Clinical Quality Measures DVT/VTE Risk/Contraindication: Risk Factor Score Per Nursin RFS Level Per Nursing on Admit: 4+=Very High GABY PANDEY MD 05/19/20 1650: Supervisory-Addendum Brief Verification & Attestation Participated in pt care: history, MDM, physical Personally performed: exam, history, MDM, supervision of care Care discussed with: Medical Student Procedures: n/a I personally saw and examined this patient today and repeated history and exam. I agree with medical student documentation. Has developed acute renal insuff iciency, likely related to lasix, monitor closely. Discussed getting medications at reduced cost if able as he stated he wasn't taking meds because he is going to lose his insurance. SANCHEZ SCANLON, May 19, 2020 12:56 GABY PANDEY MD May 19, 2020 16:50
--- NOTE | 2020-05-19 13:55 | NUR ---
THIS NURSE NOTIFIED DR PANDEY OF POSITIVE BLOOD RESULTS. NO NEW ORDERS AT THIS TIME. WILL CONTINUE TO MONITOR.
--- NOTE | 2020-05-19 15:06 | NUR ---
SPOKE WITH THE PT (I CALLED HIS ROOM PHONE) TO COMPLETE THE MED REC WHEN I SPOKE WITH THE PT HE ADMITTED HE QUIT TAKING ALL HIS MEDICATIONS (AROUND JANUARY 2020) DUE TO LOSING HIS INSURANCE. I DID REACH OUT TO CARDIOLOGY TO GET A MED LIST OF WHAT THEY HAVE ON FILE FOR HIM (PER THE EXT MED HISTORY [facility] PROVIDERS ARE ALL THAT WERE LISTED) THE FOLLOWING MEDICATIONS ARE WHAT IS ON THE CURRENT MED LIST WITH LAST FILL DATES: 10-01-2019 FUROSEMIDE 40MG #30/30DS 10-01-2019 POTASSIUM 10MEQ #90/90DS 11-04-2019 ENTRESTO #6/3DS 11-04-2019 METOPROLOL TART 50MG #60/30DS 12-10-2019 ELIQUIS 5MG #60/30DS\\ 12-10-2019 DILTIAZEM CD 240MG #30/30DS 12-10-2019 AMIODARONE 200MG #30/30DS ON 01-16-2020 COREG 6.25MG #60/30DS WAS FILLED FROM DR. JUN ZEPEDA DUE TO THE PT ADMITTING HE QUIT TAKING HIS MEDICATIONS I SET THE MED REC TO "NO MEDICATIONS"
[2020-05-19] MEDS ORDERED: MELATONIN 3 MG TABLET PO SCH (21:00)
[2020-05-19] MEDS: APIXABAN 5 MG (ELIQUIS) TABLET PO SCH (21:30)
[2020-05-20] MEDS: LORazepam INJ 2 MG/ML (ATIVAN) VIAL IV PRN (02:31)
[2020-05-20 04:14] LABS: BASOPHILS # (AUTO) 0.1 10^3/uL (0.0-0.1); BASOPHILS % (AUTO) 1 % (0-10); EOSINOPHILS # (AUTO) 0.3 10^3/uL (0.0-0.3); EOSINOPHILS % (AUTO) 3 % (0-10); HEMATOCRIT 35 % (40-54); LYMPHOCYTES # (AUTO) 2.1 10^3/uL (1.0-4.0); LYMPHOCYTES % (AUTO) 23 % (12-44); MEAN CORPUSCULAR HEMOGLOBIN 24 pg (25-34); MEAN CORPUSCULAR HGB CONC 29 g/dL (32-36); MEAN CORPUSCULAR VOLUME 85 fL (80-99); MEAN PLATELET VOLUME 9.4 fL (9.0-12.2); MONOCYTES # (AUTO) 0.7 10^3/uL (0.0-1.0); MONOCYTES % (AUTO) 8 % (0-12); NEUTROPHILS # (AUTO) 6.1 10^3/uL (1.8-7.8); NEUTROPHILS % (AUTO) 65 % (42-75); PLATELET COUNT 392 10^3/uL (130-400); WHITE BLOOD COUNT 9.3 10^3/uL (4.3-11.0)
[2020-05-20 04:24] LABS: POTASSIUM 3.6 MMOL/L (3.6-5.0)
[2020-05-20 04:25] LABS: CALCIUM 8.8 MG/DL (8.5-10.1)
[2020-05-20 04:29] LABS: CREATININE SERUM 1.32 MG/DL (0.60-1.30)
[2020-05-20 04:31] LABS: MAGNESIUM 1.9 MG/DL (1.6-2.4)
[2020-05-20 06:14] VITALS: BP 118/83
[2020-05-20] MEDS: FUROSEMIDE 40 MG/4 ML INJ (LASIX) IVP SCH (06:19)
[2020-05-20] MEDS: CATHETER FLUSH 10 ML SYR IV SCH (06:19)
[2020-05-20 07:34] VITALS: BP 158/86
--- NOTE | 2020-05-20 07:52 | Discharge Summary ---
KAYDENAbdoulSANCHEZ ACOSTA, 05/20/20 0751: Discharge Summary Hospital Course Problems Reviewed?: Yes Hospital Course Date of Admission: May 18, 2020 at 08:55 Admission Diagnosis : Acute on chronic CHF Acute on chronic respiratory failure Elevated troponin [facility] Date of [facility]: 05/20/20 Discharge Diagnosis: Acute on chronic CHF- Pt non-compliant with home medication regimen. Had increasing shortness of breath and presented to the ER. Given Lasix IV Q12H. Cardiology consulted, restarted home medications. Recent echo in 12/2019 showed EF of 30%. Denies wearing life-vest. Pt is now back to baseline O2 requirements. Will need repeat BMP, Cr at follow-up visit. Acute on chronic respiratory failure- Pt has history of CHF, but is not on baseline O2 at home. Requiring 2L NC that was worn periodically during stay. Lasix given as above. On discharge, is back to baseline O2 requirements. Elevated troponin- NSTEMI type 2, likely secondary to CHF and respiratory failure. Trending at 0.48 with EKG demonstrating NSR. Cardiology consulted, agreed with suspected cause of troponosis. Hospital Course: Labs and Pending Lab Test: Laboratory Tests 05/20/20 03:35: White Blood Count 9.3, Red Blood Count 4.09L, Hemoglobin 10.0L, Hematocrit 35L, Mean Corpuscular Volume 85, Mean Corpuscular Hemoglobin 24L, Mean Corpuscular Hemoglobin Concent 29L, Red Cell Distribution Width 16.7H, Platelet Count 392, Mean Platelet Volume 9.4, Immature Granulocyte % (Auto) 0, Neutrophils (%) (Auto) 65, Lymphocytes (%) (Auto) 23, Monocytes (%) (Auto) 8, Eosinophils (%) (Auto) 3, Basophils (%) (Auto) 1, Neutrophils # (Auto) 6.1, Lymphocytes # (Auto) 2.1, Monocytes # (Auto) 0.7, Eosinophils # (Auto) 0.3, Basophils # (Auto) 0.1, Immature Granulocyte # (Auto) 0.0, Sodium Level 137, Potassium Level 3.6, Chlor deneen Level 98, Carbon Dioxide Level 27, Anion Gap 12, Blood Urea Nitrogen 22H, Creatinine 1.32H, Estimat Glomerular Filtration Rate 59, BUN/Creatinine Ratio 17, Glucose Level 105, Calcium Level 8.8, Magnesium Level 1.9 Microbiology 05/18/20 Blood Culture - Preliminary, Resulted Probable Staph Aureus Home Meds Active Please go to the [facility] clinic to receive medications. Check-in at Family Practice check-in desk. Discharge Diet: Cardiac Diet Activity as Tolerated: Yes Discharge Physical Examination Allergies: Coded Allergies: No Known Drug Allergies (Unverified , 09/26/19) General Appearance: No Apparent Distress, WD/WN HEENT: PERRL/EOMI, Pharynx Normal Respiratory: Lungs Clear, Normal Breath Sounds Cardiovascular: Regular Rate, Rhythm, No Murmur Gastrointestinal: Normal Bowel Sounds, Non Tender Extremity: Normal Capillary Refill, Pedal Edema Skin: Normal Color, Warm/Dry Neurologic/Psychiatric: Alert, No Motor/Sensory Deficits Copy Copies To 1: January Gordon APRN Discharge Summary Date of Admission May 18, 2020 at 08:55 Date of Discharge Discharge Date: May 20, 2020 Discharge Diagnosis (1) Acute on chronic respiratory failure with hypoxemia Status: Acute (2) Methamphetamine abuse (3) Obesity hypoventilation syndrome Clinical Quality Measures DVT/VTE Risk/Contraindication: Risk Factor Score Per Nursin RFS Level Per Nursing on Admit: 4+=Very High GABY PANDEY MD 05/20/20 1139: Discharge Summary Hospital Course Hospital Course See student documentation above, all meds were given from repository on d/c. Active Scripts Active Potassium Chloride 20 Meq Tablet.er 20 Meq PO DAILY Atorvastatin Calcium 40 Mg Tablet 40 Mg PO DAILY 90 Days Metoprolol Tartrate 50 Mg Tablet 50 Mg PO BID 90 Days Furosemide 40 Mg Tablet 40 Mg PO DAILY Aspirin EC (Aspirin) 81 Mg Tablet.dr 81 Mg PO DAILY Losartan Potassium 25 Mg Tablet 25 Mg PO DAILY Eliquis (Apixaban) 5 Mg Tablet 5 Mg PO BID Will be given from repository medications at [facility] Assessment/Pt DC Instructions Follow up with Ashely Gordon on 05/23 at 3:20 pm. Go to [facility] in [place] ([facility] [address]) and go to Family Medicine clinic to get repository (free) medications. Discharge Physical Examination Allergies: Coded Allergies: No Known Drug Allergies (Unverified , 09/26/19) Extremity: Pedal Edema (improved, large amount of skin wrinkling, chronic venous stasis dermatitis noted) Copy Copies To 1: January Gordon APRN Supervisory-Addendum Brief Verification & Attestation Participated in pt care: history, MDM, physical Personally performed: exam, history, MDM, supervision of care Care discussed with: Medical Student Procedures: n/a See my notes, agree with student documentation, I did my own history and physical exam and agree with documentation. SANCHEZ SCANLON, May 20, 2020 07:51 GABY PANDEY MD May 20, 2020 11:39
[2020-05-20] MEDS: meTOprolol TARTRATE 25 MG (LOPRESSOR) TABLET PO SCH (09:42)
[2020-05-20] MEDS: LOSARTAN 25 MG (COZAAR) TAB PO SCH (09:42)
[2020-05-20] MEDS: ASPIRIN E.C. 81 MG (ECOTRIN) TAB PO SCH (09:42)
[2020-05-20] MEDS: APIXABAN 5 MG (ELIQUIS) TABLET PO SCH (09:42)
--- NOTE | 2020-05-20 10:57 | Progress Note - Cardiology ---
Cardiology SOAP Progress Note Subjective: Better than before but still short of breath with mod activity No cp or palp or syncope No n/v/d Objective: I&O/Vital Signs 05/19/20 05/20/20 05/20/20 05/20/20 23:50 00:00 01:00 04:00 Temp 36.2 Pulse 76 88 Resp 18 B/P (MAP) 122/81 (95) Pulse Ox 96 O2 Delivery Nasal Cannula Nasal Cannula Nasal Cannula O2 Flow Rate 2.00 2.00 2.00 05/20/20 05/20/20 05/20/20 05/20/20 06:14 06:43 07:34 08:00 Temp 36.6 37.4 Pulse 87 92 91 Resp 18 19 B/P (MAP) 118/83 (95) 158/86 (110) Pulse Ox 97 96 O2 Delivery Nasal Cannula Nasal Cannula Nasal Cannula O2 Flow Rate 2.00 2.00 2.00 05/20/20 09:00 O2 Delivery Room Air 05/20/20 00:00 Intake Total 1450 ml Output Total 4950 ml Balance -3500 ml Constitutional: AAO x 3, well-developed (obese), well-nourished Respiratory: No accessory muscle use, No respiratory distress; chest expansion is symmetric, chest is bilaterally symmetric, other (fair air entry; poor inspiratory effort) Cardiovascular: regular rate-rhythm; No JVD; S1 and S2 Gastrointestional: No tender; soft, round, audible bowel sounds Extremities: other (2-3 (+) pitting LE swelling) Neurologic/Psychiatric: grossly intact (moves all extremiteis) Skin: other (venous stasis discoloration to LE bilat) Results/Procedures: Labs Laboratory Tests 05/20/20 03:35: White Blood Count 9.3, Red Blood Count 4.09L, Hemoglobin 10.0L, Hematocrit 35L, Mean Corpuscular Volume 85, Mean Corpuscular Hemoglobin 24L, Mean Corpuscular Hemoglobin Concent 29L, Red Cell Distribution Width 16.7H, Platelet Count 392, Mean Platelet Volume 9.4, Immature Granulocyte % (Auto) 0, Neutrophils (%) (Aut o) 65, Lymphocytes (%) (Auto) 23, Monocytes (%) (Auto) 8, Eosinophils (%) (Auto) 3, Basophils (%) (Auto) 1, Neutrophils # (Auto) 6.1, Lymphocytes # (Auto) 2.1, Monocytes # (Auto) 0.7, Eosinophils # (Auto) 0.3, Basophils # (Auto) 0.1, Immature Granulocyte # (Auto) 0.0, Sodium Level 137, Potassium Level 3.6, Chloride Level 98, Carbon Dioxide Level 27, Anion Gap 12, Blood Urea Nitrogen 22H, Creatinine 1.32H, Estimat Glomerular Filtration Rate 59, BUN/Creatinine Ratio 17, Glucose Level 105, Calcium Level 8.8, Magnesium Level 1.9 Microbiology 05/18/20 Blood Culture - Preliminary, Resulted Probable Staph Aureus Laboratory Tests 05/19/20 03:30 05/20/20 03:35 A/P: Assessment: Congestive heart failure, acute on chronic left ventricular systolic dysfunction, ejection fraction 30% Echo of October [address] Collins showed LVEF 30-35% Minimal troponin elevation, likely type 2 TX due to CHF History of paroxysmal atrial fibrillation, previously on amiodarone, not taking any medication at this time Patient was on Eliquis as an outpatient, noncompliant, not taking any medi cation. Hypertension, restarted on beta blockers and ARB COPD/obstructive sleep apnea, not using his sleep apnea machine History of methamphetamine use Noncompliant with LifeVest or ICD, still refuses Noncompliant with medications, now taking Morbid obesity Anemia of undetermined etiology and mild chronic renal insufficiency, Dr Herrera managing Plan: Increase beta-chalino for bp control and for treatment of cardiomyopathy Advised compliance with medications and regimen Monitor lab Replace electrolytes as indicated HIRO FENTON MD FACP [facility] May 20, 2020 10:57
[2020-05-20] MEDS ORDERED: ATOR40TA70 PO (11:37)
[2020-05-20] MEDS ORDERED: METO50TA15 PO (11:37)
[2020-05-20] MEDS ORDERED: LOSA25TA41 PO (11:37)
[2020-05-20] MEDS ORDERED: ASPI-1238 PO (11:37)
[2020-05-20] MEDS ORDERED: FURO40TA4 PO (11:37)
[2020-05-20] MEDS ORDERED: POTA-51 PO (11:37)
[2020-05-20] MEDS ORDERED: APIX5TAB PO (11:37)
--- NOTE | 2020-05-20 12:30 | NUR ---
PT REFUSED VITALS. PT EDUCATED. PT IS GOING HOME. WILL CONTINUE TO MONITOR.
--- NOTE | 2020-05-20 12:45 | NUR ---
PT EDUCATED ON DISCHARGE INSTRUCTIONS. PT STATED UNDERSTANDING.
[2020-05-20 13:20] VITALS: BP 158/86
[2020-05-20] MEDS ORDERED: meTOprolol TARTRATE 25 MG (LOPRESSOR) TABLET PO SCH (21:00)
== END 2020-05-20 13:20 | disposition home or self-care (01) | DRG 280 ==
LOC: EDUNIT# 07:31 → ER 07:32 → CSD 08:55
PROVIDERS: ADMIT Internal Medicine; ATTEND Family Medicine
DX: I11.0 Hypertensive heart disease with heart failure (principal); I21.A1 Myocardial infarction type 2; J96.20 Acute and chronic respiratory failure, unspecified whether with hypoxia or hypercapnia; Z68.43 Body mass index [BMI] 50.0-59.9, adult; I50.23 Acute on chronic systolic (congestive) heart failure; I48.0 Paroxysmal atrial fibrillation; J44.9 Chronic obstructive pulmonary disease, unspecified; G47.33 Obstructive sleep apnea (adult) (pediatric); E66.01 Morbid (severe) obesity due to excess calories; D64.9 Anemia, unspecified; F15.10 Other stimulant abuse, uncomplicated; Z91.14 Patient's other noncompliance with medication regimen
CPT/HCPCS: 36415; 51702; 71045; 80048; 80053; 80061; 82805; 83605; 83735; 83880; 84145; 84484; 85025; 85027; 86141; 87040; 87077; 93005

== ENCOUNTER 2020-05-29 02:43 | Emergency (ER) | payer SELFPAY ==
[~2020-05-29] VITALS: Ht 177 cm; Wt 181.0 kg
[~2020-05-29 02:43] MED LIST changes: +ASPI-1238 PO; +ATOR40TA70 PO; +LOSA25TA41 PO
--- NOTE | 2020-05-29 03:00 | NUR ---
OUT TO PATIENT VEHICLE WITH WHEELCHAIR TO RETRIVE PATIENT. PATIENT UPSET WITH THIS RN, BERAIDING FOR "TAKING SO LONG" THIS RN EXPLAINS NAIN I NEEDED TO DON PPE FOR PATIENTS WITH SHORTNESS OF BREATH TO WHICH PATIENT RESPONDS "I DONT HAVE NO DAMN DISEASE, I HAVE CONGESTIVE HEART FAILURE". UPON REACHING ROOM 10 THIS PATIENT IS STILL GRIPING AND BEING DISAGREEABLE. DR ANDRES NOTIFIED.
--- NOTE | 2020-05-29 04:06 | ED Respiratory ---
General Chief Complaint: Respiratory Problems Stated Complaint: SOB Nursing Triage Note: CHRONIC CHF WITH SMALL AMT OF SPUTUM. PATIENT STATES HE BECAME SHORT OF BREATH WHEN HE WAS TRYING TO GO TO SLEEP TONIGHT. STATES HE ALWAYS HAS SOB SYMPTOMS BUT GOT WORSE TONIGHT. Source: patient (PT IS BELLIGERENT, CURSING, AND NOT WANTING TO GIVE MUCH INFORMATION--STATES "YOU CAN LOOK ALL THAT UP YOURSELF-IT'S IN MY CHART"), old records History of Present Illness Date Seen by Provider: May 29, 2020 Time Seen by Provider: 03:30 Initial Comments PT ARRIVES VIA POV FROM HOME IN [place] C/O SHORTNESS OF BREATH IS A CHRONIC PROBLEM, AND WORSE WHEN HE LAYS DOWN-APPARENTLY WORSE TONIGHT PT HAS HISTORY OF CHF, PAROXYSMAL ATRIAL FIBRILLATION, CARDIOMYOPATHY, MORBID OBESITY, OBESITY HYPOVENTILATION SYNDROME PT WITH EXTREME NON-COMPLIANCE IN ALL ASPECTS OF CARE PT STATES HE HASN'T TAKEN ANY OF HIS MEDICATIONS "FOR A COUPLE OF MONTHS" AND DOES NOT KNOW ANY OF HIS MEDICATIONS OR WHAT HE TAKES THEM FOR PT HAS BEEN PRESCRIBED CPAP, WHICH HE REFUSES TO USE; HE HAS ALSO BEEN PRESCRIBED A LIFE VEST, WHICH HE ALSO REFUSES TO WEAR. HAS NOT FOLLOWED UP WITH ANYONE IN OFFICE FOR UNKNOWN LENGTH OF TIME PT ALSO USES METHAMPHETAMINES REGULARLY, INCLUDING IV USE, SMOKES MARIJUANA REGULARLY, CHEWS TOBACCO, OCCASIONALLY DRINKS NO CHEST PAIN NO CHANGE IN CHRONIC COUGH NO FEVER HAS CHRONIC LEG SWELLING NO PALPITATIONS PT'S FIRST VISIT AND ADMIT HERE WAS 08/18/2019 PT HAS HAD 9 VISITS SINCE THEN--ALL FOR SAME/RELATED COMPLAINT LAST ADMIT 05/18-05/20 FOR ACUTE ON CHRONIC RESPIRATORY FAILURE, CHF, NSTEMI/ELEVATED TROPONIN DUE TO CHF AND RESPIRATORY FAILURE. PCP: MARLENE. Allergies and Home Medications Allergies Coded Allergies: No Known Drug Allergies (Unverified , 09/26/19) Home Medications Apixaban 5 Mg Tablet, 5 MG PO BID Will be given from repository medications at [facility] Prescribed by: GABY PANDEY on 05/20/20 1137 Aspirin 81 Mg Tablet.dr, 81 MG PO DAILY Prescribed by: GABY PANDEY on 05/20/20 1137 Atorvastatin Calcium 40 Mg Tablet, 40 MG PO DAILY Prescribed by: GABY PANDEY on 05/20/20 1137 Furosemide 40 Mg Tablet, 40 MG PO DAILY Prescribed by: GABY PANDEY on 05/20/20 113 Losartan Potassium 25 Mg Tablet, 25 MG PO DAILY Prescribed by: GABY PANDEY on 05/20/20 113 Metoprolol Tartrate 50 Mg Tablet, 50 MG PO BID Prescribed by: GABY PANDEY on 05/20/20 113 Potassium Chloride 20 Meq Tablet.er, 20 MEQ PO DAILY Prescribed by: GABY PANDEY on 05/20/20 113 Patient Home Medication List Home Medication List Reviewed: Yes Review of Systems Review of Systems Constitutional: No fever Respiratory: see HPI, cough, dyspnea on exertion, orthopnea, phlegm, short of breath Cardiovascular: No chest pain; edema Gastrointestinal: no symptoms reported Musculoskeletal: other (CHRONIC LEG SWELLING) Skin: no symptoms reported Psychiatric/Neurological: No Symptoms Reported Past Sbxglpm-Xykllz-Scsnik Hx Past Med/Social Hx: Reviewed and Corrections made Patient Social History Alcohol Use: Occasionally Uses Alcohol Beverage of Choice: Whiskey Recreational Drug Use: Yes (+IV METH USE-ALSO SMOKES IT, ALONG WITH THC) 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, ALONG WITH THC Type Used: Smokeless Tobacco 2nd Hand Smoke Exposure: No Recent Foreign Travel: No Contact w/Someone Who Travel: No Recent Infectious Disease Expo: No Recent Hopitalizations: No Immunizations Up To Date Date of Pneumonia Vaccine: Aug 18, 2017 Seasonal Allergies Seasonal Allergies: No Past Medical History Surgeries: Yes (RIGHT AARM SKIN GRAFT--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) Orthopedic Respiratory: Yes (OBESITY HYPOVENTILATION; ) Pneumonia, Sleep Apnea Currently Using CPAP: No Cardiac: Yes (CHF; VARICOSE VEINS; NSTEMI 05/18/20 DUE TO CHF/RESP FAILURE) Atrial Fibrillation, Cardiomyopathy, Chronic Edema/Swelling, High Cholesterol, Hypertension, Peripheral Vascular Neurological: No Genitourinary: No Gastrointestinal: No Musculoskeletal: Yes (RIGHT ARM INJURY WITH SKIN GRAFTS-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 oz. kg; 57.00 BMI Method: General Appearance: obese (MORBIDLY OBESE; ), other (UNKEMPT, FILTHY, MALODOROUS, YELLING AND SCREAMING, CURSING, BELLIGERENT, VERY DEMANDING, TALKS IN FULL SENTENCES, DOES NOT APPEAR TO BE IN ANY DISTRESS AT THIS TIME. ) Respiratory: decreased breath sounds (IN BASE) Cardiovascular: tachycardia Gastrointestinal: other (MORBIDLY OBESE-LIMITED EXAM) Extremities: pedal edema (4+ EDEMA BILATERALLY), other (EXTENSIVE CHRONIC VENOUS STASIS CHAGES BILATERALLY WITH WOODY INDURATION) Neurologic/Psychiatric: no motor/sensory deficits, alert, oriented x 3 Skin: normal color, warm/dry Progress/Results/Core Measures Suspected Sepsis Recent Fever Within 48 Hours: No Infection Criteria Present: None New/Unexplained Altered Menta: No Sepsis Screen: No Definite Risk SIRS Temperature: Pulse: 112 Respiratory Rate: 20 Laboratory Tests 05/29/20 03:10: White Blood Count 9.2 Blood Pressure 171 /118 Mean: 135 Laboratory Tests 05/29/20 03:10: Creatinine 1.44H, INR Comment 1.1, Platelet Count 364, Total Bilirubin 0.7 Results/Orders Lab Results Laboratory Tests Test 05/29/20 03:10 05/29/20 03:18 Range/Units White Blood Count 9.2 4.3-11.0 10^3/uL Red Blood Count 3.90 L 4.30-5.52 10^6/uL Hemoglobin 9.4 L 13.3-17.7 g/dL Hematocrit 33 L 40-54 % Mean Corpuscular Volume 84 80-99 fL Mean Corpuscular Hemoglobin 24 L 25-34 pg Mean Corpuscular Hemoglobin Concent 29 L 32-36 g/dL Red Cell Distribution Width 16.4 H 10.0-14.5 % Platelet Count 364 130-400 10^3/uL Mean Platelet Volume 9.5 9.0-12.2 fL Immature Granulocyte % (Auto) 0 % Neutrophils (%) (Auto) 66 42-75 % Lymphocytes (%) (Auto) 21 12-44 % Monocytes (%) (Auto) 7 0-12 % Eosinophils (%) (Auto) 5 0-10 % Basophils (%) (Auto) 1 0-10 % Neutrophils # (Auto) 6.1 1.8-7.8 10^3/uL Lymphocytes # (Auto) 2.0 1.0-4.0 10^3/uL Monocytes # (Auto) 0.7 0.0-1.0 10^3/uL Eosinophils # (Auto) 0.4 H 0.0-0.3 10^3/uL Basophils # (Auto) 0.1 0.0-0.1 10^3/uL Immature Granulocyte # (Auto) 0.0 0.0-0.1 10^3/uL Prothrombin Time 14.1 12.2-14.7 SEC INR Comment 1.1 0.8-1.4 Activated Partial Thromboplast Time 36 H 24-35 SEC Sodium Level 138 135-145 MMOL/L Potassium Level 3.9 3.6-5.0 MMOL/L Chloride Level 104 98-107 MMOL/L Carbon Dioxide Level 22 21-32 MMOL/L Anion Gap 12 5-14 MMOL/L Blood Urea Nitrogen 18 7-18 MG/DL Creatinine 1.44 H 0.60-1.30 MG/DL Estimat Glomerular Filtration Rate 53 BUN/Creatinine Ratio 13 Glucose Level 94 70-105 MG/DL Calcium Level 8.7 8.5-10.1 MG/DL Corrected Calcium 9.2 8.5-10.1 MG/DL Magnesium Level 1.7 1.6-2.4 MG/DL Total Bilirubin 0.7 0.1-1.0 MG/DL Aspartate Amino Transf (AST/SGOT) 17 5-34 U/L Alanine Aminotransferase (ALT/SGPT) 12 0-55 U/L Alkaline Phosphatase 113 40-136 U/L Total Creatine Kinase 39 30-200 U/L Creatine Kinase MB 2.1 <6.6 NG/ML Troponin I 0.047 H <0.028 NG/ML C-Reactive Protein High Sensitivity 0.93 H 0.00-0.50 MG/DL Total Protein 6.8 6.4-8.2 GM/DL Albumin 3.4 3.2-4.5 GM/DL Serum Alcohol < 10 <10 MG/DL Coronavirus 2018 (GAVIN) Negative Negative Micro Results Microbiology 05/29/20 Influenza Types A,B Antigen (SU) - Final, Complete My Orders Orders - DMITRY,WILLIAM Desean DO Ed Iv/Invasive Line Start (05/29/20 03:18) Ekg Tracing (05/29/20 03:18) O2 (05/29/20 03:18) Monitor-Rhythm Ecg Trace Only (05/29/20 03:18) BNP (05/29/20 03:18) Cbc With Automated Diff (05/29/20 03:18) Comprehensive Metabolic Panel (05/29/20 03:18) Creatine Kinase (05/29/20 03:18) Creatine Kinase Mb (05/29/20 03:18) Hs C Reactive Protein (05/29/20 03:18) Erythrocyte Sedimentation Rate (05/29/20 03:18) Magnesium (05/29/20 03:18) Protime With Inr (05/29/20:18) Partial Thromboplastin Time (05/29/20 03:18) Ua Culture If Indicated (05/29/20 03:18) Blood Culture (05/29/20 03:18) Influenza A And B Antigens (05/29/20 03:18) Troponin I (05/29/20 03:18) Alcohol (05/29/20 03:32) Drug Screen Stat (Urine) (05/29/20 03:32) Oseltamivir 75 Mg Capsule (Tamiflu 75 (05/29/20 04:15) Covid 19 Inhouse Test (05/29/20 04:23) Vital Signs/I&O 05/29/20 05/29/20 03:00 04:23 Temp 36.0 Pulse 112 109 Resp 20 16 B/P (MAP) 171/118 (135) 156/93 Pulse Ox 97 96 Capillary Refill : Less Than 3 Seconds Blood Pressure Mean: 135 Progress Note : Progress Note 0415--PT WITH INCREASING BELLIGERENCE, YELLING, SCREAMING--STATES "I'VE WAITED LONG ENOUGH" "IT'S ALREADY BEEN TOO LONG" ADVISED PT THAT TEST RESULTS WERE NOT ALL BACK AND HE HAS NOT HAD A CXR YET--PT WANTS TO LEAVE. PT ADVISED THAT HE DOES HAVE INFLUENZA B, AND HE IS CONTAGIOUS. COVID TEST IS NOT BACK AT TIME OF PT SIGNING OUT AGAINST MEDICAL ADVISE. PT ADVISED OF NEED FOR QUARANTINE. AMBULATES OUT OF ER ON HIS OWN WITHOUT DIFFICULTY ECG Initial ECG Impression Date: May 29, 2020 Initial ECG Impression Time: 03:35 Initial ECG Rate: 110 Initial ECG Rhythm: S.Tach Departure Impression Primary Impression: Left against medical advice Additional Impressions: Influenza B Chronic CHF Noncompliance Disposition: 07 AGAINST MEDICAL ADVICE Condition: Against Medical Advice Departure-Patient Inst. Referrals: [facility] (PCP/Family) Primary Care Physician WILLIAM ANDRES DO May 29, 2020 04:06
[2020-05-29 04:11] LABS: ALANINE AMINOTRANSFERASE 12 U/L (0-55); ALBUMIN 3.4 GM/DL (3.2-4.5); ALKALINE PHOSPHATASE 113 U/L (40-136); BILIRUBIN,TOTAL 0.7 MG/DL (0.1-1.0); BUN/CREATININE RATIO 13; CALCIUM 8.7 MG/DL (8.5-10.1); CARBON DIOXIDE 22 MMOL/L (21-32); CHLORIDE 104 MMOL/L (98-107); CREATINE KINASE 39 U/L (30-200); CREATININE SERUM 1.44 MG/DL (0.60-1.30); GFR ESTIMATED 53; GLUCOSE 94 MG/DL (70-105); MAGNESIUM 1.7 MG/DL (1.6-2.4); POTASSIUM 3.9 MMOL/L (3.6-5.0); SODIUM 138 MMOL/L (135-145); TOTAL PROTEIN 6.8 GM/DL (6.4-8.2)
[2020-05-29 04:14] LABS: BASOPHILS # (AUTO) 0.1 10^3/uL (0.0-0.1); BASOPHILS % (AUTO) 1 % (0-10); EOSINOPHILS # (AUTO) 0.4 10^3/uL (0.0-0.3); EOSINOPHILS % (AUTO) 5 % (0-10); HEMATOCRIT 33 % (40-54); HEMOGLOBIN 9.4 g/dL (13.3-17.7); LYMPHOCYTES % (AUTO) 21 % (12-44); MEAN CORPUSCULAR HEMOGLOBIN 24 pg (25-34); MEAN CORPUSCULAR HGB CONC 29 g/dL (32-36); MEAN CORPUSCULAR VOLUME 84 fL (80-99); MEAN PLATELET VOLUME 9.5 fL (9.0-12.2); MONOCYTES # (AUTO) 0.7 10^3/uL (0.0-1.0); MONOCYTES % (AUTO) 7 % (0-12); NEUTROPHILS # (AUTO) 6.1 10^3/uL (1.8-7.8); NEUTROPHILS % (AUTO) 66 % (42-75); PLATELET COUNT 364 10^3/uL (130-400); WHITE BLOOD COUNT 9.2 10^3/uL (4.3-11.0)
[2020-05-29] MEDS ORDERED: OSELTAMIVIR 75 MG (TAMIFLU) CAPSULE PO ONE (04:15)
[2020-05-29 04:18] LABS: CREATINE KINASE MB 2.1 NG/ML (<6.6)
--- NOTE | 2020-05-29 04:20 | NUR ---
PATIENT YELLING IN ROOM, BRIE TO ROOM TO SEE WHAT PATIENT NEEDS. PATIENT WANTING TO LEAVE AMA. DR DMITRY DURBIN PPE AT THIS TIME TO GO IN AND SPEAK WITH PATIENT. THIS RN INSTRUCTED TO PROVIDED AMA PAPERWORK TO PATIENT. THIS TASK IS COMPLETED, SALINE LOCK REMOVED AND PATIENT IS ESCORTED TO AMBULANCE BAY WHERE IT HAS BEEN ARRANGED FOR HIS FATHER IN LAW TO PICK HIM UP.
[2020-05-29 04:23] VITALS: BP 156/93
[2020-05-29 04:33] LABS: INR 1.1 (0.8-1.4); PROTHROMBIN TIME PATIENT 14.1 SEC (12.2-14.7)
[2020-05-29 05:11] LABS: ERYTHROCYTE SEDIMENTATION RATE 23 MM/HR (0-15)
[2020-05-30] MEDS ORDERED: FURO-124 PO (16:54)
[2020-05-30] MEDS ORDERED: POTA-51 PO (16:55)
== END 2020-05-29 04:23 | disposition left against medical advice (07) ==
LOC: EDUNIT# 02:43 → ER 02:44
DX: J10.1 Influenza due to other identified influenza virus with other respiratory manifestations (principal); I50.9 Heart failure, unspecified; E66.01 Morbid (severe) obesity due to excess calories; I11.0 Hypertensive heart disease with heart failure; E78.00 Pure hypercholesterolemia, unspecified; Z91.19 Patient's noncompliance with other medical treatment and regimen; Z20.828 Contact with and (suspected) exposure to other viral communicable diseases; Z68.43 Body mass index [BMI] 50.0-59.9, adult; Z82.49 Family history of ischemic heart disease and other diseases of the circulatory system; Z80.9 Family history of malignant neoplasm, unspecified; Z79.82 Long term (current) use of aspirin; Z79.01 Long term (current) use of anticoagulants
CPT/HCPCS: 80053; 82550; 82553; 83735; 83880; 84484; 85025; 85610; 85652; 85730; 86141; 87804; 93005; 93041; 99284; G0480; U0002; 36415; 80320; 87635

== ENCOUNTER 2020-05-30 14:11 | Emergency (ER) | payer SELFPAY ==
[~2020-05-30] VITALS: Ht 177.8 cm; Wt 181.4 kg
[2020-05-30 14:51] LABS: BASOPHILS % (AUTO) 0 % (0-10); EOSINOPHILS # (AUTO) 0.2 10^3/uL (0.0-0.3); EOSINOPHILS % (AUTO) 2 % (0-10); HEMATOCRIT 34 % (40-54); HEMOGLOBIN 9.5 g/dL (13.3-17.7); LYMPHOCYTES # (AUTO) 1.2 10^3/uL (1.0-4.0); LYMPHOCYTES % (AUTO) 12 % (12-44); MEAN CORPUSCULAR HEMOGLOBIN 24 pg (25-34); MEAN CORPUSCULAR HGB CONC 28 g/dL (32-36); MEAN CORPUSCULAR VOLUME 84 fL (80-99); MONOCYTES # (AUTO) 0.5 10^3/uL (0.0-1.0); MONOCYTES % (AUTO) 5 % (0-12); NEUTROPHILS # (AUTO) 8.7 10^3/uL (1.8-7.8); NEUTROPHILS % (AUTO) 81 % (42-75); PLATELET COUNT 334 10^3/uL (130-400); WHITE BLOOD COUNT 10.7 10^3/uL (4.3-11.0)
--- NOTE | 2020-05-30 14:52 | ED Respiratory ---
General Chief Complaint: Respiratory Problems Stated Complaint: FLU LIKE SYMPTOMS Nursing Triage Note: Pt to ED from [facility]. [facility] is concerned pt may have pneumonia and would like pt evaluated. Pt is flu +. [facility] reports pt was swabbed and was negative for COVID today. Source: patient Exam Limitations: no limitations History of Present Illness Date Seen by Provider: May 30, 2020 Time Seen by Provider: 14:13 Initial Comments The patient presents to the ER by private conveyance with chief complaint of orthopnea and that his CHF is worse. He has been recently using meth but for the past several weeks or months he says he has not gotten any refills on his medications. He is known to Dr. Law and formerly [facility]. He was seen in the clinic today. He was seen in the ER yesterday and tested negative for COVID 19 and positive for influenza B. He left AMA before final disposition yesterday. He denies a history of COPD. He says he supposed to be on CPAP but is noncompliant with this. He is not adherent to life vest in the past. Typically he says he uses 40 mg Lasix daily and sometimes 2 or 3 times a day if necessary. He describes increased swelling but he says his coughing is his baseline cough. Allergies and Home Medications Allergies Coded Allergies: No Known Drug Allergies (Unverified , 09/26/19) Home Medications Apixaban 5 Mg Tablet, 5 MG PO BID Will be given from repository medications at [facility] Prescribed by: GABY PANDEY on 05/20/20 1137 Aspirin 81 Mg Tablet.dr, 81 MG PO DAILY Prescribed by: GABY PANDEY on 05/20/20 1137 Atorvastatin Calcium 40 Mg Tablet, 40 MG PO DAILY Prescribed by: GABY PANDEY on 05/20/20 1137 Furosemide 40 Mg Tablet, 40 MG PO DAILY Prescribed by: GABY PANDEY on 05/20/20 1137 Furosemide 40 Mg Tablet, 40 MG PO DAILY PRN Prescribed by: XAVIER RHOADES on 05/30/20 1654 Losartan Potassium 25 Mg Tablet, 25 MG PO DAILY Prescribed by: GABY PANDEY on 05/20/20 1137 Metoprolol Tartrate 50 Mg Tablet, 50 MG PO BID Prescribed by: GABY PANDEY on 05/20/20 1137 Potassium Chloride 20 Meq Tablet.er, 20 MEQ PO DAILY Prescribed by: GABY PANDEY on 05/20/20 1137 Potassium Chloride 20 Meq Tablet.er, 20 MEQ PO DAILY Prescribed by: XAVIER RHOADES on 05/30/20 1655 Patient Home Medication List Home Medication List Reviewed: Yes Review of Systems Review of Systems Constitutional: No chills, No diaphoresis EENTM: No ear discharge, No hearing loss, No ear pain Respiratory: No cough; short of breath Cardiovascular: No Hx of Intervention, No palpitations Gastrointestinal: No abdominal pain, No constipation, No nausea, No vomiting Genitourinary: No dysuria, No pain Musculoskeletal: No joint swelling, No muscle pain Skin: No pruritus, No rash Past [place]-Gxdxay-Uhycnn Hx Patient Social History Alcohol Use: Denies Use Number of Drinks Today: GG Alcohol Beverage of Choice: Whiskey Recreational Drug Use: Yes (IV meth use one week ago) 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, ALONG WITH THC Smoking Status: Current Everyday Smoker Type Used: Smokeless Tobacco 2nd Hand Smoke Exposure: No Recent Foreign Travel: No Contact w/Someone Who Travel: No Recent Infectious Disease Expo: No Recent Hopitalizations: No Immunizations Up To Date Date of Pneumonia Vaccine: Aug 18, 2017 Seasonal Allergies Seasonal Allergies: No Past Medical History Surgeries: Yes (RIGHT ARM SKIN GRAFT--CAUGHT IN KNOCK OUT HAND) Orthopedic Respiratory: Yes (OBESITY HYPOVENTILATION; ) Pneumonia, Sleep Apnea Currently Using CPAP: No Cardiac: Yes (CHF; VARICOSE VEINS; NSTEMI 05/18/20 DUE TO CHF/RESP FAILURE) Atrial Fibrillation, Cardiomyopathy, Chronic Edema/Swelling, High Cholesterol, Hypertension, Peripheral Vascular Neurological: No Genitourinary: No Gastrointestinal: No Musculoskeletal: Yes (RIGHT ARM INJURY WITH SKIN GRAFTS-CAUGHT IN KNOCK OUT HAND) Endocrine: Yes (MORBID OBESITY) HEENT: No Cancer: No Psychosocial: No (POLYSUBSTANCE ABUSE) Integumentary: No Blood Disorders: No Family Medical History Cardiovascular disease 19 MOTHER, Onset:Unknown Cancer, CAD Over 55 Years Old EXTREME NON-COMPLICANCE IN ALL ASPECTS OF CARE REFUSES TO WEAR CPAP REFUSES TO WEAR LIFE VEST Physical Exam Vital Signs - First Documented 05/30/20 14:15 Temp 36.6 Pulse 112 Resp 22 B/P (MAP) 199/111 (140) Pulse Ox 94 O2 Delivery Room Air Capillary Refill : Less Than 3 Seconds Height: '" Weight: lbs. oz. kg; 57.00 BMI Method: General Appearance: mild distress, obese Eyes: Bilateral Eye Normal Inspection, Bilateral Eye PERRL, Bilateral Eye EOMI HEENT: PERRL/EOMI, normal ENT inspection, pharynx normal Neck: full range of motion, supple, normal inspection Respiratory: lungs clear, normal breath sounds, no respiratory distress, no accessory muscle use Cardiovascular: normal peripheral pulses, regular rate, rhythm, no edema Gastrointestinal: normal bowel sounds, non tender, soft Extremities: normal inspection, normal capillary refill Neurologic/Psychiatric: alert, normal mood/affect, oriented x 3 Progress/Results/Core Measures Suspected Sepsis Recent Fever Within 48 Hours: No Infection Criteria Present: None New/Unexplained Altered Menta: No Sepsis Screen: No Definite Risk SIRS Temperature: Pulse: 112 Respiratory Rate: 22 Laboratory Tests 05/30/20 14:25: White Blood Count 10.7 Blood Pressure 199 /111 Mean: 140 Laboratory Tests 05/30/20 14:25: Creatinine 1.19, Platelet Count 334, Total Bilirubin 1.2H Results/Orders Lab Results Laboratory Tests Test 05/30/20 14:25 05/30/20 14:46 05/30/20 16:06 Range/Units White Blood Count 10.7 4.3-11.0 10^3/uL Red Blood Count 4.02 L 4.30-5.52 10^6/uL Hemoglobin 9.5 L 13.3-17.7 g/dL Hematocrit 34 L 40-54 % Mean Corpuscular Volume 84 80-99 fL Mean Corpuscular Hemoglobin 24 L 25-34 pg Mean Corpuscular Hemoglobin Concent 28 L 32-36 g/dL Red Cell Distribution Width 16.4 H 10.0-14.5 % Platelet Count 334 130-400 10^3/uL Mean Platelet Volume 9.0 9.0-12.2 fL Immature Granulocyte % (Auto) 1 % Neutrophils (%) (Auto) 81 H 42-75 % Lymphocytes (%) (Auto) 12 12-44 % Monocytes (%) (Auto) 5 0-12 % Eosinophils (%) (Auto) 2 0-10 % Basophils (%) (Auto) 0 0-10 % Neutrophils # (Auto) 8.7 H 1.8-7.8 10^3/uL Lymphocytes # (Auto) 1.2 1.0-4.0 10^3/uL Monocytes # (Auto) 0.5 0.0-1.0 10^3/uL Eosinophils # (Auto) 0.2 0.0-0.3 10^3/uL Basophils # (Auto) 0.0 0.0-0.1 10^3/uL Immature Granulocyte # (Auto) 0.1 0.0-0.1 10^3/uL Sodium Level 137 135-145 MMOL/L Potassium Level 3.8 3.6-5.0 MMOL/L Chloride Level 104 98-107 MMOL/L Carbon Dioxide Level 24 21-32 MMOL/L Anion Gap 9 5-14 MMOL/L Blood Urea Nitrogen 14 7-18 MG/DL Creatinine 1.19 0.60-1.30 MG/DL Estimat Glomerular Filtration Rate > 60 BUN/Creatinine Ratio 12 Glucose Level 156 H 70-105 MG/DL Calcium Level 8.8 8.5-10.1 MG/DL Corrected Calcium 9.2 8.5-10.1 MG/DL Total Bilirubin 1.2 H 0.1-1.0 MG/DL Aspartate Amino Transf (AST/SGOT) 15 5-34 U/L Alanine Aminotransferase (ALT/SGPT) 10 0-55 U/L Alkaline Phosphatase 106 40-136 U/L Troponin I 0.054 H <0.028 NG/ML C-Reactive Protein High Sensitivity 2.89 H 0.00-0.50 MG/DL B-Type Natriuretic Peptide 790.8 H <100.0 PG/ML Total Protein 7.1 6.4-8.2 GM/DL Albumin 3.5 3.2-4.5 GM/DL Procalcitonin 0.08 <0.10 NG/ML Blood Gas Puncture Site R RADIAL Blood Gas Patient Temperature 36.6 Arterial Blood pH 7.41 7.37-7.43 Arterial Blood Partial Pressure CO2 40 35-45 MMHG Arterial Blood Partial Pressure O2 70 L 79-93 MMHG Arterial Blood HCO3 25 23-27 MMOL/L Arterial Blood Total CO2 26.2 21.0-31.0 MMOL/L Arterial Blood Oxygen Saturation 94 94-100 % Arterial Blood Base Excess 0.8 -2.5-2.5 MMOL/L Carlos Test YES-POS Blood Gas Ventilator Setting NO Blood Gas Inspired Oxygen ROOM AIR Urine Opiates Screen NEGATIVE NEGATIVE Urine Oxycodone Screen NEGATIVE NEGATIVE Urine Methadone Screen NEGATIVE NEGATIVE Urine Propoxyphene Screen NEGATIVE NEGATIVE Urine Barbiturates Screen NEGATIVE NEGATIVE Ur Tricyclic Antidepressants Screen NEGATIVE NEGATIVE Urine Phencyclidine Screen NEGATIVE NEGATIVE Urine Amphetamines Screen NEGATIVE NEGATIVE Urine Methamphetamines Screen POSITIVE H NEGATIVE Urine Benzodiazepines Screen NEGATIVE NEGATIVE Urine Cocaine Screen NEGATIVE NEGATIVE Urine Cannabinoids Screen NEGATIVE NEGATIVE My Orders Orders - [id number] Odalys Arterial Blood Gas (05/30/20 14:34) BNP (05/30/20 14:34) Drug Screen Stat (Urine) (05/30/20 14:34) Ua Culture If Indicated (05/30/20 14:34) Cbc With Automated Diff (05/30/20 14:34) Comprehensive Metabolic Panel (05/30/20 14:34) Hs C Reactive Protein (05/30/20 14:34) Procalcitonin (Pct) (05/30/20 14:34) Chest 1 View, Ap/Pa Only (05/30/20 14:34) Continuous Ekg Monitoring (05/30/20 14:34) Ekg Tracing (05/30/20 14:34) Troponin I (05/30/20 14:34) Vital Signs/I&O 05/30/20 14:15 Temp 36.6 Pulse 112 Resp 22 B/P (MAP) 199/111 (140) Pulse Ox 94 O2 Delivery Room Air Capillary Refill : Less Than 3 Seconds Blood Pressure Mean: 140 Progress Note #1: Time: 14:59 Progress Note The patient does have chronic woody bilateral lower edema 4+. Clear breath sounds oxygen saturations 100% on room air. Plan to get an ABG to see if he is having his panting due to anxiety or if he has CO2 retention. Plan to get some labs including a BNP and a chest x-ray, EKG and troponin. Progress Note #2: Time: 16:51 Progress Note Patient has not required any oxygen since he's been here. He had a negative COVID test yesterday. It would be better not to keep in the hospital where he would be exposed to coronavirus. Or any give him a dose of Lasix and set him up some scripts at the pharmacy and follow up Tuesday with his primary care provider. We have given him return precautions. He is calling for a ride. His troponin has not significantly elevated in the past day. It is felt that it is marginally elevated related to his CHF and will improve when we get his Lasix on board. ECG Initial ECG Impression Date: May 30, 2020 Initial ECG Impression Time: 14:39 Initial ECG Rate: 112 Initial ECG Rhythm: S.Tach Initial ECG Intervals: QT (484) Initial ECG Impression: Normal, Nonspecific Changes Comment Sinus tachycardia with prolonged QT interval. No clinically relevant ST elevation or depression. Diagnostic Imaging Diagonstic Imaging: Xray Plain Films/CT/US/NM/MRI: chest Comments NAME: [facility] REC#: [id number] PT STATUS: REG ER : 1975 PHYSICIAN: XAVIER RHOADES MD ADMIT DATE: 05/30/20/ER Signed Date of Exam:05/30/20 CHEST 1 VIEW, AP/PA ONLY INDICATION: Flu. FINDINGS: Sensitivity is limited by body habitus. Enlargement of the cardiac silhouette is similar to comparison study of 05/19/2020. No focal alveolar consolidation. IMPRESSION: Prominence of the cardiac silhouette. No obvious focal consolidation but sensitivity is limited by body habitus. Dictated by: Dictated on workstation # [id number] Dict: 05/30/20 1539 Trans: 05/30/20 1628 [id number] Interpreted by: KEMI WONG Electronically signed by: KEMI WONG 05/30/20 1628 Reviewed: Reviewed by Me Departure Impression Primary Impression: Chronic CHF Qualified Codes: I50.9 - Heart failure, unspecified Disposition: 01 HOME, SELF-CARE Condition: Stable Departure-Patient Inst. Decision time for Depature: 16:50 Referrals: [facility] (PCP/Family) Primary Care Physician RODGER LAW MD Patient Instructions: CHF Add. Discharge Instructions: Lasix twice a day over the weekend and then Tuesday call and see your doctor. Return to the nearest ER such as in [place], [place] should you have increasing worsening shortness of breath. Potassium one capsule daily. Plan to follow up with the senior bioinformatics specialist in the clinic next week. All discharge instructions reviewed with patient and/or family. Voiced understanding. Scripts Potassium Chloride (Potassium Chloride) 20 Meq Tablet.er 20 MEQ PO DAILY for 14 Days, #30 TAB 0 Refills Prov: XAVIER RHOADES 05/30/20 Furosemide (Lasix) 40 Mg Tablet 40 MG PO DAILY PRN for 14 Days, #30 TAB 0 Refills Prov: XAVIER RHOADES 05/30/20 Work/School Note: Work Release Form Date Seen in the Emergency Department: May 30, 2020 Return to Work: Jun 02, 2020 Copy Copies To 1: RODGER LAW MD, TITUS J May 30, 2020 14:52
[2020-05-30 14:53] LABS: ABG BASE EXCESS 0.8 MMOL/L (-2.5-2.5); ABG OXYGEN SATURATION 94 % (94-100); ABG PCO2 40 MMHG (35-45); ABG PH 7.41 (7.37-7.43); ABG PO2 70 MMHG (79-93); ABG TCO2 26.2 MMOL/L (21.0-31.0)
[2020-05-30 14:55] LABS: ALLENS TEST YES-POS; INSPIRED O2 ROOM AIR; PATIENT TEMP 36.6; VENTILATOR NO
[2020-05-30 14:56] LABS: ALBUMIN 3.5 GM/DL (3.2-4.5); CHLORIDE 104 MMOL/L (98-107); POTASSIUM 3.8 MMOL/L (3.6-5.0); SODIUM 137 MMOL/L (135-145)
[2020-05-30 14:57] LABS: CALCIUM 8.8 MG/DL (8.5-10.1)
[2020-05-30 14:58] LABS: GLUCOSE 156 MG/DL (70-105); TOTAL PROTEIN 7.1 GM/DL (6.4-8.2)
[2020-05-30 15:00] LABS: BILIRUBIN,TOTAL 1.2 MG/DL (0.1-1.0); CARBON DIOXIDE 24 MMOL/L (21-32)
[2020-05-30 15:02] LABS: ALKALINE PHOSPHATASE 106 U/L (40-136); CREATININE SERUM 1.19 MG/DL (0.60-1.30); GFR ESTIMATED > 60
[2020-05-30 15:03] LABS: BUN/CREATININE RATIO 12
[2020-05-30 15:05] LABS: ALANINE AMINOTRANSFERASE 10 U/L (0-55)
--- NOTE | 2020-05-30 15:47 | Diagnostic Imaging Report ---
INDICATION: Flu. FINDINGS: Sensitivity is limited by body habitus. Enlargement of the cardiac silhouette is similar to comparison study of 05/19/2020. No focal alveolar consolidation. IMPRESSION: Prominence of the cardiac silhouette. No obvious focal consolidation but sensitivity is limited by body habitus. Dictated by: Dictated on workstation # [id number]
[2020-05-30 16:23] LABS: BILIRUBIN,URINE NEGATIVE (NEGATIVE); CLARITY,URINE CLEAR; COLOR,URINE YELLOW; GLUCOSE, URINE (UA) NEGATIVE (NEGATIVE); KETONES,URINE NEGATIVE (NEGATIVE); LEUKOCYTE ESTERASE ,URINE NEGATIVE (NEGATIVE); NITRITE,URINE NEGATIVE (NEGATIVE); PROTEIN,URINE 1+ (NEGATIVE)
[2020-05-30 16:52] LABS: AMPHETAMINE SCREEN, URINE NEGATIVE (NEGATIVE); BARBITURATE SCREEN URINE NEGATIVE (NEGATIVE); BENZODIAZEPINES SCREEN URINE NEGATIVE (NEGATIVE); CANNABINOID SCREEN, URINE NEGATIVE (NEGATIVE); COCAINE SCREEN URINE NEGATIVE (NEGATIVE); METHADONE STAT NEGATIVE (NEGATIVE); METHAMPHETAMINE SCREEN URINE S POSITIVE (NEGATIVE); OPIATE SCREEN URINE NEGATIVE (NEGATIVE); OXYCODONE STAT NEGATIVE (NEGATIVE); PROPOXYPHENE STAT NEGATIVE (NEGATIVE); TRICYCLIC ANTIDEPRESSANTS SCRE NEGATIVE (NEGATIVE)
[2020-05-30] MEDS ORDERED: FURO-124 PO (16:54)
[2020-05-30] MEDS ORDERED: POTA-51 PO (16:55)
[2020-05-30] MEDS ORDERED: FUROSEMIDE 40 MG (LASIX) TAB PO ONE (17:00)
[2020-05-30] MEDS ORDERED: FUROSEMIDE 40 MG/4 ML INJ (LASIX) IVP ONE (17:00)
[2020-05-30 17:10] LABS: BACTERIA,URINE TRACE /HPF; RBC,URINE RARE /HPF; SQUAMOUS EPITHELIAL CELL,UR RARE /HPF
[2020-05-30 17:12] LABS: CALCIUM OXALATE CRYSTALS,UR RARE /LPF
[2020-05-30 17:55] VITALS: BP 156/112
== END 2020-05-30 18:00 | disposition home or self-care (01) ==
LOC: EDUNIT# 14:11 → ER 14:12
DX: I11.0 Hypertensive heart disease with heart failure (principal); I50.9 Heart failure, unspecified; E66.01 Morbid (severe) obesity due to excess calories; E78.00 Pure hypercholesterolemia, unspecified; F17.290 Nicotine dependence, other tobacco product, uncomplicated; Z68.43 Body mass index [BMI] 50.0-59.9, adult; Z80.9 Family history of malignant neoplasm, unspecified; Z82.49 Family history of ischemic heart disease and other diseases of the circulatory system; Z79.01 Long term (current) use of anticoagulants; Z79.82 Long term (current) use of aspirin
CPT/HCPCS: 36415; 71045; 80053; 80306; 81000; 82805; 83880; 84145; 84484; 85025; 86141; 93005

== ENCOUNTER 2021-11-06 10:25 | Inpatient (IN) | payer MEDICAID ==
[~2021-11-06] VITALS: Ht 177.8 cm; Wt 218.1 kg
[~2021-11-06 10:25] MED LIST changes: -AMIO200T4; -AMIO200T4 PO; +AMIO200T65; +AMIO200T65 PO; +POTA-179 PO; -POTA20TA15 PO
[2021-11-06] MEDS ORDERED: dilTIAZem DRIP PRE-MIX 125 ML IV SCH (11:00)
[2021-11-06] MEDS ORDERED: RT-ALBUTEROL/IPRATROPIUM 3 ML (DUONEB) VIAL INH ONE (11:00)
[2021-11-06 11:06] LABS: BASOPHILS # (AUTO) 0.1 10^3/uL (0.0-0.1); BASOPHILS % (AUTO) 1 % (0-10); EOSINOPHILS # (AUTO) 0.7 10^3/uL (0.0-0.3); EOSINOPHILS % (AUTO) 6 % (0-10); HEMATOCRIT 46 % (40-54); HEMOGLOBIN 14.5 g/dL (13.3-17.7); LYMPHOCYTES # (AUTO) 1.6 10^3/uL (1.0-4.0); LYMPHOCYTES % (AUTO) 15 % (12-44); MEAN CORPUSCULAR HEMOGLOBIN 32 pg (25-34); MEAN CORPUSCULAR HGB CONC 32 g/dL (32-36); MEAN CORPUSCULAR VOLUME 99 fL (80-99); MEAN PLATELET VOLUME 9.8 fL (9.0-12.2); MONOCYTES # (AUTO) 0.7 10^3/uL (0.0-1.0); MONOCYTES % (AUTO) 6 % (0-12); NEUTROPHILS # (AUTO) 7.8 10^3/uL (1.8-7.8); NEUTROPHILS % (AUTO) 71 % (42-75); PLATELET COUNT 239 10^3/uL (130-400)
--- NOTE | 2021-11-06 11:07 | ED Respiratory ---
General Chief Complaint: Respiratory Problems Stated Complaint: COUGH - SOA- CONGESTION - ABD PAIN Source: patient Exam Limitations: no limitations (LORI PLATA APRN) History of Present Illness Date Seen by Provider: Nov 06, 2021 Time Seen by Provider: 11:03 Initial Comments To ER by private vehicle from near [facility] with reports of a 1 week or more history of nonproductive cough shortness of breath. He was seen by [facility] nurse practitioner at the onset of this and was put on doxycycline 100 mg twice a day. He continues to take that but denies any improvement. Still coughing a lot unable to sleep at night. Has not yet been swabbed for Covid or flu. He is vaccinated against COVID. History of atrial fibrillation, hypertension, hyperlipidemia, obesity. He is on Eliquis 5 mg twice a day, diltiazem 240 mg daily, losartan, Lasix 20 to 40 mg daily depending on symptoms. 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 Smokes marijuana but does not smoke cigarettes. 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 He does have oxygen that he can wear at home but he only wears it as needed. Presents today with reports that he is not getting worse but he is also not getting better. He was 86% SPO2 on room air on arrival. Timing/Duration: constant Severity: moderate Prior Episodes/Possible Cause: no prior episodes Associated Symptoms: cough; No fever/chills; shortness of breath, wheezing (LORI PLATA APRN) Allergies and Home Medications Allergies Coded Allergies: No Known Drug Allergies (Unverified , 09/26/19) Patient Home Medication List Home Medication List Reviewed: Yes (LORI PLATA APRN) Acetaminophen/Diphenhydramine (Tylenol Pm Ex-Strength Caplet) 1 Each Tablet, 3 EACH PO HS, (Reported) Entered as Reported by: MAINE LAIRD on 11/06/21 1879 Last Action: Reviewed Albuterol Sulfate (Albuterol Sulfate) 2.5 Mg/3 Ml Vial.neb, 3 ML NEB Q8H PRN for SHORTNESS OF BREATH, (Reported) Entered as Reported by: MAINE LAIRD on 11/06/21 1434 Last Action: Reviewed Albuterol Sulfate (Proventil Hfa) 6.7 Gm Hfa.aer.ad, 2 PUFF INH Q4H PRN for SHORTNESS OF BREATH, (Reported) Entered as Reported by: MAINE LAIRD on 11/06/211433 Last Action: Reviewed Apixaban (Eliquis) 5 Mg Tablet, 5 MG PO BID, (Reported) Entered as Reported by: MAINE LAIRD on 11/06/211433 Last Action: Reviewed Aspirin (Aspirin EC) 81 Mg Tablet.dr, 81 MG PO DAILY, (Reported) Entered as Reported by: MAINE LAIRD on 11/06/211433 Last Action: Reviewed Atorvastatin Calcium (Atorvastatin Calcium) 40 Mg Tablet, 40 MG PO DAILY, (Reported) Entered as Reported by: MAINE LAIRD on 11/06/211433 Last Action: Reviewed Diltiazem HCl (Diltiazem 24Hr ER) 240 Mg Cap.er.24h, 240 MG PO DAILY, (Reported) Entered as Reported by: MAINE LAIRD on 11/06/211433 Last Action: Reviewed Doxycycline Hyclate (Doxycycline Hyclate) 100 Mg Capsule, 100 MG PO BID, (Reported) Entered as Reported by: MAINE LAIRD on 11/06/211433 Last Action: Reviewed Ferrous Sulfate (Ferosul) 325 Mg Tablet, 325 MG PO DAILY, (Reported) Entered as Reported by: MAINE LAIRD on 11/06/211433 Last Action: Reviewed Fluticasone Propionate (Fluticasone Propionate) 16 Gm [place].susp, 1 SPRAY NSEACH BID PRN for CONGESTION, (Reported) Entered as Reported by: MAINE LAIRD on 11/06/211433 Last Action: Reviewed Furosemide (Furosemide) 40 Mg Tablet, 40 MG PO DAILY, (Reported) Entered as Reported by: MAINE LAIRD on 11/06/211433 Last Action: Reviewed Losartan Potassium (Losartan Potassium) 50 Mg Tablet, 50 MG PO DAILY, (Reported) Entered as Reported by: MAINE LAIRD on 11/06/211433 Last Action: Reviewed Promethazine HCl/Codeine (Prometh-Codein 6.25-10 mg/5 ml) 5 Ml Syrup, 5 ML PO HS PRN for COUGH, (Reported) Entered as Reported by: MAINE LAIRD on 11/06/211433 Last Action: Reviewed Discontinued Medications Apixaban (Eliquis) 5 Mg Tablet, 5 MG PO BID Discontinued Reason: Duplicate Order Prescribed by: GABY PANDEY on 05/20/201136 Last Action: Discontinued Aspirin (Aspirin EC) 81 Mg Tablet.dr, 81 MG PO DAILY Discontinued Reason: Duplicate Order Prescribed by: GABY PANDEY on 05/20/201136 Last Action: Discontinued Atorvastatin Calcium (Atorvastatin Calcium) 40 Mg Tablet, 40 MG PO DAILY Discontinued Reason: Duplicate Order Prescribed by: GABY PANDEY on 05/20/201136 Last Action: Discontinued Furosemide (Furosemide) 40 Mg Tablet, 40 MG PO DAILY Discontinued Reason: Duplicate Order Prescribed by: GABY PANDEY on 05/20/201136 Last Action: Discontinued Furosemide (Lasix) 40 Mg Tablet, 40 MG PO DAILY PRN Discontinued Reason: Duplicate Order Prescribed by: XAVIER RHOADES on 05/30/201653 Last Action: Discontinued Losartan Potassium (Losartan Potassium) 25 Mg Tablet, 25 MG PO DAILY Discontinued Reason: Duplicate Order Prescribed by: GABY PANDEY on 05/20/201136 Last Action: Discontinued Metoprolol Tartrate (Metoprolol Tartrate) 50 Mg Tablet, 50 MG PO BID Discontinued Reason: Duplicate Order Prescribed by: GABY PANDEY on 05/20/201136 Last Action: Discontinued Potassium Chloride (Potassium Chloride) 20 Meq Tablet.er, 20 MEQ PO DAILY Discontinued Reason: Duplicate Order Prescribed by: GABY PANDEY on 05/20/201136 Last Action: Discontinued Potassium Chloride (Potassium Chloride) 20 Meq Tablet.er, 20 MEQ PO DAILY Discontinued Reason: Duplicate Order Prescribed by: XAVIER RHOADES on 05/30/201654 Last Action: Discontinued Review of Systems Review of Systems Constitutional: see HPI; No chills, No fever EENTM: see HPI Respiratory: see HPI, cough, short of breath, wheezing Cardiovascular: no symptoms reported Genitourinary: no symptoms reported Musculoskeletal: no symptoms reported Psychiatric/Neurological: No Symptoms Reported Hematologic/Lymphatic: No Symptoms Reported Immunological/Allergic: no symptoms reported (LORI PLATA APRN) Past Ofjbslv-Drjzaw-Ruhchz Hx Seasonal Allergies Seasonal Allergies: No (LORI PLATA APRN) Past Medical History Surgeries: Yes (RIGHT ARM SKIN GRAFT--CAUGHT IN ELECT EQUIP MAINT ENG) Orthopedic Respiratory: Yes (OBESITY HYPOVENTILATION; ) Pneumonia, Sleep Apnea Currently Using CPAP: No Cardiac: Yes (CHF; VARICOSE VEINS; NSTEMI 05/18/20 DUE TO CHF/RESP FAILURE) Atrial Fibrillation, Cardiomyopathy, Chronic Edema/Swelling, High Cholesterol, Hypertension, Peripheral Vascular Neurological: No Genitourinary: No Gastrointestinal: No Musculoskeletal: Yes (RIGHT ARM INJURY WITH SKIN GRAFTS-CAUGHT IN ELECT EQUIP MAINT ENG) Endocrine: Yes (MORBID OBESITY) HEENT: No Cancer: No Psychosocial: No (POLYSUBSTANCE ABUSE) Integumentary: No Blood Disorders: No (LORI PLATA APRN) Family Medical History Cardiovascular disease 19 MOTHER, Onset:Unknown Cancer, CAD Over 55 Years Old EXTREME NON-COMPLICANCE IN ALL ASPECTS OF CARE REFUSES TO WEAR CPAP REFUSES TO WEAR LIFE VEST (LORI PLATA APRN) Physical Exam Vital Signs - First Documented 11/06/21 10:31 Temp 36.6 Pulse 137 Resp 34 B/P (MAP) 131/ Pulse Ox 93 O2 Delivery Nasal Cannula O2 Flow Rate 2.00 (ISIDRO VICTOR MD) Capillary Refill : (LORI PLATA APRN) Height: '" Weight: lbs. oz. kg; 57.00 BMI Method: General Appearance: WD/WN, no apparent distress, obese, other (chronically ill) Eyes: Bilateral Eye Normal Inspection, Bilateral Eye PERRL, Bilateral Eye EOMI Neck: non-tender, full range of motion Respiratory: no respiratory distress, no accessory muscle use, decreased breath sounds, wheezing Cardiovascular: no murmur, irregularly irregular (Narrow complex irregular heart rate tachycardia rate of 140s, oxygen saturation 86% on arrival.) Gastrointestinal: normal bowel sounds, non tender, soft Extremities: pedal edema (chronic and unchanged) Neurologic/Psychiatric: alert, normal mood/affect, oriented x 3 Skin: normal color, warm/dry, other (venous stasis dermatitis ble) (LORI PLATA APRN) Focused Exam Lactate Level 11/06/21 10:56: Lactic Acid Level 1.67 (ISIDRO VICTOR MD) Lactic Acid Level Laboratory Tests Test 11/06/21 10:56 Lactic Acid Level 1.67 MMOL/L (0.50-2.00) (ISIDRO VICTOR MD) Progress/Results/Core Measures Suspected Sepsis SIRS Temperature: Pulse: Respiratory Rate: Laboratory Tests 11/06/21 10:56: White Blood Count 11.0 Blood Pressure / Mean: 11/06/21 10:56: Lactic Acid Level 1.67 Laboratory Tests 11/06/21 10:56: Creatinine 1.02, INR Comment 1.1, Platelet Count 239, Total Bilirubin 0.6 (LORI PLATA APRN) Results/Orders Lab Results Laboratory Tests Test 11/06/21 10:56 11/06/21 11:10 Range/Units White Blood Count 11.0 4.3-11.0 10^3/uL Red Blood Count 4.60 4.30-5.52 10^6/uL Hemoglobin 14.5 13.3-17.7 g/dL Hematocrit 46 40-54 % Mean Corpuscular Volume 99 80-99 fL Mean Corpuscular Hemoglobin 32 25-34 pg Mean Corpuscular Hemoglobin Concent 32 32-36 g/dL Red Cell Distribution Width 13.5 10.0-14.5 % Platelet Count 239 130-400 10^3/uL Mean Platelet Volume 9.8 9.0-12.2 fL Immature Granulocyte % (Auto) 0 % Neutrophils (%) (Auto) 71 42-75 % Lymphocytes (%) (Auto) 15 12-44 % Monocytes (%) (Auto) 6 0-12 % Eosinophils (%) (Auto) 6 0-10 % Basophils (%) (Auto) 1 0-10 % Neutrophils # (Auto) 7.8 1.8-7.8 10^3/uL Lymphocytes # (Auto) 1.6 1.0-4.0 10^3/uL Monocytes # (Auto) 0.7 0.0-1.0 10^3/uL Eosinophils # (Auto) 0.7 H 0.0-0.3 10^3/uL Basophils # (Auto) 0.1 0.0-0.1 10^3/uL Immature Granulocyte # (Auto) 0.0 0.0-0.1 10^3/uL Prothrombin Time 15.0 H 12.2-14.7 SEC INR Comment 1.1 0.8-1.4 Activated Partial Thromboplast Time 38 H 24-35 SEC Sodium Level 142 135-145 MMOL/L Potassium Level 3.7 3.6-5.0 MMOL/L Chloride Level 101 98-107 MMOL/L Carbon Dioxide Level 27 21-32 MMOL/L Anion Gap 14 5-14 MMOL/L Blood Urea Nitrogen 16 7-18 MG/DL Creatinine 1.02 0.60-1.30 MG/DL Estimat Glomerular Filtration Rate 92 BUN/Creatinine Ratio 16 Glucose Level 148 H 70-105 MG/DL Lactic Acid Level 1.67 0.50-2.00 MMOL/L Calcium Level 8.7 8.5-10.1 MG/DL Corrected Calcium 9.1 8.5-10.1 MG/DL Magnesium Level 1.6 1.6-2.4 MG/DL Total Bilirubin 0.6 0.1-1.0 MG/DL Aspartate Amino Transf (AST/SGOT) 25 5-34 U/L Alanine Aminotransferase (ALT/SGPT) 28 0-55 U/L Alkaline Phosphatase 121 40-136 U/L Troponin I 0.031 H <0.028 NG/ML C-Reactive Protein High Sensitivity 2.26 H 0.00-0.50 MG/DL B-Type Natriuretic Peptide 92.9 <100.0 PG/ML Total Protein 6.8 6.4-8.2 GM/DL Albumin 3.5 3.2-4.5 GM/DL Procalcitonin 0.12 H <0.10 NG/ML Blood Gas Puncture Site RT RAD Blood Gas Patient Temperature 36.0 Arterial Blood pH 7.41 7.37-7.43 Arterial Blood Partial Pressure CO2 47 H 35-45 MMHG Arterial Blood Partial Pressure O2 74 L 79-93 MMHG Arterial Blood HCO3 30 H 23-27 MMOL/L Arterial Blood Total CO2 31.3 H 21.0-31.0 MMOL/L Arterial Blood Oxygen Saturation 96 94-100 % Arterial Blood Base Excess 5.2 H -2.5-2.5 MMOL/L Carlos Test NA Blood Gas Ventilator Setting NO Blood Gas Inspired Oxygen NA Influenza Type A (RT-PCR) Not Detected Not Detecte Influenza Type B (RT-PCR) Not Detected Not Detecte SARS-CoV-2 RNA (RT-PCR) Not Detected Not Detecte (ISIDRO VICTOR MD) My Orders Orders - ISIDRO VICTOR MD Cbc With Automated Diff (11/06/21 10:36) Comprehensive Metabolic Panel (11/06/21 10:36) Hs C Reactive Protein (11/06/21 10:36) Ed Iv/Invasive Line Start (11/06/21 10:36) Chest 1 View, Ap/Pa Only (11/06/21 10:36) Covid 19 Inhouse Test (11/06/21 10:36) Influenza A And B By Pcr (11/06/21 10:36) (ISIDRO VICTOR MD) Medications Given in ED Current Medications Medications Dose Ordered Sig/Natalie Route Start Time Stop Time Status Last Admin Dose Admin Albuterol/ Ipratropium 3 ml ONCE ONCE INH 11/06/21 11:00 11/06/21 11:04 DC 11/06/21 11:10 3 ML Diltiazem HCl 10 mg ONCE ONCE IVP 11/06/21 11:00 11/06/21 11:04 DC 11/06/21 11:28 10 MG (ISIDRO VICTOR MD) Vital Signs/I&O 11/06/21 11/06/21 10:31 10:31 Temp 36.6 Pulse 137 Resp 34 B/P (MAP) 131/ Pulse Ox 93 87 O2 Delivery Nasal Cannula Room Air O2 Flow Rate 2.00 (ISIDRO VICTOR MD) Vital Signs/I&O Capillary Refill : (LORI PLATA APRN) Departure Communication (Admissions) Family Conversation NAME: [facility]AS GOMES [facility] REC#: [id number] PT STATUS: REG ER : 1975 PHYSICIAN: ISIDRO VICTOR MD ADMIT DATE: 11/06/21/ER Draft Date of Exam:11/06/21 CHEST 1 VIEW, AP/PA ONLY INDICATION: Cough, shortness breath, abdominal pain. TECHNIQUE: Single view chest 11:58 AM. CORRELATION STUDY: 05/30/2020 FINDINGS: Heart size remains enlarged, mediastinum prominent, stable. There is no definitive new infiltrate. Overall examination is compromised by prominent amount of the soft tissue attenuation artifact. IMPRESSION: 1. Generally stable severity cardiac enlargement without evidence of overt failure. No definitive pulmonary infiltrate. Dictated on workstation # [id number] Dict: 11/06/21 1211 Trans: 11/06/21 1214 CVB [id number] Interpreted by: PERLA GELLER DO Electronically signed by: 1214-Cardizem drip is at 15 mg an hour with a heart rate of 121 blood pressure 150/100 oxygen 96% on [address] Herrera ICU continue Cardizem drip continue Eliquis. Will consult Dr. Golden (LORI PLATA APRN) Impression Primary Impression: Atrial fibrillation with rapid ventricular response Additional Impression: CHF (congestive heart failure) Disposition: ADMITTED INPATIENT Condition: Stable Admissions Decision to Admit Reason: Admit from ER (General) Decision to Admit/Date: Nov 06, 2021 Time/Decision to Admit Time: 11:26 (LORI PLATA APRN) Departure-Patient Inst. [facility]: [facility] [place] Primary Care Physician ATTENDING PHYSICIAN NOTE: I was physically present as attending physician in the emergency department during the care of this patient, but I was not directly involved in the decision making or delivery of care for this patient. (ISIDRO VICTOR MD) LORI PLATA APRN Nov 06, 2021 11:07 ISIDRO VICTOR MD Nov 06, 2021 18:47
[2021-11-06 11:15] LABS: ALBUMIN 3.5 GM/DL (3.2-4.5); POTASSIUM 3.7 MMOL/L (3.6-5.0)
[2021-11-06 11:16] LABS: CALCIUM 8.7 MG/DL (8.5-10.1)
[2021-11-06 11:17] LABS: TOTAL PROTEIN 6.8 GM/DL (6.4-8.2)
[2021-11-06 11:19] LABS: BILIRUBIN,TOTAL 0.6 MG/DL (0.1-1.0)
[2021-11-06 11:21] LABS: CREATININE SERUM 1.02 MG/DL (0.60-1.30)
[2021-11-06 11:26] LABS: ABG BASE EXCESS 5.2 MMOL/L (-2.5-2.5); ABG OXYGEN SATURATION 96 % (94-100); ABG PCO2 47 MMHG (35-45); ABG PH 7.41 (7.37-7.43); ABG PO2 74 MMHG (79-93); ABG TCO2 31.3 MMOL/L (21.0-31.0)
[2021-11-06 11:27] LABS: VENTILATOR NO
[2021-11-06 11:27] LABS: MAGNESIUM 1.6 MG/DL (1.6-2.4)
[2021-11-06 11:57] LABS: INR 1.1 (0.8-1.4)
--- NOTE | 2021-11-06 12:14 | Diagnostic Imaging Report ---
INDICATION: Cough, shortness breath, abdominal pain. TECHNIQUE: Single view chest 11:58 AM. CORRELATION STUDY: 05/30/2020 FINDINGS: Heart size remains enlarged, mediastinum prominent, stable. There is no definitive new infiltrate. Overall examination is compromised by prominent amount of the soft tissue attenuation artifact. IMPRESSION: 1. Generally stable severity cardiac enlargement without evidence of overt failure. No definitive pulmonary infiltrate. Dictated by: Dictated on workstation # [id number]
--- NOTE | 2021-11-06 12:21 | History & Physical-Hospitalist ---
History of Present Illness HPI/Chief Complaint Chief complaint: Palpitations History of present illness: This is a 46-year-old white male with longstanding atrial fibrillation and medical noncompliance who presented to the ER with palpitations found to have atrial fibrillation with rapid ventricular response. Patient will be placed on a Cardizem drip. He just completed treatment for an upper respiratory illness so will initiate treatments with short course of IV steroids. His BMI is 72. Source: patient Exam Limitations: no limitations Date Seen 11/06/21 Time Seen by a Provider: 13:00 Attending Physician Toshia Herrera DO [facility] [place] Referring Physician Date of Admission Nov 06, 2021 at 12:14 Home Medications & Allergies Home Medications Reviewed patient Home Medication Reconciliation performed by pharmacy medication reconciliations mail carrier technician and/or nursing. Patients Allergies have been reviewed. Allergies Allergies Coded Allergies No Known Drug Allergies (Unverified09/26/19) Past Ehjeyhf-Rexfbf-Cpgeyu Hx Patient Social History Marrital Status: single Employed/Student: unemployed Tobacco Use?: No Smoking Status: Current Everyday Smoker Substance use?: Yes Substance type: Marijuana Substance frequency: Couple times a week Alcohol Use?: Yes Alcohol type: Beer, Hard Liquor Alcohol Frequency: Rarely Pt feels they are or have been: No Immunizations Up To Date Second COVID19 Vaccination Jf: 05/28 Tetanus Booster (TDap): Unknown Date of Pneumonia Vaccine: Aug 18, 2017 Seasonal Allergies Seasonal Allergies: No Current Status Advance Directives: No Primary Language: Upper Sorbian Preferred Spoken Language: Upper Sorbian Implanted or Applied Medical D: None Past Medical History Surgeries: Orthopedic Pneumonia, Sleep Apnea Currently Using CPAP: No Atrial Fibrillation, Cardiomyopathy, Chronic Edema/Swelling, High Cholesterol, Hypertension, Peripheral Vascular Blood Disorders: No Systolic CHF with life vest ZULLY non compliant with CPAP HTN Atrial Fibrillation HTN Family Medical History Cardiovascular disease 19 MOTHER, Onset:Unknown Cancer, CAD Over 55 Years Old EXTREME NON-COMPLICANCE IN ALL ASPECTS OF CARE REFUSES TO WEAR CPAP REFUSES TO WEAR LIFE VEST Review of Systems Constitutional: see HPI, malaise, weakness Cardiovascular: palpitations Physical Exam Physical Exam Vital Signs Vital Signs - First Documented 11/06/21 10:31 Temp 36.6 Pulse 137 Resp 34 B/P (MAP) 131/ Pulse Ox 93 O2 Delivery Nasal Cannula O2 Flow Rate 2.00 Capillary Refill : Less Than 3 Seconds Height, Weight, BMI Height: '" Weight: lbs. oz. kg; 71.00 BMI Method: General Appearance: No Apparent Distress, Chronically ill, Obese Eyes: Right Eye Normal Inspection, Right Eye PERRL HEENT: PERRL/EOMI, Normal ENT Inspection, Pharynx Normal, Moist Mucous Membranes Neck: Full Range of Motion, Normal Inspection, Non Tender Respiratory: Chest Non Tender, Lungs Clear, Normal Breath Sounds, No Accessory Muscle Use, No Respiratory Distress Cardiovascular: No Edema, No Gallop, No JVD, No Murmur, Normal Peripheral Pulses, Irregularly Irregular, Tachycardia Gastrointestinal: Normal Bowel Sounds, No Organomegaly, No Pulsatile Mass, Non Tender, Soft Back: Normal Inspection, No CVA Tenderness, No Vertebral Tenderness Extremity: Normal Capillary Refill, Normal Inspection, Normal Range of Motion, Non Tender, No Calf Tenderness, No Pedal Edema Neurologic/Psychiatric: Alert, Oriented x3, No Motor/Sensory Deficits, Normal Mood/Affect Skin: Normal Color, Warm/Dry Lymphatic: No Adenopathy Results Results/Procedures Labs Laboratory Tests 11/06/21 10:56 11/07/21 04:22 Patient resulted labs reviewed. Assessment/Plan Admission Diagnosis Assessment: Atrial fibrillation with rapid ventricular response Recent upper respiratory illness Medical noncompliance Cardiomyopathy Super morbid obesity Plan: Cardize drip Supportive care Cardiology Admission Status: Observation Reason for Inpatient Admission: A. fib with RVR Diagnosis/Problems Diagnosis/Problems (1) Acute on chronic respiratory failure with hypoxemia Status: Acute (2) Acute on chronic congestive heart failure Status: Acute (3) Methamphetamine abuse (4) Obesity hypoventilation syndrome TOSHIA HERRERA DO Nov 06, 2021 12:21
[2021-11-06] MEDS: dilTIAZem DRIP PRE-MIX 125 ML IV SCH ×2 (13:26→21:08)
[2021-11-06] MEDS ORDERED: MILK OF MAGNESIA 400 MG/5 ML 30 ML UDC PO PRN (13:30)
[2021-11-06] MEDS ORDERED: morphine INJ 4 MG/ML 1 ML (VIAL/SYRINGE) IV PRN (13:30)
[2021-11-06] MEDS ORDERED: BISACODYL 10 MG SUPP (DULCOLAX) PR PRN (13:30)
[2021-11-06] MEDS ORDERED: diphenhydrAMINE 50 MG/ML INJ (BENADRYL) IVP PRN (13:30)
[2021-11-06] MEDS ORDERED: LACTULOSE SYRUP 10GM/15ML (ENULOSE) 30ML UDC PO PRN (13:30)
[2021-11-06] MEDS ORDERED: ONDANSETRON 4 MG (ZOFRAN) ORAL DISSOLVE TAB PO PRN (13:30)
[2021-11-06] MEDS ORDERED: diphenhydrAMINE 25 MG TAB (BENADRYL) PO PRN (13:30)
[2021-11-06] MEDS ORDERED: ANTACID SUSP 30 ML UDC (MYLANTA) PO PRN (13:30)
[2021-11-06] MEDS ORDERED: CALCIUM CARBONATE 500 MG (TUMS) TAB.CHEW PO PRN (13:30)
[2021-11-06] MEDS ORDERED: ONDANSETRON 4 MG/2 ML (SDV) Z0FRAN IV PRN (13:30)
[2021-11-06] MEDS ORDERED: polyethylene glycoL POWDER 17 GM (MIRALAX) PACK PO PRN (13:30)
[2021-11-06] MEDS ORDERED: ACETAMINOPHEN 325 MG TABLET PO PRN (13:30)
[2021-11-06] MEDS ORDERED: RT-ALBUTEROL/IPRATROPIUM 3 ML (DUONEB) VIAL INH SCH (14:00)
--- NOTE | 2021-11-06 14:28 | Tele-ICU Progress Note ---
Progress Note Video assessment done , Hemodynamically stable Available charting reviewed PMH : Systolic CHF with life vest- REFUSED ZULLY non compliant with CPAP- REFUSED HTN Atrial Fibrillation vhonic hypoxix - O2 at home PRN Now presented with a fib RVR , 86% SPO2 on room air on arrival - most likely CHF - cardiolofy consulted --Cardizem drip - cont eliquis - monitor O2 - solumedrool started for presumed bronchospam NO TELE-ICU CONSULT REQUESTED CONTINUE TO MONITOR PER USUAL TELE-ICU PROTOCOL No need for Tele-ICU interventions Plans as delineated by bedside physicians / consultants Focused Exam Lactate Level 11/06/21 10:56: Lactic Acid Level 1.67 Height, Weight, BMI Height: '" Weight: lbs. oz. kg; 71.71 BMI Method: Lactic Acid Level Laboratory Tests Test 11/06/21 10:56 Lactic Acid Level 1.67 MMOL/L (0.50-2.00) MARIA EUGENIA MALAVE MD Nov 06, 2021 14:28
[2021-11-06] MEDS ORDERED: LOSA50TA63 PO (14:34)
[2021-11-06] MEDS ORDERED: FERR325T24 PO (14:34)
[2021-11-06] MEDS ORDERED: FLUT16SP22 NSEACH (14:34)
[2021-11-06] MEDS ORDERED: APIX5TAB PO (14:34)
[2021-11-06] MEDS ORDERED: ALBU2.5V4 NEB (14:34)
[2021-11-06] MEDS ORDERED: ASPI-1238 PO (14:34)
[2021-11-06] MEDS ORDERED: RT-ALBUINH INH (14:34)
[2021-11-06] MEDS ORDERED: DOXY100C5 PO (14:34)
[2021-11-06] MEDS ORDERED: FURO40TA4 PO (14:34)
[2021-11-06] MEDS ORDERED: PROM5SYR PO (14:34)
[2021-11-06] MEDS ORDERED: ACET-3075 PO (14:34)
[2021-11-06] MEDS ORDERED: ATOR40TA70 PO (14:34)
[2021-11-06] MEDS ORDERED: DILT240C91 PO (14:34)
[2021-11-06 15:09] VITALS: BP 141/93
[2021-11-06] MEDS ORDERED: RT-ALBUTEROL/IPRATROPIUM 3 ML (DUONEB) VIAL INH PRN (15:30)
[2021-11-06] MEDS ORDERED: NICOTINE 21 MG (NICODERM) PATCH ONE (17:06)
[2021-11-06] MEDS: methylPREDNISolone 40 MG/ML (Solu-MEDROL) VIAL IV SCH (17:10)
[2021-11-06] MEDS: BENZONATATE 100 MG (TESSALON) CAPSULE PO SCH ×2 (17:10→20:16)
[2021-11-06] MEDS: NICOTINE 21 MG (NICODERM) PATCH TD SCH (17:11)
[2021-11-06] MEDS: inSUlin ASPART (NovoLOG) 1 UNIT/0.01 ML (CHARGE PER UNIT) SC SCH ×2 (17:12→20:18)
[2021-11-06] MEDS: APIXABAN 5 MG (ELIQUIS) TABLET PO SCH (20:15)
[2021-11-06] MEDS: DOCUSATE SODIUM 100 MG (COLACE) CAP PO SCH (20:15)
[2021-11-06] MEDS: MELATONIN 3 MG TABLET PO PRN (20:16)
[2021-11-06] MEDS: SENNOSIDES 8.6 MG (SENOKOT) TAB PO SCH (20:16)
[2021-11-06 20:57] LABS: BILIRUBIN,URINE NEGATIVE (NEGATIVE); CLARITY,URINE CLEAR; COLOR,URINE YELLOW; GLUCOSE, URINE (UA) NEGATIVE (NEGATIVE); KETONES,URINE NEGATIVE (NEGATIVE); LEUKOCYTE ESTERASE ,URINE NEGATIVE (NEGATIVE); NITRITE,URINE NEGATIVE (NEGATIVE); PROTEIN,URINE TRACE (NEGATIVE)
[2021-11-06 21:03] LABS: BACTERIA,URINE TRACE /HPF; RBC,URINE 25-50 /HPF; WBC,URINE 0-2 /HPF
[2021-11-06 21:04] LABS: AMORPHOUS SEDIMENT,UR RARE AMOR URATES /LPF
[2021-11-06] MEDS: RT-ALBUTEROL/IPRATROPIUM 3 ML (DUONEB) VIAL INH SCH (21:08)
[2021-11-06 21:19] LABS: AMPHETAMINE SCREEN, URINE NEGATIVE (NEGATIVE); BARBITURATE SCREEN URINE NEGATIVE (NEGATIVE); BENZODIAZEPINES SCREEN URINE NEGATIVE (NEGATIVE); CANNABINOID SCREEN, URINE NEGATIVE (NEGATIVE); COCAINE SCREEN URINE NEGATIVE (NEGATIVE); METHADONE STAT NEGATIVE (NEGATIVE); METHAMPHETAMINE SCREEN URINE S NEGATIVE (NEGATIVE); OPIATE SCREEN URINE POSITIVE (NEGATIVE); OXYCODONE STAT NEGATIVE (NEGATIVE); PROPOXYPHENE STAT NEGATIVE (NEGATIVE); TRICYCLIC ANTIDEPRESSANTS SCRE NEGATIVE (NEGATIVE)
[2021-11-06] MEDS ORDERED: FLUTICASONE NASAL SPRAY (FLONASE) 16 GM BTL NS PRN (21:30)
[2021-11-06] MEDS ORDERED: PROMETHAZINE/ CODEINE SYRUP 5 ML UDC PO PRN (21:45)
[2021-11-07] MEDS: methylPREDNISolone 40 MG/ML (Solu-MEDROL) VIAL IV SCH ×2 (00:06→05:11)
[2021-11-07] MEDS: RT-ALBUTEROL/IPRATROPIUM 3 ML (DUONEB) VIAL INH SCH ×4 (02:26→20:25)
[2021-11-07 04:31] LABS: BASOPHILS % (AUTO) 0 % (0-10); EOSINOPHILS % (AUTO) 0 % (0-10); HEMATOCRIT 47 % (40-54); HEMOGLOBIN 14.3 g/dL (13.3-17.7); LYMPHOCYTES # (AUTO) 0.7 10^3/uL (1.0-4.0); LYMPHOCYTES % (AUTO) 8 % (12-44); MEAN CORPUSCULAR HEMOGLOBIN 31 pg (25-34); MEAN CORPUSCULAR HGB CONC 31 g/dL (32-36); MEAN CORPUSCULAR VOLUME 101 fL (80-99); MONOCYTES # (AUTO) 0.1 10^3/uL (0.0-1.0); MONOCYTES % (AUTO) 1 % (0-12); NEUTROPHILS # (AUTO) 8.5 10^3/uL (1.8-7.8); NEUTROPHILS % (AUTO) 91 % (42-75); PLATELET COUNT 233 10^3/uL (130-400); WHITE BLOOD COUNT 9.4 10^3/uL (4.3-11.0)
[2021-11-07 04:45] LABS: ALBUMIN 3.5 GM/DL (3.2-4.5)
[2021-11-07 04:46] LABS: CALCIUM 9.1 MG/DL (8.5-10.1)
[2021-11-07 04:49] LABS: BILIRUBIN,TOTAL 0.8 MG/DL (0.1-1.0)
[2021-11-07 04:51] LABS: CREATININE SERUM 0.96 MG/DL (0.60-1.30)
[2021-11-07] MEDS: inSUlin ASPART (NovoLOG) 1 UNIT/0.01 ML (CHARGE PER UNIT) SC SCH ×4 (05:11→21:06)
[2021-11-07] MEDS: NICOTINE PATCH REMOVAL TP SCH (08:18)
[2021-11-07] MEDS: SENNOSIDES 8.6 MG (SENOKOT) TAB PO SCH ×2 (08:19→21:05)
[2021-11-07] MEDS: ASPIRIN E.C. 81 MG (ECOTRIN) TAB PO SCH (08:19)
[2021-11-07] MEDS: FERROUS SULF 325 MG (IRON) TAB PO SCH (08:19)
[2021-11-07] MEDS: BENZONATATE 100 MG (TESSALON) CAPSULE PO SCH ×3 (08:19→21:05)
[2021-11-07] MEDS: DOCUSATE SODIUM 100 MG (COLACE) CAP PO SCH ×2 (08:19→21:05)
[2021-11-07] MEDS: LOSARTAN 50 MG (COZAAR) TAB PO SCH (08:19)
[2021-11-07] MEDS: APIXABAN 5 MG (ELIQUIS) TABLET PO SCH ×2 (08:19→21:05)
[2021-11-07] MEDS: FUROSEMIDE 40 MG (LASIX) TAB PO SCH (08:19)
[2021-11-07] MEDS: NICOTINE 21 MG (NICODERM) PATCH TD SCH (08:20)
--- NOTE | 2021-11-07 08:51 | Tele-ICU Progress Note ---
Subjective Date Seen by a Provider: Nov 07, 2021 Time Seen by a Provider: 08:47 Subjective/Events-last exam Video assessment done , Hemodynamically stable Reviewed yesterday's CXR, looks like CHF On IV Medrol, Eliquis Available charting reviewed PMH : Systolic CHF with life vest- REFUSED ZULLY non compliant with CPAP- REFUSED HTN Atrial Fibrillation rate has been from 70 to 110 chonic hypoxia - O2 at home PRN right now SpO2 93%, Not working hard to breathe Now presented with a fib RVR , 86% SPO2 on room air on arrival - most likely CHF - cardiolofy consulted --Cardizem drip, still at 5 mg/h, started on oral metoprolol 100XL q d , will stop IV Caredizem after 2 hours of beta chalino - cont eliquis - monitor O2 - solumedrool started for presumed bronchospam will change to prednisone oral Sepsis Event Evaluation Height, Weight, BMI Height: '" Weight: lbs. oz. kg; 71.71 BMI Method: Focused Exam Lactate Level 11/06/21 10:56: Lactic Acid Level 1.67 Exam Exam Patient acknowledged, consented, and participated in this virtual visit which was conducted using real time audio/video Vital Signs Date Time Temp Pulse Resp B/P (MAP) Pulse Ox O2 Delivery O2 Flow Rate FiO2 11/07/21 08:00 75 14 133/87 95 Nasal Cannula 3.00 11/07/21 07:40 35.4 11/07/21 07:00 80 11/07/21 07:00 97 22 155/66 92 Nasal Cannula 3.00 11/07/21 06:00 92 13 141/103 94 Nasal Cannula 3.00 11/07/21 05:00 75 17 120/78 93 Nasal Cannula 3.00 11/07/21 04:00 97 Nasal Cannula 3.00 11/07/21 04:00 36.4 Nasal Cannula 3.00 11/07/21 04:00 76 14 119/96 93 Nasal Cannula 3.00 11/07/21 03:00 73 13 128/84 96 Nasal Cannula 3.00 11/07/21 02:00 91 15 108/82 93 Nasal Cannula 3.00 11/07/21 01:00 100 11/07/21 01:00 87 14 122/79 96 Nasal Cannula 3.00 11/07/21 00:00 77 13 120/90 96 Nasal Cannula 3.00 11/07/21 00:00 36.0 Nasal Cannula 3.00 11/06/21 23:59 97 Nasal Cannula 3.00 11/06/21 23:00 77 21 119/93 93 Nasal Cannula 3.00 11/06/21 22:00 80 17 108/87 94 Nasal Cannula 3.00 11/06/21 21:10 94 4.00 11/06/21 21:00 98 25 117/85 96 Nasal Cannula 3.00 11/06/21 20:00 97 Nasal Cannula 3.00 11/06/21 20:00 36.8 Nasal Cannula 3.00 11/06/21 20:00 104 24 118/85 90 Nasal Cannula 3.00 11/06/21 19:00 100 11/06/21 19:00 108 27 124/93 90 Nasal Cannula 3.00 11/06/21 18:00 95 28 122/98 94 Nasal Cannula 3.00 11/06/21 17:00 92 30 130/102 95 Nasal Cannula 3.00 11/06/21 16:00 95 Nasal Cannula 3.00 11/06/21 16:00 92 27 108/95 93 Nasal Cannula 3.00 11/06/21 15:09 36.6 109 94 11/06/21 15:00 94 5 98/73 96 Nasal Cannula 3.00 11/06/21 14:00 108 9 93 Nasal Cannula 3.00 11/06/21 13:30 109 14 141/93 94 Nasal Cannula 3.00 11/06/21 13:28 97 Nasal Cannula 4.00 11/06/21 13:19 107 11/06/21 10:31 36.6 137 34 131/ 87 Room Air 11/06/21 10:31 93 Nasal Cannula 2.00 I & O 11/07/21 07:00 Intake Total 1660 ml Output Total 1300 ml Balance 360 ml Height & Weight Height: '" Weight: lbs. oz. kg; 71.71 BMI Method: General Appearance: No Apparent Distress, Chronically ill, Obese HEENT: PERRL/EOMI, Normal ENT Inspection, Pharynx Normal, Moist Mucous Membranes Neck: Full Range of Motion, Normal Inspection, Non Tender Respiratory: Chest Non Tender, Lungs Clear, Normal Breath Sounds, No Accessory Muscle Use, No Respiratory Distress, Decreased Breath Sounds Cardiovascular: No Edema, No Gallop, No JVD, No Murmur, Normal Peripheral Pul ses, Irregularly Irregular, Tachycardia Capillary Refill: Less Than 3 Seconds Gastrointestinal: normal bowel sounds, non tender, soft Extremity: Normal Capillary Refill, Normal Inspection, Normal Range of Motion, Non Tender, No Calf Tenderness, No Pedal Edema Neurologic/Psychiatric: Alert, Oriented x3, No Motor/Sensory Deficits, Normal Mood/Affect Skin: Normal Color, Warm/Dry Lymphatic: No Adenopathy Results Lab Laboratory Tests 11/06/21 10:56 11/07/21 04:22 Assessment/Plan Assessment/Plan Systolic CHF with life vest- REFUSED ZULLY non compliant with CPAP- REFUSED HTN Atrial Fibrillation chonic hypoxix - O2 at home PRN Now presented with a fib RVR , 93-96%% SPO2 on room air on arrival - most likely CHF - cardiolofy consulted --Cardizem drip to change to Metoprolol XL 100 - cont eliquis - monitor O2 - solumedrool started for presumed bronchospam will change to po prednisone Critical Care: Critically Ill Patient Time spent with patient (mins): 30 MARA HAIRSTON MD Nov 07, 2021 08:51
[2021-11-07] MEDS ORDERED: meTOprolol SUCCINATE 100 MG (TOPROL XL) TAB PO ONE (09:15)
--- NOTE | 2021-11-07 09:28 | Consultation-Cardiology ---
HPI-Cardiology Cardiology Consultation: Date of Consultation 11/07/21 Date of Admission 11/06/21 Attending Physician Toshia Herrera DO Admitting Physician [facility] Consulting Physician JOHN CASTILLO JR, MD HPI: Time Seen by a Provider: 09:23 Chief Complaint: Reason for consultation: Atrial fibrillation. At the pleasure of seeing Eddie in the intensive care unit at [facility] in [place], [place] this morning. He has a history of probable permanent atrial fibrillation, cardiomyopathy of unknown type, chronic heart failure with reduced ejection fraction, mitral regurgitation, hypertension, hyperlipidemia, and morbid obesity. He is also noncompliant with medications and follow-up vis its. Over the past couple of days he has had increasing dyspnea on exertion. This got to the point that he could not even walk across the room without getting short of breath. Normally he does have chronic dyspnea on exertion as well as orthopnea but this shortness of breath was new. He finally had his father drive him to the hospital for further evaluation. He was found to be in atrial fibrillation with a rapid ventricular rate and was started on intravenous diltiazem and admitted to the intensive care unit. Overnight, his heart rates have improved. He still feels fairly short of breath. He denies chest discomfort. He also has chronic paroxysmal nocturnal dyspnea in addition to the orthopnea and has been sleeping in a chair for the past 5 years. He also has obstructive sleep apnea but cannot tolerate CPAP due to claustrophobia. He seems to be having some palpitations but denies any lightheadedness or syncope. He has chronic, severe peripheral edema which has been unchanged. Because of the atrial fibrillation, a cardiology consultation was requested. Certain portions of this document may have been dictated utilizing voice recognition technology. Inherent to this technology, typographical and grammatical errors may exist. As much as I am diligent to identify and correct these mistakes, some errors may remain in the document. Review of Systems-Cardiology Review of Systems Other comments Review of 10 organ systems is as per the history of present illness, otherwise negative. LBX-Acotie-Mnxyiv Hx Patient Social History Marrital Status: single Employed/Student: unemployed Smoking Status: Current Everyday Smoker 2nd Hand Smoke Exposure: No Have you traveled recently?: No Alcohol Use?: Yes Substance type: Marijuana Pt feels they are or have been: No Immunizations Up To Date Date of Pneumonia Vaccine: Aug 18, 2017 Past Medical History PMH As described under Assessment. Family Medical History Family History: Cardiovascular disease 19 MOTHER, Onset:Unknown Allergies and Home Medications Allergies Coded Allergies: No Known Drug Allergies (Unverified , 09/26/19) Patient Home Medication List Home Medication List Reviewed: Yes Acetaminophen/Diphenhydramine (Tylenol Pm Ex-Strength Caplet) 1 Each Tablet, 3 EACH PO HS, (Reported) Entered as Reported by: MAINE LAIRD on 11/06/211433 Last Action: Held Albuterol Sulfate (Albuterol Sulfate) 2.5 Mg/3 Ml Vial.neb, 3 ML NEB Q8H PRN for SHORTNESS OF BREATH, (Reported) Entered as Reported by: MAINE LAIRD on 11/06/211433 Last Action: Held Albuterol Sulfate (Proventil Hfa) 6.7 Gm Hfa.aer.ad, 2 PUFF INH Q4H PRN for SHORTNESS OF BREATH, (Reported) Entered as Reported by: MAINE LAIRD on 11/06/211433 Last Action: Held Apixaban (Eliquis) 5 Mg Tablet, 5 MG PO BID, (Reported) Entered as Reported by: MAINE LAIRD on 11/06/211433 Last Action: Held Aspirin (Aspirin EC) 81 Mg Tablet.dr, 81 MG PO DAILY, (Reported) Entered as Reported by: MAINE LAIRD on 11/06/211433 Last Action: Continued Atorvastatin Calcium (Atorvastatin Calcium) 40 Mg Tablet, 40 MG PO DAILY, (Reported) Entered as Reported by: MAINE LAIRD on 11/06/211433 Last Action: Continued Diltiazem HCl (Diltiazem 24Hr ER) 240 Mg Cap.er.24h, 240 MG PO DAILY, (Reported) Entered as Reported by: MAINE LAIRD on 11/06/211433 Last Action: Held Doxycycline Hyclate (Doxycycline Hyclate) 100 Mg Capsule, 100 MG PO BID, (Report ed) Entered as Reported by: MAINE LAIRD on 11/06/211433 Last Action: Held Ferrous Sulfate (Ferosul) 325 Mg Tablet, 325 MG PO DAILY, (Reported) Entered as Reported by: MAINE LAIRD on 11/06/211433 Last Action: Continued Fluticasone Propionate (Fluticasone Propionate) 16 Gm [place].susp, 1 SPRAY NSEACH BID PRN for CONGESTION, (Reported) Entered as Reported by: MAINE LAIRD on 11/06/211433 Last Action: Continued Furosemide (Furosemide) 40 Mg Tablet, 40 MG PO DAILY, (Reported) Entered as Reported by: MAINE LAIRD on 11/06/211433 Last Action: Continued Losartan Potassium (Losartan Potassium) 50 Mg Tablet, 50 MG PO DAILY, (Reported) Entered as Reported by: MAINE LAIRD on 11/06/211433 Last Action: Continued Promethazine HCl/Codeine (Prometh-Codein 6.25-10 mg/5 ml) 5 Ml Syrup, 5 ML PO HS PRN for COUGH, (Reported) Entered as Reported by: MAINE LAIRD on 11/06/211433 Last Action: Converted Discontinued Medications Apixaban (Eliquis) 5 Mg Tablet, 5 MG PO BID Discontinued Reason: Duplicate Order Prescribed by: GABY PANDEY on 05/20/201136 Last Action: Discontinued Aspirin (Aspirin EC) 81 Mg Tablet.dr, 81 MG PO DAILY Discontinued Reason: Duplicate Order Prescribed by: GABY PANDEY on 05/20/201136 Last Action: Discontinued Atorvastatin Calcium (Atorvastatin Calcium) 40 Mg Tablet, 40 MG PO DAILY Discontinued Reason: Duplicate Order Prescribed by: GABY PANDEY on 05/20/201136 Last Action: Discontinued Furosemide (Furosemide) 40 Mg Tablet, 40 MG PO DAILY Discontinued Reason: Duplicate Order Prescribed by: GABY PANDEY on 05/20/201136 Last Action: Discontinued Furosemide (Lasix) 40 Mg Tablet, 40 MG PO DAILY PRN Discontinued Reason: Duplicate Order Prescribed by: XAVIER RHOADES on 05/30/20 7001 Last Action: Discontinued Losartan Potassium (Losartan Potassium) 25 Mg Tablet, 25 MG PO DAILY Discontinued Reason: Duplicate Order Prescribed by: GABY PANDEY on 05/20/201136 Last Action: Discontinued Metoprolol Tartrate (Metoprolol Tartrate) 50 Mg Tablet, 50 MG PO BID Discontinued Reason: Duplicate Order Prescribed by: GABY PANDEY on 05/20/201136 Last Action: Discontinued Potassium Chloride (Potassium Chloride) 20 Meq Tablet.er, 20 MEQ PO DAILY Discontinued Reason: Duplicate Order Prescribed by: GABY PANDEY on 05/20/20 1137 Last Action: Discontinued Potassium Chloride (Potassium Chloride) 20 Meq Tablet.er, 20 MEQ PO DAILY Discontinued Reason: Duplicate Order Prescribed by: XAVIER J JF on 05/30/20 1655 Last Action: Discontinued Exam Vital Signs Vital Signs Date Time Temp Pulse Resp B/P (MAP) Pulse Ox O2 Delivery O2 Flow Rate FiO2 11/07/21 08:00 75 14 133/87 95 Nasal Cannula 3.00 11/07/21 07:40 35.4 Physical Exam General: Alert. No acute distress. Well nourished and appears older than stated age. He is morbidly obese. Eye: Extraocular movements are intact. Conjunctivae are clear. There are no xanthelasma. HENT: Normocephalic. Atraumatic. Carotid pulsations 2/2 without bruits. Neck: Jugular venous pressure does not appear elevated. No thyromegaly appreciated. Respiratory: Lungs are clear to auscultation but with decreased breath sounds at the bases bilaterally. Respirations are non-labored. Breath sounds are equal. Symmetrical chest wall expansion. Cardiovascular: Normal rate. Irregular rhythm. No murmur. No gallop. Point of maximal impulse is not appear displaced. Good pulses equal in all extremities. 3+ tense bilateral pretibial edema with chronic venous stasis changes. Gastrointestinal: Soft. Normal bowel sounds. Skin: Skin turgor is normal. There is no pallor. Musculoskeletal: No kyphosis or scoliosis appreciated although exam is difficult due to his obesity. Neurologic: Alert and oriented to person, place, time. Cranial nerves 3-12 appea r grossly intact. The patient has good motor tone strength in the upper and lower extremities bilaterally. Psychiatric: Cooperative. Appropriate mood & affect. Labs Laboratory Tests Test 11/06/21 10:56 11/06/21 11:10 11/06/21 16:57 11/06/21 20:14 Range/Units White Blood Count 11.0 4.3-11.0 10^3/uL Red Blood Count 4.60 4.30-5.52 10^6/uL Hemoglobin 14.5 13.3-17.7 g/dL Hematocrit 46 40-54 % Mean Corpuscular Volume 99 80-99 fL Mean Corpuscular Hemoglobin 32 25-34 pg Mean Corpuscular Hemoglobin Concent 32 32-36 g/dL Red Cell Distribution Width 13.5 10.0-14.5 % Platelet Count 239 130-400 10^3/uL Mean Platelet Volume 9.8 9.0-12.2 fL Immature Granulocyte % (Auto) 0 % Neutrophils (%) (Auto) 71 42-75 % Lymphocytes (%) (Auto) 15 12-44 % Monocytes (%) (Auto) 6 0-12 % Eosinophils (%) (Auto) 6 0-10 % Basophils (%) (Auto) 1 0-10 % Neutrophils # (Auto) 7.8 1.8-7.8 10^3/uL Lymphocytes # (Auto) 1.6 1.0-4.0 10^3/uL Monocytes # (Auto) 0.7 0.0-1.0 10^3/uL Eosinophils # (Auto) 0.7 H 0.0-0.3 10^3/uL Basophils # (Auto) 0.1 0.0-0.1 10^3/uL Immature Granulocyte # (Auto) 0.0 0.0-0.1 10^3/uL Prothrombin Time 15.0 H 12.2-14.7 SEC INR Comment 1.1 0.8-1.4 Activated Partial Thromboplast Time 38 H 24-35 SEC Sodium Level 142 135-145 MMOL/L Potassium Level 3.7 3.6-5.0 MMOL/L Chloride Level 101 98-107 MMOL/L Carbon Dioxide Level 27 21-32 MMOL/L Anion Gap 14 5-14 MMOL/L Blood Urea Nitrogen 16 7-18 MG/DL Creatinine 1.02 0.60-1.30 MG/DL Estimat Glomerular Filtration Rate 92 BUN/Creatinine Ratio 16 Glucose Level 148 H 70-105 MG/DL Lactic Acid Level 1.67 0.50-2.00 MMOL/L Calcium Level 8.7 8.5-10.1 MG/DL Corrected Calcium 9.1 8.5-10.1 MG/DL Magnesium Level 1.6 1.6-2.4 MG/DL Total Bilirubin 0.6 0.1-1.0 MG/DL Aspartate Amino Transf (AST/SGOT) 25 5-34 U/L Alanine Aminotransferase (ALT/SGPT) 28 0-55 U/L Alkaline Phosphatase 121 40-136 U/L Troponin I 0.031 H <0.028 NG/ML C-Reactive Protein High Sensitivity 2.26 H 0.00-0.50 MG/DL B-Type Natriuretic Peptide 92.9 <100.0 PG/ML Total Protein 6.8 6.4-8.2 GM/DL Albumin 3.5 3.2-4.5 GM/DL Procalcitonin 0.12 H <0.10 NG/ML Blood Gas Puncture Site RT RAD Blood Gas Patient Temperature 36.0 Arterial Blood pH 7.41 7.37-7.43 Arterial Blood Partial Pressure CO2 47 H 35-45 MMHG Arterial Blood Partial Pressure O2 74 L 79-93 MMHG Arterial Blood HCO3 30 H 23-27 MMOL/L Arterial Blood Total CO2 31.3 H 21.0-31.0 MMOL/L Arterial Blood Oxygen Saturation 96 94-100 % Arterial Blood Base Excess 5.2 H -2.5-2.5 MMOL/L Carlos Test NA Blood Gas Ventilator Setting NO Blood Gas Inspired Oxygen NA Influenza Type A (RT-PCR) Not Detected Not Detecte Influenza Type B (RT-PCR) Not Detected Not Detecte SARS-CoV-2 RNA (RT-PCR) Not Detected Not Detecte Glucometer 106 160 H 70-110 MG/DL Test 11/06/21 20:50 11/07/21 04:22 11/07/21 09:13 Range/Units Urine Color YELLOW Urine Clarity CLEAR Urine pH 6.0 5-9 Urine Specific [place] 1.025 H 1.016-1.022 Urine Protein TRACE H NEGATIVE Urine Glucose (UA) NEGATIVE NEGATIVE Urine Ketones NEGATIVE NEGATIVE Urine Nitrite NEGATIVE NEGATIVE Urine Bilirubin NEGATIVE NEGATIVE Urine Urobilinogen 0.2 < = 1.0 MG/DL Urine Leukocyte Esterase NEGATIVE NEGATIVE Urine RBC (Auto) 3+ H NEGATIVE Urine RBC 25-50 H /HPF Urine WBC 0-2 /HPF Urine Crystals PRESENT H /LPF Urine Amorphous Sediment RARE HOLLIE URATES H /LPF Urine Bacteria TRACE /HPF Urine Casts NONE /LPF Urine Mucus NEGATIVE /LPF Urine Culture Indicated CULTURE PENDING Urine Opiates Screen POSITIVE H NEGATIVE Urine Oxycodone Screen NEGATIVE NEGATIVE Urine Methadone Screen NEGATIVE NEGATIVE Urine Propoxyphene Screen NEGATIVE NEGATIVE Urine Barbiturates Screen NEGATIVE NEGATIVE Ur Tricyclic Antidepressants Screen NEGATIVE NEGATIVE Urine Phencyclidine Screen NEGATIVE NEGATIVE Urine Amphetamines Screen NEGATIVE NEGATIVE Urine Methamphetamines Screen NEGATIVE NEGATIVE Urine Benzodiazepines Screen NEGATIVE NEGATIVE Urine Cocaine Screen NEGATIVE NEGATIVE Urine Cannabinoids Screen NEGATIVE NEGATIVE White Blood Count 9.4 4.3-11.0 10^3/uL Red Blood Count 4.62 4.30-5.52 10^6/uL Hemoglobin 14.3 13.3-17.7 g/dL Hematocrit 47 40-54 % Mean Corpuscular Volume 101 H 80-99 fL Mean Corpuscular Hemoglobin 31 25-34 pg Mean Corpuscular Hemoglobin Concent 31 L 32-36 g/dL Red Cell Distribution Width 13.2 10.0-14.5 % Platelet Count 233 130-400 10^3/uL Mean Platelet Volume 10.0 9.0-12.2 fL Immature Granulocyte % (Auto) 0 % Neutrophils (%) (Auto) 91 H 42-75 % Lymphocytes (%) (Auto) 8 L 12-44 % Monocytes (%) (Auto) 1 0-12 % Eosinophils (%) (Auto) 0 0-10 % Basophils (%) (Auto) 0 0-10 % Neutrophils # (Auto) 8.5 H 1.8-7.8 10^3/uL Lymphocytes # (Auto) 0.7 L 1.0-4.0 10^3/uL Monocytes # (Auto) 0.1 0.0-1.0 10^3/uL Eosinophils # (Auto) 0.0 0.0-0.3 10^3/uL Basophils # (Auto) 0.0 0.0-0.1 10^3/uL Immature Granulocyte # (Auto) 0.0 0.0-0.1 10^3/uL Sodium Level 140 135-145 MMOL/L Potassium Level 5.0 3.6-5.0 MMOL/L Chloride Level 101 98-107 MMOL/L Carbon Dioxide Level 25 21-32 MMOL/L Anion Gap 14 5-14 MMOL/L Blood Urea Nitrogen 18 7-18 MG/DL Creatinine 0.96 0.60-1.30 MG/DL Estimat Glomerular Filtration Rate 99 BUN/Creatinine Ratio 19 Glucose Level 191 H 70-105 MG/DL Calcium Level 9.1 8.5-10.1 MG/DL Corrected Calcium 9.5 8.5-10.1 MG/DL Total Bilirubin 0.8 0.1-1.0 MG/DL Aspartate Amino Transf (AST/SGOT) 23 5-34 U/L Alanine Aminotransferase (ALT/SGPT) 30 0-55 U/L Alkaline Phosphatase 106 40-136 U/L Total Protein 7.0 6.4-8.2 GM/DL Albumin 3.5 3.2-4.5 GM/DL Radiology Echocardiogram from 11/02/2019 showed a dilated left ventricle with mild concentric hypertrophy. There was moderate left ventricular systolic dysfunction with an estimated ejection fraction of 30-35%. The right ventricular systolic function was also reduced. The left atrium is moderate to severely dilated. There was mild to moderate mitral regurgitation. The estimated pulmonary artery systolic pressure was in the normal range. ECG Impression ECG Comment Electrocardiogram from the emergency room on 11/06/2021 showed atrial fibrillation with a ventricular rate of 128 bpm with left anterior hemiblock, right bundle branch block and diffuse nonspecific ST-T wave changes. Diagnosis/Problems Diagnosis/Problems (1) Permanent atrial fibrillation Assessment & Plan: He has had atrial fibrillation for quite some time and I suspect at this point has permanent atrial fibrillation. He reports that he has been taking diltiazem at home. However, given his previous moderate left ventricular systolic dysfunction, diltiazem is not the best medication for rate control in this category of patients. I will start him on metoprolol succinate. After he received the first oral dose, we can attempt to wean off the diltiazem infusion. He should continue on apixaban for stroke prophylaxis. (2) Elevated troponin I level Status: Acute Assessment & Plan: He has a marginally elevated troponin level. This is in the setting of atrial fibrillation with a rapid ventricular rate. He had a probable type II non-ST elevation myocardial infarction due to supply/demand mismatch from the tachycardia. There are no ischemic changes on his electrocardiogram. He will need to be managed medically with beta-chalino and statin medication. He far exceeds the weight limit on our cardiac catheterization table. (3) Chronic HFrEF (heart failure with reduced ejection fraction) Assessment & Plan: His BNP was in a normal range and chest x-ray did not show any overt pulmonary edema. I suspect his worsening shortness of breath may have been due to the tachycardia and does not represent decompensation of his heart failure. As above, I recommend stopping his diltiazem which he was taking at home and changing this over to metoprolol succinate. I will see how his blood pressure response to this medication before placing him on losartan which she had been taking in the past but is not currently taking at home. I will start him on spironolactone today. (4) Cardiomyopathy Assessment & Plan: He had moderate left ventricular systolic dysfunction on his echocardiogram from 2019 as outlined above. At some point he should have a follow-up echocardiogram. I will wait until we have his symptoms under better control and then have him undergo a follow-up echocardiogram. I will hold off on doing this until Tuesday unless he appears ready to discharge on Tuesday. If he is ready to discharge on Tuesday, I will have the diesel technician come in tomorrow to do the study. I am concerned that once he goes home, he will not return for follow-up visits. This has been the case in the past. (5) Mitral regurgitation Assessment & Plan: He also had mild to moderate mitral regurgitation on his most recent echocardiogram. We can reassess this on his follow-up echocardiogram outlined above. I do not see any urgency to this and therefore, would rather not call the diesel technician in today to do a routine follow-up study. (6) Primary hypertension Assessment & Plan: He was taking diltiazem in the past which I will change room attendant to metoprolol. If he tolerates this, I will also add losartan. (7) Mixed hyperlipidemia Assessment & Plan: Continue atorvastatin. I added a lipid panel to his previous blood work. (8) Morbid obesity Status: Chronic Assessment & Plan: He needs to seriously consider having bariatric surgery. He is actually not opposed to this and has been discussing this with his primary provider. JOHN CASTILLO JR, MD Nov 07, 2021 09:28
[2021-11-07 09:31] LABS: CHOLESTEROL 127 MG/DL (< 200); HDL CHOLESTEROL 45 MG/DL (40-60); TRIGLYCERIDES 58 MG/DL (<150); VLDL CHOLESTEROL 12 MG/DL (5-40)
[2021-11-07] MEDS ORDERED: SPIRONOLACTONE 25 MG (ALDACTONE) TAB PO ONE (09:45)
--- NOTE | 2021-11-07 11:25 | Progress Note - Hospitalist ---
Subjective HPI/CC On Admission Date Seen by Provider: Nov 07, 2021 Time Seen by Provider: 11:00 Chief complaint: Palpitations History of present illness: This is a 46-year-old white male with longstanding atrial fibrillation and medical noncompliance who presented to the ER with palpitations found to have atrial fibrillation with rapid ventricular response. Patient will be placed on a Cardizem drip. He just completed treatment for an upper respiratory illness so will initiate treatments with short course of IV steroids. His BMI is 72. Subjective/Events-last exam Patient doing well today Medication changed by Dr. Golden Cardizem drip will be discontinued No pain is reported Review of Systems General: Fatigue Focused Exam Lactate Level 11/06/21 10:56: Lactic Acid Level 1.67 Objective Exam Vital Signs Vital Signs Date Time Temp Pulse Resp B/P (MAP) Pulse Ox O2 Delivery O2 Flow Rate FiO2 11/08/21 04:08 36.2 94 18 128/90 (103) 97 Nasal Cannula 3.00 Capillary Refill : Less Than 3 Seconds General Appearance: No Apparent Distress, WD/WN, Chronically ill, Obese Respiratory: Lungs Clear, Normal Breath Sounds Cardiovascular: Irregularly Irregular, Tachycardia Neurologic/Psychiatric: Alert, Oriented x3 Results/Procedures Lab Laboratory Tests 11/08/21 05:32 Patient resulted labs reviewed. Assessment/Plan Assessment and Plan Assess & Plan/Chief Complaint Assessment: Atrial fibrillation with rapid ventricular response Recent upper respiratory illness Medical noncompliance Cardiomyopathy Super morbid obesity Plan: Cardizem drip Supportive care Cardiology 11/07/2021: Cardizem drip DC Supportive care Transfer to fourth floor Critical Care Critically Ill Patient Diagnosis/Problems Diagnosis/Problems (1) Acute on chronic respiratory failure with hypoxemia Status: Acute (2) Acute on chronic congestive heart failure Status: Acute (3) Methamphetamine abuse (4) Obesity hypoventilation syndrome KARIN SAUNDERS DO Nov 07, 2021 11:25
[2021-11-07] MEDS: predniSONE 10 MG TAB PO SCH (13:26)
[2021-11-07 19:27] VITALS: BP 152/84
[2021-11-07] MEDS: MELATONIN 3 MG TABLET PO PRN (21:05)
[2021-11-08 00:36] VITALS: BP 108/75
[2021-11-08] MEDS: RT-ALBUTEROL/IPRATROPIUM 3 ML (DUONEB) VIAL INH SCH ×2 (02:38→10:33)
[2021-11-08 04:08] VITALS: BP 128/90
[2021-11-08] MEDS: inSUlin ASPART (NovoLOG) 1 UNIT/0.01 ML (CHARGE PER UNIT) SC SCH ×2 (05:37→11:23)
[2021-11-08 05:40] LABS: BASOPHILS % (AUTO) 0 % (0-10); EOSINOPHILS % (AUTO) 0 % (0-10); HEMATOCRIT 45 % (40-54); HEMOGLOBIN 13.7 g/dL (13.3-17.7); LYMPHOCYTES # (AUTO) 1.4 10^3/uL (1.0-4.0); LYMPHOCYTES % (AUTO) 9 % (12-44); MEAN CORPUSCULAR HEMOGLOBIN 31 pg (25-34); MEAN CORPUSCULAR HGB CONC 31 g/dL (32-36); MEAN CORPUSCULAR VOLUME 101 fL (80-99); MEAN PLATELET VOLUME 10.1 fL (9.0-12.2); MONOCYTES # (AUTO) 0.9 10^3/uL (0.0-1.0); MONOCYTES % (AUTO) 6 % (0-12); NEUTROPHILS # (AUTO) 13.7 10^3/uL (1.8-7.8); NEUTROPHILS % (AUTO) 85 % (42-75); PLATELET COUNT 253 10^3/uL (130-400); WHITE BLOOD COUNT 16.1 10^3/uL (4.3-11.0)
[2021-11-08 05:55] LABS: ALBUMIN 3.3 GM/DL (3.2-4.5); POTASSIUM 4.8 MMOL/L (3.6-5.0)
[2021-11-08 05:57] LABS: BAND NEUTROPHILS 2 %; LYMPHOCYTES % (MANUAL) 12 %; MONOCYTES % (MANUAL) 5 %; NEUTROPHILS % (MANUAL) 81 %; RBC MORPH NORMAL
[2021-11-08 05:58] LABS: TOTAL PROTEIN 6.4 GM/DL (6.4-8.2)
[2021-11-08 05:59] LABS: BILIRUBIN,TOTAL 0.5 MG/DL (0.1-1.0)
[2021-11-08 06:01] LABS: CREATININE SERUM 1.07 MG/DL (0.60-1.30)
[2021-11-08] MEDS: predniSONE 10 MG TAB PO SCH (06:55)
[2021-11-08 08:04] VITALS: BP 108/69
[2021-11-08] MEDS: NICOTINE 21 MG (NICODERM) PATCH TD SCH (08:23)
[2021-11-08] MEDS: APIXABAN 5 MG (ELIQUIS) TABLET PO SCH (08:23)
[2021-11-08] MEDS: BENZONATATE 100 MG (TESSALON) CAPSULE PO SCH ×2 (08:24→13:51)
[2021-11-08] MEDS: FUROSEMIDE 40 MG (LASIX) TAB PO SCH (08:24)
[2021-11-08] MEDS: SENNOSIDES 8.6 MG (SENOKOT) TAB PO SCH (08:24)
[2021-11-08] MEDS: LOSARTAN 50 MG (COZAAR) TAB PO SCH (08:24)
[2021-11-08] MEDS: ASPIRIN E.C. 81 MG (ECOTRIN) TAB PO SCH (08:24)
[2021-11-08] MEDS: FERROUS SULF 325 MG (IRON) TAB PO SCH (08:24)
[2021-11-08] MEDS: DOCUSATE SODIUM 100 MG (COLACE) CAP PO SCH (08:24)
[2021-11-08] MEDS: NICOTINE PATCH REMOVAL TP SCH (08:25)
[2021-11-08] MEDS ORDERED: meTOprolol SUCCINATE 100 MG (TOPROL XL) TAB PO SCH (09:00)
[2021-11-08] MEDS ORDERED: SPIRONOLACTONE 25 MG (ALDACTONE) TAB PO SCH (09:00)
[2021-11-08 11:09] VITALS: BP 112/82
[2021-11-08] MEDS ORDERED: SPIR25TA5 PO (12:38)
[2021-11-08] MEDS ORDERED: PRED10TA22 PO (12:38)
[2021-11-08] MEDS ORDERED: BENZ100C18 PO (12:38)
[2021-11-08] MEDS ORDERED: PROM5SYR PO (12:38)
[2021-11-08] MEDS ORDERED: MTP100TCR PO (12:38)
--- NOTE | 2021-11-08 12:39 | Discharge Summary ---
Discharge Summary Hospital Course Was the Problem List Reviewed?: Yes Problems/Dx: (1) Permanent atrial fibrillation (2) Elevated troponin I level Status: Acute (3) Chronic HFrEF (heart failure with reduced ejection fraction) (4) Cardiomyopathy (5) Mitral regurgitation (6) Primary hypertension (7) Mixed hyperlipidemia (8) Morbid obesity Status: Chronic Hospital Course Date of Admission: Nov 06, 2021 at 12:14 Admission Diagnosis : Family Physician/Provider: [facility] Date of Discharge: 11/08/21 Discharge Diagnosis: A. fib with RVR, medical noncompliance, cardiomyopathy Hospital Course: Brief hospital course after admitted for A. fib with RVR. Cardiology consulted and placed on Cardizem drip. Medication changes were successful and he was discharged in improved condition. Overall poor prognosis due to medical noncompliance Labs and Pending Lab Test: Laboratory Tests 11/07/21 15:43: Glucometer 192H 11/07/21 20:38: Glucometer 307H 11/08/21 01:00: Glucometer 174H 11/08/21 05:31: Glucometer 149H 11/08/21 05:32: White Blood Count 16.1H, Red Blood Count 4.43, Hemoglobin 13.7, Hematocrit 45, Mean Corpuscular Volume 101H, Mean Corpuscular Hemoglobin 31, Mean Corpuscular Hemoglobin Concent 31L, Red Cell Distribution Width 13.3, Platelet Count 253, Mean Platelet Volume 10.1, Immature Granulocyte % (Auto) 1, Neutrophils (%) (Auto) 85H, Lymphocytes (%) (Auto) 9L, Monocytes (%) (Auto) 6, Eosinophils (%) (Auto) 0, Basophils (%) (Auto) 0, Neutrophils # (Auto) 13.7H, Lymphocytes # (Auto) 1.4, Monocytes # (Auto) 0.9, Eosinophils # (Auto) 0.0, Basophils # (Auto) 0.0, Immature Granulocyte # (Auto) 0.1, Neutrophils % (Manual) 81, Lymphocytes % (Manual) 12, Monocytes % (Manual) 5, Band Neutrophils 2, Blood Morphology Comment NORMAL, Sodium Level 141, Potassium Level 4.8, Chloride Level 103, Carbon Dioxide Level 27, Anion Gap 11, Blood Urea Nitrogen 21H, Creatinine 1.07, Estimat Glomerular Filtration Rate 87, BUN/Creatinine Ratio 20, Glucose Level 160H, Calcium Level 9.0, Corrected Calcium 9.6, Total Bilirubin 0.5, Aspartate Amino Transf (AST/SGOT) 18, Alanine Aminotransferase (ALT/SGPT) 32, Alkaline Phosphatase 110, Total Protein 6.4, Albumin 3.3 11/08/21 11:12: Glucometer 148H Microbiology 11/06/21 Blood Culture - Preliminary, Resulted No growth Home Meds Active Tessalon Perles (Benzonatate) 100 Mg Capsule 200 Mg PO TID Prednisone 10 Mg Tab.ds.pk 10 Mg PO DAILY Take 4 tabs(40mg)daily,decrease by 1 tab(10MG)daily. Spironolactone 25 Mg Tablet 25 Mg PO DAILY Metoprolol Succinate 100 Mg Tab.er.24h 100 Mg PO DAILY Prometh-Codein 6.25-10 mg/5 ml (Promethazine HCl/Codeine) 5 Ml Syrup 5 Ml PO HS PRN Reported Proventil Hfa (Albuterol Sulfate) 6.7 Gm Hfa.aer.ad 2 Puff INH Q4H PRN Furosemide 40 Mg Tablet 40 Mg PO DAILY Tylenol Pm Ex-Strength Caplet (Acetaminophen/Diphenhydramine) 1 Each Tablet 3 Each PO HS Aspirin EC (Aspirin) 81 Mg Tablet.dr 81 Mg PO DAILY Atorvastatin Calcium 40 Mg Tablet 40 Mg PO DAILY Diltiazem 24Hr ER (Diltiazem HCl) 240 Mg Cap.er.24h 240 Mg PO DAILY Eliquis (Apixaban) 5 Mg Tablet 5 Mg PO BID Losartan Potassium 50 Mg Tablet 50 Mg PO DAILY Ferosul (Ferrous Sulfate) 325 Mg Tablet 325 Mg PO DAILY Fluticasone Propionate 16 Gm [place].susp 1 [place] NSEACH BID PRN Doxycycline Hyclate 100 Mg Capsule 100 Mg PO BID FILLED 10-30-2019 #20/10 DAY SUPPLY Albuterol Sulfate 2.5 Mg/3 Ml Vial.neb 3 Ml NEB Q8H PRN Assessment/Pt Instructions PCP in 1 week Discharge Planning: <30 minutes discharge planning Discharge Instructions Discharge Diet: No Restrictions Activity as Tolerated: Yes Discharge Physical Examination Vital Signs Vital Signs Date Time Temp Pulse Resp B/P (MAP) Pulse Ox O2 Delivery O2 Flow Rate FiO2 11/08/21 11:09 35.8 96 22 112/82 (92) 95 Nasal Cannula 3.00 General Appearance: No Apparent Distress, WD/WN, Chronically ill, Obese Allergies: Coded Allergies: No Known Drug Allergies (Unverified , 09/26/19) Discharge Summary Date of Admission Nov 06, 2021 at 12:14 Date of Discharge Admission Diagnosis Assessment: Atrial fibrillation with rapid ventricular response Recent upper respiratory illness Medical noncompliance Cardiomyopathy Super morbid obesity Plan: Cardizem drip Supportive care Cardiology Discharge Diagnosis Assessment: Atrial fibrillation with rapid ventricular response Recent upper respiratory illness Medical noncompliance Cardiomyopathy Super morbid obesity Plan: Cardizem drip Supportive care Cardiology 11/07/2021: Cardizem drip DC Supportive care Transfer to fourth floor (1) Permanent atrial fibrillation Assessment & Plan: He has had atrial fibrillation for quite some time and I suspect at this point has permanent atrial fibrillation. He reports that he has been taking diltiazem at home. However, given his previous moderate left ventricular systolic dysfunction, diltiazem is not the best medication for rate control in this category of patients. I will start him on metoprolol succinate. After he received the first oral dose, we can attempt to wean off the diltiazem infusion. He should continue on apixaban for stroke prophylaxis. (2) Elevated troponin I level Status: Acute Assessment & Plan: He has a marginally elevated troponin level. This is in the setting of atrial fibrillation with a rapid ventricular rate. He had a probable type II non-ST elevation myocardial infarction due to supply/demand mismatch from the tachycardia. There are no ischemic changes on his electrocardiogram. He will need to be managed medically with beta-chalino and statin medication. He far exceeds the weight limit on our cardiac catheterization table. (3) Chronic HFrEF (heart failure with reduced ejection fraction) Assessment & Plan: His BNP was in a normal range and chest x-ray did not show any overt pulmonary edema. I suspect his worsening shortness of breath may have been due to the tachycardia and does not represent decompensation of his heart failure. As above, I recommend stopping his diltiazem which he was taking at home and changing this over to metoprolol succinate. I will see how his blood pressure response to this medication before placing him on losartan which she h ad been taking in the past but is not currently taking at home. I will start him on spironolactone today. (4) Cardiomyopathy Assessment & Plan: He had moderate left ventricular systolic dysfunction on his echocardiogram from 2019 as outlined above. At some point he should have a follow-up echocardiogram. I will wait until we have his symptoms under better control and then have him undergo a follow-up echocardiogram. I will hold off on doing this until Tuesday unless he appears ready to discharge on Tuesday. If he is ready to discharge on Tuesday, I will have the chemical technician come in tomorrow to do the study. I am concerned that once he goes home, he will not return for follow-up visits. This has been the case in the past. (5) Mitral regurgitation Assessment & Plan: He also had mild to moderate mitral regurgitation on his most recent echocardiogram. We can reassess this on his follow-up echocardiogram outlined above. I do not see any urgency to this and therefore, would rather not call the chemical technician in today to do a routine follow-up study. (6) Primary hypertension Assessment & Plan: He was taking diltiazem in the past which I will change management manager to metoprolol. If he tolerates this, I will also add losartan. (7) Mixed hyperlipidemia Assessment & Plan: Continue atorvastatin. I added a lipid panel to his previous blood work. (8) Morbid obesity Status: Chronic Assessment & Plan: He needs to seriously consider having bariatric surgery. He is actually not opposed to this and has been discussing this with his primary provider. KRAIN SAUNDERS DO Nov 08, 2021 12:39
--- NOTE | 2021-11-10 02:05 | Physician Query Clarification ---
PQ-Intro New Diagnosis Admission/Discharge Admission Date: Nov 06, 2021 at 12:14 Discharge Date: Nov 08, 2021 at 14:10 KARIN Mcdermott DO The medical record reflects the following clinical scenario: History/Risk Factors: [list no more than 2] Clinical Findings: [list no more than 2] Treatment: [list no more than 2] Question: What condition best reflects the above clinical scenario? Please document a response in the Progress Noter or Discharge Summary. 1. [list #1 diagnosis choice/organism] 2. [list the diagnosis/condition already documented] 3. Other, with explanation of the clinical findings. 4. Clinically undetermined, no explanation for the clinical findings. Please remember a lack of response to the above will prompt a phone page by CDI/Coding staff. In responding to this query, please exercise your independent professional ju dgment. The purpose of this communication is to more accurately reflect the complexity of your patients condition. The fact that a question is asked does not imply that any particular answer is desired or expected. Thank you for your timely response to this clarification. Requestors name: [ ] Phone # [ ] THIS PHYSICIAN QUERY FORM IS A PERMANENT PART OF THE MEDICAL RECORD STACI MALIK Nov 10, 2021 02:05
== END 2021-11-08 14:10 | disposition home or self-care (01) | DRG 280 ==
LOC: EDUNIT# 10:25 → ER 10:27 → ICU 12:14 → 4TH 11-07 14:29
PROVIDERS: ADMIT Internal Medicine; ATTEND Internal Medicine
DX: I48.21 Permanent atrial fibrillation (principal); I21.A1 Myocardial infarction type 2; J96.21 Acute and chronic respiratory failure with hypoxia; I50.22 Chronic systolic (congestive) heart failure; Z68.44 Body mass index [BMI] 60.0-69.9, adult; I42.9 Cardiomyopathy, unspecified; I34.0 Nonrheumatic mitral (valve) insufficiency; I11.0 Hypertensive heart disease with heart failure; E78.2 Mixed hyperlipidemia; E66.01 Morbid (severe) obesity due to excess calories; Z91.14 Patient's other noncompliance with medication regimen; Z20.822 Contact with and (suspected) exposure to COVID-19; Z79.82 Long term (current) use of aspirin; Z79.899 Other long term (current) drug therapy; F17.210 Nicotine dependence, cigarettes, uncomplicated; E78.00 Pure hypercholesterolemia, unspecified; G47.33 Obstructive sleep apnea (adult) (pediatric); Z99.81 Dependence on supplemental oxygen
CPT/HCPCS: 36415; 71045; 80053; 80061; 80306; 81000; 82805; 82947; 83036; 83605; 83735; 83880; 84145; 84443; 84484; 85007; 85025; 85027; 85610; 85730; 86141; 87040; 87088; 87636; 93005; 93306; 94640; 94760; 94761; G0378

== ENCOUNTER 2021-11-25 12:10 | Emergency (ER) | payer MEDICAID ==
[~2021-11-25] VITALS: Ht 177.8 cm; Wt 226.7 kg
[~2021-11-25 12:10] MED LIST changes: +ALBU2.5V4 NEB; +BENZ100C18 PO; +DILT240C91 PO; +DOXY100C5 PO; +FERR325T24 PO; +FLUT16SP22 NSEACH; +LOSA50TA63 PO; +MTP100TCR PO; +PRED10TA22 PO; +PROM5SYR PO; +RT-ALBUINH INH; +SPIR25TA5 PO
[2021-11-25] MEDS ORDERED: methylPREDNISolone 125 MG (Solu-MEDROL) VIAL IV STA (12:34)
[2021-11-25] MEDS ORDERED: RT-ALBUTEROL/IPRATROPIUM 3 ML (DUONEB) VIAL INH ONE (12:45)
--- NOTE | 2021-11-25 12:53 | ED Respiratory ---
General Chief Complaint: Respiratory Problems Stated Complaint: COUGH,SOB Nursing Triage Note: PT AMB TO [facility] WITH COMPLAINT OF SOA, COUGH X1 MONTH. WAS ADMITTED TO THE HOSPITAL IN BEGINNING OF NOVEMBER. DENIES CP. Source: patient Exam Limitations: no limitations History of Present Illness Date Seen by Provider: Nov 25, 2021 Time Seen by Provider: 12:29 Initial Comments The patient presents to the ER by private conveyance from home with chief complaint that he has had a couple days progressively worsening shortness of air. He states he takes his breathing treatments with no improvement. He denies a history of COPD and only a distant history when he was a teenager of smoking. Last used methamphetamines was a year and a half ago. He states he been taking his Lasix 20 mg a day as prescribed and has been producing a normal complement of urine. His swelling is not any worse than usual. He does have a history of heart failure. He is on Eliquis with a history of atrial fibrillation. He recently got a hospital for a COPD exacerbation. He is not on steroids for about 1 to 2 weeks now. He does not have a history of diabetes. He is not having any pain anywhere nausea fevers chills or productive cough. He only occasionally drinks alcohol. Allergies and Home Medications Allergies Coded Allergies: No Known Drug Allergies (Unverified , 09/26/19) Patient Home Medication List Home Medication List Reviewed: Yes Acetaminophen/Diphenhydramine (Tylenol Pm Ex-Strength Caplet) 1 Each Tablet, 3 EACH PO HS, (Reported) Entered as Reported by: MAINE LAIRD on 11/06/21 143 Albuterol Sulfate (Albuterol Sulfate) 2.5 Mg/3 Ml Vial.neb, 3 ML NEB Q8H PRN for SHORTNESS OF BREATH, (Reported) Entered as Reported by: MAINE LAIRD on 11/06/21 143 Albuterol Sulfate (Proventil Hfa) 6.7 Gm Hfa.aer.ad, 2 PUFF INH Q4H PRN for SHORTNESS OF BREATH, (Reported) Entered as Reported by: MAINE LAIRD on 11/06/21 143 Apixaban (Eliquis) 5 Mg Tablet, 5 MG PO BID, (Reported) Entered as Reported by: MAINE LAIRD on 11/06/21 143 Aspirin (Aspirin EC) 81 Mg Tablet.dr, 81 MG PO DAILY, (Reported) Entered as Reported by: MAINE LAIRD on 11/06/21 1434 Atorvastatin Calcium (Atorvastatin Calcium) 40 Mg Tablet, 40 MG PO DAILY, (Reported) Entered as Reported by: MAINE LAIRD on 11/06/21 1434 Benzonatate (Tessalon Perles) 100 Mg Capsule, 200 MG PO TID Prescribed by: KARIN SAUNDERS on 11/08/21 1238 Ferrous Sulfate (Ferosul) 325 Mg Tablet, 325 MG PO DAILY, (Reported) Entered as Reported by: MAINE LAIRD on 11/06/21 1434 Fluticasone Propionate (Fluticasone Propionate) 16 Gm [place].susp, 1 SPRAY NSEACH BID PRN for CONGESTION, (Reported) Entered as Reported by: MAINE LAIRD on 11/06/21 1434 Furosemide (Furosemide) 40 Mg Tablet, 40 MG PO DAILY, (Reported) Entered as Reported by: MAINE LAIRD on 11/06/21 1434 Losartan Potassium (Losartan Potassium) 50 Mg Tablet, 50 MG PO DAILY, (Reported) Entered as Reported by: MAINE LAIRD on 11/06/21 1434 Metoprolol Succinate (Metoprolol Succinate) 100 Mg Tab.er.24h, 100 MG PO DAILY Prescribed by: KARIN SAUNDERS on 11/08/21 1238 Prednisone (Prednisone) 10 Mg Tab.ds.pk, 10 MG PO DAILY Prescribed by: KARIN SAUNDERS on 11/08/21 1238 Promethazine HCl/Codeine (Prometh-Codein 6.25-10 mg/5 ml) 5 Ml Syrup, 5 ML PO HS PRN for COUGH Prescribed by: KARIN SAUNDERS on 11/08/21 1238 Spironolactone (Spironolactone) 25 Mg Tablet, 25 MG PO DAILY Prescribed by: KARIN SAUNDERS on 11/08/21 1238 Review of Systems Review of Systems Constitutional: No chills, No diaphoresis EENTM: No ear discharge, No ear pain Respiratory: No cough, No short of breath Cardiovascular: No chest pain, No edema Gastrointestinal: No abdominal pain, No constipation, No diarrhea, No nausea, No vomiting Genitourinary: No discharge, No dysuria Musculoskeletal: No back pain, No joint pain Skin: No pruritus, No rash Psychiatric/Neurological: Denies Headache, Denies Numbness All Other Systems Reviewed Negative Unless Noted: Yes Past Mxamtlp-Unciql-Rldpou Hx Patient Social History Tobacco Use?: No Use of E-Cig and/or Vaping dev: No Substance use?: No Additional substance use comme: PAST METH HX Alcohol Use?: No Pt feels they are or have been: No Immunizations Up To Date First/Initial COVID19 Vaccinat: 02/25 Second COVID19 Vaccination Jf: 05/28 Third COVID19 Vaccination Date: 02/25 Seasonal Allergies Seasonal Allergies: No Past Medical History Surgeries: Yes (RIGHT ARM SKIN GRAFT--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) Orthopedic Respiratory: Yes (OBESITY HYPOVENTILATION; ) Pneumonia, Sleep Apnea Currently Using CPAP: No Cardiac: Yes (CHF; VARICOSE VEINS; NSTEMI 05/18/20 DUE TO CHF/RESP FAILURE) Atrial Fibrillation, Cardiomyopathy, Chronic Edema/Swelling, High Cholesterol, Hypertension, Peripheral Vascular Neurological: No Genitourinary: No Gastrointestinal: No Musculoskeletal: Yes (RIGHT ARM INJURY WITH SKIN GRAFTS-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 oz. kg; 71.00 BMI Method: General Appearance: WD/WN, no apparent distress Eyes: Bilateral Eye Normal Inspection, Bilateral Eye PERRL, Bilateral Eye EOMI HEENT: PERRL/EOMI, pharynx normal Neck: full range of motion, supple, normal inspection Respiratory: respiratory distress (Mild wheezing auscultated, 24 to 28 breaths/min, no Rales or productive cough noted. 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 II-XII nml as tested, alert, normal mood/affect, oriented x 3 Skin: warm/dry Progress/Results/Core Measures Suspected Sepsis SIRS Temperature: Pulse: 136 Respiratory Rate: 30 Laboratory Tests 11/25/21 13:19: White Blood Count 9.6 Blood Pressure 152 /124 Mean: 133 Laboratory Tests 11/25/21 13:19: Creatinine 1.18, Platelet Count 241, Total Bilirubin 0.7 Results/Orders Lab Results Laboratory Tests Test 11/25/21 12:46 11/25/21 13:19 Range/Units Blood Gas Puncture Site L RAD Blood Gas Patient Temperature 35.3 Arterial Blood pH 7.42 7.37-7.43 Arterial Blood Partial Pressure CO2 43 35-45 MMHG Arterial Blood Partial Pressure O2 54 L 79-93 MMHG Arterial Blood HCO3 28 H 23-27 MMOL/L Arterial Blood Total CO2 29.8 21.0-31.0 MMOL/L Arterial Blood Oxygen Saturation 93 L 94-100 % Arterial Blood Base Excess 3.8 H -2.5-2.5 MMOL/L Carlos Test YES-POS Blood Gas Ventilator Setting NO Blood Gas Inspired Oxygen ROOM AIR White Blood Count 9.6 4.3-11.0 10^3/uL Red Blood Count 4.37 4.30-5.52 10^6/uL Hemoglobin 13.6 13.3-17.7 g/dL Hematocrit 44 40-54 % Mean Corpuscular Volume 102 H 80-99 fL Mean Corpuscular Hemoglobin 31 25-34 pg Mean Corpuscular Hemoglobin Concent 31 L 32-36 g/dL Red Cell Distribution Width 13.9 10.0-14.5 % Platelet Count 241 130-400 10^3/uL Mean Platelet Volume 10.0 9.0-12.2 fL Immature Granulocyte % (Auto) 0 % Neutrophils (%) (Auto) 67 42-75 % Lymphocytes (%) (Auto) 19 12-44 % Monocytes (%) (Auto) 8 0-12 % Eosinophils (%) (Auto) 6 0-10 % Basophils (%) (Auto) 1 0-10 % Neutrophils # (Auto) 6.4 1.8-7.8 10^3/uL Lymphocytes # (Auto) 1.8 1.0-4.0 10^3/uL Monocytes # (Auto) 0.7 0.0-1.0 10^3/uL Eosinophils # (Auto) 0.6 H 0.0-0.3 10^3/uL Basophils # (Auto) 0.1 0.0-0.1 10^3/uL Immature Granulocyte # (Auto) 0.0 0.0-0.1 10^3/uL D-Dimer 0.37 0.00-0.49 UG/ML Sodium Level 141 135-145 MMOL/L Potassium Level 4.4 3.6-5.0 MMOL/L Chloride Level 101 98-107 MMOL/L Carbon Dioxide Level 30 21-32 MMOL/L Anion Gap 10 5-14 MMOL/L Blood Urea Nitrogen 13 7-18 MG/DL Creatinine 1.18 0.60-1.30 MG/DL Estimat Glomerular Filtration Rate 77 BUN/Creatinine Ratio 11 Glucose Level 99 70-105 MG/DL Calcium Level 9.3 8.5-10.1 MG/DL Corrected Calcium 9.6 8.5-10.1 MG/DL Total Bilirubin 0.7 0.1-1.0 MG/DL Aspartate Amino Transf (AST/SGOT) 26 5-34 U/L Alanine Aminotransferase (ALT/SGPT) 32 0-55 U/L Alkaline Phosphatase 113 40-136 U/L Troponin I < 0.028 <0.028 NG/ML C-Reactive Protein High Sensitivity 3.76 H 0.00-0.50 MG/DL B-Type Natriuretic Peptide 274.0 H <100.0 PG/ML Total Protein 6.7 6.4-8.2 GM/DL Albumin 3.6 3.2-4.5 GM/DL My Orders Orders - XAVIER RHOADES Ed Iv/Invasive Line Start (11/25/21 12:34) Cbc With Automated Diff (11/25/21 12:34) Comprehensive Metabolic Panel (11/25/21 12:34) Hs C Reactive Protein (11/25/21 12:34) Fibrin Degradation Products (11/25/21 12:34) Chest 1 View, Ap/Pa Only (11/25/21 12:34) Bnp [place] (11/25/21 12:34) Troponin I [place] (11/25/21 12:34) Continuous Ekg Monitoring (11/25/21 12:34) Ekg Tracing (11/25/21 12:34) Covid 19 Inhouse Test (11/25/21 12:34) Influenza A And B By Pcr (11/25/21 12:34) Albuterol/Ipra Inhalation Soln (Duoneb I (11/25/21 12:45) Methylprednisolone Sod Succ (Solu-Medrol (11/25/21 12:34) Svn Small Volume Nebulizer (11/25/21 12:34) Arterial Blood Gas (11/25/21 12:48) Diltiazem Injection (Cardizem Injection) (11/25/21 14:30) Metoprolol Tartrate Injection (Lopressor (11/25/21 14:30) Diltiazem Cd 24 Hr Capsule (Cardizem Cd (11/25/21 15:15) Diltiazem Injection (Cardizem Injection) (11/25/21 15:30) Medications Given in ED Current Medications Medications Dose Ordered Sig/Natalie Route Start Time Stop Time Status Last Admin Dose Admin Albuterol/ Ipratropium 3 ml ONCE ONCE INH 11/25/21 12:45 11/25/21 12:46 DC 11/25/21 12:53 3 ML Diltiazem HCl 20 mg ONCE ONCE IVP 11/25/21 15:30 11/25/21 15:31 DC 11/25/21 15:26 20 MG Diltiazem HCl 240 mg ONCE ONCE PO 11/25/21 15:15 11/25/21 15:16 DC 11/25/21 15:26 240 MG Metoprolol Tartrate 5 mg ONCE ONCE IV 11/25/21 14:30 11/25/21 14:31 DC 11/25/21 14:29 5 MG Vital Signs/I&O 11/25/21 11/25/21 11/25/21 12:27 12:27 12:54 Temp 35.3 Pulse 136 Resp 30 B/P (MAP) 152/124 (133) Pulse Ox 94 94 O2 Delivery Nasal Cannula Nasal Cannula Room Air O2 Flow Rate 2.00 2.00 0 Capillary Refill : Less Than 3 Seconds Blood Pressure Mean: 133 Progress Note #1: Time: 13:04 Progress Note The ABG looks to be venous however it does give us some information that is not having a COPD exacerbation. Atrial fibrillation with RVR is possible as well as pneumonia etc. Will hold off some fluids until we see his BNP and then if everything else looks okay will address his A. fib with RVR. Progress Note #2: Time: 14:27 Progress Note Patient states he is breathing a little better after the DuoNeb. His wheezing is gone. He is not working hard to breathe anymore. He is still having the tachycardia and seems to be in atrial fibrillation with rapid ventricular response. He does not seem to be an acute heart failure. We will give him 5 of IV metoprolol to try and slow his heart rate down if this does not work then will do some Cardizem and have medicine team look for an observation. Progress Note #3: Time: 15:06 Progress Note Metoprolol 5 mg IV brought his blood pressure down to respectable 124/80 and his heart rate remains 115-130. Were going to give him a 20 mg IV Cardizem and 240 mg p.o. after consultation with Dr. Cardoza, cardiology. If we can get his rate under control we will send him home with a prescription for 10 days and have him follow-up with his cello teacher. Progress Note #4: Time: 15:41 Progress Note Patient's heart rate is down to 100 seems to be working with a Cardizem [place] and I sent a prescription for that as well as some refills on his albuterol/ipratropium. ECG Initial ECG Impression Date: Nov 25, 2021 Initial ECG Impression Time: 12:34 Initial ECG Rate: 124 Initial ECG Rhythm: A Fib/Flutter Initial ECG Intervals: QT (494) Initial ECG Impression: Atrial Fibrillation w/RVR Initial ECG Comparisson: No Previous ECG Available Comment Atrial fibrillation with rapid ventricular response Diagnostic Imaging Diagonstic Imaging: Xray Plain Films/CT/US/NM/MRI: chest Comments [facility], [facility]. [place], [place] NAME: GOMESMATIAS Lasha MED REC#: [id number] PT STATUS: REG ER : 1975 PHYSICIAN: XAVIER RHOADES MD ADMIT DATE: 11/25/21/ER Signed Date of Exam:11/25/21 CHEST 1 VIEW, AP/PA ONLY HISTORY: Shortness of air. COMPARISON: 11/06/2021. TECHNIQUE: Frontal view of the chest. FINDINGS: There is stable marked cardiomegaly with central vascular congestion. No pleural effusion or pneumothorax is seen. No focal airspace consolidation is seen. IMPRESSION: Cardiomegaly with central vascular congestion. Dictated by: Dictated on workstation # [id number] Dict: 11/25/21 1339 Trans: 11/25/21 1403 [id number] Interpreted by: HARSHA CAST MD Electronically signed by: HARSHA CAST MD 11/25/21 1403 Reviewed: Reviewed by Me Departure Impression Primary Impression: Atrial fibrillation with rapid ventricular response Disposition: HOME, SELF-CARE Condition: Stable Departure-Patient Inst. Decision time for Depature: 15:41 Referrals: [facility] [place] ([place]Family) Primary Care Physician Patient Instructions: Medicines for Atrial Fibrillation Add. Discharge Instructions: Keep your follow-up appointment tomorrow with your doctor. Make a follow-up appointment with your cello teacher. You will need a refill of the Cardizem 240 mg from your doctors. Take Cardizem once a day to help keep your heart rate from going so fast and making you so short of breath as well as being so hard on your heart. Return to the ER promptly if you begin to experience chest pain, shortness of air not treated by your medications. If you are having coughing fits use your breathing treatments every 4 hours as needed. All discharge instructions reviewed with patient and/or family. Voiced understanding. Scripts Ipratropium/Albuterol Sulfate (Iprat-Albut 0.5-3(2.5) mg/3 ml) 0.5 Mg-3 Mg (2.5 Mg Base)/3 Ml Ampul.neb 3 ML IH Q4H PRN for SHORTNESS OF BREATH, #60 EACH 0 Refills Prov: XAVIER RHOADES 11/25/21 Diltiazem HCl (Cardizem Cd) 240 Mg Cap.er.24h 240 MG PO DAILY for 14 Days, #14 CAP 0 Refills Prov: XAVIER RHOADES 11/25/21 XAVIER RHOADES Nov 25, 2021 12:53
[2021-11-25 12:54] LABS: ABG BASE EXCESS 3.8 MMOL/L (-2.5-2.5); ABG OXYGEN SATURATION 93 % (94-100); ABG PCO2 43 MMHG (35-45); ABG PH 7.42 (7.37-7.43); ABG PO2 54 MMHG (79-93); ABG TCO2 29.8 MMOL/L (21.0-31.0)
[2021-11-25 12:55] LABS: ALLENS TEST YES-POS; INSPIRED O2 ROOM AIR; PATIENT TEMP 35.3; VENTILATOR NO
[2021-11-25 13:25] LABS: BASOPHILS # (AUTO) 0.1 10^3/uL (0.0-0.1); BASOPHILS % (AUTO) 1 % (0-10); EOSINOPHILS # (AUTO) 0.6 10^3/uL (0.0-0.3); EOSINOPHILS % (AUTO) 6 % (0-10); HEMATOCRIT 44 % (40-54); HEMOGLOBIN 13.6 g/dL (13.3-17.7); LYMPHOCYTES # (AUTO) 1.8 10^3/uL (1.0-4.0); LYMPHOCYTES % (AUTO) 19 % (12-44); MEAN CORPUSCULAR HEMOGLOBIN 31 pg (25-34); MEAN CORPUSCULAR HGB CONC 31 g/dL (32-36); MEAN CORPUSCULAR VOLUME 102 fL (80-99); MONOCYTES # (AUTO) 0.7 10^3/uL (0.0-1.0); MONOCYTES % (AUTO) 8 % (0-12); NEUTROPHILS # (AUTO) 6.4 10^3/uL (1.8-7.8); NEUTROPHILS % (AUTO) 67 % (42-75); PLATELET COUNT 241 10^3/uL (130-400); WHITE BLOOD COUNT 9.6 10^3/uL (4.3-11.0)
[2021-11-25 13:33] LABS: ALBUMIN 3.6 GM/DL (3.2-4.5); CHLORIDE 101 MMOL/L (98-107); POTASSIUM 4.4 MMOL/L (3.6-5.0); SODIUM 141 MMOL/L (135-145)
[2021-11-25 13:34] LABS: CALCIUM 9.3 MG/DL (8.5-10.1)
[2021-11-25 13:36] LABS: GLUCOSE 99 MG/DL (70-105); TOTAL PROTEIN 6.7 GM/DL (6.4-8.2)
[2021-11-25 13:37] LABS: BILIRUBIN,TOTAL 0.7 MG/DL (0.1-1.0); CARBON DIOXIDE 30 MMOL/L (21-32)
[2021-11-25 13:39] LABS: ALKALINE PHOSPHATASE 113 U/L (40-136); CREATININE SERUM 1.18 MG/DL (0.60-1.30); GFR ESTIMATED 77
[2021-11-25 13:40] LABS: BUN/CREATININE RATIO 11
--- NOTE | 2021-11-25 13:41 | Diagnostic Imaging Report ---
HISTORY: Shortness of air. COMPARISON: 11/06/2021. TECHNIQUE: Frontal view of the chest. FINDINGS: There is stable marked cardiomegaly with central vascular congestion. No pleural effusion or pneumothorax is seen. No focal airspace consolidation is seen. IMPRESSION: Cardiomegaly with central vascular congestion. Dictated by: Dictated on workstation # [id number]
[2021-11-25 13:42] LABS: ALANINE AMINOTRANSFERASE 32 U/L (0-55)
[2021-11-25] MEDS ORDERED: meTOprolol 5 MG/5 ML (LOPRESSOR) VIAL IV ONE (14:30)
[2021-11-25] MEDS ORDERED: DILT240C86 PO (15:48)
[2021-11-25] MEDS ORDERED: IPRA3AMP31 IH (15:48)
[2021-11-25 16:04] VITALS: BP 112/79
== END 2021-11-25 16:04 | disposition home or self-care (01) ==
LOC: EDUNIT# 12:10 → ER 12:11
DX: I48.20 Chronic atrial fibrillation, unspecified (principal); E66.01 Morbid (severe) obesity due to excess calories; Z68.45 Body mass index [BMI] 70 or greater, adult; Z20.822 Contact with and (suspected) exposure to COVID-19; Z79.01 Long term (current) use of anticoagulants
CPT/HCPCS: 36415; 71045; 80053; 82805; 83880; 84484; 85025; 85379; 86141; 87636; 93005; 94640